=== PATIENT | female | born 1940 | race Caucasian/White ===

== ENCOUNTER 2020-06-13 19:03 | Inpatient (IN) | payer MEDICARE, SELFPAY ==
--- NOTE | 2020-06-13 | ECG_ITS ---
Test Reason : CHEST PAIN Blood Pressure : / mmHG Vent. Rate : 101 BPM Atrial Rate : 101 BPM P-R Int : 142 ms QRS Dur : 076 ms QT Int : 358 ms P-R-T Axes : 066 -62 042 degrees QTc Int : 464 ms Sinus tachycardia Pulmonary disease pattern Left anterior fascicular block Abnormal ECG When compared with ECG of 18-JUN-2005 12:26, Vent. rate has increased BY 41 BPM Left anterior fascicular block is now Present QT has lengthened Referred By: Generic ED Physician Electronically Signed By:ALDAIR DENSON MD
[2020-06-13 19:11] VITALS: BP 138/77; PULSE 100; RESP 18; O2SAT 98; BMI 21.2
[2020-06-13 22:51] VITALS: BP 148/89; PULSE 98; RESP 20; O2SAT 98
[2020-06-14] VITALS (9 sets, daily range): BP systolic 119–158; BP diastolic 58–77; PULSE 77–100; RESP 14–18; TEMP 36.3–37.2; O2SAT 92–98
--- NOTE | 2020-06-14 00:27 | PC.NURSE ---
reports chest pain radiating to back. started 4pm. is pale and frail. awaits ed bed.
--- NOTE | 2020-06-14 01:52 | ED_ITS ---
HPI - Chest Pain General Chief Complaint: Chest Pain Stated Complaint: SOB Time Seen by Provider: 06/14/20 01:43 Source: patient Mode of arrival: ambulatory Limitations: no limitations History of Present Illness HPI narrative: Patient comes to emergency room complaining of back pain and chest pain. Patient states earlier today she had pain ?deep inside? she was not sure if it is her chest or her back. Patient states it has been constant since about 16:00. Patient thinks is mostly him around her shoulder blades. Patient denies any cardiac history or pulmonary history. Patient denies any injury MD complaint: other Related Data Previous Rx's Medication Instructions Recorded levothyroxine 75 mcg tablet 75 mcg PO DAILY 30 Days #30 tab 05/09/20 Allergies Allergy/AdvReac Type Severity Reaction Status Date / Time iodine Allergy Unknown Verified 01/21/18 00:00 Statins Support Allergy Unknown muscule px Uncoded 06/18/16 00:00 statins AdvReac Unknown muscle Uncoded 01/21/18 00:00 pains Review of Systems Review of Systems: Constitutional : No Weight loss, No Fever, No Chills, No Night Sweats, No Fatigue, No Malaise ENT/Mouth : No Hearing loss, No Ear Pain, No Nasal Congestion, No Sinus Pain, No Hoarseness, No sore throat, No Rhinorrhea, No Swallowing Difficulty Eyes: No Eye Pain, No Swelling, No Redness, No Foreign Body, No Discharge, No Vision Changes Cardiovascular : Patient complaining of possible chest pain versus back pain between her scapula, no shortness of breath, no palpitations Respiratory : No Cough, No Sputum, No Wheezing, No Smoke Exposure, No Dyspnea Gastrointestinal : No Nausea, No Vomiting, No Diarrhea, No Constipation, No abdominal Pain, No Hematochezia, No Melena Genitourinary : no irregular bleeding, No Dysuria, No Urinary Frequency, No Hematuria, No Urinary Incontinence, No Urgency, No Flank Pain, No Urinary Flow Changes, No Hesitancy Musculoskeletal : No joint pain, No Myalgias, No Joint Swelling Skin : No Skin Lesions, No rash Neuro : No Weakness, No Numbness, No Paresthesias, No Loss of Consciousness, No Dizziness, No Headache Psych : No Anxiety/Panic, No Depression, No SI/HI/AH/VH, No Social Issues, Heme/Lymph: No Bruising, No Bleeding,No Lymphadenopathy Endocrine : No Polyuria, No Polydipsia, No Temperature Intolerance [facility] Past Medical History Medical History (Updated 06/14/20 @ 06:41 by Tammi Carlos MD) Hypothyroid Social History Social History Advance Directives: No Physical Exam Vital Signs: Vital Signs: Last Vital Signs Temp 97.5 F 06/14/20 00:26 Pulse 100 06/14/20 00:26 Resp 18 06/14/20 00:26 BP 142/69 H 06/14/20 00:26 Pulse Ox 98 06/14/20 00:26 Body Mass Index 21.2 Appearance: Alert. Oriented X3. No acute distress. Eyes: Pupils equal, round and reactive to light. ENT: Pharynx normal. Neck: Normal inspection. Neck supple. No lymph nodes noted. No crepitus CVS: Normal heart rate and rhythm. Pulses normal. Normal S1 and S2, no reproducible chest pain Respiratory: No respiratory distress. Breath sounds normal. No Wheezing. No rales Abdomen: Soft and nontender. No rigidity. No distention. good BS x4 Back: No pain to palpation over the back Skin: Skin warm and dry. Normal skin color. Normal skin turgor. Extremities: No lower extremity edema. No lower extremity edema. No Lacerations. No Rash Neuro: Oriented X 3. No motor deficit. No sensory deficit. Moving all extermities. No slurred speech. Course Course Course Narrative: Patient's D-dimer is elevated, V/Q scan pending. Patient also has elevated creatinine, unclear if this is new or not. Patient continues having back pain, no chest pain at this time. Dry CT shows no obvious dis section. Patient more comfortable. PE protocol cannot be performed due to patient's elevated creatinine. I discussed the patient with our hospitalist, patient being admitted MDM - Chest Pain Lab Data Result diagrams: 06/14/20 02:13 06/14/20 02:13 Labs: Lab Results 06/14/20 06/14/20 06/14/20 Range/Units 02:09 02:13 02:13 WBC 9.7 (4.8-10.8) X10*3/uL RBC 3.54 L (4.20-5.50) X10*6/uL Hgb 10.7 L (12.0-16.0) g/dl Hct 32.5 L (37-47) % MCV 91.8 (80-98) fL MCH 30.2 (27.0-33.0) pg MCHC 32.9 (31.0-35.0) g/dl RDW 13.1 (11.0-16.0) % Plt Count 316 (160-400) X10*3/uL MPV 9.3 L (9.4-12.3) fL Immature Gran % (Auto) 3.9 H (0.0-0.4) % Neut % (Auto) 52.6 (45-73) % Lymph % (Auto) 28.2 (20-40) % [place] % (Auto) 12.4 H (2-11) % Eos % (Auto) 2.1 (0-4) % Baso % (Auto) 0.8 (0-2) % Lymph # (Auto) 2.7 (1.2-4.9) X10*3/uL [place] # (Auto) 1.2 (0.1-1.2) X10*3/uL Eos # (Auto) 0.2 (0.0-0.4) X10*3/uL Baso # (Auto) 0.1 (0.0-0.2) X10*3/uL Abs Immat Gran (auto) 0.38 H (0.00-0.03) X10*3/uL Absolute Neuts (auto) 5.1 (2.0-8.3) X10*3/uL Absolute Nucleated RBC 0.000 (0.0-0.012) X10*3/uL Nucleated RBC % (auto) 0.0 (0.0-0.2) /100WBC D-Dimer NG/ML Sodium 139 (135-145) mmol/L Potassium 4.1 (3.3-5.1) mmol/l Chloride 102 (96-108) mmol/L Carbon Dioxide 22 (22-29) mmol/L Anion Gap 19 (12-20) BUN 75 H (9-16) mg/dL Creatinine 3.64 H (0.5-1.4) mg/dL Estim Creat Clear Calc 10.8 Estimated GFR 12 Random Glucose 165 H (60-115) mg/dL Calcium 8.9 (8.4-10.2) mg/dL Troponin I High Sens (<3.5-17.0) ng/L Urine Color STRAW Urine Appearance CLEAR Urine pH 6.0 (5.0-8.0) Ur Specific [place] 1.010 (1.005-1.025) Urine Protein NEG (NEG-TRACE) MG/DL Urine Glucose (UA) 250 H (NEG) MG/DL Urine Ketones NEG (NEG) MG/DL Urine Blood TRACE (NEG) Urine Nitrite NEG (NEG) Ur Leukocyte Esterase TRACE H (NEG) Urine RBC 0-2 (0) /HPF Urine WBC 15-29 H (0-4) /HPF Ur Squamous Epith Cells 2+ /LPF Urine Bacteria TRACE /LPF 06/14/20 06/14/20 Range/Units 02:13 02:13 WBC (4.8-10.8) X10*3/uL RBC (4.20-5.50) X10*6/uL Hgb (12.0-16.0) g/dl Hct (37-47) % MCV (80-98) fL MCH (27.0-33.0) pg MCHC (31.0-35.0) g/dl RDW (11.0-16.0) % Plt Count (160-400) X10*3/uL MPV (9.4-12.3) fL Immature Gran % (Auto) (0.0-0.4) % Neut % (Auto) (45-73) % Lymph % (Auto) (20-40) % [place] % (Auto) (2-11) % Eos % (Auto) (0-4) % Baso % (Auto) (0-2) % Lymph # (Auto) (1.2-4.9) X10*3/uL [place] # (Auto) (0.1-1.2) X10*3/uL Eos # (Auto) (0.0-0.4) X10*3/uL Baso # (Auto) (0.0-0.2) X10*3/uL Abs Immat Gran (auto) (0.00-0.03) X10*3/uL Absolute Neuts (auto) (2.0-8.3) X10*3/uL Absolute Nucleated RBC (0.0-0.012) X10*3/uL Nucleated RBC % (auto) (0.0-0.2) /100WBC D-Dimer 1186 NG/ML Sodium (135-145) mmol/L Potassium (3.3-5.1) mmol/l Chloride (96-108) mmol/L Carbon Dioxide (22-29) mmol/L Anion Gap (12-20) BUN (9-16) mg/dL Creatinine (0.5-1.4) mg/dL Estim Creat Clear Calc Estimated GFR Random Glucose (60-115) mg/dL Calcium (8.4-10.2) mg/dL Troponin I High Sens 18.6 H (<3.5-17.0) ng/L Urine Color Urine Appearance Urine pH (5.0-8.0) Ur Specific [place] (1.005-1.025) Urine Protein (NEG-TRACE) MG/DL Urine Glucose (UA) (NEG) MG/DL Urine Ketones (NEG) MG/DL Urine Blood (NEG) Urine Nitrite (NEG) Ur Leukocyte Esterase (NEG) Urine RBC (0) /HPF Urine WBC (0-4) /HPF Ur Squamous Epith Cells /LPF Urine Bacteria /LPF Imaging Data Dry chest CT: Radiologist's impression: LUNGS: A cluster of tree-in-bud nodular opacities is noted within the inferior aspect of the right upper lobe near the minor fissure and major fissure. No additional opacities or pulmonary nodules are identified. Central airways are clear. Minimal dependent atelectasis in the lower lobes. No bronchiectasis or interstitial abnormalities. MEDIASTINUM: Calcific atherosclerosis is present in the thoracic aorta. Heart is normal in size. Calcific atherosclerosis is present in the coronary arteries. No mediastinal or hilar adenopathy. There is diffuse wall thickening in the esophagus with a small amount of esophageal fluid, potentially due to esophagitis. PLEURA: There is no pleural effusion. No pleural mass or thickening. AXILLA: No lymphadenopathy. UPPER ABDOMEN: Status post cholecystectomy with clips in the gallbladder fossa. No acute upper abdominal abnormalities. OSSEOUS STRUCTURES: Minimal degenerative disc disease in the midthoracic spine. No acute osseous findings. CT/CT chest wo con IMPRESSION: Mild calcific atherosclerosis in the thoracic aorta without aneurysmal dilatation. Sensitivity for dissection is limited without intravenous contrast. Tree-in-bud nodular opacities within the right lower lobe inferiorly, likely due to an infectious or inflammatory bronchiolitis. Marked diffuse esophageal wall thickening, potentially due to severe esophagitis. Recommend GI consultation for possible endoscopy on a nonemergent basis for further assessment and exclusion of an underlying lesion. ECG Data ECG #1: Attestation: I personally reviewed and interpreted this ECG as follows: (Sinus tachycardia, heart rate 101, no ST segment depressions or elevations, QTC 464) Discharge Plan Discharge Clinical Impression: Acute kidney injury, Elevated troponin, Dyspnea Patient Disposition: Admitted As Inpatient Prescriptions: No Action levothyroxine [Levoxyl] 75 mcg tablet 75 mcg PO DAILY 30 Days Qty: 30 RF: 4
--- NOTE | 2020-06-14 02:17 | PC.NURSE ---
PT TO ED WITH C/O UPPER BACK PAIN WHICH STARTED AROUND 1600 TODAY. PT CHG INTO GOWN AND MD AT BEDSIDE WITH PT.
[2020-06-14 02:19] LABS: MANUAL DIFF FLAG NO
[2020-06-14 02:20] LABS: Basophils Absolute Auto 0.1 X10*3/uL (0.0-0.2); Basophils Percent Auto 0.8 % (0-2); Eosinophils Absolute Auto 0.2 X10*3/uL (0.0-0.4); Eosinophils Percent Auto 2.1 % (0-4); Hematocrit 32.5 % (37-47); Hemoglobin 10.7 g/dl (12.0-16.0); Imm Gran Abs Auto 0.38 X10*3/uL (0.00-0.03); Imm Gran Pct Auto 3.9 % (0.0-0.4); Lymphocytes Absolute Auto 2.7 X10*3/uL (1.2-4.9); Lymphocytes Percent Auto 28.2 % (20-40); Mean Corpuscular HGB Conc 32.9 g/dl (31.0-35.0); Mean Corpuscular Hemoglobin 30.2 pg (27.0-33.0); Mean Corpuscular Volume 91.8 fL (80-98); Mean Platelet Volume 9.3 fL (9.4-12.3); Monocytes Absolute Auto 1.2 X10*3/uL (0.1-1.2); Monocytes Percent Auto 12.4 % (2-11); Neutrophils Absolute Auto 5.1 X10*3/uL (2.0-8.3); Neutrophils Percent Auto 52.6 % (45-73); Platelet Count 316 X10*3/uL (160-400); Red Blood Count 3.54 X10*6/uL (4.20-5.50); Red Cell Distribution Width 13.1 % (11.0-16.0); White Blood Count 9.7 X10*3/uL (4.8-10.8)
[2020-06-14] MEDS: methylPREDNISolone Sod Succ/PF 125 MG/2 ML VIAL IVPUSH (02:32)
[2020-06-14] MEDS: diphenhydrAMINE HCL 50 MG/ML VIAL IVPUSH (02:32)
[2020-06-14] MEDS: Famotidine/PF 20 MG/2 ML VIAL IVPUSH (02:33)
[2020-06-14] MEDS: 0.9 % Sodium Chloride 1,000 ML 999 ML IVCONT ×2 (02:33→03:30)
[2020-06-14 02:36] LABS: Glucose Urine UA 250 MG/DL (NEG); Leukocyte Esterase Urine TRACE (NEG); Nitrite Urine NEG (NEG); Urine Blood TRACE (NEG); Urine Ketones NEG (NEG); Urine Protein NEG (NEG-TRACE)
[2020-06-14 02:42] LABS: Anion Gap 19 (12-20); Blood Urea Nitrogen 75 mg/dL (9-16); Calcium 8.9 mg/dL (8.4-10.2); Carbon Dioxide 22 mmol/L (22-29); Chloride 102 mmol/L (96-108); Creatinine Clr Calc Pharmacy 10.8; Estimated Glomerular Filt Rate 12; Glucose Random 165 mg/dL (60-115); Potassium 4.1 mmol/l (3.3-5.1); Sodium 139 mmol/L (135-145)
[2020-06-14 02:45] LABS: Appearance Urine CLEAR; Color Urine STRAW
[2020-06-14 02:46] LABS: D Dimer 1186 NG/ML
[2020-06-14 02:50] LABS: Troponin-I High Sensitivity 18.6 ng/L (<3.5-17.0)
--- NOTE | 2020-06-14 02:59 | CT_ITS ---
EXAMINATION: CT CHEST WITHOUT CONTRAST CLINICAL INFORMATION: r/o dissection (IV contrast pending pre medication) COMPARISON: None TECHNIQUE: Multidetector volumetric CT imaging of the chest was done. Axial MIP volume rendering provided. Sagittal and coronal reformatted images were obtained. This CT examination was performed using dose optimization techniques as appropriate, variously including the following: *Automated exposure control *Adjustment of mA and/or kV according to patient size (this includes techniques or standardized protocols for targeted exams where dose is matched to indication/reason for exam; i.e. extremities or head) *Use of iterative reconstruction technique DLP: 205 mGy-cm FINDINGS: TRAILER STEERER: Clear lungs. LUNGS: A cluster of tree-in-bud nodular opacities is noted within the inferior aspect of the right upper lobe near the minor fissure and major fissure. No additional opacities or pulmonary nodules are identified. Central airways are clear. Minimal dependent atelectasis in the lower lobes. No bronchiectasis or interstitial abnormalities. MEDIASTINUM: Calcific atherosclerosis is present in the thoracic aorta. Heart is normal in size. Calcific atherosclerosis is present in the coronary arteries. No mediastinal or hilar adenopathy. There is diffuse wall thickening in the esophagus with a small amount of esophageal fluid, potentially due to esophagitis. PLEURA: There is no pleural effusion. No pleural mass or thickening. AXILLA: No lymphadenopathy. UPPER ABDOMEN: Status post cholecystectomy with clips in the gallbladder fossa. No acute upper abdominal abnormalities. OSSEOUS STRUCTURES: Minimal degenerative disc disease in the midthoracic spine. No acute osseous findings. CT/CT chest wo con IMPRESSION: Mild calcific atherosclerosis in the thoracic aorta without aneurysmal dilatation. Sensitivity for dissection is limited without intravenous contrast. Tree-in-bud nodular opacities within the right lower lobe inferiorly, likely due to an infectious or inflammatory bronchiolitis. Marked diffuse esophageal wall thickening, potentially due to severe esophagitis. Recommend GI consultation for possible endoscopy on a nonemergent basis for further assessment and exclusion of an underlying lesion.
--- NOTE | 2020-06-14 03:02 | NM_ITS ---
EXAMINATION: PULMONARY PERFUSION STUDY CLINICAL INFORMATION: Dyspnea, increased troponin. COMPARISON: No previous lung scan or recent radiographs are available for comparison. The diagnostic CT scan of chest dated 06/14/2020, the same date as this lung scan, the same date as this bone scan, is available for comparison. TECHNIQUE: Following the intravenous injection of 4.0 mCi Tc-99m MAA, an 8-view perfusion study was performed using a gamma scintillation camera. FINDINGS: No segmental perfusion defects are present. There is homogeneous distribution of activity bilaterally. There are no focal anatomic appearing perfusion defects present. The cardiac silhouette is prominent, but this corresponds to significant pericardial fat lateral to the left ventricular apex on the contemporaneous CT scan. NM/NM pul perfusion IMPRESSION: Normal radionuclide lung perfusion scan.
--- NOTE | 2020-06-14 03:05 | PC.NURSE ---
IV PLACED, LABS DRAWN TO LAB FOR EVAL. PT TO CT IN STRETCHER W/O DIFFICULTY. PT MEDICATED PER EMAR.
[2020-06-14 03:18] LABS: Bacteria Urine TRACE /LPF; RBC Urine 0-2 /HPF (0); Squamous Epithelial Cell Urine 2+ /LPF
[2020-06-14] MEDS: traMADoL HCL 50 MG TABLET PO (03:30)
--- NOTE | 2020-06-14 05:30 | PC.NURSE ---
PT RESTING IN STRETCHER IN NAD. WILL CONTINUE TO MONITOR PT.
--- NOTE | 2020-06-14 06:15 | SUR.OPER ---
PT RESTING IN NAD WILL CONTINUE TO MONITOR PT.
[2020-06-14 07:00] LABS: Basophils Absolute Auto 0.1 X10*3/uL (0.0-0.2); Basophils Percent Auto 0.7 % (0-2); Eosinophils Percent Auto 0.1 % (0-4); Hematocrit 30.6 % (37-47); Hemoglobin 10.1 g/dl (12.0-16.0); Imm Gran Abs Auto 0.32 X10*3/uL (0.00-0.03); Imm Gran Pct Auto 4.7 % (0.0-0.4); Lymphocytes Absolute Auto 0.6 X10*3/uL (1.2-4.9); Lymphocytes Percent Auto 9.4 % (20-40); MANUAL DIFF FLAG SCAN; Mean Corpuscular Hemoglobin 30.4 pg (27.0-33.0); Mean Corpuscular Volume 92.2 fL (80-98); Mean Platelet Volume 9.1 fL (9.4-12.3); Monocytes Absolute Auto 0.2 X10*3/uL (0.1-1.2); Monocytes Percent Auto 3.2 % (2-11); Neutrophils Absolute Auto 5.6 X10*3/uL (2.0-8.3); Neutrophils Percent Auto 81.9 % (45-73); Platelet Count 249 X10*3/uL (160-400); Red Blood Count 3.32 X10*6/uL (4.20-5.50); Red Cell Distribution Width 12.9 % (11.0-16.0); SCAN SMEAR FLAG 1; White Blood Count 6.8 X10*3/uL (4.8-10.8)
[2020-06-14 07:23] LABS: Troponin-I High Sensitivity 16.8 ng/L (<3.5-17.0)
[2020-06-14 07:43] LABS: SLIDE REVIEW VERIFIED
--- NOTE | 2020-06-14 11:13 | P.HPHOSP_ITS ---
History of Present Illness Date of Service: 06/14/20 Chief Complaint: Back pain 79 year old female with PMH of hypothyroidism and CKD 3, last Creatinine in 2018 was 2.8. She presented to ED with acute onset of back pain that is rather vague in the middle of the back. She also reported some chest pain and again without specificification. At the time I saw her she was not reporting any further chest pain and said the back pain was much better. She had a CT without evidence of aneurysm but showed some tree in buds finding that could represent infection. She also had VQ scan that has shown low probability PE. She has no shortness of breath, no fever , no loss of taste or smell. Covid test is pending. Of note, she was also noted to be in acute renal failure with a creatinine of 3.32. Her last creatinine known was from July 2017 and he was 2.84. Cardiac troponin was 18 and had repeated it was 16.8. EKG showed pulmonary disease pattern but no acute finding. UA is positive. Review of Systems Constitutional: Constitutional: Denies body ache(s), Denies chills and Denies fever(s) Cardiovascular: Cardiovascular: Denies chest pain Respiratory: Respiratory: Denies cough and Denies pain on inspiration Genitourinary: Genitourinary: Denies difficulty voiding [facility] Medical History Hypothyroid Stage 3 acute kidney injury Functional capacity: uses cane/walker Patient : No Pertinent family history: Not available Social History (Updated 06/14/20 @ 11:18 by Chuckie Chawla MD) Alcohol intake: never Smoking Status: Never smoker Use of substances other than those prescribed or required for medical reasons: No Advance Directives: No service: No Current occupational status: retired Meds Allergies Allergy/AdvReac Type Severity Reaction Status Date / Time iodine Allergy Unknown Verified 01/21/18 00:00 Statins Support Allergy Unknown muscule px Uncoded 06/18/16 00:00 statins AdvReac Unknown muscle Uncoded 01/21/18 00:00 pains Physical Exam Vital Signs and Narrative: Vital Signs: Last Vital Signs Temp 97.5 F 06/14/20 00:26 Pulse 98 06/14/20 08:31 Resp 18 06/14/20 08:31 BP 158/77 H 06/14/20 08:31 Pulse Ox 97 06/14/20 08:31 Body Mass Index 21.2 Const: General: cooperative, healthy appearing and no acute distress Orientation/consciousness: patient oriented x3 HENMT: Head: Yes normal to inspection and Yes normocephalic Eyes: Sclerae: sclerae normal Neck: Yes supple Resp: Effort & Inspection: normal respiratory effort and able to speak in complete sentences Auscultation: clear to auscultation bilaterally Cardio: Jugular venous distension: no JVD Rhythm: regular rhythm Heart sounds: S1 normal heart sound present and S2 normal heart sound present GI: Inspection: Yes normal to inspection Percussion: Yes normal to percussion : General: Yes no CVA tenderness Back/Spine/Pelvis: Back: no CVA tenderness Cervical Spine: normal cervical lordosis Skin: General skin exam: no rashes or lesions noted Neuro: General: patient oriented x3 Motor exam (neuro): Normal motor muscle tone present throughout Extrem: General: Yes normal to inspection Psych: Appearance: grossly normal Results Labs CBC and Chem 7: 06/14/20 06:47 06/14/20 02:13 Labs: Laboratory Results - last 24 hr 06/14/20 06/14/20 06/14/20 02:09 02:13 02:13 MCV 91.8 MCH 30.2 MCHC 32.9 RDW 13.1 Plt Count 316 MPV 9.3 L Immature Gran % (Auto) 3.9 H Neut % (Auto) 52.6 Lymph % (Auto) 28.2 [place] % (Auto) 12.4 H Eos % (Auto) 2.1 Baso % (Auto) 0.8 Lymph # (Auto) 2.7 [place] # (Auto) 1.2 Eos # (Auto) 0.2 Baso # (Auto) 0.1 Abs Immat Gran (auto) 0.38 H Absolute Neuts (auto) 5.1 Absolute Nucleated RBC 0.000 Nucleated RBC % (auto) 0.0 Smear Tech's Comments D-Dimer Anion Gap 19 Estim Creat Clear Calc 10.8 Estimated GFR 12 Random Glucose 165 H Calcium 8.9 Troponin I High Sens Urine Color STRAW Urine Appearance CLEAR Urine pH 6.0 Ur Specific [place] 1.010 Urine Protein NEG Urine Glucose (UA) 250 H Urine Ketones NEG Urine Blood TRACE Urine Nitrite NEG Ur Leukocyte Esterase TRACE H Urine RBC 0-2 Urine WBC 15-29 H Ur Squamous Epith Cells 2+ Urine Bacteria TRACE 06/14/20 06/14/20 06/14/20 02:13 02:13 06:47 MCV MCH MCHC RDW Plt Count MPV Immature Gran % (Auto) Neut % (Auto) Lymph % (Auto) [place] % (Auto) Eos % (Auto) Baso % (Auto) Lymph # (Auto) [place] # (Auto) Eos # (Auto) Baso # (Auto) Abs Immat Gran (auto) Absolute Neuts (auto) Absolute Nucleated RBC Nucleated RBC % (auto) Smear Tech's Comments D-Dimer 1186 Anion Gap Estim Creat Clear Calc Estimated GFR Random Glucose Calcium Troponin I High Sens 18.6 H 16.8 Urine Color Urine Appearance Urine pH Ur Specific [place] Urine Protein Urine Glucose (UA) Urine Ketones Urine Blood Urine Nitrite Ur Leukocyte Esterase Urine RBC Urine WBC Ur Squamous Epith Cells Urine Bacteria 06/14/20 06:47 MCV 92.2 MCH 30.4 MCHC 33.0 RDW 12.9 Plt Count 249 MPV 9.1 L Immature Gran % (Auto) 4.7 H Neut % (Auto) 81.9 H Lymph % (Auto) 9.4 L [place] % (Auto) 3.2 Eos % (Auto) 0.1 Baso % (Auto) 0.7 Lymph # (Auto) 0.6 L [place] # (Auto) 0.2 Eos # (Auto) 0.0 Baso # (Auto) 0.1 Abs Immat Gran (auto) 0.32 H Absolute Neuts (auto) 5.6 Absolute Nucleated RBC 0.000 Nucleated RBC % (auto) 0.0 Smear Tech's Comments VERIFIED D-Dimer Anion Gap Estim Creat Clear Calc Estimated GFR Random Glucose Calcium Troponin I High Sens Urine Color Urine Appearance Urine pH Ur Specific [place] Urine Protein Urine Glucose (UA) Urine Ketones Urine Blood Urine Nitrite Ur Leukocyte Esterase Urine RBC Urine WBC Ur Squamous Epith Cells Urine Bacteria Imaging Radiologist's Impressions: Impressions Chest CT 06/14/20 02:59 IMPRESSION: Mild calcific atherosclerosis in the thoracic aorta without aneurysmal dilatation. Sensitivity for dissection is limited without intravenous contrast. Tree-in-bud nodular opacities within the right lower lobe inferiorly, likely due to an infectious or inflammatory bronchiolitis. Marked diffuse esophageal wall thickening, potentially due to severe esophagitis. Recommend GI consultation for possible endoscopy on a nonemergent basis for further assessment and exclusion of an underlying lesion. Pulmonary Perfusion Imaging 06/14/20 03:02 IMPRESSION: Normal radionuclide lung perfusion scan. Assessment and Plan (1) Acute kidney injury: Status: Acute (2) Stage 3 acute kidney injury: Problem details: Last Creatinin in 2018 was 2.8 Status: Acute (3) Elevated troponin: Status: Acute (4) Pneumonia: Qualifiers: Laterality: right Lung location: lower lobe of lung Pneumonia type: due to unspecified organism Qualified Code(s): J18.9 - Pneumonia, unspecified organism Status: Acute (5) UTI (urinary tract infection): Status: Acute 79 year old female with hypothyroidism, CKD 3 who presented with some back pain and chest pain and noted to have ABHISHEK on CKD, cardiac work up negativ 1. Chest pain/back pain--cardiac work up negative with unremarkable troponin I. Pain resolved. No further work up at this time 2. Back unlcear etiology but seems to have resolved, consider Xray of back to rule facture 3. ABHISHEK on CKD--hydrated, repeat labs in the morning. 4. Hypothyroidism, continue Levothyroxine 5. DVT Prophylaxis: Heparin
[2020-06-14] MEDS: cefTRIAXone sodium 1 GM in 0.9 % Sodium Chloride 50 ML IV (11:14)
[2020-06-14] MEDS: 0.9 % Sodium Chloride 1,000 ML 125 ML IVCONT ×2 (11:21→21:59)
[2020-06-14] MEDS: Heparin Sodium,Porcine 5,000 UNIT/ML VIAL 5000 UNIT SUBCUT ×2 (11:31→21:58)
[2020-06-14] MEDS: Magnesium Hydrox/Alum Hydrox 30 ML ORAL.SUSP PO (11:32)
--- NOTE | 2020-06-14 11:33 | PC.NURSE ---
SUDDEN ONSET OF EPIGASTRIC PAIN, MD INFORMED, MAALOX GIVEN, SR ON MONITOR,
[2020-06-14 11:36] LABS: COVID-19 Test Negative (Negative); IDNOW Serial# 9DD0AD1C
[2020-06-14] MEDS: Azithromycin 500 MG in 0.9 % Sodium Chloride 250 ML 125 MG IV (12:40)
--- NOTE | 2020-06-14 16:45 | MHC.CM.PN ---
Met with patient in regards to discharge planning. Patient lives alone, ambulates with a cane and is active with [facility]. She receives meals on wheels from [facility] and a homemaker through [facility] [employer]. Patient is denying the need for additional services at this time. PCP verified as Dr Li. HCP completed, signed and witnessed. Original given to patient. Copy placed in chart. IMM explained and signed. Patient's son will transport her home when medically stable. Continue to monitor for d/c needs.
--- NOTE | 2020-06-14 16:58 | PC.NURSE ---
called floor to give report, will call back
[2020-06-15] VITALS (7 sets, daily range): BP systolic 129–153; BP diastolic 60–70; PULSE 62–94; RESP 16–18; TEMP 36.4–37.2; O2SAT 93–99
[2020-06-15] MEDS: 0.9 % Sodium Chloride 1,000 ML 125 ML IVCONT ×2 (05:24→14:09)
[2020-06-15 06:35] LABS: Anion Gap 13 (12-20); Blood Urea Nitrogen 66 mg/dL (9-16); Calcium 7.8 mg/dL (8.4-10.2); Carbon Dioxide 21 mmol/L (22-29); Chloride 113 mmol/L (96-108); Creatinine Clr Calc Pharmacy 12.6; Estimated Glomerular Filt Rate 14; Glucose Random 147 mg/dL (60-115); Potassium 4.3 mmol/l (3.3-5.1); Sodium 143 mmol/L (135-145)
[2020-06-15] MEDS: Levothyroxine Sodium 75 MCG TABLET PO (08:58)
[2020-06-15 09:09] LABS: Anion Gap 12 (12-20); Blood Urea Nitrogen 64 mg/dL (9-16); Carbon Dioxide 21 mmol/L (22-29); Chloride 115 mmol/L (96-108); Creatinine Clr Calc Pharmacy 12.5; Estimated Glomerular Filt Rate 14; Glucose Random 140 mg/dL (60-115); Potassium 4.2 mmol/l (3.3-5.1); Sodium 144 mmol/L (135-145)
[2020-06-15] MEDS: Acetaminophen 325 MG TABLET 650 MG PO (11:04)
[2020-06-15] MEDS: Heparin Sodium,Porcine 5,000 UNIT/ML VIAL 5000 UNIT SUBCUT ×2 (11:04→22:44)
[2020-06-15] MEDS: Famotidine/PF 20 MG/2 ML VIAL IVPUSH (11:30)
--- NOTE | 2020-06-15 16:11 | P.PNIM_ITS ---
Subjective Subjective Date of Service: 06/15/20 Interval History: uti, ? ckd Review of Systems Patient says she has throat pain and also having difficulty swallowing. She says the pain gets more when she eat anything in even with some deep b reathing. Denies any chest pain or shortness of breath or abdominal pain or fever or chills Physical Exam Vital Signs: Vital Signs: Last Vital Signs Temp 98.5 F 06/15/20 15:47 Pulse 81 06/15/20 15:47 Resp 18 06/15/20 15:47 BP 131/60 06/15/20 15:47 Pulse Ox 97 06/15/20 15:47 Body Mass Index 21.2 Physical exam: Constitutional: Not in acute distress Cvs: rrr, [id number] , no murmur res: clear to auscultation ,no rhonchii or wheezing abd: no rebound or guarding ,nt, bs present. ext pulses present , no cyanosis neuro: axo3 , nonfocal. Objective Data Current Medications Generic Name Dose Route Start Last Admin Trade Name Thompson PRN Reason Stop Dose Admin Acetaminophen 650 mg 06/14/20 11:11 06/15/20 11:04 Acetaminophen 325 Mg Tablet PO 650 mg Q6H PRN Administration Pain, Mild (Pain Scale 1-3) Benzocaine 1 lozenge 06/15/20 16:08 Throat Lozenge, Medicated Lozenge MUCOUS MEM Q2H PRN Sore Throat Famotidine 20 mg 06/15/20 11:15 06/15/20 11:30 Famotidine/Pf 20 Mg/2 Ml Vial IVPUSH 20 mg DAILY GORDO Administration Heparin Sodium (Porcine) 5,000 unit 06/14/20 11:15 06/15/20 11:04 Heparin Sodium,Porcine 5,000 Unit/Ml Vial SUBCUT 5,000 unit Q12H GORDO Administration Sodium Chloride 1,000 mls @ 125 mls/hr 06/14/20 10:15 06/15/20 14:09 Ns IVCONT 125 mls/hr .Q8H GORDO Administration Levothyroxine Sodium 75 mcg 06/15/20 09:00 06/15/20 08:58 Levothyroxine Sodium 75 Mcg Tablet PO 75 mcg DAILY@0600 GORDO Administration Lidocaine/Diphenhydr/Alum/Mg/Simeth 10 ml 06/15/20 16:08 Mag&Al/Sim/Diphenhyd/Lidocaine 10 Ml Oral.Susp PO Q6H PRN throat pain Protocol Pharmacy Consult 1 each 06/14/20 15:18 Consult Rx Perform Med Rec MISCELLANE ONCE PRN Consult order Sodium Chloride 3 ml 06/14/20 16:00 06/15/20 15:32 0.9 % Sodium Chloride Flush 3 Ml Syringe IVFLUSH Not Given QSHIFT GORDO Labs CBC & Chem 7: 06/14/20 06:47 06/15/20 08:05 Microbiology Microbiology Results: Microbiology 06/14/20 11:15 Blood - Venous Blood Culture - Preliminary No growth after 24 hours. 06/14/20 11:14 Blood - Venous Blood Culture - Preliminary No growth after 24 hours. 06/14/20 Unknown Urine clean catch - Clean Catch Midstream Urine Culture - Final No growth. Assessment and Plan (1) UTI (urinary tract infection): Status: Acute (2) Stage 3 acute kidney injury: Problem details: Last Creatinin in 2018 was 2.8 Status: Acute Assessment and Plan: 79 year old female with hypothyroidism, CKD 3 who presented with some back pain and chest pain and noted to have ABHISHEK on CKD, cardiac work up negativ 1. Chest pain/back pain-- denies any pain trops flat further cardiac work up outpatiently. 2. Back unlcear etiology but seems to have resolved. 3. ABHISHEK on CKD--hydrated, repeat labs in the morning. creatinine improving to 3.1 4. Hypothyroidism, continue Levothyroxine. 5. Odynophagia :? throat pain -will check for strep cepatstat, magic mouth wash. 5. DVT Prophylaxis: Heparin
[2020-06-15] MEDS: Lactated Ringers 1,000 ML 80 ML IVCONT (16:53)
[2020-06-15] MEDS: Mag&Al/Sim/Diphenhyd/Lidocaine 10 ML ORAL.SUSP PO (16:54)
[2020-06-16 04:00] VITALS: BP 139/63; PULSE 68; RESP 16; TEMP 36.4; O2SAT 96
[2020-06-16] MEDS: Lactated Ringers 1,000 ML 80 ML IVCONT ×2 (04:00→15:18)
[2020-06-16] MEDS: Levothyroxine Sodium 75 MCG TABLET PO (06:05)
[2020-06-16 07:08] LABS: Anion Gap 13 (12-20); Blood Urea Nitrogen 49 mg/dL (9-16); Calcium 7.9 mg/dL (8.4-10.2); Carbon Dioxide 19 mmol/L (22-29); Chloride 116 mmol/L (96-108); Creatinine Clr Calc Pharmacy 14.3; Estimated Glomerular Filt Rate 17; Glucose Random 132 mg/dL (60-115); Potassium 4.4 mmol/l (3.3-5.1); Sodium 144 mmol/L (135-145)
[2020-06-16 07:39] VITALS: BP 119/57; PULSE 64; RESP 18; TEMP 36.6; O2SAT 96
[2020-06-16] MEDS: Famotidine/PF 20 MG/2 ML VIAL IVPUSH (08:30)
[2020-06-16 09:05] VITALS: BP 119/57; PULSE 64; O2SAT 96
--- NOTE | 2020-06-16 10:01 | P.CONNP_ITS ---
History of Present Illness Reason for Consult Consult date: 06/16/20 Reason for consult: ABHISHEK CKD Chief Complaint Chief complaint: ABHISHEK, bronchitis History of Present Illness Narrative: 79 y/o wF adm with chest/back pain and noted ABHISHEK on CKD. Overall doing better and SCr decr close to bsl. H/O CKD goes back over 10 years and I saw her in office 2009 and here SCr then was 1.8 Etiol of CKD back then was presumed HTN givne neg sero w/u. Overall doing better and w/u for pain unrevealing and has subsided and now get ting d/c today. Review of Systems Review of Systems Patient says she has throat pain and also having difficulty swallowing. She says the pain gets more when she eat anything in even with some deep breathing. Denies any chest pain or shortness of breath or abdominal pain or fever or chills PMFSH Past Medical History Medical History Hypothyroid Stage 3 acute kidney injury Functional capacity: uses cane/walker Family History Pertinent family history: Not available Social History Social History (Updated 06/14/20 @ 11:18 by Chuckie Chawla MD) Household Members: None Housing: Apartment Do you presently have visiting nurse or other home services: No Alcohol intake: never Smoking Status: Never smoker Use of substances other than those prescribed or required for medical reasons: No Currently Displaying Signs/Symptoms of Drug Intoxication Withdrawal: No Have you been hit, kicked, punched, or otherwise hurt by someone within the past year? If so, by whom?: No Do you feel safe in your current relationship?: Yes Is there a partner from a previous relationship who is making you feel unsafe now?: No Are you made to feel afraid or neglected: No Advance Directives: No Do you have thoughts of harming others: None Do you have a plan to hurt others: No Plan Recently lost weight without trying: Unsure service: No Current occupational status: retired Meds Allergies Allergy/AdvReac Type Severity Reaction Status Date / Time iodine Allergy Unknown Verified 01/21/18 00:00 Statins Support Allergy Unknown muscule px Uncoded 06/18/16 00:00 statins AdvReac Unknown muscle Uncoded 01/21/18 00:00 pains Physical Exam Vital Signs: Last Vital Signs Temp 98 F 06/16/20 07:39 Pulse 64 06/16/20 09:05 Resp 18 06/16/20 07:39 BP 119/57 L 06/16/20 09:05 Pulse Ox 96 06/16/20 09:05 Body Mass Index 21.2 Const General: cooperative, healthy appearing and no acute distress Orientation/consciousness: patient oriented x3 HENMT Head: Yes normal to inspection and Yes normocephalic Eyes Sclerae: sclerae normal Neck Neck: Yes supple Resp Effort & Inspection: normal respiratory effort and able to speak in complete sentences Auscultation: clear to auscultation bilaterally Cardio Jugular venous distension: no JVD Rhythm: regular rhythm Heart sounds: S1 normal heart sound present and S2 normal heart sound present GI Inspection: Yes normal to inspection Percussion: Yes normal to percussion General: Yes no CVA tenderness Back/Spine/Pelvis Back: no CVA tenderness Cervical Spine: normal cervical lordosis Skin General skin exam: no rashes or lesions noted Neuro General: patient oriented x3 Motor exam (neuro): Normal motor muscle tone present throughout Extrem General: Yes normal to inspection Psych Appearance: grossly normal Results Lab Results Result Diagrams: 06/14/20 06:47 06/16/20 06:12 Lab results: Chemistry 06/14/20 06/15/20 06/15/20 02:13 05:27 08:05 Sodium 139 143 144 Potassium 4.1 4.3 4.2 Carbon Dioxide 22 21 L 21 L BUN 75 H 66 H 64 H Creatinine 3.64 H 3.13 H 3.14 H Calcium 8.9 7.8 L D 8.0 L 06/16/20 06:12 Sodium 144 Potassium 4.4 Carbon Dioxide 19 L BUN 49 H Creatinine 2.75 H Calcium 7.9 L Hematology 06/14/20 06/14/20 02:13 06:47 WBC 9.7 6.8 Hgb 10.7 L 10.1 L Plt Count 316 249 Urinalysis 06/14/20 02:09 Urine Color STRAW Urine Appearance CLEAR Urine pH 6.0 Ur Specific [place] 1.010 Urine Protein NEG Urine Glucose (UA) 250 H Urine Ketones NEG Urine Blood TRACE Urine Nitrite NEG Ur Leukocyte Esterase TRACE H Urine RBC 0-2 Urine WBC 15-29 H Ur Squamous Epith Cells 2+ Assessment and Plan (1) UTI (urinary tract infection): Status: Acute (2) Stage 3 acute kidney injury: Problem details: Last Creatinin in 2018 was 2.8 Status: Acute 79 year old female with hypothyroidism, ABHISHEK on CKD 4 who presented with some back pain and chest pain 1. ABHISHEK: resollved with IVF 2. CKD 4: bsl Scr 2.8; most likely HTN and/or age related loss of renal func 3. ABD/back pain 4. Anemia 5. MBD of CKD REC: I will arrange f/u as outpt re CKD; avoid NSAIDs
[2020-06-16 11:15] VITALS: BP 139/60; PULSE 72; RESP 18; TEMP 36.8; O2SAT 98
[2020-06-16] MEDS: Heparin Sodium,Porcine 5,000 UNIT/ML VIAL 5000 UNIT SUBCUT ×2 (12:01→23:59)
--- NOTE | 2020-06-16 15:43 | HO.PM.IMPN ---
Subjective Subjective Date of Service: 06/16/20 Interval History: odynopahgia -?, denies any chest pain or sob. Denies any abdominal pain or fever or chills or diarrhea. Physical Exam Vital Signs: Vital Signs: Last Vital Signs Temp 98.2 F 06/16/20 11:15 Pulse 72 06/16/20 11:15 Resp 18 06/16/20 11:15 BP 139/60 06/16/20 11:15 Pulse Ox 98 06/16/20 11:15 Body Mass Index 21.2 Physical exam: Constitutional: Not in acute distress Cvs: rrr, [id number] , no murmur res: clear to auscultation ,no rhonchii or wheezing abd: no rebound or guarding ,nt, bs present. Denies any back pain ext pulses present , no cyanosis neuro: axo3 , nonfocal. Objective Data Current Medications Generic Name Dose Route Start Last Admin Trade Name Freq PRN Reason Stop Dose Admin Acetaminophen 650 mg 06/14/20 11:11 06/15/20 11:04 Acetaminophen 325 Mg Tablet PO 650 mg Q6H PRN Administration Pain, Mild (Pain Scale 1-3) Benzocaine 1 lozenge 06/15/20 16:08 Throat Lozenge, Medicated Lozenge MUCOUS MEM Q2H PRN Sore Throat Famotidine 20 mg 06/15/20 11:15 06/16/20 08:30 Famotidine/Pf 20 Mg/2 Ml Vial IVPUSH 20 mg DAILY GORDO Administration Heparin Sodium (Porcine) 5,000 unit 06/14/20 11:15 06/16/20 12:01 Heparin Sodium,Porcine 5,000 Unit/Ml Vial SUBCUT 5,000 unit Q12H GORDO Administration Lactated Ringer's 1,000 mls @ 80 mls/hr 06/15/20 16:30 06/16/20 15:18 Lr IVCONT 80 mls/hr .[id number] GORDO Administration Levothyroxine Sodium 75 mcg 06/15/20 09:00 06/16/20 06:05 Levothyroxine Sodium 75 Mcg Tablet PO 75 mcg DAILY@0600 GORDO Administration Lidocaine/Diphenhydr/Alum/Mg/Simeth 10 ml 06/15/20 16:08 06/15/20 16:54 Mag&Al/Sim/Diphenhyd/Lidocaine 10 Ml Oral.Susp PO 10 ml Q6H PRN Administration throat pain Protocol Pharmacy Consult 1 each 06/14/20 15:18 Consult Rx Perform Med Rec MISCELLANE ONCE PRN Consult order Sodium Chloride 3 ml 06/14/20 16:00 06/16/20 15:17 0.9 % Sodium Chloride Flush 3 Ml Syringe IVFLUSH Not Given QSHIFT GORDO Labs CBC & Chem 7: 06/14/20 06:47 06/16/20 06:12 Microbiology Microbiology Results: Microbiology 06/14/20 11:15 Blood - Venous Blood Culture - Preliminary No growth after 48 hours. 06/14/20 11:14 Blood - Venous Blood Culture - Preliminary No growth after 48 hours. 06/14/20 Unknown Urine clean catch - Clean Catch Midstream Urine Culture - Final No growth. Assessment and Plan (1) UTI (urinary tract infection): Status: Acute (2) Stage 3 acute kidney injury: Problem details: Last Creatinin in 2018 was 2.8 Status: Acute Assessment and Plan: 79 year old female with hypothyroidism, CKD 3 who presented with some back pain and chest pain and noted to have ABHISHEK on CKD, cardiac work up negativ 1. Chest pain/back pain-- denies any pain trops flat further cardiac work up outpatiently. 2. Back unlcear etiology but seems to have resolved. 3. ABHISHEK on CKD--hydrated, repeat labs in the morning. creatinine improving to 3.1 4. Hypothyroidism, continue Levothyroxine. 5. Odynophagia :? throat pain -will check for strep cepatstat, magic mouth wash. ? bronchitis : will started ceftriaxone/azithrmycin also has diffuse esophagitis:continue famotidine 5. DVT Prophylaxis: Heparin
[2020-06-16 16:00] VITALS: BP 145/77; PULSE 72; RESP 18; TEMP 36.8; O2SAT 98
--- NOTE | 2020-06-16 17:54 | PM.EVENT ---
Event Note Date of Service: 06/16/20 Event Note: GI Consult-Full note dictated--Hx via patient, son, and EMR. Imp: 79 yo female with several months of odynophagia to solid food. She denies dysphagia, anorexia, weight loss, N/V, nor abdominal pain She denies any symptoms with liquids. Diff dx: Esophagitis/Esophageal ulcer/Neoplasm. Doubt infectious esophagitis. Rec: Upper endoscopy with MAC on Friday, 06/19, if she is still here. If she is discharged I will plan to arrange for an outpatient procedure. Change to po PPI. Full consent obtained from the patient and her son, Michael Green([phone]), including risks of bleeding and perforation. They were comfortable with this plan. Thanks
[2020-06-16] MEDS: Azithromycin 250 MG TABLET PO (18:17)
[2020-06-16] MEDS: Omeprazole 20 MG CAPSULE.DR PO (18:17)
[2020-06-16] MEDS: cefTRIAXone sodium 1 GM in 0.9 % Sodium Chloride 50 ML IV (18:17)
--- NOTE | 2020-06-16 18:57 | CONS_ITS ---
DATE OF SERVICE: 06/16/2020 REFERRING PHYSICIAN: Bertha Angeles MD REQUESTING PHYSICIAN: Bertha Angeles MD REASON FOR CONSULTATION: Odynophagia. HISTORY OF PRESENT ILLNESS: This has been obtained from the patient, her son, and the medical record. The patient is a 79-year-old female who was admitted here on June 14 for evaluation of some shortness of breath and back discomfort. She is presently being treated for possible pneumonia with IV antibiotics. Since admission here, she did report a several month history of odynophagia and which she will have pain any time she tries to eat anything solid. She describes the pain as being in the lower sternal area with every swallow of any type of solid foods such as bread or rice. She denies any difficulties with liquids. She denies any actual dysphagia, anorexia, nausea, nor vomiting. She reports that she has not lost any weight. The patient denies any history of heartburn. Up until the past several months, she was not having any particular GI complaints. She reports that her bowel movements have been chronically constipated, but without any hematochezia nor melena. She denies any abdominal pain, jaundice, nor weight loss. The patient was not on any acid suppression medication at home, but has been started on famotidine here in the hospital. MEDICATIONS: At home included only thyroid medicine. Here in the hospital, she has been on famotidine, acetaminophen, azithromycin, ceftriaxone, subcu heparin, levothyroxine. PAST MEDICAL HISTORY: Hypothyroidism. Rectosigmoid cancer with low anterior resection [address] Alfredo. Cholecystectomy. She describes some type of breast surgery many years ago. She denies any history of DE, diabetes, nor stroke. SOCIAL HISTORY: She lives by herself. She does not smoke or use any significant amounts of alcohol. She denies use of any chronic aspirin or NSAIDs. REVIEW OF SYSTEMS: CONSTITUTIONAL: Up until the past few days, she was feeling well. Her appetite has been good. SKIN: No rash. No pruritus. CARDIAC: No chest pain. PULMONARY: No cough, no hemoptysis. GI: As above. URINARY: No dysuria, no hematuria. PHYSICAL EXAMINATION: GENERAL: The patient is a pleasant, alert, elderly female, in no distress. SKIN: Warm and dry. NECK: Supple without lymphadenopathy. ABDOMEN: Soft. Nondistended. Normal bowel sounds. Nontender. LABORATORIES: She did have a CAT scan of the chest on June 14 describing diffuse wall thickening in the esophagus with some esophageal fluid, consistent with possible esophagitis. There was no sign of any mass. White blood cell count 6.8, hemoglobin 10.1, MCV 92, platelets 249,000. Normal electrolytes. BUN 49, creatinine 2.75. IMPRESSION: Given the patient's clinical history and the CAT scan findings, I would be most suspicious for reflux esophagitis with an associated erosive esophagitis and/or esophageal ulcer. Less likely possibility would be that of esophageal neoplasm, given that she has no dysphagia and no mass seen on CT scan. I do not think this represents any type of infectious esophagitis. At this point, I would recommend upper endoscopy with monitored anesthesia care. I did review with her and her son that I can do the procedure on Friday, October 17, if she is still in the hospital. If by chance she happens to go home over the weekend, I can then arrange for her to come back as an outpatient. Full consent obtained from her for the endoscopy, including risks of bleeding and perforation. Consent has been obtained from her son as well. I did speak with her son, Michael Green, at area code [phone]. I would also place change roof bolter to omeprazole and stop famotidine. The patient and her son were comfortable with this plan. MD RACHELL Del Rio/FLEX / [id number] MTDD
[2020-06-16 20:00] VITALS: BP 144/65; PULSE 67; RESP 18; TEMP 37.2; O2SAT 97
[2020-06-17] VITALS (7 sets, daily range): BP systolic 122–149; BP diastolic 57–86; PULSE 62–82; RESP 16–19; TEMP 36.2–37.1; O2SAT 96–99
[2020-06-17] MEDS: 0.9 % Sodium Chloride Flush 3 ML SYRINGE IVFLUSH ×2 (00:04→23:57)
[2020-06-17] MEDS: Lactated Ringers 1,000 ML 80 ML IVCONT ×2 (05:55→18:38)
[2020-06-17] MEDS: Omeprazole 20 MG CAPSULE.DR PO (05:55)
[2020-06-17] MEDS: Levothyroxine Sodium 75 MCG TABLET PO (05:55)
[2020-06-17] MEDS: Heparin Sodium,Porcine 5,000 UNIT/ML VIAL 5000 UNIT SUBCUT ×2 (13:02→23:57)
--- NOTE | 2020-06-17 14:31 | P.PNIM_ITS ---
Subjective Subjective Date of Service: 06/17/20 Interval History: odynophagia , abhishek Review of Systems swallowing pain seems slighlty better, denies any chest pain or sob. Physical Exam Vital Signs: Vital Signs: Last Vital Signs Temp 97.8 F 06/17/20 11:56 Pulse 82 06/17/20 11:56 Resp 19 06/17/20 11:56 BP 149/68 H 06/17/20 11:56 Pulse Ox 99 06/17/20 11:56 Body Mass Index 21.2 Physical exam: Constitutional: Noted acute distress Cvs: rrr, [id number] , no murmur res: clear to auscultation ,no rhonchii or wheezing abd: no rebound or guarding ,nt, bs present. ext pulses present , no cyanosis neuro: axo3 , nonfocal. Objective Data Current Medications Generic Name Dose Route Start Last Admin Trade Name Freq PRN Reason Stop Dose Admin Acetaminophen 650 mg 06/14/20 11:11 06/15/20 11:04 Acetaminophen 325 Mg Tablet PO 650 mg Q6H PRN Administration Pain, Mild (Pain Scale 1-3) Azithromycin 250 mg 06/16/20 17:00 06/16/20 18:17 Azithromycin 250 Mg Tablet PO 250 mg Q24H GORDO Administration Benzocaine 1 lozenge 06/15/20 16:08 Throat Lozenge, Medicated Lozenge MUCOUS MEM Q2H PRN Sore Throat Heparin Sodium (Porcine) 5,000 unit 06/14/20 11:15 06/17/20 13:02 Heparin Sodium,Porcine 5,000 Unit/Ml Vial SUBCUT 5,000 unit Q12H GORDO Administration Lactated Ringer's 1,000 mls @ 80 mls/hr 06/15/20 16:30 06/17/20 05:55 Lr IVCONT 80 mls/hr .[id number] GORDO Administration Ceftriaxone Sodium 1 gm/ 50 mls @ 100 mls/hr 06/16/20 17:00 06/16/20 18:58 Sodium Chloride IV Infused Q24H GORDO Infusion Levothyroxine Sodium 75 mcg 06/15/20 09:00 06/17/20 05:55 Levothyroxine Sodium 75 Mcg Tablet PO 75 mcg DAILY@0600 GORDO Administration Lidocaine/Diphenhydr/Alum/Mg/Simeth 10 ml 06/15/20 16:08 06/15/20 16:54 Mag&Al/Sim/Diphenhyd/Lidocaine 10 Ml Oral.Susp PO 10 ml Q6H PRN Administration throat pain Protocol Omeprazole 20 mg 06/16/20 17:45 06/17/20 05:55 Omeprazole 20 Mg Capsule. PO 20 mg DAILY@0630 [facility] Administration Pharmacy Consult 1 each 06/14/20 15:18 Consult Rx Perform Med Rec MISCELLANE ONCE PRN Consult order Sodium Chloride 3 ml 06/14/20 16:00 06/17/20 08:49 0.9 % Sodium Chloride Flush 3 Ml Syringe IVFLUSH Not Given QSHIFT [facility] Labs CBC & Chem 7: 06/14/20 06:47 06/16/20 06:12 Microbiology Microbiology Results: Microbiology 06/14/20 11:15 Blood - Venous Blood Culture - Preliminary No growth after 48 hours. 06/14/20 11:14 Blood - Venous Blood Culture - Preliminary No growth after 48 hours. 06/14/20 Unknown Urine clean catch - Clean Catch Midstream Urine Culture - Final No growth. Assessment and Plan (1) Acute kidney injury: Status: Acute (2) UTI (urinary tract infection): Status: Acute (3) Stage 3 acute kidney injury: Problem details: Last Creatinin in 2018 was 2.8 Status: Acute Assessment and Plan: 79 year old female with hypothyroidism, CKD 3 who presented with some back pain and chest pain and noted to have ABHISHEK on CKD, cardiac work up negativ 1. Chest pain/back pain-- denies any pain trops flat further cardiac work up outpatiently. 2. Back unlcear etiology but seems to have resolved. 3. ABHISHEK on CKD--hydrated, repeat labs in the morning. creatinine improving to 3.1 4. Hypothyroidism, continue Levothyroxine. 5. Odynophagia :? throat pain -will check for strep cepatstat, magic mouth wash. also has diffuse esophagitis:continue omeprazole. 6.? bronchitis : continue ceftriaxone/azithrmycin day2. 5. DVT Prophylaxis: Heparin
[2020-06-17 17:12] LABS: Streptolysin O Antibody <50 IU/mL (<200)
[2020-06-17] MEDS: Azithromycin 250 MG TABLET PO (17:43)
[2020-06-17] MEDS: cefTRIAXone sodium 1 GM in 0.9 % Sodium Chloride 50 ML IV (17:44)
--- NOTE | 2020-06-17 21:48 | PM.PNNEP ---
Subjective Subjective Date of Service: 06/17/20 Interval history: Resting in the bed Back pain + Physical Exam Vital Signs: Vital Signs: Last Vital Signs Temp 97.4 F 06/17/20 20:00 Pulse 76 06/17/20 20:00 Resp 18 06/17/20 20:00 BP 132/57 L 06/17/20 20:00 Pulse Ox 98 06/17/20 20:00 Body Mass Index 21.2 Const: General: cooperative, healthy appearing and no acute distress Orientation/consciousness: patient oriented x3 HENMT: Head: Yes normal to inspection and Yes normocephalic Eyes: Sclerae: sclerae normal Neck: Neck: Yes supple Resp: Effort & Inspection: normal respiratory effort and able to speak in complete sentences Auscultation: clear to auscultation bilaterally Cardio: Jugular venous distension: no JVD Rhythm: regular rhythm Heart sounds: S1 normal heart sound present and S2 normal heart sound present GI: Inspection: Yes normal to inspection Percussion: Yes normal to percussion : General: Yes no CVA tenderness Back/Spine/Pelvis: Back: no CVA tenderness Cervical Spine: normal cervical lordosis Skin: General skin exam: no rashes or lesions noted Neuro: General: patient oriented x3 Motor exam (neuro): Normal motor muscle tone present throughout Extrem: General: Yes normal to inspection Psych: Appearance: grossly normal Objective Data Labs CBC & Chem 7: 06/14/20 06:47 06/16/20 06:12 Labs: Laboratory Results - last 24 hr 06/16/20 13:09 Anti-Streptolysin Scrn <50 Microbiology Microbiology Results: Microbiology 06/14/20 11:15 Blood - Venous Blood Culture - Preliminary No growth after 48 hours. 06/14/20 11:14 Blood - Venous Blood Culture - Preliminary No growth after 48 hours. 06/14/20 Unknown Urine clean catch - Clean Catch Midstream Urine Culture - Final No growth. Assessment & Plan Assessment and plan (1) Acute kidney injury: Status: Acute (2) UTI (urinary tract infection): Status: Acute (3) Stage 3 acute kidney injury: Problem details: Last Creatinin in 2018 was 2.8 Status: Acute Assessment and Plan: 79 year old female with hypothyroidism, CKD 3 who presented with some back pain and chest pain and noted to have ABHISHEK on CKD, cardiac work up negative 1. ABHISHEK 2. CKD -4 3. Chest pain w/u Negative Renal func is better - Cr 2.75 No new labs
[2020-06-18] VITALS (7 sets, daily range): BP systolic 115–151; BP diastolic 55–86; PULSE 67–82; RESP 14–20; TEMP 36.3–36.9; O2SAT 96–98
[2020-06-18] MEDS: Lactated Ringers 1,000 ML 80 ML IVCONT (05:54)
[2020-06-18] MEDS: Omeprazole 20 MG CAPSULE.DR PO (05:54)
[2020-06-18] MEDS: Levothyroxine Sodium 75 MCG TABLET PO (05:54)
[2020-06-18 07:15] LABS: Hematocrit 24.5 % (37-47); Hemoglobin 8.1 g/dl (12.0-16.0); Mean Corpuscular HGB Conc 33.1 g/dl (31.0-35.0); Mean Corpuscular Hemoglobin 30.8 pg (27.0-33.0); Mean Corpuscular Volume 93.2 fL (80-98); Mean Platelet Volume 9.4 fL (9.4-12.3); Platelet Count 205 X10*3/uL (160-400); Red Blood Count 2.63 X10*6/uL (4.20-5.50); Red Cell Distribution Width 13.5 % (11.0-16.0); White Blood Count 4.6 X10*3/uL (4.8-10.8)
[2020-06-18] MEDS: 0.9 % Sodium Chloride Flush 3 ML SYRINGE IVFLUSH ×3 (07:39→21:57)
[2020-06-18 07:50] LABS: Band Neutrophils Percent 4 % (3-5); Eosinophils Absolute Manual 0.4 X10*3/UL (0.0-0.8); Eosinophils Percent Manual 9 % (0-4); Lymphocytes Absolute Manual 1.2 X10*3/uL (0.6-4.8); Lymphocytes Percent Manual 27 % (20-40); Metamyelocytes Absolute 0.1 X10*3/uL; Metamyelocytes Percent 3 %; Monocytes Absolute Manual 0.5 X10*3/uL (0.0-1.2); Monocytes Percent Manual 10 % (2-11); Neutrophils Absolute Manual 2.3 X10*3/uL (2.2-7.9); Neutrophils Percent Manual 47 % (45-73)
[2020-06-18 07:51] LABS: Platelet Estimate NORMAL (NORMAL); Platelet Morphology Comment NORMAL
[2020-06-18 07:52] LABS: RBC Morphology NORMAL
[2020-06-18 07:53] LABS: Anion Gap 12 (12-20); Blood Urea Nitrogen 24 mg/dL (9-16); Calcium 7.7 mg/dL (8.4-10.2); Carbon Dioxide 24 mmol/L (22-29); Chloride 111 mmol/L (96-108); Creatinine Clr Calc Pharmacy 13.8; Estimated Glomerular Filt Rate 16; Glucose Fasting 131 mg/dL (60-99); Potassium 3.8 mmol/l (3.3-5.1); Sodium 143 mmol/L (135-145)
--- NOTE | 2020-06-18 10:17 | PC.NURSE ---
Patient's 11:15am heparin held per Dr. Angeles
[2020-06-18 11:30] LABS: Hematocrit 27.5 % (37-47); Hemoglobin 8.9 g/dl (12.0-16.0)
[2020-06-18 15:00] LABS: OBS Int Ctl Valid YES; OBS1 POS (NEG)
[2020-06-18 16:02] LABS: Leukocytes Stool Qualitative FEW: < 2/OIF (NEGATIVE)
[2020-06-18] MEDS: cefTRIAXone sodium 1 GM in 0.9 % Sodium Chloride 50 ML IV (17:55)
[2020-06-18] MEDS: Azithromycin 250 MG TABLET PO (17:57)
--- NOTE | 2020-06-18 21:08 | P.PNNP_ITS ---
Subjective Subjective Date of Service: 06/18/20 Interval history: Resting in the bed Has anemia Feels OK Physical Exam Vital Signs: Vital Signs: Last Vital Signs Temp 97.3 F 06/18/20 19:32 Pulse 77 06/18/20 19:32 Resp 19 06/18/20 19:32 BP 144/86 H 06/18/20 19:32 Pulse Ox 97 06/18/20 19:32 Body Mass Index 21.2 Const: General: cooperative, healthy appearing and no acute distress Orientation/consciousness: patient oriented x3 HENMT: Head: Yes normal to inspection and Yes normocephalic Eyes: Sclerae: sclerae normal Neck: Neck: Yes supple Resp: Effort & Inspection: normal respiratory effort and able to speak in complete sentences Auscultation: clear to auscultation bilaterally Cardio: Jugular venous distension: no JVD Rhythm: regular rhythm Heart sounds: S1 normal heart sound present and S2 normal heart sound present GI: Inspection: Yes normal to inspection Percussion: Yes normal to percussion : General: Yes no CVA tenderness Back/Spine/Pelvis: Back: no CVA tenderness Cervical Spine: normal cervical lordosis Skin: General skin exam: no rashes or lesions noted Neuro: General: patient oriented x3 Motor exam (neuro): Normal motor muscle tone present throughout Extrem: General: Yes normal to inspection Psych: Appearance: grossly normal Objective Data Labs CBC & Chem 7: 06/18/20 11:06 06/18/20 06:59 Labs: Laboratory Results - last 24 hr 06/18/20 06/18/20 06/18/20 06:59 06:59 06:59 WBC 4.6 L RBC 2.63 L D Hgb 8.1 L Hct 24.5 L MCV 93.2 MCH 30.8 MCHC 33.1 RDW 13.5 Plt Count 205 MPV 9.4 Immature Gran % (Auto) Cancelled Neut % (Auto) Cancelled Lymph % (Auto) Cancelled [place] % (Auto) Cancelled Eos % (Auto) Cancelled Baso % (Auto) Cancelled Lymph # (Auto) Cancelled [place] # (Auto) Cancelled Eos # (Auto) Cancelled Baso # (Auto) Cancelled Abs Immat Gran (auto) Cancelled Absolute Neuts (auto) Cancelled Absolute Nucleated RBC 0.000 Nucleated RBC % (auto) 0.0 Neutrophils % (Manual) 47 Band Neutrophils % 4 Lymphocytes % (Manual) 27 Monocytes % (Manual) 10 Eosinophils % (Manual) 9 H Metamyelocytes % 3 Abs Neuts (Manual) 2.3 Lymphocytes # (Manual) 1.2 Monocytes # (Manual) 0.5 Eosinophils # (Manual) 0.4 Metamyelocytes # 0.1 Platelet Estimate NORMAL Plt Morphology Comment NORMAL RBC Morphology NORMAL PT 12.0 INR 1.0 Sodium 143 Potassium 3.8 Chloride 111 H Carbon Dioxide 24 Anion Gap 12 BUN 24 H D Creatinine 2.86 H Estim Creat Clear Calc 13.8 Estimated GFR 16 Fasting Glucose 131 H Calcium 7.7 L Stool Occult Blood Stool Leukocytes, Qual 06/18/20 06/18/20 06/18/20 11:06 14:15 14:15 WBC RBC Hgb 8.9 L Hct 27.5 L MCV MCH MCHC RDW Plt Count MPV Immature Gran % (Auto) Neut % (Auto) Lymph % (Auto) [place] % (Auto) Eos % (Auto) Baso % (Auto) Lymph # (Auto) [place] # (Auto) Eos # (Auto) Baso # (Auto) Abs Immat Gran (auto) Absolute Neuts (auto) Absolute Nucleated RBC Nucleated RBC % (auto) Neutrophils % (Manual) Band Neutrophils % Lymphocytes % (Manual) Monocytes % (Manual) Eosinophils % (Manual) Metamyelocytes % Abs Neuts (Manual) Lymphocytes # (Manual) Monocytes # (Manual) Eosinophils # (Manual) Metamyelocytes # Platelet Estimate Plt Morphology Comment RBC Morphology PT INR Sodium Potassium Chloride Carbon Dioxide Anion Gap BUN Creatinine Estim Creat Clear Calc Estimated GFR Fasting Glucose Calcium Stool Occult Blood POS Stool Leukocytes, Qual FEW: < 2/OIF Microbiology Microbiology Results: Microbiology 06/14/20 11:15 Blood - Venous Blood Culture - Preliminary No growth after 48 hours. 06/14/20 11:14 Blood - Venous Blood Culture - Preliminary No growth after 48 hours. 06/14/20 Unknown Urine clean catch - Clean Catch Midstream Urine Culture - Final No growth. Assessment & Plan Assessment and plan (1) Acute kidney injury: Status: Acute (2) UTI (urinary tract infection): Status: Acute (3) Stage 3 acute kidney injury: Problem details: Last Creatinin in 2018 was 2.8 Status: Acute Assessment and Plan: 79 year old female with hypothyroidism, CKD 3 who presented with some back pain and chest pain and noted to have ABHISHEK on CKD, cardiac work up negative 1. ABHISHEK 2. CKD -4 3. Chest pain w/u Negative 4. Anemia Renal func is stable - Cr 2.86 Continue Antibiotics as per medical team d/w Dr. Angeles - Anemia w/u ordered Based on Fe stores Epo vs PO Iron ( Pt on IV antibiotics may not be able to use IV Iron ). F/u Immunofixation thx Will follow Time Spent With Patient Time: Total time spent is greater than 50% in coordination of care (as documented) at patient's floor/unit and/or counseling patient:
[2020-06-19 03:37] VITALS: BP 140/56; PULSE 62; RESP 14; TEMP 36.8; O2SAT 97
[2020-06-19] MEDS: Levothyroxine Sodium 75 MCG TABLET PO (05:44)
[2020-06-19] MEDS: Omeprazole 20 MG CAPSULE.DR PO (05:44)
[2020-06-19 06:45] LABS: Hematocrit 25.3 % (37-47); Hemoglobin 8.1 g/dl (12.0-16.0)
[2020-06-19 07:06] LABS: Iron 46 mcg/dL (30-160); Percent Iron Saturation 21 % (15-50); Total Iron Binding Capacity 216 mcg/dL (228-428); Unsaturated Iron Binding 170 ug/dL
[2020-06-19] MEDS: 0.9 % Sodium Chloride Flush 3 ML SYRINGE IVFLUSH (07:42)
[2020-06-19 08:00] VITALS: BP 167/78; PULSE 86; RESP 18; TEMP 36.6; O2SAT 98
[2020-06-19 08:42] LABS: Folate 5.2 ng/mL (> or = 4.0); Vitamin B12 352 pg/mL (200-900)
--- NOTE | 2020-06-19 11:04 | PC.NURSE ---
Pt very upset, pt stated she does not want to be here. Pt stated she was leaving AMA and understands the risks. Md made aware and came to unit to talk to patient. Pt removed IV, got dressed, and left unit.
--- NOTE | 2020-06-19 12:24 | P.DS_ITS ---
DS: Providers Provider Date of Service: 06/29/20 Date of admission: 06/14/20 11:11 Primary care physician: Unknown Physician Consults: 06/15/20 16:09 Consult to Gastroenterology Routine Consulting Provider: Chandana Ross Reason for consultation: Odynophagia Has provider been notified: No 06/16/20 09:13 Consult to Nephrology Routine Consulting Provider: Salomón Cox Reason for consultation: Abhishek vs ckd Has provider been notified: No DS: Diagnosis Discharge Diagnosis (1) Acute kidney injury: Status: Acute (2) UTI (urinary tract infection): (3) Stage 3 acute kidney injury: Status: Acute Problem details: Last Creatinin in 2018 was 2.8 DS: Medications Discharge Medications Home Medications: Previous Rx's Medication Instructions Recorded levothyroxine 75 mcg tablet 75 mcg PO DAILY 30 Days #30 tab 05/09/20 azithromycin 250 mg PO DAILY #4 tab 06/19/20 cefuroxime axetil 250 mg PO Q12H #8 tab 06/19/20 omeprazole 20 mg PO DAILY #60 cap 06/19/20 DS: Summary Hospital Course Hospital Course: 79 year old female with PMH of hypothyroidism and CKD 3, last Creatinine in 2018 was 2.8. She presented to ED with acute onset of back pain that is rather vague in the middle of the back. She also reported some chest pain and again without specificification. At the time I saw her she was not reporting any further chest pain and said the back pain was much better. She had a CT without evidence of aneurysm but showed some tree in buds finding that could represent infection. She also had VQ scan that has shown low probability PE. She has no shortness of breath, no fever , no loss of taste or smell. Covid test is pending. Of note, she was also noted to be in acute renal failure with a creatinine of 3.32. Her last creatinine known was from July 2017 and he was 2.84. Cardiac troponin was 18 and had repeated it was 16.8. EKG showed pulmonary disease pattern but no acute finding. UA is positive. Hospital Course problem galdamez section: 79 year old female with hypothyroidism, CKD 3 who presented with some back pain and chest pain and noted to have ABHISHEK on CKD, cardiac work up negativ 1. intially thought to be Chest pain/back pain-denies any pain,trops flat further cardiac work up outpatiently. 2. ABHISHEK on CKD--hydrated, creatinine is improving as to 2.8 range. Patient seen by Nephro further management out patiently and monitor renal function and electrolytes outpatient with PCP. 3. Acute bronchitis ,possible early pneumonia: Initially started on IV antibiotic, will send p.o. antibiotics to her pharmacy since she is leaving against medical advice. 4. Odynophagia: Seems to be improving, also probable GI bleed question: h/h treding down from 10-8 range:fobt positive-But she declines any intervention and wants to go home, risk of leaving against medical advise including aggressive bleeding as well as discussed with her in detail length and she understands but still wants to leave. Her son was also informed and he is aware of all the situation and patient left against medical advice. We have sent her antibiotic and omeprazole, iron to pharmacy-her son and pharmacist made aware . Patient's son and patient was told to go to nearest emergency room for further and management also. Above management discussed with the patient in detail length she understand and in agreement with the above plan, time spent 50 minutes and 50% time spent on counseling. Significant findings: As above. Procedures performed: None. Treatment and response: As above. Complications: None. Time Spent with Patient Time attestation: Total time spent providing and/or coordinating discharge services: Discharge coordination time: Greater than 30 minutes Physical Exam Vital Signs: Vital Signs: Last Vital Signs Temp 97.9 F 06/19/20 08:00 Pulse 86 06/19/20 08:00 Resp 18 06/19/20 08:00 BP 167/78 H 06/19/20 08:00 Pulse Ox 98 06/19/20 08:00 Body Mass Index 21.2 Physical exam: Constitutional: Noted acute distress Cvs: rrr, [id number] , no murmur res: clear to auscultation ,no rhonchii or wheezing abd: no rebound or guarding ,nt, bs present. ext pulses present , no cyanosis neuro: axo3 , nonfocal. DS: Data Data Completed and Pending Labs on day of discharge: Laboratory Tests 06/14/20 06/14/20 06/14/20 02:09 02:13 02:13 WBC 9.7 RBC 3.54 L Hgb 10.7 L Hct 32.5 L MCV 91.8 MCH 30.2 MCHC 32.9 RDW 13.1 Plt Count 316 MPV 9.3 L Immature Gran % (Auto) 3.9 H Neut % (Auto) 52.6 Lymph % (Auto) 28.2 [place] % (Auto) 12.4 H Eos % (Auto) 2.1 Baso % (Auto) 0.8 Lymph # (Auto) 2.7 [place] # (Auto) 1.2 Eos # (Auto) 0.2 Baso # (Auto) 0.1 Abs Immat Gran (auto) 0.38 H Absolute Neuts (auto) 5.1 Absolute Nucleated RBC 0.000 Nucleated RBC % (auto) 0.0 Neutrophils % (Manual) Band Neutrophils % Lymphocytes % (Manual) Monocytes % (Manual) Eosinophils % (Manual) Metamyelocytes % Abs Neuts (Manual) Lymphocytes # (Manual) Monocytes # (Manual) Eosinophils # (Manual) Metamyelocytes # Platelet Estimate Plt Morphology Comment RBC Morphology Smear Tech's Comments PT INR D-Dimer Sodium 139 Potassium 4.1 Chloride 102 Carbon Dioxide 22 Anion Gap 19 BUN 75 H Creatinine 3.64 H Estim Creat Clear Calc 10.8 Estimated GFR 12 Random Glucose 165 H Fasting Glucose Calcium 8.9 Iron TIBC % Saturation Unsat Iron Binding Troponin I High Sens Vitamin B12 Folate Urine Color STRAW Urine Appearance CLEAR Urine pH 6.0 Ur Specific [place] 1.010 Urine Protein NEG Urine Glucose (UA) 250 H Urine Ketones NEG Urine Blood TRACE Urine Nitrite NEG Ur Leukocyte Esterase TRACE H Urine RBC 0-2 Urine WBC 15-29 H Ur Squamous Epith Cells 2+ Urine Bacteria TRACE Stool Occult Blood Stool Leukocytes, Qual COVID-19 ([facility]) COVID-19 Clin Com Anti-Streptolysin Scrn Blood Type Antibody Screen 06/14/20 06/14/20 06/14/20 02:13 02:13 06:47 WBC RBC Hgb Hct MCV MCH MCHC RDW Plt Count MPV Immature Gran % (Auto) Neut % (Auto) Lymph % (Auto) [place] % (Auto) Eos % (Auto) Baso % (Auto) Lymph # (Auto) [place] # (Auto) Eos # (Auto) Baso # (Auto) Abs Immat Gran (auto) Absolute Neuts (auto) Absolute Nucleated RBC Nucleated RBC % (auto) Neutrophils % (Manual) Band Neutrophils % Lymphocytes % (Manual) Monocytes % (Manual) Eosinophils % (Manual) Metamyelocytes % Abs Neuts (Manual) Lymphocytes # (Manual) Monocytes # (Manual) Eosinophils # (Manual) Metamyelocytes # Platelet Estimate Plt Morphology Comment RBC Morphology Smear Tech's Comments PT INR D-Dimer 1186 Sodium Potassium Chloride Carbon Dioxide Anion Gap BUN Creatinine Estim Creat Clear Calc Estimated GFR Random Glucose Fasting Glucose Calcium Iron TIBC % Saturation Unsat Iron Binding Troponin I High Sens 18.6 H 16.8 Vitamin B12 Folate Urine Color Urine Appearance Urine pH Ur Specific [place] Urine Protein Urine Glucose (UA) Urine Ketones Urine Blood Urine Nitrite Ur Leukocyte Esterase Urine RBC Urine WBC Ur Squamous Epith Cells Urine Bacteria Stool Occult Blood Stool Leukocytes, Qual COVID-19 ([facility]IVER) COVID-19 Clin Com Anti-Streptolysin Scrn Blood Type Antibody Screen 06/14/20 06/14/20 06/15/20 06:47 11:14 05:27 WBC 6.8 RBC 3.32 L Hgb 10.1 L Hct 30.6 L MCV 92.2 MCH 30.4 MCHC 33.0 RDW 12.9 Plt Count 249 MPV 9.1 L Immature Gran % (Auto) 4.7 H Neut % (Auto) 81.9 H Lymph % (Auto) 9.4 L [place] % (Auto) 3.2 Eos % (Auto) 0.1 Baso % (Auto) 0.7 Lymph # (Auto) 0.6 L [place] # (Auto) 0.2 Eos # (Auto) 0.0 Baso # (Auto) 0.1 Abs Immat Gran (auto) 0.32 H Absolute Neuts (auto) 5.6 Absolute Nucleated RBC 0.000 Nucleated RBC % (auto) 0.0 Neutrophils % (Manual) Band Neutrophils % Lymphocytes % (Manual) Monocytes % (Manual) Eosinophils % (Manual) Metamyelocytes % Abs Neuts (Manual) Lymphocytes # (Manual) Monocytes # (Manual) Eosinophils # (Manual) Metamyelocytes # Platelet Estimate Plt Morphology Comment RBC Morphology Smear Tech's Comments VERIFIED PT INR D-Dimer Sodium 143 Potassium 4.3 Chloride 113 H Carbon Dioxide 21 L Anion Gap 13 BUN 66 H Creatinine 3.13 H Estim Creat Clear Calc 12.6 Estimated GFR 14 Random Glucose 147 H Fasting Glucose Calcium 7.8 L D Iron TIBC % Saturation Unsat Iron Binding Troponin I High Sens Vitamin B12 Folate Urine Color Urine Appearance Urine pH Ur Specific [place] Urine Protein Urine Glucose (UA) Urine Ketones Urine Blood Urine Nitrite Ur Leukocyte Esterase Urine RBC Urine WBC Ur Squamous Epith Cells Urine Bacteria Stool Occult Blood Stool Leukocytes, Qual COVID-19 ([facility]IVER) Negative COVID-19 Clin Com See Note Anti-Streptolysin Scrn Blood Type Antibody Screen 06/15/20 06/16/20 06/16/20 08:05 06:12 13:09 WBC RBC Hgb Hct MCV MCH MCHC RDW Plt Count MPV Immature Gran % (Auto) Neut % (Auto) Lymph % (Auto) [place] % (Auto) Eos % (Auto) Baso % (Auto) Lymph # (Auto) [place] # (Auto) Eos # (Auto) Baso # (Auto) Abs Immat Gran (auto) Absolute Neuts (auto) Absolute Nucleated RBC Nucleated RBC % (auto) Neutrophils % (Manual) Band Neutrophils % Lymphocytes % (Manual) Monocytes % (Manual) Eosinophils % (Manual) Metamyelocytes % Abs Neuts (Manual) Lymphocytes # (Manual) Monocytes # (Manual) Eosinophils # (Manual) Metamyelocytes # Platelet Estimate Plt Morphology Comment RBC Morphology Smear Tech's Comments PT INR D-Dimer Sodium 144 144 Potassium 4.2 4.4 Chloride 115 H 116 H Carbon Dioxide 21 L 19 L Anion Gap 12 13 BUN 64 H 49 H Creatinine 3.14 H 2.75 H Estim Creat Clear Calc 12.5 14.3 Estimated GFR 14 17 Random Glucose 140 H 132 H Fasting Glucose Calcium 8.0 L 7.9 L Iron TIBC % Saturation Unsat Iron Binding Troponin I High Sens Vitamin B12 Folate Urine Color Urine Appearance Urine pH Ur Specific [place] Urine Protein Urine Glucose (UA) Urine Ketones Urine Blood Urine Nitrite Ur Leukocyte Esterase Urine RBC Urine WBC Ur Squamous Epith Cells Urine Bacteria Stool Occult Blood Stool Leukocytes, Qual COVID-19 ([facility]) COVID-19 Clin Com Anti-Streptolysin Scrn <50 Blood Type Antibody Screen 06/18/20 06/18/20 06/18/20 06:59 06:59 06:59 WBC 4.6 L RBC 2.63 L D Hgb 8.1 L Hct 24.5 L MCV 93.2 MCH 30.8 MCHC 33.1 RDW 13.5 Plt Count 205 MPV 9.4 Immature Gran % (Auto) Cancelled Neut % (Auto) Cancelled Lymph % (Auto) Cancelled [place] % (Auto) Cancelled Eos % (Auto) Cancelled Baso % (Auto) Cancelled Lymph # (Auto) Cancelled [place] # (Auto) Cancelled Eos # (Auto) Cancelled Baso # (Auto) Cancelled Abs Immat Gran (auto) Cancelled Absolute Neuts (auto) Cancelled Absolute Nucleated RBC 0.000 Nucleated RBC % (auto) 0.0 Neutrophils % (Manual) 47 Band Neutrophils % 4 Lymphocytes % (Manual) 27 Monocytes % (Manual) 10 Eosinophils % (Manual) 9 H Metamyelocytes % 3 Abs Neuts (Manual) 2.3 Lymphocytes # (Manual) 1.2 Monocytes # (Manual) 0.5 Eosinophils # (Manual) 0.4 Metamyelocytes # 0.1 Platelet Estimate NORMAL Plt Morphology Comment NORMAL RBC Morphology NORMAL Smear Tech's Comments PT 12.0 INR 1.0 D-Dimer Sodium 143 Potassium 3.8 Chloride 111 H Carbon Dioxide 24 Anion Gap 12 BUN 24 H D Creatinine 2.86 H Estim Creat Clear Calc 13.8 Estimated GFR 16 Random Glucose Fasting Glucose 131 H Calcium 7.7 L Iron TIBC % Saturation Unsat Iron Binding Troponin I High Sens Vitamin B12 Folate Urine Color Urine Appearance Urine pH Ur Specific [place] Urine Protein Urine Glucose (UA) Urine Ketones Urine Blood Urine Nitrite Ur Leukocyte Esterase Urine RBC Urine WBC Ur Squamous Epith Cells Urine Bacteria Stool Occult Blood Stool Leukocytes, Qual COVID-19 ([facility]) COVID-19 Clin Com Anti-Streptolysin Scrn Blood Type Antibody Screen 06/18/20 06/18/20 06/18/20 11:06 14:15 14:15 WBC RBC Hgb 8.9 L Hct 27.5 L MCV MCH MCHC RDW Plt Count MPV Immature Gran % (Auto) Neut % (Auto) Lymph % (Auto) [place] % (Auto) Eos % (Auto) Baso % (Auto) Lymph # (Auto) [place] # (Auto) Eos # (Auto) Baso # (Auto) Abs Immat Gran (auto) Absolute Neuts (auto) Absolute Nucleated RBC Nucleated RBC % (auto) Neutrophils % (Manual) Band Neutrophils % Lymphocytes % (Manual) Monocytes % (Manual) Eosinophils % (Manual) Metamyelocytes % Abs Neuts (Manual) Lymphocytes # (Manual) Monocytes # (Manual) Eosinophils # (Manual) Metamyelocytes # Platelet Estimate Plt Morphology Comment RBC Morphology Smear Tech's Comments PT INR D-Dimer Sodium Potassium Chloride Carbon Dioxide Anion Gap BUN Creatinine Estim Creat Clear Calc Estimated GFR Random Glucose Fasting Glucose Calcium Iron TIBC % Saturation Unsat Iron Binding Troponin I High Sens Vitamin B12 Folate Urine Color Urine Appearance Urine pH Ur Specific [place] Urine Protein Urine Glucose (UA) Urine Ketones Urine Blood Urine Nitrite Ur Leukocyte Esterase Urine RBC Urine WBC Ur Squamous Epith Cells Urine Bacteria Stool Occult Blood POS Stool Leukocytes, Qual FEW: < 2/OIF COVID-19 ([facility]) COVID-19 Clin Com Anti-Streptolysin Scrn Blood Type Antibody Screen 06/19/20 06/19/20 06/19/20 05:47 05:47 05:47 WBC RBC Hgb 8.1 L Hct 25.3 L MCV MCH MCHC RDW Plt Count MPV Immature Gran % (Auto) Neut % (Auto) Lymph % (Auto) [place] % (Auto) Eos % (Auto) Baso % (Auto) Lymph # (Auto) [place] # (Auto) Eos # (Auto) Baso # (Auto) Abs Immat Gran (auto) Absolute Neuts (auto) Absolute Nucleated RBC Nucleated RBC % (auto) Neutrophils % (Manual) Band Neutrophils % Lymphocytes % (Manual) Monocytes % (Manual) Eosinophils % (Manual) Metamyelocytes % Abs Neuts (Manual) Lymphocytes # (Manual) Monocytes # (Manual) Eosinophils # (Manual) Metamyelocytes # Platelet Estimate Plt Morphology Comment RBC Morphology Smear Tech's Comments PT INR D-Dimer Sodium Potassium Chloride Carbon Dioxide Anion Gap BUN Creatinine Estim Creat Clear Calc Estimated GFR Random Glucose Fasting Glucose Calcium Iron 46 TIBC 216 L % Saturation 21 Unsat Iron Binding 170 Troponin I High Sens Vitamin B12 Folate Urine Color Urine Appearance Urine pH Ur Specific [place] Urine Protein Urine Glucose (UA) Urine Ketones Urine Blood Urine Nitrite Ur Leukocyte Esterase Urine RBC Urine WBC Ur Squamous Epith Cells Urine Bacteria Stool Occult Blood Stool Leukocytes, Qual COVID-19 ([facility]) COVID-19 Clin Com Anti-Streptolysin Scrn Blood Type O Positive Antibody Screen NEGATIVE 06/19/20 05:47 WBC RBC Hgb Hct MCV MCH MCHC RDW Plt Count MPV Immature Gran % (Auto) Neut % (Auto) Lymph % (Auto) [place] % (Auto) Eos % (Auto) Baso % (Auto) Lymph # (Auto) [place] # (Auto) Eos # (Auto) Baso # (Auto) Abs Immat Gran (auto) Absolute Neuts (auto) Absolute Nucleated RBC Nucleated RBC % (auto) Neutrophils % (Manual) Band Neutrophils % Lymphocytes % (Manual) Monocytes % (Manual) Eosinophils % (Manual) Metamyelocytes % Abs Neuts (Manual) Lymphocytes # (Manual) Monocytes # (Manual) Eosinophils # (Manual) Metamyelocytes # Platelet Estimate Plt Morphology Comment RBC Morphology Smear Tech's Comments PT INR D-Dimer Sodium Potassium Chloride Carbon Dioxide Anion Gap BUN Creatinine Estim Creat Clear Calc Estimated GFR Random Glucose Fasting Glucose Calcium Iron TIBC % Saturation Unsat Iron Binding Troponin I High Sens Vitamin B12 352 Folate 5.2 Urine Color Urine Appearance Urine pH Ur Specific [place] Urine Protein Urine Glucose (UA) Urine Ketones Urine Blood Urine Nitrite Ur Leukocyte Esterase Urine RBC Urine WBC Ur Squamous Epith Cells Urine Bacteria Stool Occult Blood Stool Leukocytes, Qual COVID-19 ([facility]) COVID-19 Clin Com Anti-Streptolysin Scrn Blood Type Antibody Screen Preliminary micro results at discharge 06/14/20 11:15 Blood Culture - Preliminary Blood - Venous No growth after 48 hours. 06/14/20 11:14 Blood Culture - Preliminary Blood - Venous No growth after 48 hours. Discharge Plan Discharge Patient Disposition: Left Against Medical Advice Referrals: Physician,Estephania [Primary Care Provider] - Chandana Ross [Physician] - (follow up in 1 weeks.) Discharge Medications: New cefuroxime axetil 250 mg tablet 250 mg PO Q12H Qty: 8 RF: 0 azithromycin 250 mg tablet 250 mg PO DAILY Qty: 4 RF: 0 omeprazole 20 mg capsule,delayed release(DR/EC) 20 mg PO DAILY Qty: 60 RF: 0 ferrous sulfate 325 mg (65 mg iron) tablet 325 mg PO BID Qty: 60 RF: 0 Continued levothyroxine [Levoxyl] 75 mcg tablet 75 mcg PO DAILY 30 Days Qty: 30 RF: 4 Discharge Orders: Discharge Order (Routine); Ordered 06/19/20 Ordered By: Bertha Angeles Care Plan Goals: Patient left against medical advice: Patient has probable GI bleed question: But she declines any intervention and wants to go home, risk of leaving against medical advise including aggressive bleeding as well as discussed with her in detail length and she understands but still wants to leave. Her son was also informed and he is aware of all the situation and patient left against medical advice. We have sent her antibiotic and omeprazole to pharmacy. Patient's son and patient was told to go to nearest emergency room for further and management also. Health Concerns: As above. Plan of Treatment: As above. Discharge Date/Time: 06/19/20 10:30
--- NOTE | 2020-06-19 12:32 | MHC.CM.PN ---
NURSE TELEVISION STATION MANAGER NOTE ELECTRONIC MEDICAL RECORD REVIEWED , STAFF NURSE REPORTED PATIENT SIGNED OUT OF THE HOSPITAL AGAINST MEDICAL ADVICE THIS MORNING
[2020-06-21 18:11] LABS: IgA 260 mg/dL (70-320); IgG 844 mg/dL (600-1540); IgM 61 mg/dL (50-300)
== END 2020-06-19 10:30 | disposition left against medical advice (07) | DRG 689 ==
LOC: HO.ED 06-14 06:41 → HO.EDOVER 06-14 11:30 → HO.IMC 06-14 17:00 → HO.S3 06-15 22:42
PROVIDERS: Internal Medicine; Internal Medicine Nephrology; Admitting Provider Internal Medicine; Emergency Provider Emergency Medicine; PCP Internal Medicine; Visit Provider Internal Medicine
DX: N39.0 Urinary tract infection, site not specified (principal); J18.9 Pneumonia, unspecified organism; N17.9 Acute kidney failure, unspecified; K92.2 Gastrointestinal hemorrhage, unspecified; N18.4 Chronic kidney disease, stage 4 (severe); J20.9 Acute bronchitis, unspecified; I12.9 Hypertensive chronic kidney disease with stage 1 through stage 4 chronic kidney disease, or unspecified chronic kidney disease; E03.9 Hypothyroidism, unspecified; Z20.822 Contact with and (suspected) exposure to COVID-19; Z79.890 Hormone replacement therapy; Z79.899 Other long term (current) drug therapy
CPT/HCPCS: 36415; 71250; 78580; 80048; 81001; 82272; 82607; 82746; 82784; 83540; 84484; 85007; 85014; 85018; 85025; 85027; 85379; 85610; 86060; 86334; 86850; 86900; 86901; 87040; 87086; 87635; 89055; 93005; 96361; 96365; 96366; 96367; 96375; 97110; 97116; 97162; 97530; 99231; 99232; 99284; 99285; A9540; J0456; J0696; J1200; J2930

== ENCOUNTER 2021-03-15 11:25 | Emergency (ER) | payer MEDICARE, SELFPAY ==
[2021-03-15 11:40] VITALS: BP 158/79; PULSE 68; RESP 18; TEMP 36.2; O2SAT 98; BMI 21.9
[2021-03-15 13:35] VITALS: BP 140/80; PULSE 79; RESP 18; O2SAT 97
== END 2021-03-15 13:37 | disposition home or self-care (01) ==
PROVIDERS: Emergency Provider Emergency Medicine; PCP Internal Medicine
DX: Z76.0 Encounter for issue of repeat prescription (principal)
CPT/HCPCS: 99282; 99284

== ENCOUNTER 2022-06-07 10:12 | Inpatient (IN) | payer OTHER, SELFPAY ==
[2022-06-07] VITALS (17 sets, daily range): BP systolic 108–166; BP diastolic 68–94; PULSE 76–109; RESP 16–25; TEMP 35.7–37.1; O2SAT 83–99; BMI 21.2
--- NOTE | ~2022-06-07 | IR_ITS ---
PROCEDURE: IR INSERTION OF TEMPORARY DIALYSIS CATHETER CLINICAL INFORMATION: Creatinine 10. Needs image of dialysis. Confused. COMPARISON: None TECHNIQUE: Following explaining ultrasound fluoroscopy-guided placement of a temporal dialysis catheter procedure, benefits and risk to patient's son via phone, a telephone consent was obtained. Patient was placed supine on angiography table and preliminary ultrasound imaging to the neck was performed. An optimal site was selected and marked. The marked site was cleaned and draped in the usual sterile manner. Under sterile ultrasound guidance marked area was infiltrated with 1% lidocaine. A single wall needle was advanced into the right jugular vein under ultrasound guidance. After obtaining venous return, a thin guidewire was advanced and needle withdrawn. A 5-Armenian dilator was advanced over the guidewire. The stylet with guidewire was removed and a 0.035 J-wire was advanced through the sheath into the SVC. The sheath was removed and the tract was dilated to a 12-Armenian dilator. Subsequently, a 12-Armenian Mahurkar catheter was advanced over the guidewire and placed in the SVC. The guidewire was removed. Both ports of the dialysis catheter were flushed with heparinized saline. The third port was flushed with saline. The catheter was anchored to the skin with 3-0 nonabsorbable nylon sutures. Simple dressing applied. Conscious sedation was not administered, however, patient was monitored by IR nursing and radiologist. All elements of maximal sterile barrier technique followed including use of cap, mask, sterile gown, sterile gloves, a sterile full body drape and hand hygiene. Also followed skin preparation with 2% chlorhexidine for cutaneous antisepsis, and sterile ultrasound preparation with sterile gel and probe cover when applicable. FINDINGS: On preliminary ultrasound imaging, there is widely patent jugular vein. Approximately 12-Armenian and 13 cm long temporary dialysis catheter was inserted under ultrasound guidance with its tip in the mid SVC. A single fluoroscopy image was obtained for documentation. IR/IR cvc insert non tunnel IMPRESSION: Successful ultrasound fluoroscopy-guided placement of a right jugular temporary dialysis catheter 12-Armenian 13 cm long. The catheter can be used for dialysis. Fluoroscopy Time: 2.3 minutes. Images: 1.
--- NOTE | ~2022-06-07 | XR_ITS ---
EXAMINATION: XR CHEST CLINICAL INFORMATION: Hypoxia. COMPARISON: 06/08/2022 TECHNIQUE: Frontal view of the chest was obtained. FINDINGS: Right IJ central venous catheter tip terminates near the cavoatrial junction, unchanged from prior. Patchy airspace opacities in the left midlung and left lung base appears more pronounced as compared to prior and not atelectasis is also present in the bases. Possible trace left pleural effusion. No pneumothorax. Cardiac and mediastinal contours are normal. Calcific atherosclerosis in the thoracic aorta. No acute osseous findings. Cholecystectomy clips in the right upper quadrant. XR/XR chest 1V IMPRESSION: Increased patchy airspace opacities in the left midlung and left lung base appears to more pronounced as compared to prior, concerning for pneumonia. Possible trace left pleural effusion.
--- NOTE | ~2022-06-07 | XR_ITS ---
EXAMINATION: XR CHEST CLINICAL INFORMATION: Short of breath COMPARISON: 06/10/2022 TECHNIQUE: Frontal view of the chest was obtained. FINDINGS: Cardiac leads overlie the chest. The lungs are well expanded. Persistent retrocardiac opacity. No pleural effusion or pneumothorax. The cardiomediastinal silhouette is unchanged, with a calcified aorta. XR/XR chest 1V IMPRESSION: Persistent retrocardiac opacity which could represent atelectasis or pneumonia.
--- NOTE | ~2022-06-07 | XR_ITS ---
EXAMINATION: XR CHEST CLINICAL INFORMATION: Chest pain COMPARISON: 06/14/2020 TECHNIQUE: Frontal view of the chest was obtained. FINDINGS: Cardiac leads overlie the chest. The lungs are well expanded. Mild retrocardiac opacity noted. No pleural effusion or pneumothorax. The cardiomediastinal silhouette is normal in size with a calcified aorta. No acute osseous abnormality. XR/XR chest 1V IMPRESSION: Mild retrocardiac opacity could represent atelectasis or pneumonia.
--- NOTE | ~2022-06-07 | FL_ITS ---
EXAMINATION: XR BARIUM SWALLOW CLINICAL INFORMATION: Suspected aspiration. COMPARISON: None TECHNIQUE: Modified barium swallow was performed under lateral fluoroscopy with patient sitting in presence of spaced therapist. FINDINGS: Following oral administration of thin, thick barium, nectar coated barium, chicken with barium and barium coated cookie there is normal oral mastication and normal propagation of bolus from the oral cavity through the pharynx into esophagus without laryngeal penetration or aspiration. No retention of barium seen in the valleculae or piriform sinuses. FLUOROSCOPY TIME: 3.2 minutes DOSE AREA PRODUCT: 5.049 uGy-m2 (microgray-meter squared) FL/FL barium swallow modified IMPRESSION: Essentially unremarkable modified barium swallow. Correlate with speech therapy results.
--- NOTE | ~2022-06-07 | IR_ITS ---
PROCEDURE: IR INSERTION OF TUNNEL CATHETER CLINICAL INFORMATION: Conversion of temporary dialysis catheter to a permacath. Persistent elevated BUN and creatinine. COMPARISON: None TECHNIQUE: Following explaining conversion of temporary dialysis catheter to a tunneled permacath placement procedure, benefits and risk to patient's son, a phone consent was obtained in presence of IR nurse. Patient was placed supine and the area around the right neck and the right anterior chest wall was cleaned and draped in usual sterile manner with 2% chlorhexidine solution. The dialysis catheter was then accessed and flushed with saline. A thin guidewire was advanced through the dialysis catheter and placed in the SVC and the catheter removed. Over the guidewire a 5 German dilator with sheath was placed and both were anchored to the drape with hemostat. Approximately 1 gauze length from the neck incision at the right anterior chest wall 1% lidocaine was injected. A small skin incision was performed. Tunneler attached the catheter was bluntly inserted from the right anterior chest wall incision to the neck incision and the entire catheter unit was pulled out through the neck incision. The tunneler was removed from the catheter. The guidewire within the 5 German dilator at the neck incision was removed. A longer 0.035 J-wire was advanced and placed in IVC under fluoroscopy and cardiac monitoring. The 5 German dilator was replaced with a 14.5 German dilator and sheath over the guidewire. The guidewire and the dilator was removed and the catheter was inserted through the peel-away sheath into the SVC. The peel-away sheath was removed as the catheter was held in position. A single image was obtained postprocedure documenting position of the catheter within the distal SVC. Both ports of the catheter were flushed with heparinized saline. The skin incision was sutured with 3-0 nonabsorbable sutures. The tunnel catheter was anchored to the skin with 3-0 sutures as well. Sterile dressing applied postprocedure. Patient tolerated procedure extremely well. All elements of maximal sterile barrier technique followed including use of cap, mask, sterile gown, sterile gloves, a sterile full body drape and hand hygiene. Also followed skin preparation with 2% chlorhexidine for cutaneous antisepsis, and sterile ultrasound preparation with sterile gel and probe cover when applicable. IR/IR cvc insert central tunnel FINDINGS/IMPRESSION: 1. Fluoroscopy guided conversion of right temporary dialysis Mahurkar catheter to a tunneled 14.5 German 19 cm long permacatheter. 2. Fluoroscopy time: 1.0 minutes. 3. Dose area product: 104 cGy.cm2
--- NOTE | ~2022-06-07 | IR_ITS ---
PROCEDURE: IR INSERTION OF TEMPORARY DIALYSIS CATHETER CLINICAL INFORMATION: Creatinine 10. Needs image of dialysis. Confused. COMPARISON: None TECHNIQUE: Following explaining ultrasound fluoroscopy-guided placement of a temporal dialysis catheter procedure, benefits and risk to patient's son via phone, a telephone consent was obtained. Patient was placed supine on angiography table and preliminary ultrasound imaging to the neck was performed. An optimal site was selected and marked. The marked site was cleaned and draped in the usual sterile manner. Under sterile ultrasound guidance marked area was infiltrated with 1% lidocaine. A single wall needle was advanced into the right jugular vein under ultrasound guidance. After obtaining venous return, a thin guidewire was advanced and needle withdrawn. A 5-Belizean dilator was advanced over the guidewire. The stylet with guidewire was removed and a 0.035 J-wire was advanced through the sheath into the SVC. The sheath was removed and the tract was dilated to a 12-Belizean dilator. Subsequently, a 12-Belizean Mahurkar catheter was advanced over the guidewire and placed in the SVC. The guidewire was removed. Both ports of the dialysis catheter were flushed with heparinized saline. The third port was flushed with saline. The catheter was anchored to the skin with 3-0 nonabsorbable nylon sutures. Simple dressing applied. Conscious sedation was not administered, however, patient was monitored by IR nursing and radiologist. All elements of maximal sterile barrier technique followed including use of cap, mask, sterile gown, sterile gloves, a sterile full body drape and hand hygiene. Also followed skin preparation with 2% chlorhexidine for cutaneous antisepsis, and sterile ultrasound preparation with sterile gel and probe cover when applicable. FINDINGS: On preliminary ultrasound imaging, there is widely patent jugular vein. Approximately 12-Belizean and 13 cm long temporary dialysis catheter was inserted under ultrasound guidance with its tip in the mid SVC. A single fluoroscopy image was obtained for documentation. IR/IR us guide venous access IMPRESSION: Successful ultrasound fluoroscopy-guided placement of a right jugular temporary dialysis catheter 12-Belizean 13 cm long. The catheter can be used for dialysis. Fluoroscopy Time: 2.3 minutes. Images: 1.
--- NOTE | ~2022-06-07 | XR_ITS ---
EXAMINATION: XR CHEST CLINICAL INFORMATION: Hypoxia COMPARISON: Chest radiograph 06/07/2022 10:40 AM. TECHNIQUE: Frontal view of the chest was obtained. FINDINGS: Portable AP chest radiograph is obtained with marked left posterior oblique orientation and lordotic orientation. A right internal jugular catheter terminates in projection with the expected location of the cavoatrial junction. Low lung volumes are present. The cardiac silhouette is grossly normal in size. Dense aortic calcific atherosclerosis visualized. No pneumothoraces identified. Mild blunting of the left costophrenic sulcus and mild left base airspace opacification with partial obscuration of the descending aortic and left hemidiaphragmatic margins. Coarse reticular opacities are again visualized in the peripheral left middle lung zone. Presumed cholecystectomy clips are identified. XR/XR chest 1V IMPRESSION: *Right internal jugular catheter terminating in the region of the cavoatrial junction. *Unchanged mild left lower lobe atelectasis and/or consolidation compared with 06/07/2022 10:40 AM.
--- NOTE | ~2022-06-07 | US_ITS ---
EXAMINATION: US RETROPERITONEAL LIMITED (RENAL ONLY) CLINICAL INFORMATION: Renal failure. COMPARISON: None TECHNIQUE: Multiple 2-D grayscale and color Doppler ultrasound images of the kidneys were obtained. FINDINGS: RIGHT KIDNEY: 10.5 x 4.3 x 5.0 cm (SAG x AP x TRV). Diffuse increased cortical echotexture. An interpolar anechoic cyst measures 1.8 cm. A smaller cyst measures up to 1.7 cm. No hydronephrosis or nephrolithiasis. Color Doppler showed no abnormal vascular flow. LEFT KIDNEY: 8.6 x 3.9 x 3.4 cm (SAG x AP x TRV). Diffuse increased cortical echotexture. No hydronephrosis or nephrolithiasis. Color Doppler showed no abnormal vascular flow. US/US renal BI IMPRESSION: Diffuse increased renal cortical echotexture is nonspecific, but can be seen with medical renal disease. Small right renal cysts demonstrate benign features not requiring follow-up. No other significant abnormality.
--- NOTE | ~2022-06-07 | XR_ITS ---
EXAMINATION: XR CHEST CLINICAL INFORMATION: Increased oxygen needs with hypoxia COMPARISON: 06/12/2022 TECHNIQUE: Frontal view of the chest was obtained. FINDINGS: Compared to the study from yesterday there has been no significant interval change aside from possible subtle increased in interstitial markings. Heart size upper limits of normal. Left lower lobe atelectasis and probable left pleural effusion appear increased. A temporary hemodialysis catheter is present via the right jugular with its tip in the SVC. XR/XR chest 1V IMPRESSION: Compared to yesterday's study there has been increase in left lower lobe atelectasis and left pleural effusion with slight increase in interstitial markings. Findings may represent mild pulmonary vascular congestion.
--- NOTE | 2022-06-07 10:26 | ECG_ITS ---
Test Reason : HYPERKALEMIA Blood Pressure : / mmHG Vent. Rate : 077 BPM Atrial Rate : 077 BPM P-R Int : 178 ms QRS Dur : 108 ms QT Int : 422 ms P-R-T Axes : 064 -54 014 degrees QTc Int : 477 ms Artifact in tracing Normal sinus rhythm Incomplete right bundle branch block Left anterior fascicular block Abnormal ECG When compared with ECG of 13-JUN-2020 19:21, No significant changes seen Referred By: Dutch [place] Electronically Signed By:NEERU IRVING
--- NOTE | 2022-06-07 10:38 | ED_ITS ---
HPI - General Adult General Chief complaint: General Medical Stated complaint: LETHARGY, COUGH, BACK PAIN Time Seen by Provider: 06/07/22 10:25 Source: family and EMS Mode of arrival: EMS History of Present Illness HPI narrative: This is 81 years old with end-stage kidney disease presented to the emergency department because generalized weakness poor intake, history was obtained by the son ([phone]), the since the that the goes there every day but today was extremely weak therefore called the ambulance Onset (ago): week(s) (1) Radiation: non-radiation Severity: severe Pain Consistency: constant Relieving factors: none Exacerbating factors: none Related Data Home Medications Medication Instructions Recorded Confirmed amlodipine 2.5 mg tablet 1 tab PO DAILY 06/07/22 06/07/22 levothyroxine 125 mcg tablet 1 tab PO DAILY@0600 06/07/22 06/07/22 Allergies Allergy/AdvReac Type Severity Reaction Status Date / Time iodine Allergy Unknown unkown Verified 06/07/22 13:25 Sfqbpxw-PGH-[id number] Reductase AdvReac Mild myalgias Verified 06/07/22 13:25 Inhibitor Review of Systems Constitutional: Constitutional: Reports no additional constitutional complaints Cardiovascular: Cardiovascular: Reports no additional cardiovascular com plaints PMFSH Past Medical History Medical History Diabetes mellitus Hypothyroid Stage 3 acute kidney injury UTI (urinary tract infection) Social History Social History Household Members: None Housing: Apartment Do you presently have visiting nurse or other home services: No Alcohol intake: never Advance Directives: Yes Advance Directives on File: Yes Advance Directives Date on File: 06/14/20 service: No Current occupational status: retired Physical Exam ED Vital Signs: Vital Signs - 24 hr 06/07/22 10:20 06/07/22 13:27 06/07/22 14:11 Temperature 97.0 F 98.0 F Pulse Rate 88 76 83 Respiratory Rate 22 H 20 20 Blood Pressure 166/94 H 137/68 Pulse Oximetry 96 96 Oxygen Delivery Method Room Air Room Air BMI result Body Mass Index 21.2 Const General: lethargic Nutritional Appearance: well nourished Orientation/consciousness: lethargic HENMT Head: Yes normal to inspection General nose exam: Normal external nose present Face and sinus: Yes normal facial exam Mouth: other (dry oral mucosa) Neck Neck: Yes normal visual inspection and Yes full ROM Thyroid: Thyroid normal Chest Chest palpation & inspection: normal inspection of the chest Resp Auscultation: rhonchi Cardio Jugular venous distension: no JVD Rate: regular rate GI Inspection: Yes normal to inspection Palpation (GI): Soft to palpation, not firm and nontender Rectal Exam - Female: normal sphincter tone and other (brown stools heme negative) Skin General skin exam: no rashes or lesions noted, elasticity normal and turgor normal Trauma: no lacerations or abrasions Extrem General: Yes normal to inspection and Yes full ROM Course Course Course Narrative: d/w son Maria Del Carmen pt is DNR/I but will consider dyalisis Reevaluation(s) Reevaluation #1: Patient remain hemodynamically stable she was seen in the emergency department by Nephrology behavioral health consultant decision was made to place a dialysis catheter patient will be dialyzed today by Dr Bah Time: 16:28 Medications Administered Generic Name Dose Route Start Last Admin Trade Name Freq PRN Reason Stop Dose Admin Sodium Chloride 1,000 mls @ 100 mls/hr 06/07/22 10:45 06/07/22 15:51 Ns IVCONT 0 mls/hr .Q10H GORDO Infusion Sodium Bicarbonate 150 meq/ 1,000 mls @ 125 mls/hr 06/07/22 14:30 06/07/22 15:38 Dextrose IV 125 mls/hr .Q8H GORDO Administration Sodium Chloride 3 ml 06/07/22 16:00 06/07/22 15:36 0.9 % Sodium Chloride Flush 3 Ml Syringe IVFLUSH 3 ml QSHIFT GORDO Administration Discontinued Medications Generic Name Dose Route Start Last Admin Trade Name Freq PRN Reason Stop Dose Admin Albuterol Sulfate 5 mg/ 7.5 mg 06/07/22 13:20 06/07/22 13:27 Albuterol Sulfate 2.5 mg INHALE 06/07/22 13:21 7.5 mg ONCE ONE Administration Medical Decision Making Medical Decision Making [facility] Narrative: Patient presented with generalized weakness failure to thrive we get some baseline blood work chest x-ray EKG will reassess Differential Diagnosis Differential Diagnoses: The differential diagnosis associated with the presentation includes Pneumonia, acute in chronic renal failure,sepsis Consult Healthcare Provider Management of the patient was discussed with: Hospitalist and Laborer Driver (spoke with Dr Bah) Lab Data MDM Lab Attestation statement: I reviewed the patient's lab results. 06/07/22 11:05 06/07/22 11:05 Labs: Lab Results 06/07/22 06/07/22 06/07/22 Range/Units 11:05 11:05 11:05 WBC 9.4 (4.8-10.8) X10*3/uL RBC 2.03 L (4.20-5.50) X10*6/uL Hgb 6.1 L* (12.0-16.0) g/dl Hct 18.9 L* (37.0-47.0) % MCV 93.1 (80.0-98.0) fL MCH 30.0 (27.0-33.0) pg MCHC 32.3 (31.0-35.0) g/dl RDW 14.8 (11.0-16.0) % Plt Count 199 (160-400) X10*3/uL MPV 9.5 (9.4-12.3) fL Immature Gran % (Auto) 3.4 H (0.0-0.4) % Neut % (Auto) 80.6 H (45-73) % Lymph % (Auto) 7.7 L (20-40) % [place] % (Auto) 7.1 (2-11) % Eos % (Auto) 1.0 (0-4) % Baso % (Auto) 0.2 (0-2) % Lymph # (Auto) 0.7 L (1.2-4.9) X10*3/uL [place] # (Auto) 0.7 (0.1-1.2) X10*3/uL Eos # (Auto) 0.1 (0.0-0.4) X10*3/uL Baso # (Auto) 0.0 (0.0-0.2) X10*3/uL Abs Immat Gran (auto) 0.32 H (0.00-0.03) X10*3/uL Absolute Neuts (auto) 7.6 (2.0-8.3) x10*3/uL Absolute Nucleated RBC 0.000 (0.0-0.012) X10*3/uL Nucleated RBC % (auto) 0.0 (0.0-0.2) /100WBC Smear Path Review SEE NOTE Sodium 143 (135-145) mmol/L Potassium 6.1 H* (3.3-5.1) mmol/L Chloride 112 H (96-108) mmol/L Carbon Dioxide 12 L (22-29) mmol/L Anion Gap 25 H (12-20) BUN 179 H (9-16) mg/dL Creatinine 10.83 H* (0.5-1.4) mg/dL Estim Creat Clear Calc 3.3 Estimated GFR 3 Random Glucose 162 H (60-115) mg/dL Estimat Average Glucose mg/dL Hemoglobin A1c % % Calcium 8.6 D (8.4-10.2) mg/dL Iron 20 L (30-160) mcg/dL TIBC 226 L (228-428) mcg/dL % Saturation 9 L (15-50) % Unsat Iron Binding 206 ug/dL Ferritin 277 H (10-250) ng/mL Total Bilirubin 0.5 (0.0-1.0) mg/dL AST 22 (5-31) U/L ALT 18 (0-31) U/L Alkaline Phosphatase 63 (39-117) U/L Troponin I High Sens 21.5 H (<3.5-17.0) ng/L Total Protein 7.2 (6.5-8.0) g/dL Albumin 3.5 (3.5-5.0) g/dL Stool Occult Blood (NEGATIVE) 06/07/22 06/07/22 Range/Units 11:05 11:48 WBC (4.8-10.8) X10*3/uL RBC (4.20-5.50) X10*6/uL Hgb (12.0-16.0) g/dl Hct (37.0-47.0) % MCV (80.0-98.0) fL MCH (27.0-33.0) pg MCHC (31.0-35.0) g/dl RDW (11.0-16.0) % Plt Count (160-400) X10*3/uL MPV (9.4-12.3) fL Immature Gran % (Auto) (0.0-0.4) % Neut % (Auto) (45-73) % Lymph % (Auto) (20-40) % [place] % (Auto) (2-11) % Eos % (Auto) (0-4) % Baso % (Auto) (0-2) % Lymph # (Auto) (1.2-4.9) X10*3/uL [place] # (Auto) (0.1-1.2) X10*3/uL Eos # (Auto) (0.0-0.4) X10*3/uL Baso # (Auto) (0.0-0.2) X10*3/uL Abs Immat Gran (auto) (0.00-0.03) X10*3/uL Absolute Neuts (auto) (2.0-8.3) x10*3/uL Absolute Nucleated RBC (0.0-0.012) X10*3/uL Nucleated RBC % (auto) (0.0-0.2) /100WBC Smear Path Review Sodium (135-145) mmol/L Potassium (3.3-5.1) mmol/L Chloride (96-108) mmol/L Carbon Dioxide (22-29) mmol/L Anion Gap (12-20) BUN (9-16) mg/dL Creatinine (0.5-1.4) mg/dL Estim Creat Clear Calc Estimated GFR Random Glucose (60-115) mg/dL Estimat Average Glucose 131 mg/dL Hemoglobin A1c % 6.2 % Calcium (8.4-10.2) mg/dL Iron (30-160) mcg/dL TIBC (228-428) mcg/dL % Saturation (15-50) % Unsat Iron Binding ug/dL Ferritin (10-250) ng/mL Total Bilirubin (0.0-1.0) mg/dL AST (5-31) U/L ALT (0-31) U/L Alkaline Phosphatase (39-117) U/L Troponin I High Sens (<3.5-17.0) ng/L Total Protein (6.5-8.0) g/dL Albumin (3.5-5.0) g/dL Stool Occult Blood NEGATIVE (NEGATIVE) Independent Interpretation I performed an independent interpretation of an: EKG (Normal sinus range no rate [address]-T changes, no ischemia) and Rhythm Strip Independent Historian Clinical information obtained from an independent historian. History obtained from or confirmed by: EMS (I spoke at length with the son Maria Del Carmen pt is DNR per son Maria Del Carmen) and Other Chronic Conditions CRF Critical Care Time Critical Care Time Critical Care Time: Yes Total Critical Care Time: 60 Attestation: Taking care of the patient, multiple phone call with the behavioral health consultant, hospitalist, speaking with the son, speaking with IR Discharge Plan Discharge Clinical Impression: Acute kidney injury, Acute hyperkalemia, Anemia in chronic kidney disease, Hypercalcemia, Metabolic acidosis Patient Disposition: Admitted As Inpatient
[2022-06-07 11:09] LABS: MANUAL DIFF FLAG NO
[2022-06-07 11:11] LABS: Basophils Percent Auto 0.2 % (0-2); Eosinophils Absolute Auto 0.1 X10*3/uL (0.0-0.4); Imm Gran Abs Auto 0.32 X10*3/uL (0.00-0.03); Imm Gran Pct Auto 3.4 % (0.0-0.4); Lymphocytes Absolute Auto 0.7 X10*3/uL (1.2-4.9); Lymphocytes Percent Auto 7.7 % (20-40); Mean Corpuscular HGB Conc 32.3 g/dl (31.0-35.0); Mean Corpuscular Volume 93.1 fL (80.0-98.0); Mean Platelet Volume 9.5 fL (9.4-12.3); Monocytes Absolute Auto 0.7 X10*3/uL (0.1-1.2); Monocytes Percent Auto 7.1 % (2-11); Neutrophils Absolute Auto 7.6 x10*3/uL (2.0-8.3); Neutrophils Percent Auto 80.6 % (45-73); Platelet Count 199 X10*3/uL (160-400); Red Blood Count 2.03 X10*6/uL (4.20-5.50); Red Cell Distribution Width 14.8 % (11.0-16.0); White Blood Count 9.4 X10*3/uL (4.8-10.8)
[2022-06-07 11:15] LABS: Hemoglobin 6.1 g/dl (12.0-16.0)
[2022-06-07 11:16] LABS: Hematocrit 18.9 % (37.0-47.0)
[2022-06-07 11:39] LABS: Troponin-I High Sensitivity 21.5 ng/L (<3.5-17.0)
--- NOTE | 2022-06-07 11:39 | PC.NURSE ---
pt is alert no sob/keri . pt's mouth/mucous is very dry and crusted noted. lungs - diminished, heart sounds - regular. abd soft and non-tender. lindsay feet 4+ pitting edema and very dry. heplock # 20 to l ac. rectal exam done with rn present. pt mari well.
[2022-06-07 11:44] LABS: Alanine Aminotransferase 18 U/L (0-31); Albumin Level 3.5 g/dL (3.5-5.0); Alkaline Phosphatase 63 U/L (39-117); Anion Gap 25 (12-20); Aspartate Amino Transferase 22 U/L (5-31); Bilirubin Total 0.5 mg/dL (0.0-1.0); Blood Urea Nitrogen 179 mg/dL (9-16); Calcium 8.6 mg/dL (8.4-10.2); Carbon Dioxide 12 mmol/L (22-29); Chloride 112 mmol/L (96-108); Creatinine Clr Calc Pharmacy 3.3; Estimated Glomerular Filt Rate 3; Glucose Random 162 mg/dL (60-115); Potassium 6.1 mmol/L (3.3-5.1); Sodium 143 mmol/L (135-145); Total Protein 7.2 g/dL (6.5-8.0)
[2022-06-07] MEDS: 0.9 % Sodium Chloride 1,000 ML 999 ML IVCONT (11:44)
[2022-06-07 11:58] LABS: OBS Int Ctl Valid YES; OBS1 NEGATIVE (NEGATIVE)
--- NOTE | 2022-06-07 12:09 | PC.NURSE ---
pt appears to be non-verbal and follows some verbal queing.
--- NOTE | 2022-06-07 12:47 | ECG_ITS ---
Test Reason : chest pain Blood Pressure : / mmHG Vent. Rate : 075 BPM Atrial Rate : 075 BPM P-R Int : 168 ms QRS Dur : 118 ms QT Int : 430 ms P-R-T Axes : 064 -51 030 degrees QTc Int : 480 ms Normal sinus rhythm with sinus arrhythmia Right bundle branch block Left anterior fascicular block Bifascicular block Abnormal ECG When compared with ECG of 07-JUN-2022 12:58, No significant change was found Referred By: Dutch Camarillo Electronically Signed By:NEERU IRVING
--- NOTE | 2022-06-07 13:09 | PHA.MEDREC ---
Pharmacy Consult ? Medication Reconciliation Pharmacy has completed the medication reconciliation. Patient is nonverbal at this time. Spoke to son Michael
[2022-06-07] MEDS: Albuterol Sulfate 5 MG, Albuterol Sulfate (0.083%) 2.5 MG 7.5 MG INHALE (13:27)
--- NOTE | 2022-06-07 13:30 | MHC.CM.ED ---
Received consult for assessment of d/c needs: Review of EMR shows no return of any labs or any imaging. Pt resides w/son who is also her HCP. Upon return of labs and discussion between ED MD and pt's son, pt will be admitted with ABHISHEK and possible initiation of HD. No further need for ED CM involvement.
--- NOTE | 2022-06-07 14:31 | PM.IMHP ---
History of Present Illness Date of Service: 06/07/22 Chief Complaint: lethargy 81F PMH CKD III, hypothyroid, dementia, HTN, DM (not on meds) presented with failure to thrive. history obtained from patient's son, Michael. at baseline, patient has mild to moderate dementia, ambulates independently, forgetful. over past few months has been declining and son started taking care of things like bills and some health care. over past 2 weeks patient's decline has accelerated, increased lethargy, no motivation to do anything, decreased appetite. denies sob, chest pain, fever, chills. in ED found to have creatining of 10.83, potassium 6.1, hgb 6.1. BUN 179. Review of Systems Review of Systems: Yes Unobtainable due to mental condition [facility] Medical History Diabetes mellitus Hypothyroid Stage 3 acute kidney injury UTI (urinary tract infection) Social History Household Members: None Housing: Apartment Do you presently have visiting nurse or other home services: No Alcohol intake: never Advance Directives: Yes Advance Directives on File: Yes Advance Directives Date on File: 06/14/20 service: No Current occupational status: retired Meds Allergies Allergy/AdvReac Type Severity Reaction Status Date / Time iodine Allergy Unknown unkown Verified 06/07/22 13:25 Yohxcec-EWN-DeY Reductase AdvReac Mild myalgias Verified 06/07/22 13:25 Inhibitor Active Medications: Current Medications Sodium Chloride (Ns) 1,000 mls @ 100 mls/hr IVCONT .Q10H [facility] Last Admin: 06/07/22 11:44 Dose: 100 mls/hr Sodium Bicarbonate 150 meq/ (Dextrose) 1,000 mls @ 125 mls/hr IV .Q8H [facility] Levothyroxine Sodium (Levothyroxine Sodium 125 Mcg Tablet) 125 mcg PO DAILY@0600 [facility] Pharmacy Consult (Consult Rx Perform Med Rec) 1 each MISCELLANE ONCE PRN PRN Reason: Consult order Home Medications Medication Instructions Recorded Confirmed Last Taken Type amlodipine 2.5 mg tablet 1 tab PO DAILY 06/07/22 06/07/22 Unknown History levothyroxine 125 mcg tablet 1 tab PO DAILY@0600 06/07/22 06/07/22 Unknown History Physical Exam Vital Signs and Narrative: Vital Signs: Last Vital Signs Temp 98.0 F 06/07/22 14:11 Pulse 83 06/07/22 14:11 Resp 20 06/07/22 14:11 BP 137/68 06/07/22 14:11 Pulse Ox 96 06/07/22 14:11 O2 Del Method 06/07/22 14:11 BMI result Body Mass Index 21.2 General: lethargic, not participatory in exam, dry appearing Resp: CTA bilateral, no accessory muscles used GI: soft, non tender, non distended Neuro: motor grossly intact, lethargic Psych: impaired insight Results Labs 06/07/22 11:05 06/07/22 11:05 Labs: Laboratory Results - last 24 hr 06/07/22 06/07/22 06/07/22 11:05 11:05 11:05 MCV 93.1 MCH 30.0 MCHC 32.3 RDW 14.8 Plt Count 199 MPV 9.5 Immature Gran % (Auto) 3.4 H Neut % (Auto) 80.6 H Lymph % (Auto) 7.7 L [place] % (Auto) 7.1 Eos % (Auto) 1.0 Baso % (Auto) 0.2 Lymph # (Auto) 0.7 L [place] # (Auto) 0.7 Eos # (Auto) 0.1 Baso # (Auto) 0.0 Abs Immat Gran (auto) 0.32 H Absolute Neuts (auto) 7.6 Absolute Nucleated RBC 0.000 Nucleated RBC % (auto) 0.0 Smear Path Review SEE NOTE Anion Gap 25 H Estim Creat Clear Calc 3.3 Estimated GFR 3 Random Glucose 162 H Calcium 8.6 D Total Bilirubin 0.5 AST 22 ALT 18 Alkaline Phosphatase 63 Troponin I High Sens 21.5 H Total Protein 7.2 Albumin 3.5 Stool Occult Blood 06/07/22 11:48 MCV MCH MCHC RDW Plt Count MPV Immature Gran % (Auto) Neut % (Auto) Lymph % (Auto) [place] % (Auto) Eos % (Auto) Baso % (Auto) Lymph # (Auto) [place] # (Auto) Eos # (Auto) Baso # (Auto) Abs Immat Gran (auto) Absolute Neuts (auto) Absolute Nucleated RBC Nucleated RBC % (auto) Smear Path Review Anion Gap Estim Creat Clear Calc Estimated GFR Random Glucose Calcium Total Bilirubin AST ALT Alkaline Phosphatase Troponin I High Sens Total Protein Albumin Stool Occult Blood NEGATIVE Imaging Radiologist's Impressions: Impressions Chest X-Ray 06/07/22 10:48 IMPRESSION: Mild retrocardiac opacity could represent atelectasis or pneumonia. Assessment and Plan (1) Acute hyperkalemia: Status: Acute Plan 81F PMH CKD III, hypothyroid, dementia, HTN, DM (not on meds) presented with failure to thrive, found to have severe ABHISHEK with hypoerkalemia, met. acidosis, anemia metabolic encephalopathy due to ABHISHEK on CKD IV complicated by hyperkalemia and metabolic acidosis d5w with 3 amp bicarb at 125cc/hr plan for urgent HD monitor bmp severe anemia likely related to above check iron studies transfusing 2 units prbc monitor hypothyroid synthroid HTN will hold amlodipine for now DM last a1c 7.2, not on meds, monitor alzheimers dementia at risk for delerium, monitor dvt prophylaxis- hep sq DNR/DNI patient with sever abhishek and anemia, requiring urgent interventions with HD, transfusions, high risk for adverse outcome due to advanced age and severity of presentation, ,therefore, expected to require atleast 2 midnights inpatient. Time Spent With Patient Time: Total time managing care of this patient today ____ minutes. Quality Stroke Does the patient have a stroke diagnosis?: No VTE Prior VTE?: No VTE Risk Level:: Medical - moderate - high VTE Device Contraindication: Treatment Not Indicated VTE Drug Contraindication: N/A - Med Ordered
--- OUTSIDE RECORDS SUMMARY | 2022-06-07 14:54 | XMS_ITS | Continuity of Care Document ---
:1940 Author Organization [facility] Address [address] [place] [id number]- Care Team Providers Name Role Phone Irish HYDE, Martita Primary Care Physician Encounter [facility] Date(s): 06/15/21 - 07/28/[address] [id number] Attending Physician: Belia Burgos NP Admitting Physician: Belia Burgos NP Referring Physician: Belia Burgos NP
--- OUTSIDE RECORDS SUMMARY | 2022-06-07 14:54 | XMS_ITS | Continuity of Care Document ---
:1940 Author Organization [facility] Address [address] [place] [id number]- Care Team Providers Name Role Phone Irish HYDE, Martita Primary Care Physician Encounter [facility] Date(s): 05/29/21 - 06/30/[address] [id number] Attending Physician: Belia Burgos NP Admitting Physician: Belia Burgos NP Referring Physician: Belia Burgos NP
--- OUTSIDE RECORDS SUMMARY | 2022-06-07 14:54 | XMS_ITS | Continuity of Care Document ---
:1940 Author Organization [facility] Address [address] [place] [address]- Care Team Providers Name Role Phone Irish HYDE, Martita Primary Care Physician Encounter [facility] Date(s): 08/06/21 - 09/15/[address] [id number] [[email or web address]] Attending Physician: Belia Burgos NP Admitting Physician: Belia Burgos NP Referring Physician: Belia Burgos NP
[2022-06-07 15:01] LABS: COVID-19 Test Negative (Negative); IDNOW Serial# 55D5AD1C
[2022-06-07 15:12] LABS: Iron 20 mcg/dL (30-160); Percent Iron Saturation 9 % (15-50); Total Iron Binding Capacity 226 mcg/dL (228-428); Unsaturated Iron Binding 206 ug/dL
[2022-06-07 15:17] LABS: Venous Blood Gas Refer to POC result
[2022-06-07 15:22] LABS: Appearance Urine Clear; Color Urine Yellow; Glucose Urine UA 100 mg/dL (Negative); Leukocyte Esterase Urine Moderate (2+) (Negative); Nitrite Urine Negative (Negative); PH 5.5 (5.0-9.0); UMIC TRIGGER UACC YES; Urine Blood Negative (Negative); Urine Ketones Negative (Negative); Urine Protein 100 (2+) mg/dL (Neg-Trace)
[2022-06-07 15:24] LABS: VBG Base Excess -14.6 mmol/L; VBG HCO3 11 mmol/L (22-26); VBG pCO2 27 mmHg; VBG pH 7.22 (7.32-7.43); VBG pO2 51 mmHg
[2022-06-07 15:24] LABS: Bacteria Urine None Seen (None Seen); Hyaline Casts Urine 0-2 /LPF (0-2); RBC Urine 0-2 /HPF (0-2); UACC Culture Trigger YES; WBC Urine 21-50 /HPF (0-5)
[2022-06-07 15:25] LABS: Prothrombin Time 11.7 SEC (10.0-13.1)
[2022-06-07 15:25] LABS: Estimated Average Glucose 131 mg/dL; Ferritin 277 ng/mL (10-250); Hemoglobin A1c % 6.2 %
[2022-06-07 15:27] LABS: Partial Thromboplastin Time 28.1 SEC (26.0-36.4)
[2022-06-07] MEDS: 0.9 % Sodium Chloride Flush 3 ML SYRINGE IVFLUSH (15:36)
[2022-06-07] MEDS: Sodium Bicarbonate 8.4% 150 MEQ in Dextrose 5 % 850 ML 125 MEQ IV (15:38)
--- NOTE | 2022-06-07 15:50 | PC.NURSE ---
pt went to interventional radiology for dialysis cath placement via stretcher.
--- NOTE | 2022-06-07 16:09 | PC.NURSE ---
rn to rn report given to matthew. pt is at this time getting a dialysis cath placed by interventional radioloy. carlos castro was given romi (diaysis, rn) ext phone number [phone] to call her because pt needs to be dialyzed. matthew was also informed that 2 units of rbc are ready per the blood bank and that she needs to call them for the pt transfusion.
--- NOTE | 2022-06-07 16:41 | ED.GENADULT ---
HPI - General Adult General Chief complaint: General Medical Stated complaint: LETHARGY, COUGH, BACK PAIN Time Seen by Provider: 06/07/22 10:25 Source: family and EMS Mode of arrival: EMS History of Present Illness Relieving factors: none Exacerbating factors: none Related Data Home Medications Medication Instructions Recorded Confirmed amlodipine 2.5 mg tablet 1 tab PO DAILY 06/07/22 06/07/22 levothyroxine 125 mcg tablet 1 tab PO DAILY@0600 06/07/22 06/07/22 Allergies Allergy/AdvReac Type Severity Reaction Status Date / Time iodine Allergy Unknown unkown Verified 06/07/22 13:25 Hywxfis-IGU-VqH Reductase AdvReac Mild myalgias Verified 06/07/22 13:25 Inhibitor PMFSH Past Medical History Medical History Diabetes mellitus Hypothyroid Stage 3 acute kidney injury UTI (urinary tract infection) Social History Social History Household Members: None Housing: Apartment Do you presently have visiting nurse or other home services: No Alcohol intake: never Advance Directives: Yes Advance Directives on File: Yes Advance Directives Date on File: 06/14/20 service: No Current occupational status: retired Physical Exam ED Vital Signs: Vital Signs - 24 hr 06/07/22 10:20 06/07/22 13:27 06/07/22 14:11 Temperature 97.0 F 98.0 F Pulse Rate 88 76 83 Respiratory Rate 22 H 20 20 Blood Pressure 166/94 H 137/68 Pulse Oximetry 96 96 Oxygen Delivery Method Room Air Room Air BMI result Body Mass Index 21.2 Medications Administered Generic Name Dose Route Start Last Admin Trade Name Freq PRN Reason Stop Dose Admin Sodium Chloride 1,000 mls @ 100 mls/hr 06/07/22 10:45 06/07/22 15:51 Ns IVCONT 0 mls/hr .Q10H [facility] Infusion Sodium Bicarbonate 150 meq/ 1,000 mls @ 125 mls/hr 06/07/22 14:30 06/07/22 15:38 Dextrose IV 125 mls/hr .Q8H [facility]ORD[facility] Administration Sodium Chloride 3 ml 06/07/22 16:00 06/07/22 15:36 0.9 % Sodium Chloride Flush 3 Ml Syringe IVFLUSH 3 ml QSHIFT GORDO Administration Discontinued Medications Generic Name Dose Route Start Last Admin Trade Name Freq PRN Reason Stop Dose Admin Albuterol Sulfate 5 mg/ 7.5 mg 06/07/22 13:20 06/07/22 13:27 Albuterol Sulfate 2.5 mg INHALE 06/07/22 13:21 7.5 mg ONCE ONE Administration Medical Decision Making Lab Data 06/07/22 11:05 06/07/22 11:05 Labs: Lab Results 06/07/22 06/07/22 06/07/22 Range/Units 11:05 11:05 11:05 WBC 9.4 (4.8-10.8) X10*3/uL RBC 2.03 L (4.20-5.50) X10*6/uL Hgb 6.1 L* (12.0-16.0) g/dl Hct 18.9 L* (37.0-47.0) % MCV 93.1 (80.0-98.0) fL MCH 30.0 (27.0-33.0) pg MCHC 32.3 (31.0-35.0) g/dl RDW 14.8 (11.0-16.0) % Plt Count 199 (160-400) X10*3/uL MPV 9.5 (9.4-12.3) fL Immature Gran % (Auto) 3.4 H (0.0-0.4) % Neut % (Auto) 80.6 H (45-73) % Lymph % (Auto) 7.7 L (20-40) % [place] % (Auto) 7.1 (2-11) % Eos % (Auto) 1.0 (0-4) % Baso % (Auto) 0.2 (0-2) % Lymph # (Auto) 0.7 L (1.2-4.9) X10*3/uL [place] # (Auto) 0.7 (0.1-1.2) X10*3/uL Eos # (Auto) 0.1 (0.0-0.4) X10*3/uL Baso # (Auto) 0.0 (0.0-0.2) X10*3/uL Abs Immat Gran (auto) 0.32 H (0.00-0.03) X10*3/uL Absolute Neuts (auto) 7.6 (2.0-8.3) x10*3/uL Absolute Nucleated RBC 0.000 (0.0-0.012) X10*3/uL Nucleated RBC % (auto) 0.0 (0.0-0.2) /100WBC Smear Path Review SEE NOTE Sodium 143 (135-145) mmol/L Potassium 6.1 H* (3.3-5.1) mmol/L Chloride 112 H (96-108) mmol/L Carbon Dioxide 12 L (22-29) mmol/L Anion Gap 25 H (12-20) BUN 179 H (9-16) mg/dL Creatinine 10.83 H* (0.5-1.4) mg/dL Estim Creat Clear Calc 3.3 Estimated GFR 3 Random Glucose 162 H (60-115) mg/dL Estimat Average Glucose mg/dL Hemoglobin A1c % % Calcium 8.6 D (8.4-10.2) mg/dL Iron 20 L (30-160) mcg/dL TIBC 226 L (228-428) mcg/dL % Saturation 9 L (15-50) % Unsat Iron Binding 206 ug/dL Ferritin 277 H (10-250) ng/mL Total Bilirubin 0.5 (0.0-1.0) mg/dL AST 22 (5-31) U/L ALT 18 (0-31) U/L Alkaline Phosphatase 63 (39-117) U/L Troponin I High Sens 21.5 H (<3.5-17.0) ng/L Total Protein 7.2 (6.5-8.0) g/dL Albumin 3.5 (3.5-5.0) g/dL Stool Occult Blood (NEGATIVE) 06/07/22 06/07/22 Range/Units 11:05 11:48 WBC (4.8-10.8) X10*3/uL RBC (4.20-5.50) X10*6/uL Hgb (12.0-16.0) g/dl Hct (37.0-47.0) % MCV (80.0-98.0) fL MCH (27.0-33.0) pg MCHC (31.0-35.0) g/dl RDW (11.0-16.0) % Plt Count (160-400) X10*3/uL MPV (9.4-12.3) fL Immature Gran % (Auto) (0.0-0.4) % Neut % (Auto) (45-73) % Lymph % (Auto) (20-40) % [place] % (Auto) (2-11) % Eos % (Auto) (0-4) % Baso % (Auto) (0-2) % Lymph # (Auto) (1.2-4.9) X10*3/uL [place] # (Auto) (0.1-1.2) X10*3/uL Eos # (Auto) (0.0-0.4) X10*3/uL Baso # (Auto) (0.0-0.2) X10*3/uL Abs Immat Gran (auto) (0.00-0.03) X10*3/uL Absolute Neuts (auto) (2.0-8.3) x10*3/uL Absolute Nucleated RBC (0.0-0.012) X10*3/uL Nucleated RBC % (auto) (0.0-0.2) /100WBC Smear Path Review Sodium (135-145) mmol/L Potassium (3.3-5.1) mmol/L Chloride (96-108) mmol/L Carbon Dioxide (22-29) mmol/L Anion Gap (12-20) BUN (9-16) mg/dL Creatinine (0.5-1.4) mg/dL Estim Creat Clear Calc Estimated GFR Random Glucose (60-115) mg/dL Estimat Average Glucose 131 mg/dL Hemoglobin A1c % 6.2 % Calcium (8.4-10.2) mg/dL Iron (30-160) mcg/dL TIBC (228-428) mcg/dL % Saturation (15-50) % Unsat Iron Binding ug/dL Ferritin (10-250) ng/mL Total Bilirubin (0.0-1.0) mg/dL AST (5-31) U/L ALT (0-31) U/L Alkaline Phosphatase (39-117) U/L Troponin I High Sens (<3.5-17.0) ng/L Total Protein (6.5-8.0) g/dL Albumin (3.5-5.0) g/dL Stool Occult Blood NEGATIVE (NEGATIVE) Critical Care Time Critical Care Time Critical Care Time: Yes Total Critical Care Time: 60 Attestation: Bipap/speaking with family ,hospitalist Discharge Plan Discharge Clinical Impression: Acute kidney injury, Acute hyperkalemia, Anemia in chronic kidney disease, Hypercalcemia, Metabolic acidosis Patient Disposition: Admitted As Inpatient Interventions: Admission Worksheet (ED) Last Done: 06/07/22 16:37 Discharge Date/Time: 06/07/22 16:38
--- NOTE | 2022-06-07 16:53 | PM.CNNEP ---
History of Present Illness Reason for Consult Consult date: 06/07/22 Chief Complaint Chief complaint: ABHISHEK, hyperkalemia History of Present Illness Narrative: The patient is an 81 yo woman with dementia and declining cognitive status over the past year who was brought in by her son because she was increasingly lethargic, not eating, and altered. The pt is not able to give us a history at present due to AMS. She presented hemodynamically stable with elevated BP, pallor and profound stage 3 ABHISHEK with BUN of 179 and creat of 10. In September of this year, she had a creat of 4 and she has evidence of lonstanding CKD with stage 4/5 over the past year. Her hg was quite low on admission though rectal exam negative for occult blood. She is a diabetic with hx of HTN. In addition she has profound metabolic acidosis and hyperkalemia. Plans were made in the ER to have a dialysis catheter placed by IR and initiate dialysis today and tomorrow. She appears hypovolemic and IVF were initiated in the ER along with placement of a tolentino catheter and a stat renal US which are pending. Review of Systems Review of Systems Yes Unobtainable due to mental condition Constitutional: Reports no additional constitutional complaints Cardiovascular: Reports no additional cardiovascular complaints PMFSH Past Medical History Medical History (Updated 06/07/22 @ 17:02 by Jessica Bah MD) Chronic kidney disease (CKD) stage G4/A1, severely decreased glomerular filtration rate (GFR) between 15-29 mL/min/1.73 square meter and albuminuria creatinine ratio less than 30 mg/g Diabetes mellitus Hypothyroid Stage 3 acute kidney injury UTI (urinary tract infection) Social History Social History Household Members: None Housing: Apartment Do you presently have visiting nurse or other home services: No Alcohol intake: never Advance Directives: Yes Advance Directives on File: Yes Advance Directives Date on File: 06/14/20 service: No Current occupational status: retired Meds Allergies Allergy/AdvReac Type Severity Reaction Status Date / Time iodine Allergy Unknown unkown Verified 06/07/22 13:25 Ixirjkf-GEP-DgD Reductase AdvReac Mild myalgias Verified 06/07/22 13:25 Inhibitor Active Medications: Current Medications Heparin Sodium (Porcine) (Heparin Sodium,Porcine 5,000 Unit/Ml Vial) 5,000 unit SUBCUT Q8H [facility] Sodium Chloride (Ns) 1,000 mls @ 100 mls/hr IVCONT .Q10H [facility] Last Infusion: 06/07/22 15:51 Dose: 0 mls/hr Sodium Bicarbonate 150 meq/ (Dextrose) 1,000 mls @ 125 mls/hr IV .Q8H [facility] Last Admin: 06/07/22 15:38 Dose: 125 mls/hr Levothyroxine Sodium (Levothyroxine Sodium 125 Mcg Tablet) 125 mcg PO DAILY@0600 [facility] Pharmacy Consult (Consult Rx Perform Med Rec) 1 each MISCELLANE ONCE PRN PRN Reason: Consult order Sodium Chloride (0.9 % Sodium Chloride Flush 3 Ml Syringe) 3 ml IVFLUSH QSHIFT [facility] Last Admin: 06/07/22 15:36 Dose: 3 ml Home Medications Medication Instructions Recorded Confirmed Last Taken Type amlodipine 2.5 mg tablet 1 tab PO DAILY 06/07/22 06/07/22 Unknown History levothyroxine 125 mcg tablet 1 tab PO DAILY@0600 06/07/22 06/07/22 Unknown History Physical Exam Vital Signs: Last Vital Signs Temp 96.3 F L 06/07/22 15:16 Pulse 101 H 06/07/22 15:16 Resp 20 06/07/22 15:16 BP 128/74 06/07/22 15:16 Pulse Ox 94 06/07/22 15:16 O2 Del Method 06/07/22 15:16 BMI result Body Mass Index 21.2 Const Other: Lethargic, cachectic, pale General: lethargic Nutritional Appearance: well nourished Orientation/consciousness: lethargic HEENT Head: Yes normal to inspection General nose exam: Normal external nose present Face and sinus: Yes normal facial exam Mouth: other (dry oral mucosa) Neck Neck: Yes normal visual inspection and Yes full ROM Thyroid: Thyroid normal Chest Chest palpation & inspection: normal inspection of the chest Resp Auscultation: rhonchi Cardio Other: No pericardial friction rub Jugular venous distension: no JVD Rate: regular rate GI Inspection: Yes normal to inspection Palpation (GI): Soft to palpation, not firm and nontender Rectal Exam - Female: normal sphincter tone and other (brown stools heme negative) Skin General skin exam: no rashes or lesions noted, elasticity normal and turgor normal Trauma: no lacerations or abrasions Extrem Other: some edema in both feet 2 plus pitting, dry skin General: Yes normal to inspection and Yes full ROM Results Lab Results 06/07/22 11:05 06/07/22 11:05 Lab results: Chemistry 06/07/22 11:05 Sodium 143 Potassium 6.1 H* Carbon Dioxide 12 L BUN 179 H Creatinine 10.83 H* Calcium 8.6 D Hematology 06/07/22 11:05 WBC 9.4 Hgb 6.1 L* Plt Count 199 Urinalysis 06/07/22 06/07/22 15:11 15:11 Urine Color Yellow Cancelled Urine Appearance Clear Cancelled Urine pH 5.5 Cancelled Ur Specific [place] 1.010 Cancelled Urine Protein 100 (2+) H Cancelled Urine Glucose (UA) 100 H Cancelled Urine Ketones Negative Cancelled Urine Blood Negative Cancelled Urine Nitrite Negative Cancelled Ur Leukocyte Esterase Moderate (2+) H Cancelled Urine RBC 0-2 Cancelled Urine WBC 21-50 H Cancelled Ur Squamous Epith Cells 3-5 Cancelled Hyaline Casts 0-2 Cancelled Assessment and Plan (1) Stage 3 acute kidney injury: Status: Acute (2) Anemia: Status: Acute (3) Acute hyperkalemia: Status: Acute (4) Metabolic acidosis: Status: Acute (5) Chronic kidney disease (CKD) stage G4/A1, severely decreased glomerular filtration rate (GFR) between 15-29 mL/min/1.73 square meter and albuminuria creatinine ratio less than 30 mg/g: Status: Acute Plan 81 yo woman with advanced CKD for many years, stage 5 in September who presents now with profound azotemia, ABHISHEK on CKD vs. progression to ESRD and profound anemia, metabolic acidosis, encephalopathy, and hyperkalemia. We will proceed with dialysis after getting consent from her son, use mannitol to avoid disequilibrium syndrome. Dialysis today and tomorrow. The etiology of her CKD is most likely progressive DKD but can't rule out an occult GN FSGS or MGN. i will review prior records of workup. Given profound anemia out of proportion to CKD, would rule out paraprotein related process with SPEP and IF. Agree with transfusion. The hyperkalemia with be address with bicarbonate IV and dialysis. Iron studies, B12 and folic acid should be checked and if adequate, we can start Procrit. The patient is encephalopathic/uremic and this is superimposed on her underlying dementia. Her recent decline in cognitive status certainly could have been due to uremia. I would also rule out hypothyroid state in case she has not been taking her thyroid supplement. We will assess her true baseline after a few dialysis sessions then determine the benefit vs. harm of continued senior care dialysis after more careful discussion with family, etc. Await renal US Await placement of permcath or mahurkur dialysis orders placed. Time Spent With Patient Time: Total time managing care of this patient today ____ minutes. Procedures Date of Service Date of Service: 06/07/22
[2022-06-07 20:29] LABS: Glucose, Whole Blood 110 mg/dL (60-115)
[2022-06-07] MEDS: Heparin Sodium,Porcine 5,000 UNIT/ML VIAL 5000 UNIT SUBCUT (21:48)
[2022-06-08 04:00] VITALS: BP 157/74; PULSE 82; RESP 16; O2SAT 97
[2022-06-08] MEDS: Heparin Sodium,Porcine 5,000 UNIT/ML VIAL 5000 UNIT SUBCUT ×2 (06:00→21:50)
[2022-06-08] MEDS: 0.9 % Sodium Chloride Flush 3 ML SYRINGE IVFLUSH ×2 (06:04→21:57)
[2022-06-08 06:05] LABS: Glucose, Whole Blood 79 mg/dL (60-115)
[2022-06-08 06:23] LABS: Hematocrit 28.1 % (37.0-47.0); Hemoglobin 9.5 g/dl (12.0-16.0); Mean Corpuscular HGB Conc 33.8 g/dl (31.0-35.0); Mean Corpuscular Hemoglobin 30.6 pg (27.0-33.0); Mean Corpuscular Volume 90.6 fL (80.0-98.0); Mean Platelet Volume 9.8 fL (9.4-12.3); NRBC Pct Auto 0.2 /100WBC (0.0-0.2); Platelet Count 165 X10*3/uL (160-400); White Blood Count 11.5 X10*3/uL (4.8-10.8)
[2022-06-08 06:36] LABS: Anion Gap 19 (12-20); Blood Urea Nitrogen 86 mg/dL (9-16); Calcium 7.9 mg/dL (8.4-10.2); Carbon Dioxide 17 mmol/L (22-29); Chloride 110 mmol/L (96-108); Creatinine Clr Calc Pharmacy 6.2; Estimated Glomerular Filt Rate 7; Glucose Fasting 76 mg/dL (60-99); Potassium 4.5 mmol/L (3.3-5.1); Sodium 141 mmol/L (135-145)
[2022-06-08 08:00] VITALS: BP 137/76; PULSE 80; RESP 18; TEMP 36.1; O2SAT 97
--- NOTE | 2022-06-08 10:15 | PC.NURSE ---
Patient in dialysis - O2 dropped down to 83% on 3L - patient repositioned - head of the bed elevated - O2 increased to 4L NC -
--- NOTE | 2022-06-08 10:45 | HO.PM.IMPN ---
Subjective Subjective Date of Service: 06/08/22 Interval History: cc: yo interval history:was hypoxic overnight, but overall more alert Physical Exam Vital Signs: Vital Signs: Last Vital Signs Temp 96.9 F 06/08/22 08:00 Pulse 80 06/08/22 08:00 Resp 18 06/08/22 08:00 BP 137/76 06/08/22 08:00 Pulse Ox 97 06/08/22 08:00 O2 Del Method 06/08/22 08:00 O2 Flow Rate 3 06/08/22 08:00 BMI result Body Mass Index 21.2 General: more alert, minimally verbal, ill and frail appearing Resp: CTA bilateral, no accessory muscles used CVS: S1,S2,RRR GI: soft, non tender, non distended Objective Data Active Medications Dextrose (Dextrose 50 % 25 Gm/50 Ml Syringe) 25 gm IVPUSH Q15M PRN; Protocol PRN Reason: per Hypoglycemia Standing Ord. Glucose (Glucose Gel 15 Gm Gel..Gram.) 15 gm PO Q15M PRN; Protocol PRN Reason: per Hypoglycemia Standing Ord. Heparin Sodium (Porcine) (Heparin Sodium,Porcine 5,000 Unit/Ml Vial) 5,000 unit SUBCUT Q8H [facility] Last Admin: 06/08/22 06:00 Dose: 5,000 unit Documented By: GLADYS Sodium Bicarbonate 150 meq/ (Dextrose) 1,000 mls @ 125 mls/hr IV .Q8H [facility] Last Infusion: 06/08/22 09:08 Dose: 125 mls/hr Documented By: JOSEPHINE Insulin Human Lispro (Insulin Lispro 100 Unit/Ml 3 Ml Vial) 0 unit SUBCUT Q6H [facility]; Protocol Last Admin: 06/08/22 07:35 Dose: Not Given Documented By: JOSEPHINE Non-Admin Reason: No Insulin Coverage Levothyroxine Sodium (Levothyroxine Sodium 125 Mcg Tablet) 125 mcg PO DAILY@0600 [facility] Last Admin: 06/08/22 05:50 Dose: Not Given Documented By: GLADYS Non-Admin Reason: NPO Pharmacy Consult (Consult Rx Perform Med Rec) 1 each MISCELLANE ONCE PRN PRN Reason: Consult order Sodium Chloride (0.9 % Sodium Chloride Flush 3 Ml Syringe) 3 ml IVFLUSH QSHIFT [facility] Last Admin: 06/08/22 08:40 Dose: Not Given Documented By: JOSEPHINE Non-Admin Reason: No Access Labs 06/08/22 05:54 06/08/22 05:54 Labs: Laboratory Results - last 24 hr 06/07/22 06/07/22 06/07/22 11:05 11:05 11:05 MCV 93.1 MCH 30.0 MCHC 32.3 RDW 14.8 Plt Count 199 MPV 9.5 Immature Gran % (Auto) 3.4 H Neut % (Auto) 80.6 H Lymph % (Auto) 7.7 L [place] % (Auto) 7.1 Eos % (Auto) 1.0 Baso % (Auto) 0.2 Lymph # (Auto) 0.7 L [place] # (Auto) 0.7 Eos # (Auto) 0.1 Baso # (Auto) 0.0 Abs Immat Gran (auto) 0.32 H Absolute Neuts (auto) 7.6 Absolute Nucleated RBC 0.000 Nucleated RBC % (auto) 0.0 Smear Path Review SEE NOTE PT INR APTT VBG pH VBG pCO2 VBG pO2 VBG HCO3 VBG O2 Saturation VBG Base Excess Anion Gap 25 H Estim Creat Clear Calc 3.3 Estimated GFR 3 POC Glucose Random Glucose 162 H Fasting Glucose Estimat Average Glucose Hemoglobin A1c % Calcium 8.6 D Iron 20 L TIBC 226 L % Saturation 9 L Unsat Iron Binding 206 Ferritin 277 H Total Bilirubin 0.5 AST 22 ALT 18 Alkaline Phosphatase 63 Troponin I High Sens 21.5 H Total Protein 7.2 Albumin 3.5 Urine Color Urine Appearance Urine pH Ur Specific [place] Urine Protein Urine Glucose (UA) Urine Ketones Urine Blood Urine Nitrite Ur Leukocyte Esterase Urine RBC Urine WBC Urine WBC Clumps Ur Squamous Epith Cells Ur Transition Epith Cell Ur Renal Epithelial Cell Calcium Oxalate Crystal Leucine Crystals Cystine Crystals Tyrosine Crystals Other Crystals Urine Bacteria Urine Parasites Bilirubin Casts Epithelial Casts Fatty Casts Hyaline Casts Granular Casts Waxy Casts Broad Casts RBC Casts WBC Casts Other Casts Urine Trichomonas Urine Yeast Stool Occult Blood COVID-19 ([facility]) COVID-19 Clin Com Blood Type Antibody Screen Crossmatch 06/07/22 06/07/22 06/07/22 11:05 11:48 14:32 MCV MCH MCHC RDW Plt Count MPV Immature Gran % (Auto) Neut % (Auto) Lymph % (Auto) [place] % (Auto) Eos % (Auto) Baso % (Auto) Lymph # (Auto) [place] # (Auto) Eos # (Auto) Baso # (Auto) Abs Immat Gran (auto) Absolute Neuts (auto) Absolute Nucleated RBC Nucleated RBC % (auto) Smear Path Review PT INR APTT VBG pH VBG pCO2 VBG pO2 VBG HCO3 VBG O2 Saturation VBG Base Excess Anion Gap Estim Creat Clear Calc Estimated GFR POC Glucose Random Glucose Fasting Glucose Estimat Average Glucose 131 Hemoglobin A1c % 6.2 Calcium Iron TIBC % Saturation Unsat Iron Binding Ferritin Total Bilirubin AST ALT Alkaline Phosphatase Troponin I High Sens Total Protein Albumin Urine Color Urine Appearance Urine pH Ur Specific [place] Urine Protein Urine Glucose (UA) Urine Ketones Urine Blood Urine Nitrite Ur Leukocyte Esterase Urine RBC Urine WBC Urine WBC Clumps Ur Squamous Epith Cells Ur Transition Epith Cell Ur Renal Epithelial Cell Calcium Oxalate Crystal Leucine Crystals Cystine Crystals Tyrosine Crystals Other Crystals Urine Bacteria Urine Parasites Bilirubin Casts Epithelial Casts Fatty Casts Hyaline Casts Granular Casts Waxy Casts Broad Casts RBC Casts WBC Casts Other Casts Urine Trichomonas Urine Yeast Stool Occult Blood NEGATIVE COVID-19 ([facility]) Negative COVID-19 Clin Com See Note Blood Type Antibody Screen Crossmatch 06/07/22 06/07/22 06/07/22 15:11 15:11 15:11 MCV MCH MCHC RDW Plt Count MPV Immature Gran % (Auto) Neut % (Auto) Lymph % (Auto) [place] % (Auto) Eos % (Auto) Baso % (Auto) Lymph # (Auto) [place] # (Auto) Eos # (Auto) Baso # (Auto) Abs Immat Gran (auto) Absolute Neuts (auto) Absolute Nucleated RBC Nucleated RBC % (auto) Smear Path Review PT 11.7 INR 1.0 APTT 28.1 VBG pH VBG pCO2 VBG pO2 VBG HCO3 VBG O2 Saturation VBG Base Excess Anion Gap Estim Creat Clear Calc Estimated GFR POC Glucose Random Glucose Fasting Glucose Estimat Average Glucose Hemoglobin A1c % Calcium Iron TIBC % Saturation Unsat Iron Binding Ferritin Total Bilirubin AST ALT Alkaline Phosphatase Troponin I High Sens Total Protein Albumin Urine Color Yellow Urine Appearance Clear Urine pH 5.5 Ur Specific [place] 1.010 Urine Protein 100 (2+) H Urine Glucose (UA) 100 H Urine Ketones Negative Urine Blood Negative Urine Nitrite Negative Ur Leukocyte Esterase Moderate (2+) H Urine RBC 0-2 Urine WBC 21-50 H Urine WBC Clumps Ur Squamous Epith Cells 3-5 Ur Transition Epith Cell Ur Renal Epithelial Cell Calcium Oxalate Crystal Leucine Crystals Cystine Crystals Tyrosine Crystals Other Crystals Urine Bacteria None Seen Urine Parasites Bilirubin Casts Epithelial Casts Fatty Casts Hyaline Casts 0-2 Granular Casts Waxy Casts Broad Casts RBC Casts WBC Casts Other Casts Urine Trichomonas Urine Yeast Stool Occult Blood COVID-19 ([facility]) COVID-19 Clin Com Blood Type O Positive Antibody Screen NEGATIVE Crossmatch See Detail 06/07/22 06/07/22 06/07/22 15:11 15:17 20:25 MCV MCH MCHC RDW Plt Count MPV Immature Gran % (Auto) Neut % (Auto) Lymph % (Auto) [place] % (Auto) Eos % (Auto) Baso % (Auto) Lymph # (Auto) [place] # (Auto) Eos # (Auto) Baso # (Auto) Abs Immat Gran (auto) Absolute Neuts (auto) Absolute Nucleated RBC Nucleated RBC % (auto) Smear Path Review PT INR APTT VBG pH 7.22 L VBG pCO2 27 VBG pO2 51 VBG HCO3 11 L VBG O2 Saturation 78.0 VBG Base Excess -14.6 Anion Gap Estim Creat Clear Calc Estimated GFR POC Glucose 110 Random Glucose Fasting Glucose Estimat Average Glucose Hemoglobin A1c % Calcium Iron TIBC % Saturation Unsat Iron Binding Ferritin Total Bilirubin AST ALT Alkaline Phosphatase Troponin I High Sens Total Protein Albumin Urine Color Cancelled Urine Appearance Cancelled Urine pH Cancelled Ur Specific [place] Cancelled Urine Protein Cancelled Urine Glucose (UA) Cancelled Urine Ketones Cancelled Urine Blood Cancelled Urine Nitrite Cancelled Ur Leukocyte Esterase Cancelled Urine RBC Cancelled Urine WBC Cancelled Urine WBC Clumps Cancelled Ur Squamous Epith Cells Cancelled Ur Transition Epith Cell Cancelled Ur Renal Epithelial Cell Cancelled Calcium Oxalate Crystal Cancelled Leucine Crystals Cancelled Cystine Crystals Cancelled Tyrosine Crystals Cancelled Other Crystals Cancelled Urine Bacteria Cancelled Urine Parasites Cancelled Bilirubin Casts Cancelled Epithelial Casts Cancelled Fatty Casts Cancelled Hyaline Casts Cancelled Granular Casts Cancelled Waxy Casts Cancelled Broad Casts Cancelled RBC Casts Cancelled WBC Casts Cancelled Other Casts Cancelled Urine Trichomonas Cancelled Urine Yeast Cancelled Stool Occult Blood COVID-19 ([facility]) COVID-19 Clin Com Blood Type Antibody Screen Crossmatch 06/08/22 06/08/22 06/08/22 05:54 05:54 06:00 MCV 90.6 MCH 30.6 MCHC 33.8 RDW 15.0 Plt Count 165 MPV 9.8 Immature Gran % (Auto) Neut % (Auto) Lymph % (Auto) [place] % (Auto) Eos % (Auto) Baso % (Auto) Lymph # (Auto) [place] # (Auto) Eos # (Auto) Baso # (Auto) Abs Immat Gran (auto) Absolute Neuts (auto) Absolute Nucleated RBC 0.020 H Nucleated RBC % (auto) 0.2 Smear Path Review PT INR APTT VBG pH VBG pCO2 VBG pO2 VBG HCO3 VBG O2 Saturation VBG Base Excess Anion Gap 19 Estim Creat Clear Calc 6.2 Estimated GFR 7 POC Glucose 79 Random Glucose Fasting Glucose 76 Estimat Average Glucose Hemoglobin A1c % Calcium 7.9 L D Iron TIBC % Saturation Unsat Iron Binding Ferritin Total Bilirubin AST ALT Alkaline Phosphatase Troponin I High Sens Total Protein Albumin Urine Color Urine Appearance Urine pH Ur Specific [place] Urine Protein Urine Glucose (UA) Urine Ketones Urine Blood Urine Nitrite Ur Leukocyte Esterase Urine RBC Urine WBC Urine WBC Clumps Ur Squamous Epith Cells Ur Transition Epith Cell Ur Renal Epithelial Cell Calcium Oxalate Crystal Leucine Crystals Cystine Crystals Tyrosine Crystals Other Crystals Urine Bacteria Urine Parasites Bilirubin Casts Epithelial Casts Fatty Casts Hyaline Casts Granular Casts Waxy Casts Broad Casts RBC Casts WBC Casts Other Casts Urine Trichomonas Urine Yeast Stool Occult Blood COVID-19 ([facility]) COVID-19 Clin Com Blood Type Antibody Screen Crossmatch Microbiology Microbiology Results: Microbiology 06/07/22 15:55 Urine Culture - Final Urine clean catch - Urine pal[place]ios top Assessment and Plan (1) Anemia: Status: Acute Plan 81F PMH CKD III, hypothyroid, dementia, HTN, DM (not on meds) presented with failure to thrive, found to have severe ABHISHEK with hypoerkalemia, met. acidosis, anemia metabolic encephalopathy due to ABHISHEK on CKD IV complicated by hyperkalemia and metabolic acidosis s/p urgent HD, improving mental status, hyperkalemia resolved, non oliguric d5w with 3 amp bicarb at 125cc/hr - improving acidosis monitor bmp acute hypoxic resp failure suspect aspiration penumonitis check cxr [employer] eval severe anemia likely related to above iron studies - mixed with signs of inflammation and iron defeciency s/p 2 units prbc, hgb improved appropriately monitor hypothyroid synthroid HTN will hold amlodipine for now DM a1c now 6.2, (previous 7.2) not on meds alzheimers dementia at risk for delerium, monitor dvt prophylaxis- hep sq DNR/DNI reason for continued hospitalization: not taking po Time Spent With Patient Time: Total time managing care of this patient today ____ minutes. Quality Stroke Does the patient have a stroke diagnosis?: No VTE Prior VTE?: No VTE Risk Level:: Medical - moderate - high VTE Device Contraindication: Treatment Not Indicated VTE Drug Contraindication: N/A - Med Ordered
[2022-06-08 13:52] LABS: Glucose, Whole Blood 103 mg/dL (60-115)
--- NOTE | 2022-06-08 14:48 | PM.PNNEP ---
Subjective Subjective Date of Service: 06/08/22 Interval history: cc: yo interval history:was hypoxic overnight, but overall more alert Dialyzed yesterday and today Crit line does not show much intravas vol overload Physical Exam Vital Signs: Vital Signs: Last Vital Signs Temp 96.9 F 06/08/22 08:00 Pulse 80 06/08/22 08:00 Resp 18 06/08/22 08:00 BP 137/76 06/08/22 08:00 Pulse Ox 97 06/08/22 08:00 O2 Del Method 06/08/22 08:00 O2 Flow Rate 3 06/08/22 08:00 BMI result Body Mass Index 21.2 Const: Other: Lethargic, cachectic, pale General: lethargic Nutritional Appearance: well nourished Orientation/consciousness: lethargic HEENT: Head: Yes normal to inspection General nose exam: Normal external nose present Face and sinus: Yes normal facial exam Mouth: other (dry oral mucosa) Neck: Neck: Yes normal visual inspection and Yes full ROM Thyroid: Thyroid normal Chest: Chest palpation & inspection: normal inspection of the chest Resp: Auscultation: rhonchi Cardio: Other: No pericardial friction rub Jugular venous distension: no JVD Rate: regular rate GI: Inspection: Yes normal to inspection Palpation (GI): Soft to palpation, not firm and nontender Rectal Exam - Female: normal sphincter tone and other (brown stools heme negative) Skin: General skin exam: no rashes or lesions noted, elasticity normal and turgor normal Trauma: no lacerations or abrasions Extrem: Other: some edema in both feet 2 plus pitting, dry skin General: Yes normal to inspection and Yes full ROM Objective Data Labs 06/08/22 05:54 06/08/22 05:54 Labs: Laboratory Results - last 24 hr 06/07/22 06/07/22 06/07/22 11:05 11:05 14:32 WBC RBC Hgb Hct MCV MCH MCHC RDW Plt Count MPV Absolute Nucleated RBC Nucleated RBC % (auto) PT INR APTT VBG pH VBG pCO2 VBG pO2 VBG HCO3 VBG O2 Saturation VBG Base Excess Sodium Potassium Chloride Carbon Dioxide Anion Gap BUN Creatinine Estim Creat Clear Calc Estimated GFR POC Glucose Fasting Glucose Estimat Average Glucose 131 Hemoglobin A1c % 6.2 Calcium Iron 20 L TIBC 226 L % Saturation 9 L Unsat Iron Binding 206 Ferritin 277 H TSH Urine Color Urine Appearance Urine pH Ur Specific [place] Urine Protein Urine Glucose (UA) Urine Ketones Urine Blood Urine Nitrite Ur Leukocyte Esterase Urine RBC Urine WBC Urine WBC Clumps Ur Squamous Epith Cells Ur Transition Epith Cell Ur Renal Epithelial Cell Calcium Oxalate Crystal Leucine Crystals Cystine Crystals Tyrosine Crystals Other Crystals Urine Bacteria Urine Parasites Bilirubin Casts Epithelial Casts Fatty Casts Hyaline Casts Granular Casts Waxy Casts Broad Casts RBC Casts WBC Casts Other Casts Urine Trichomonas Urine Yeast COVID-19 ([facility]) Negative COVID-19 Clin Com See Note Blood Type Antibody Screen Crossmatch 06/07/22 06/07/22 06/07/22 15:11 15:11 15:11 WBC RBC Hgb Hct MCV MCH MCHC RDW Plt Count MPV Absolute Nucleated RBC Nucleated RBC % (auto) PT 11.7 INR 1.0 APTT 28.1 VBG pH VBG pCO2 VBG pO2 VBG HCO3 VBG O2 Saturation VBG Base Excess Sodium Potassium Chloride Carbon Dioxide Anion Gap BUN Creatinine Estim Creat Clear Calc Estimated GFR POC Glucose Fasting Glucose Estimat Average Glucose Hemoglobin A1c % Calcium Iron TIBC % Saturation Unsat Iron Binding Ferritin TSH Urine Color Yellow Urine Appearance Clear Urine pH 5.5 Ur Specific [place] 1.010 Urine Protein 100 (2+) H Urine Glucose (UA) 100 H Urine Ketones Negative Urine Blood Negative Urine Nitrite Negative Ur Leukocyte Esterase Moderate (2+) H Urine RBC 0-2 Urine WBC 21-50 H Urine WBC Clumps Ur Squamous Epith Cells 3-5 Ur Transition Epith Cell Ur Renal Epithelial Cell Calcium Oxalate Crystal Leucine Crystals Cystine Crystals Tyrosine Crystals Other Crystals Urine Bacteria None Seen Urine Parasites Bilirubin Casts Epithelial Casts Fatty Casts Hyaline Casts 0-2 Granular Casts Waxy Casts Broad Casts RBC Casts WBC Casts Other Casts Urine Trichomonas Urine Yeast COVID-19 ([facility]) COVID-19 Clin Com Blood Type O Positive Antibody Screen NEGATIVE Crossmatch See Detail 06/07/22 06/07/22 06/07/22 15:11 15:17 20:25 WBC RBC Hgb Hct MCV MCH MCHC RDW Plt Count MPV Absolute Nucleated RBC Nucleated RBC % (auto) PT INR APTT VBG pH 7.22 L VBG pCO2 27 VBG pO2 51 VBG HCO3 11 L VBG O2 Saturation 78.0 VBG Base Excess -14.6 Sodium Potassium Chloride Carbon Dioxide Anion Gap BUN Creatinine Estim Creat Clear Calc Estimated GFR POC Glucose 110 Fasting Glucose Estimat Average Glucose Hemoglobin A1c % Calcium Iron TIBC % Saturation Unsat Iron Binding Ferritin TSH Urine Color Cancelled Urine Appearance Cancelled Urine pH Cancelled Ur Specific [place] Cancelled Urine Protein Cancelled Urine Glucose (UA) Cancelled Urine Ketones Cancelled Urine Blood Cancelled Urine Nitrite Cancelled Ur Leukocyte Esterase Cancelled Urine RBC Cancelled Urine WBC Cancelled Urine WBC Clumps Cancelled Ur Squamous Epith Cells Cancelled Ur Transition Epith Cell Cancelled Ur Renal Epithelial Cell Cancelled Calcium Oxalate Crystal Cancelled Leucine Crystals Cancelled Cystine Crystals Cancelled Tyrosine Crystals Cancelled Other Crystals Cancelled Urine Bacteria Cancelled Urine Parasites Cancelled Bilirubin Casts Cancelled Epithelial Casts Cancelled Fatty Casts Cancelled Hyaline Casts Cancelled Granular Casts Cancelled Waxy Casts Cancelled Broad Casts Cancelled RBC Casts Cancelled WBC Casts Cancelled Other Casts Cancelled Urine Trichomonas Cancelled Urine Yeast Cancelled COVID-19 ([facility]) COVID-19 Clin Com Blood Type Antibody Screen Crossmatch 06/08/22 06/08/22 06/08/22 05:54 05:54 06:00 WBC 11.5 H RBC 3.10 L D Hgb 9.5 L D Hct 28.1 L D MCV 90.6 MCH 30.6 MCHC 33.8 RDW 15.0 Plt Count 165 MPV 9.8 Absolute Nucleated RBC 0.020 H Nucleated RBC % (auto) 0.2 PT INR APTT VBG pH VBG pCO2 VBG pO2 VBG HCO3 VBG O2 Saturation VBG Base Excess Sodium 141 Potassium 4.5 D Chloride 110 H Carbon Dioxide 17 L Anion Gap 19 BUN 86 H Creatinine 5.84 H* Estim Creat Clear Calc 6.2 Estimated GFR 7 POC Glucose 79 Fasting Glucose 76 Estimat Average Glucose Hemoglobin A1c % Calcium 7.9 L D Iron TIBC % Saturation Unsat Iron Binding Ferritin TSH Urine Color Urine Appearance Urine pH Ur Specific [place] Urine Protein Urine Glucose (UA) Urine Ketones Urine Blood Urine Nitrite Ur Leukocyte Esterase Urine RBC Urine WBC Urine WBC Clumps Ur Squamous Epith Cells Ur Transition Epith Cell Ur Renal Epithelial Cell Calcium Oxalate Crystal Leucine Crystals Cystine Crystals Tyrosine Crystals Other Crystals Urine Bacteria Urine Parasites Bilirubin Casts Epithelial Casts Fatty Casts Hyaline Casts Granular Casts Waxy Casts Broad Casts RBC Casts WBC Casts Other Casts Urine Trichomonas Urine Yeast COVID-19 ([facility]) COVID-19 [email or web address] Com Blood Type Antibody Screen Crossmatch 06/08/22 06/08/22 06:00 13:49 WBC RBC Hgb Hct MCV MCH MCHC RDW Plt Count MPV Absolute Nucleated RBC Nucleated RBC % (auto) PT INR APTT VBG pH VBG pCO2 VBG pO2 VBG HCO3 VBG O2 Saturation VBG Base Excess Sodium Potassium Chloride Carbon Dioxide Anion Gap BUN Creatinine Estim Creat Clear Calc Estimated GFR POC Glucose 103 Fasting Glucose Estimat Average Glucose Hemoglobin A1c % Calcium Iron TIBC % Saturation Unsat Iron Binding Ferritin TSH 53.80 H Urine Color Urine Appearance Urine pH Ur Specific [place] Urine Protein Urine Glucose (UA) Urine Ketones Urine Blood Urine Nitrite Ur Leukocyte Esterase Urine RBC Urine WBC Urine WBC Clumps Ur Squamous Epith Cells Ur Transition Epith Cell Ur Renal Epithelial Cell Calcium Oxalate Crystal Leucine Crystals Cystine Crystals Tyrosine Crystals Other Crystals Urine Bacteria Urine Parasites Bilirubin Casts Epithelial Casts Fatty Casts Hyaline Casts Granular Casts Waxy Casts Broad Casts RBC Casts WBC Casts Other Casts Urine Trichomonas Urine Yeast COVID-19 ([facility]) COVID-19 [email or web address] Com Blood Type Antibody Screen Crossmatch Microbiology Microbiology Results: Microbiology 06/07/22 15:55 Urine clean catch - Urine pal[place] top Urine Culture - Final Procedures Date of Service Date of Service: 06/08/22 Assessment & Plan Assessment and plan (1) Chronic kidney disease (CKD) stage G4/A1, severely decreased glomerular filtration rate (GFR) between 15-29 mL/min/1.73 square meter and albuminuria creatinine ratio less than 30 mg/g: Status: Acute (2) Anemia: Status: Acute (3) Metabolic acidosis: Status: Acute Plan Elderly woman with progressive advanced CKD who presented vol depleted with prerenal ABHISHEK superimposed on advanced CKD. Dialysis required for hyperkalemia, severe acidosis and encephalopathy. Has underlying dementia. Marked iron deficiency anemia and transfused. Today second dialysis with low blood flow and mannitol. Appears close to euvolemic now. 1. Likely ESRD rather than ABHISHEK on CKD 5 2. Iron def: give venofer 400 mg IV while here 3. Plan for dialysis again on Friday: will need permcath if BCs remain negative 4. Before permcath need to discuss with son her baseline functional and cognitive status to determine whether she is a intermediate card tender dialysis candidate 5. Stop IV fluids now: acidosis will correct with dialysis 6. Swallow eval Time Spent With Patient Time: Total time managing care of this patient today ____ minutes. Progress Note: Quality Stroke Does the patient have a stroke diagnosis?: No
[2022-06-08 15:01] LABS: Free T4 (Free Thyroxine) < 0.42 ng/dL (0.71-1.85)
[2022-06-08 15:14] VITALS: BP 168/79; PULSE 79; RESP 17; TEMP 36.3; O2SAT 99
--- NOTE | 2022-06-08 15:17 | PC.NURSE ---
Received verbal order from Dr. Bah to stop iv fluids for patient. IV fluids were stopped, Dr. Castorena was notified of the change and confirmed the order.
[2022-06-08 19:05] VITALS: BP 134/75; PULSE 71; RESP 17; TEMP 36.6; O2SAT 97
[2022-06-08 20:57] LABS: Glucose, Whole Blood 74 mg/dL (60-115)
[2022-06-09] VITALS: BP 166/85; PULSE 84; RESP 18; TEMP 36.6; O2SAT 100
[2022-06-09] MEDS: Heparin Sodium,Porcine 5,000 UNIT/ML VIAL 5000 UNIT SUBCUT ×3 (03:47→20:31)
[2022-06-09 04:00] VITALS: BP 137/70; PULSE 85; RESP 18; TEMP 36.1; O2SAT 99
[2022-06-09 04:38] LABS: Glucose, Whole Blood 72 mg/dL (60-115)
[2022-06-09 06:19] LABS: Hematocrit 28.6 % (37.0-47.0); Hemoglobin 9.4 g/dl (12.0-16.0); Mean Corpuscular HGB Conc 32.9 g/dl (31.0-35.0); Mean Corpuscular Hemoglobin 29.8 pg (27.0-33.0); Mean Corpuscular Volume 90.8 fL (80.0-98.0); Mean Platelet Volume 10.2 fL (9.4-12.3); NRBC Pct Auto 0.2 /100WBC (0.0-0.2); Platelet Count 163 X10*3/uL (160-400); Red Blood Count 3.15 X10*6/uL (4.20-5.50); Red Cell Distribution Width 15.4 % (11.0-16.0); White Blood Count 11.4 X10*3/uL (4.8-10.8)
[2022-06-09 06:59] LABS: Anion Gap 15 (12-20); Blood Urea Nitrogen 42 mg/dL (9-16); Calcium 7.9 mg/dL (8.4-10.2); Carbon Dioxide 20 mmol/L (22-29); Chloride 106 mmol/L (96-108); Creatinine Clr Calc Pharmacy 8.8; Estimated Glomerular Filt Rate 10; Glucose Fasting 67 mg/dL (60-99); Potassium 4.2 mmol/L (3.3-5.1); Sodium 137 mmol/L (135-145)
[2022-06-09 07:41] VITALS: BP 156/82; PULSE 84; RESP 17; TEMP 36.5; O2SAT 100
--- NOTE | 2022-06-09 09:18 | HO.PM.IMPN ---
Subjective Subjective Date of Service: 06/09/22 Interval History: cc: yo interval history:continues to be more alert Physical Exam Vital Signs: Vital Signs: Last Vital Signs Temp 97.7 F 06/09/22 07:41 Pulse 84 06/09/22 07:41 Resp 17 06/09/22 07:41 BP 156/82 H 06/09/22 07:41 Pulse Ox 100 06/09/22 07:41 O2 Del Method 06/09/22 07:41 O2 Flow Rate 3.0 06/09/22 07:41 BMI result Body Mass Index 21.2 General: more alert, more verbal, ill and frail appearing Resp: CTA bilateral, no accessory muscles used CVS: S1,S2,RRR GI: soft, non tender, non distended Objective Data Active Medications Amlodipine Besylate (Amlodipine Besylate 2.5 Mg Tablet) 2.5 mg PO DAILY [facility]; Protocol Dextrose (Dextrose 50 % 25 Gm/50 Ml Syringe) 25 gm IVPUSH Q15M PRN; Protocol PRN Reason: per Hypoglycemia Standing Ord. Glucose (Glucose Gel 15 Gm Gel..Gram.) 15 gm PO Q15M PRN; Protocol PRN Reason: per Hypoglycemia Standing Ord. Heparin Sodium (Porcine) (Heparin Sodium,Porcine 5,000 Unit/Ml Vial) 5,000 unit SUBCUT Q8H [facility] Last Admin: 06/09/22 03:47 Dose: 5,000 unit Documented By: GLADYS Insulin Human Lispro (Insulin Lispro 100 Unit/Ml 3 Ml Vial) 0 unit SUBCUT Q6H [facility]; Protocol Last Admin: 06/09/22 08:44 Dose: Not Given Documented By: JOSEPHINE Non-Admin Reason: No Insulin Coverage Levothyroxine Sodium (Levothyroxine Sodium 125 Mcg Tablet) 125 mcg PO DAILY@0600 [facility] Last Admin: 06/09/22 05:04 Dose: Not Given Documented By: GLADYS Non-Admin Reason: NPO Pharmacy Consult (Consult Rx Perform Med Rec) 1 each MISCELLANE ONCE PRN PRN Reason: Consult order Sodium Chloride (0.9 % Sodium Chloride Flush 3 Ml Syringe) 3 ml IVFLUSH QSHIFT [facility] Last Admin: 06/08/22 21:57 Dose: 3 ml Documented By: GLADYS Labs 06/09/22 05:44 06/09/22 05:44 Labs: Laboratory Results - last 24 hr 06/08/22 06/08/22 06/08/22 06:00 13:49 20:53 MCV MCH MCHC RDW Plt Count MPV Absolute Nucleated RBC Nucleated RBC % (auto) Anion Gap Estim Creat Clear Calc Estimated GFR POC Glucose 103 74 Fasting Glucose Calcium TSH 53.80 H Free T4 < 0.42 L 06/09/22 06/09/22 06/09/22 04:33 05:44 05:44 MCV 90.8 MCH 29.8 MCHC 32.9 RDW 15.4 Plt Count 163 MPV 10.2 Absolute Nucleated RBC 0.020 H Nucleated RBC % (auto) 0.2 Anion Gap 15 Estim Creat Clear Calc 8.8 Estimated GFR 10 POC Glucose 72 Fasting Glucose 67 Calcium 7.9 L TSH Free T4 Microbiology Microbiology Results: Microbiology 06/07/22 15:55 Urine Culture - Final Urine clean catch - Urine palacios top Assessment and Plan (1) Anemia: Status: Acute Plan 81F H CKD III, hypothyroid, dementia, HTN, DM (not on meds) presented with failure to thrive, found to have severe ABHISHEK with hypoerkalemia, met. 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 Quality Stroke Does the patient have a stroke diagnosis?: No VTE Prior VTE?: No VTE Risk Level:: Medical - moderate - high VTE Device Contraindication: Treatment Not Indicated VTE Drug Contraindication: N/A - Med Ordered
[2022-06-09] MEDS: 0.9 % Sodium Chloride Flush 3 ML SYRINGE IVFLUSH ×3 (10:54→20:32)
[2022-06-09 10:59] LABS: Glucose, Whole Blood 75 mg/dL (60-115)
[2022-06-09 12:00] VITALS: BP 148/70; PULSE 88; RESP 17; TEMP 36.9; O2SAT 99
[2022-06-09 15:09] VITALS: BP 135/78; PULSE 98; RESP 18; TEMP 37.2; O2SAT 92
[2022-06-09 16:06] LABS: Glucose, Whole Blood 86 mg/dL (60-115)
--- NOTE | 2022-06-09 16:45 | PM.PNNEP ---
Subjective Subjective Date of Service: 06/09/22 Interval history: cc: lethargy and vol depletion interval history:continues to be more alert Physical Exam Vital Signs: Vital Signs: Last Vital Signs Temp 98.9 F 06/09/22 15:09 Pulse 98 06/09/22 15:09 Resp 18 06/09/22 15:09 BP 135/78 06/09/22 15:09 Pulse Ox 92 06/09/22 15:09 O2 Del Method 06/09/22 15:09 O2 Flow Rate 2.0 06/09/22 12:00 BMI result Body Mass Index 21.2 Const: Other: Brighter, more alert Neck: Other: No JVD Resp: Other: Lungs clear Cardio: Other: No rub, RRR GI: Other: Soft and normal bowel sounds Extrem: Other: edema in legs Objective Data Labs 06/09/22 05:44 06/09/22 05:44 Labs: Laboratory Results - last 24 hr 06/08/22 06/09/22 06/09/22 20:53 04:33 05:44 WBC 11.4 H RBC 3.15 L Hgb 9.4 L Hct 28.6 L MCV 90.8 MCH 29.8 MCHC 32.9 RDW 15.4 Plt Count 163 MPV 10.2 Absolute Nucleated RBC 0.020 H Nucleated RBC % (auto) 0.2 Sodium Potassium Chloride Carbon Dioxide Anion Gap BUN Creatinine Estim Creat Clear Calc Estimated GFR POC Glucose 74 72 Fasting Glucose Calcium 06/09/22 06/09/22 06/09/22 05:44 10:55 16:01 WBC RBC Hgb Hct MCV MCH MCHC RDW Plt Count MPV Absolute Nucleated RBC Nucleated RBC % (auto) Sodium 137 Potassium 4.2 Chloride 106 Carbon Dioxide 20 L Anion Gap 15 BUN 42 H Creatinine 4.15 H* Estim Creat Clear Calc 8.8 Estimated GFR 10 POC Glucose 75 86 Fasting Glucose 67 Calcium 7.9 L Microbiology Microbiology Results: Microbiology 06/07/22 15:55 Urine clean catch - Urine palacios top Urine Culture - Final Procedures Date of Service Date of Service: 06/09/22 Assessment & Plan Assessment and plan (1) Acute kidney injury: Status: Acute (2) CKD (chronic kidney disease) stage 4, GFR 15-29 ml/min: Status: Acute (3) Metabolic acidosis: Status: Acute (4) Anemia: Status: Acute Plan Elderly lady with dementia and known advanced CKD admitted with marked azotemia, uremia, hyperkalemia, profound acidosis and marked anemia requiring transfusion. Dialyzed for metabolic abnormalities. Remains nonoliguric and closer to euvolemic now-was vol depleted on exam on admission. Made 800 cc UO yesterda. Has ad taylor. Will assess dialysis need tomorrow. Will need discussions with son as to whether group home dialysis is truly appropriate given underlying dementia, etc. Time Spent With Patient Time: Total time managing care of this patient today ____ minutes. Progress Note: Quality Stroke Does the patient have a stroke diagnosis?: No
[2022-06-09 19:01] VITALS: BP 136/65; PULSE 92; RESP 17; TEMP 36.9; O2SAT 93
[2022-06-10] VITALS (10 sets, daily range): BP systolic 92–159; BP diastolic 50–84; PULSE 88–120; RESP 16–22; TEMP 36.2–37.3; O2SAT 94–100
[2022-06-10 00:40] LABS: Glucose, Whole Blood 96 mg/dL (60-115)
[2022-06-10] MEDS: Heparin Sodium,Porcine 5,000 UNIT/ML VIAL 5000 UNIT SUBCUT ×2 (03:35→20:21)
[2022-06-10 05:35] LABS: Glucose, Whole Blood 107 mg/dL (60-115)
[2022-06-10 06:20] LABS: Hemoglobin 9.5 g/dl (12.0-16.0); Mean Corpuscular HGB Conc 32.8 g/dl (31.0-35.0); Mean Corpuscular Hemoglobin 30.7 pg (27.0-33.0); Mean Corpuscular Volume 93.9 fL (80.0-98.0); Mean Platelet Volume 9.9 fL (9.4-12.3); Platelet Count 152 X10*3/uL (160-400); Red Blood Count 3.09 X10*6/uL (4.20-5.50); Red Cell Distribution Width 15.5 % (11.0-16.0); White Blood Count 19.5 X10*3/uL (4.8-10.8)
[2022-06-10 07:12] LABS: Anion Gap 21 (12-20); Blood Urea Nitrogen 61 mg/dL (9-16); Calcium 7.8 mg/dL (8.4-10.2); Carbon Dioxide 16 mmol/L (22-29); Chloride 108 mmol/L (96-108); Creatinine Clr Calc Pharmacy 6.5; Estimated Glomerular Filt Rate 7; Glucose Fasting 113 mg/dL (60-99); Potassium 4.5 mmol/L (3.3-5.1); Sodium 140 mmol/L (135-145)
--- NOTE | 2022-06-10 11:01 | MHC.SLORD ---
Speech Language Pathology Order Status: Per RN, pt is receiving dialysis this morning. INTELLECTUAL [employer]ERTY [employer] to return this afternoon for bedside swallow eval.
--- NOTE | 2022-06-10 11:08 | HO.PM.IMPN ---
Subjective Subjective Date of Service: 06/10/22 Interval History: cc: yo interval history:worsening hypoxia in HD, hypotension in HD Physical Exam Vital Signs: Vital Signs: Last Vital Signs Temp 98.9 F 06/10/22 08:00 Pulse 94 06/10/22 08:00 Resp 20 06/10/22 08:00 BP 127/67 06/10/22 08:00 Pulse Ox 97 06/10/22 08:00 O2 Del Method 06/10/22 08:00 O2 Flow Rate 2 06/10/22 08:00 BMI result Body Mass Index 21.2 General: more alert, more verbal, ill and frail appearing Resp: crackles bilateral, no accessory muscles used CVS: S1,S2,RRR GI: soft, non tender, non distended Objective Data Active Medications Amlodipine Besylate (Amlodipine Besylate 2.5 Mg Tablet) 2.5 mg PO DAILY [facility]; Protocol Last Admin: 06/10/22 09:28 Dose: Not Given Documented By: PAULINA Non-Admin Reason: dialysis Dextrose (Dextrose 50 % 25 Gm/50 Ml Syringe) 25 gm IVPUSH Q15M PRN; Protocol PRN Reason: per Hypoglycemia Standing Ord. Glucose (Glucose Gel 15 Gm Gel..Gram.) 15 gm PO Q15M PRN; Protocol PRN Reason: per Hypoglycemia Standing Ord. Heparin Sodium (Porcine) (Heparin Sodium,Porcine 5,000 Unit/Ml Vial) 5,000 unit SUBCUT Q8H [facility] Last Admin: 06/10/22 03:35 Dose: 5,000 unit Documented By: CHINA Heparin Sodium (Porcine) (Heparin Sodium,Porcine 5,000 Unit/Ml Vial) 5,000 unit INTRACATH MOWEFR@1645 [facility] Ampicillin Sodium/Sulbactam (Sodium 3 gm/ Sodium Chloride) 100 mls @ 200 mls/hr IV Q24H [facility] Insulin Human Lispro (Insulin Lispro 100 Unit/Ml 3 Ml Vial) 0 unit SUBCUT Q6H [facility]; Protocol Last Admin: 06/10/22 09:20 Dose: Not Given Documented By: PAULINA Non-Admin Reason: See Note Levothyroxine Sodium (Levothyroxine Sodium 125 Mcg Tablet) 125 mcg PO DAILY@0600 [facility] Last Admin: 06/10/22 05:07 Dose: Not Given Documented By: CHINA Non-Admin Reason: NPO Levothyroxine Sodium (Levothyroxine Sodium 100 Mcg/5 Ml Vial) 100 mcg IVPUSH DAILY@0600 [facility] Last Admin: 06/10/22 10:36 Dose: Not Given Documented By: PAULINA Non-Admin Reason: npo Pharmacy Consult (Consult Rx Perform Med Rec) 1 each MISCELLANE ONCE PRN PRN Reason: Consult order Sodium Chloride (0.9 % Sodium Chloride Flush 3 Ml Syringe) 3 ml IVFLUSH QSHIFT [facility] Last Admin: 06/10/22 07:29 Dose: Not Given Documented By: PAULINA Non-Admin Reason: See Note Labs 06/10/22 06:01 06/10/22 06:01 Labs: Laboratory Results - last 24 hr 06/09/22 06/10/22 06/10/22 16:01 00:36 05:31 MCV MCH MCHC RDW Plt Count MPV Absolute Nucleated RBC Nucleated RBC % (auto) Anion Gap Estim Creat Clear Calc Estimated GFR POC Glucose 86 96 107 Fasting Glucose Calcium 06/10/22 06/10/22 06:01 06:01 MCV 93.9 MCH 30.7 MCHC 32.8 RDW 15.5 Plt Count 152 L MPV 9.9 Absolute Nucleated RBC 0.000 Nucleated RBC % (auto) 0.0 Anion Gap 21 H Estim Creat Clear Calc 6.5 Estimated GFR 7 POC Glucose Fasting Glucose 113 H Calcium 7.8 L Assessment and Plan (1) Anemia: Status: Acute Plan 81F [facility] CKD III, hypothyroid, dementia, HTN, DM (not on meds) presented with failure to thrive, found to have severe ABHISHEK with hypoerkalemia, met. acidosis, anemia metabolic encephalopathy due to ABHISHEK on CKD IV complicated by hyperkalemia and metabolic acidosis and symptomatic hypothyroid s/p urgent HD, improving mental status, hyperkalemia resolved, non oliguric acidosis initially improved, now worsening again monitor bmp acute hypoxic resp failure suspect aspiration - no sepsis unasyn, embedded processor eval, wean o2 as tolerated severe anemia likely related to above iron studies - mixed with signs of inflammation and iron defeciency s/p 2 units prbc, hgb improved appropriately monitor hypothyroid TSH 53, suspect due to non compliance switched to iv synthroid while not taking po repeat tsh in 4 weeks HTN restart amlodipine when taking po DM a1c now 6.2, (previous 7.2) not on meds alzheimers dementia at risk for delerium, monitor dvt prophylaxis- hep sq DNR/DNI reason for continued hospitalization: not taking po Time Spent With Patient Time: Total time managing care of this patient today ____ minutes. Quality Stroke Does the patient have a stroke diagnosis?: No VTE Prior VTE?: No VTE Risk Level:: Medical - moderate - high VTE Device Contraindication: Treatment Not Indicated VTE Drug Contraindication: N/A - Med Ordered
--- NOTE | 2022-06-10 11:34 | MHC.CM.PN ---
Per ROUNDS discussion, Patient is likely to need STR, pending PT eval. CM will follow.
--- NOTE | 2022-06-10 11:45 | PC.NURSE ---
During dialysis pt became hypotensive SBP 60s and desat down to 82%. armature balancer paused treatment and administered 1L NS bolus w/ + effect. MD was informed. Dialysis informed MD as well. Per MD another bolus was administered and pt is to be treated for approx 2 more hours.
[2022-06-10 11:56] LABS: Glucose, Whole Blood 104 mg/dL (60-115)
--- NOTE | 2022-06-10 14:51 | MHC.SLORD ---
Speech Language Pathology Order Status: Order received for bedside swallow eval. RUBBER AND PLASTICS WORKER attempted to see pt x2. This morning pt was away on dialysis. When RUBBER AND PLASTICS WORKER returned this afternoon, pt was very lethargic. With sternal rub and change in position, pt moaned, but would not open eyes or remain awake. Pt not appropriate for PO trials at this time. Discussed w/ RN on floor. Notified MD and RD via [place].
[2022-06-10 15:30] LABS: Glucose, Whole Blood 113 mg/dL (60-115)
[2022-06-10] MEDS: 0.9 % Sodium Chloride Flush 3 ML SYRINGE IVFLUSH (17:42)
[2022-06-10 19:33] LABS: Glucose, Whole Blood 123 mg/dL (60-115)
[2022-06-10] MEDS: Ampicillin Sodium/Sulbactam Na 3 GM in 0.9 % Sodium Chloride 100 ML IV (20:21)
--- NOTE | 2022-06-10 21:19 | PM.PNNEP ---
Subjective Subjective Date of Service: 06/10/22 Interval history: On HD this morning. Events noted. D/W HD RN. All recent data reviewed Physical Exam Vital Signs: Vital Signs: Last Vital Signs Temp 97.6 F 06/10/22 19:22 Pulse 102 H 06/10/22 19:22 Resp 18 06/10/22 19:22 BP 146/69 H 06/10/22 19:22 Pulse Ox 97 06/10/22 19:22 O2 Del Method 06/10/22 19:22 O2 Flow Rate 3 06/10/22 19:22 BMI result Body Mass Index 21.2 Const: Other: Frail Neck: Other: RIJ HD catheter + Resp: Auscultation: diminished lung sounds Cardio: Rate: regular rate GI: Palpation (GI): Soft to palpation Skin: Rashes: no rashes Objective Data Labs 06/10/22 06:01 06/10/22 06:01 Labs: Laboratory Results - last 24 hr 06/07/22 06/10/22 06/10/22 15:11 00:36 05:31 WBC RBC Hgb Hct MCV MCH MCHC RDW Plt Count MPV Absolute Nucleated RBC Nucleated RBC % (auto) Sodium Potassium Chloride Carbon Dioxide Anion Gap BUN Creatinine Estim Creat Clear Calc Estimated GFR POC Glucose 96 107 Fasting Glucose Calcium Crossmatch See Detail 06/10/22 06/10/22 06/10/22 06:01 06:01 11:52 WBC 19.5 H RBC 3.09 L Hgb 9.5 L Hct 29.0 L MCV 93.9 MCH 30.7 MCHC 32.8 RDW 15.5 Plt Count 152 L MPV 9.9 Absolute Nucleated RBC 0.000 Nucleated RBC % (auto) 0.0 Sodium 140 Potassium 4.5 Chloride 108 Carbon Dioxide 16 L Anion Gap 21 H BUN 61 H Creatinine 5.61 H* Estim Creat Clear Calc 6.5 Estimated GFR 7 POC Glucose 104 Fasting Glucose 113 H Calcium 7.8 L Crossmatch 06/10/22 06/10/22 15:27 19:21 WBC RBC Hgb Hct MCV MCH MCHC RDW Plt Count MPV Absolute Nucleated RBC Nucleated RBC % (auto) Sodium Potassium Chloride Carbon Dioxide Anion Gap BUN Creatinine Estim Creat Clear Calc Estimated GFR POC Glucose 113 123 H Fasting Glucose Calcium Crossmatch Microbiology Microbiology Results: Microbiology 06/07/22 15:55 Urine clean catch - Urine palacios top Urine Culture - Final Procedures Date of Service Date of Service: 06/10/22 Assessment & Plan Assessment and plan (1) Acute kidney injury: Status: Acute Assessment and Plan: Elderly lady with dementia and known advanced CKD admitted with marked azotemia, uremia, hyperkalemia, profound acidosis and marked anemia requiring transfusion. Dialyzed for metabolic abnormalities. On HD this AM. Has leukocytosis. Started on Unasyn.Will need discussions with son as to whether nursing home dialysis is truly appropriate given underlying dementia, etc. Time Spent With Patient Time: Total time managing care of this patient today ____ minutes. Progress Note: Quality Stroke Does the patient have a stroke diagnosis?: No
[2022-06-10 21:42] LABS: Glucose, Whole Blood 132 mg/dL (60-115)
--- NOTE | 2022-06-10 21:45 | ECG_ITS ---
Test Reason : cp Blood Pressure : / mmHG Vent. Rate : 113 BPM Atrial Rate : 113 BPM P-R Int : 154 ms QRS Dur : 116 ms QT Int : 348 ms P-R-T Axes : 073 -74 052 degrees QTc Int : 477 ms Sinus tachycardia Left axis deviation Right bundle branch block Inferior infarct , age undetermined Abnormal ECG When compared with ECG of 07-JUN-2022 14:15, Vent. rate has increased BY 38 BPM Referred By: Roland Erazo Electronically Signed By:Harmeet Cruz
--- NOTE | 2022-06-10 22:09 | PC.NURSE ---
2200 patient went tackycardic in 130's . question of ekg change, ekg done stat. compared to ekg on file, similar rythm with first degree block. vitals taken and dr. Hare notified. rectal tylenol ordered due to fever of 100.8 rectal bp149/84, o2 sat 98 3.5l
--- NOTE | 2022-06-10 22:11 | PM.EVENT ---
Event Note Date of Service: 06/10/22 Event Note: pt tachycardic with HR in the 130s, sinus tachycardia. Febrile. BP stable. no change in O2. Will obtain Lactic acid, blood cultures, escalated abx Time Spent With Patient Time: Total time managing care of this patient today ____ minutes.
[2022-06-10] MEDS: Acetaminophen Supp 650 MG SUPP.RECT PR (22:22)
[2022-06-10] MEDS: Piperacillin Sodium/Tazobactam 2.25 GM in 0.9 % Sodium Chloride 50 ML IV (22:31)
[2022-06-11] MEDS: 0.9 % Sodium Chloride Flush 3 ML SYRINGE IVFLUSH ×4 (00:59→19:51)
[2022-06-11 01:08] LABS: Glucose, Whole Blood 154 mg/dL (60-115)
[2022-06-11 03:41] VITALS: BP 115/64; PULSE 96; RESP 20; TEMP 37.3; O2SAT 97
[2022-06-11] MEDS: Heparin Sodium,Porcine 5,000 UNIT/ML VIAL 5000 UNIT SUBCUT ×3 (05:14→19:50)
[2022-06-11 06:21] LABS: Hematocrit 24.3 % (37.0-47.0); Hemoglobin 7.9 g/dl (12.0-16.0); Mean Corpuscular HGB Conc 32.5 g/dl (31.0-35.0); Mean Corpuscular Hemoglobin 30.5 pg (27.0-33.0); Mean Corpuscular Volume 93.8 fL (80.0-98.0); Mean Platelet Volume 10.5 fL (9.4-12.3); NRBC Pct Auto 0.1 /100WBC (0.0-0.2); Platelet Count 124 X10*3/uL (160-400); Red Blood Count 2.59 X10*6/uL (4.20-5.50); Red Cell Distribution Width 15.7 % (11.0-16.0); White Blood Count 16.4 X10*3/uL (4.8-10.8)
[2022-06-11 06:52] LABS: Anion Gap 23 (12-20); Blood Urea Nitrogen 54 mg/dL (9-16); Calcium 7.4 mg/dL (8.4-10.2); Carbon Dioxide 15 mmol/L (22-29); Chloride 105 mmol/L (96-108); Creatinine Clr Calc Pharmacy 8.1; Estimated Glomerular Filt Rate 9; Glucose Fasting 161 mg/dL (60-99); Potassium 4.5 mmol/L (3.3-5.1); Sodium 138 mmol/L (135-145)
[2022-06-11 07:08] VITALS: BP 116/57; PULSE 92; RESP 12; TEMP 37.1; O2SAT 92
[2022-06-11 07:19] LABS: Glucose, Whole Blood 159 mg/dL (60-115)
[2022-06-11] MEDS: Piperacillin Sodium/Tazobactam 2.25 GM in 0.9 % Sodium Chloride 50 ML IV ×3 (07:50→23:16)
--- NOTE | 2022-06-11 10:15 | PM.PNNEP ---
Subjective Subjective Date of Service: 06/11/22 Interval history: Events noted. D/W Med Attending. All recent data reviewed Physical Exam Vital Signs: Vital Signs: Last Vital Signs Temp 98.7 F 06/11/22 07:08 Pulse 92 06/11/22 07:08 Resp 12 06/11/22 07:08 BP 116/57 L 06/11/22 07:08 Pulse Ox 92 06/11/22 07:08 O2 Del Method 06/11/22 07:08 O2 Flow Rate 4 06/11/22 03:41 BMI result Body Mass Index 21.2 Const: General: no acute distress Neck: Neck: Yes supple Resp: Auscultation: diminished lung sounds Cardio: Rate: regular rate GI: Palpation (GI): Soft to palpation Skin: Rashes: no rashes Objective Data Labs 06/11/22 05:41 06/11/22 05:41 Labs: Laboratory Results - last 24 hr 06/07/22 06/10/22 06/10/22 15:11 11:52 15:27 WBC RBC Hgb Hct MCV MCH MCHC RDW Plt Count MPV Absolute Nucleated RBC Nucleated RBC % (auto) Sodium Potassium Chloride Carbon Dioxide Anion Gap BUN Creatinine Estim Creat Clear Calc Estimated GFR POC Glucose 104 113 Fasting Glucose Lactic Acid Calcium Crossmatch See Detail 06/10/22 06/10/22 06/10/22 19:21 21:38 22:48 WBC RBC Hgb Hct MCV MCH MCHC RDW Plt Count MPV Absolute Nucleated RBC Nucleated RBC % (auto) Sodium Potassium Chloride Carbon Dioxide Anion Gap BUN Creatinine Estim Creat Clear Calc Estimated GFR POC Glucose 123 H 132 H Fasting Glucose Lactic Acid 1.0 Calcium Crossmatch 06/11/22 06/11/22 06/11/22 01:02 05:41 05:41 WBC 16.4 H RBC 2.59 L Hgb 7.9 L Hct 24.3 L MCV 93.8 MCH 30.5 MCHC 32.5 RDW 15.7 Plt Count 124 L MPV 10.5 Absolute Nucleated RBC 0.020 H Nucleated RBC % (auto) 0.1 Sodium 138 Potassium 4.5 Chloride 105 Carbon Dioxide 15 L Anion Gap 23 H BUN 54 H Creatinine 4.49 H* Estim Creat Clear Calc 8.1 Estimated GFR 9 POC Glucose 154 H Fasting Glucose 161 H Lactic Acid Calcium 7.4 L Crossmatch 06/11/22 07:13 WBC RBC Hgb Hct MCV MCH MCHC RDW Plt Count MPV Absolute Nucleated RBC Nucleated RBC % (auto) Sodium Potassium Chloride Carbon Dioxide Anion Gap BUN Creatinine Estim Creat Clear Calc Estimated GFR POC Glucose 159 H Fasting Glucose Lactic Acid Calcium Crossmatch Microbiology Microbiology Results: Microbiology 06/07/22 15:55 Urine clean catch - Urine palacios top Urine Culture - Final Procedures Date of Service Date of Service: 06/11/22 Assessment & Plan Assessment and plan (1) Acute kidney injury: Status: Acute Assessment and Plan: Elderly lady with dementia and known advanced CKD admitted with marked azotemia, uremia, hyperkalemia, profound acidosis and marked anemia requiring transfusion. Dialyzed for metabolic abnormalities. Has leukocytosis. Started on Unasyn. Has metabolic acidosis. Started IV NaHCO3. Will need discussions with son as to whether alf dialysis is truly appropriate given underlying dementia, etc. Progress Note: Quality Stroke Does the patient have a stroke diagnosis?: No
[2022-06-11 11:05] VITALS: BP 137/62; PULSE 90; RESP 12; TEMP 36.5; O2SAT 96
[2022-06-11] MEDS: Sodium Bicarbonate 8.4% 150 MEQ in Dextrose 5 % 850 ML 75 MEQ IV (11:45)
--- NOTE | 2022-06-11 12:54 | P.PNIM_ITS ---
Subjective Subjective Date of Service: 06/11/22 Interval History: cc: yo interval history:some improvement Physical Exam Vital Signs: Vital Signs: Last Vital Signs Temp 97.7 F 06/11/22 11:05 Pulse 90 06/11/22 11:05 Resp 12 06/11/22 11:05 BP 137/62 06/11/22 11:05 Pulse Ox 96 06/11/22 11:05 O2 Del Method 06/11/22 11:05 O2 Flow Rate 4 06/11/22 11:05 BMI result Body Mass Index 21.2 General: more alert, more verbal, ill and frail appearing, aware she is in hospital, but poor insight into condition Resp: crackles bilateral, no accessory muscles used CVS: S1,S2,RRR GI: soft, non tender, non distended Objective Data Active Medications Acetaminophen (Acetaminophen Supp 650 Mg Supp.Rect) 650 mg PA Q8H PRN PRN Reason: Fever Last Admin: 06/10/22 22:22 Dose: 650 mg Documented By: SHAUNA Amlodipine Besylate (Amlodipine Besylate 2.5 Mg Tablet) 2.5 mg PO DAILY [facility]; Protocol Last Admin: 06/11/22 07:55 Dose: Not Given Documented By: AMY Non-Admin Reason: NPO Dextrose (Dextrose 50 % 25 Gm/50 Ml Syringe) 25 gm IVPUSH Q15M PRN; Protocol PRN Reason: per Hypoglycemia Standing Ord. Glucose (Glucose Gel 15 Gm Gel..Gram.) 15 gm PO Q15M PRN; Protocol PRN Reason: per Hypoglycemia Standing Ord. Heparin Sodium (Porcine) (Heparin Sodium,Porcine 5,000 Unit/Ml Vial) 5,000 unit SUBCUT Q8H [facility] Last Admin: 06/11/22 11:51 Dose: 5,000 unit Documented By: AMY Heparin Sodium (Porcine) (Heparin Sodium,Porcine 5,000 Unit/Ml Vial) 5,000 unit INTRACATH MOWEFR@1645 [facility] Last Admin: 06/10/22 18:14 Dose: Not Given Documented By: SHAUNA Non-Admin Reason: Given in Dialysis Piperacillin Sod/Tazobactam (Sod 2.25 gm/ Sodium Chloride) 50 mls @ 100 mls/hr IV Q8H [facility] Last Infusion: 06/11/22 08:26 Dose: 0 mls/hr Documented By: AMY Sodium Bicarbonate 150 meq/ (Dextrose) 1,000 mls @ 75 mls/hr IV .[id number] [facility] Stop: 06/11/22 23:34 Last Admin: 06/11/22 11:45 Dose: 75 mls/hr Documented By: AMY Insulin Human Lispro (Insulin Lispro 100 Unit/Ml 3 Ml Vial) 0 unit SUBCUT Q6H [facility]; Protocol Last Admin: 06/11/22 07:56 Dose: Not Given Documented By: AMY Non-Admin Reason: NPO Levothyroxine Sodium (Levothyroxine Sodium 125 Mcg Tablet) 125 mcg PO DAILY@0600 [facility] Last Admin: 06/11/22 06:47 Dose: Not Given Documented By: JANES Non-Admin Reason: NPO Levothyroxine Sodium (Levothyroxine Sodium 100 Mcg/5 Ml Vial) 100 mcg IVPUSH DAILY@0600 [facility] Last Admin: 06/11/22 06:47 Dose: Not Given Documented By: JANES Non-Admin Reason: Med Not Available Pharmacy Consult (Consult Rx Perform Med Rec) 1 each MISCELLANE ONCE PRN PRN Reason: Consult order Sodium Chloride (0.9 % Sodium Chloride Flush 3 Ml Syringe) 3 ml IVFLUSH QSHIFT [facility] Last Admin: 06/11/22 07:50 Dose: 3 ml Documented By: AMY Labs 06/11/22 05:41 06/11/22 05:41 Labs: Laboratory Results - last 24 hr 06/07/22 06/10/22 06/10/22 15:11 15:27 19:21 MCV MCH MCHC RDW Plt Count MPV Absolute Nucleated RBC Nucleated RBC % (auto) Anion Gap Estim Creat Clear Calc Estimated GFR POC Glucose 113 123 H Fasting Glucose Lactic Acid Calcium Crossmatch See Detail 06/10/22 06/10/22 06/11/22 21:38 22:48 01:02 MCV MCH MCHC RDW Plt Count MPV Absolute Nucleated RBC Nucleated RBC % (auto) Anion Gap Estim Creat Clear Calc Estimated GFR POC Glucose 132 H 154 H Fasting Glucose Lactic Acid 1.0 Calcium Crossmatch 06/11/22 06/11/22 06/11/22 05:41 05:41 07:13 MCV 93.8 MCH 30.5 MCHC 32.5 RDW 15.7 Plt Count 124 L MPV 10.5 Absolute Nucleated RBC 0.020 H Nucleated RBC % (auto) 0.1 Anion Gap 23 H Estim Creat Clear Calc 8.1 Estimated GFR 9 POC Glucose 159 H Fasting Glucose 161 H Lactic Acid Calcium 7.4 L Crossmatch Assessment and Plan (1) Anemia: Status: Acute Plan 81F [facility] CKD III, hypothyroid, dementia, HTN, DM (not on meds) presented with failure to thrive, found to have severe ABHISHEK with hypoerkalemia, met. acidosis, anemia metabolic encephalopathy due to ABHISHEK on CKD IV complicated by hyperkalemia and metabolic acidosis and symptomatic hypothyroid s/p urgent HD, improving mental status, hyperkalemia resolved, non oliguric acidosis initially improved, now worsening again - will restart bicarb monitor bmp acute hypoxic resp failure suspect aspiration - no sepsis aosyn, security clerk appreciated - pureed solids, nectar thick liquids, wean o2 as tolerated severe anemia likely related to above iron studies - mixed with signs of inflammation and iron defeciency s/p 2 units prbc, hgb improved appropriately monitor hypothyroid TSH 53, suspect due to non compliance iv synthroid while unreliable po, once more alert can restart po repeat tsh in 4 weeks HTN holding amlodipnie for now, monitor, restart whne bp increased DM a1c now 6.2, (previous 7.2) not on meds alzheimers dementia at risk for delerium, monitor dvt prophylaxis- hep sq DNR/DNI reason for continued hospitalization: acidosis Time Spent With Patient Time: Total time managing care of this patient today ____ minutes. Quality Stroke Does the patient have a stroke diagnosis?: No VTE Prior VTE?: No VTE Risk Level:: Medical - moderate - high VTE Device Contraindication: Treatment Not Indicated VTE Drug Contraindication: N/A - Med Ordered
[2022-06-11 14:22] LABS: Glucose, Whole Blood 203 mg/dL (60-115)
[2022-06-11 15:10] VITALS: BP 138/79; PULSE 88; RESP 16; TEMP 37; O2SAT 93
[2022-06-11 15:23] LABS: Glucose, Whole Blood 196 mg/dL (60-115)
[2022-06-11] MEDS: Insulin Lispro 100 UNIT/ML 3 ML VIAL SUBCUT ×2 (15:45→19:50)
--- NOTE | 2022-06-11 17:43 | MHC.SL.SWA ---
Speech Pathologist Impression: Risk of Aspiration Due to: Medically Fragile Poor PO Intake Dysphasia Diet Status: Moderate oropharyngeal dysphagia. Puree (NDD1) with [place] Thick liquids, pills crushed in puree is recommended. Liquid Consistency and Strategies for Safe Swallow: Liquid Intake Recommendation: [place] Thick Liquid Intake Strategies: Small Sips No Straws Solid Food Consistency: Dietary Recommendations: Pureed (NDD1) Additional Modifications to Solid Foods: Patient will require one to one feeding with close monitor, aspiration precautions apply. Encourage/assist patient to independently take small sips from cup, prepare forkful of food and encourage patient to self feed as tolerated. Alternate liquids and solids. Oral Medication Intake: Crushed with Puree Please contact the pharmacy regarding appropriate crushable or liquid drug formulations that are available whenever modified delivery is recommended. Compensatory Strategies and Precautions to be Taken for Safe Swallow: Sitting Upright (90 deg) Liquids from Cup Small Bites and Sips Alternate Liquids/Solids Rate of Ingestion Change Supervision While Eating and Drinking for Safe Swallow: Total Assistance (1:1) Foods to Avoid: Sticky or congealed purees. Add sauces and gravies. Swallowing Recommended Treatments: Compens. Strategy Educat. Recommendation for Speech: Inpatient Speech Therapy Comment: Patient presents with a moderate oropharyngeal dysphagia, characterized by a mildly prolonged, disorganized oral phase, mild delay initiating swallow and mildly reduced laryngeal elevation. Patient is edentulous and has upper dentures only which were present for this eval. Patient evidenced clinical signs of aspiration on thin liquid, but tolerated nectar thick consistency by controlled cup sip well. Patient tolerated puree consistency with a mildly prolonged oral phase, on ground consistency today produced a prolonged oral phase due to mastication. Recommend START diet of PUREE (NDD1) with NECTAR THICK liquids, pills CRUSHED in puree. KIMBERLYN HYDE notified of recommendation by secure text, recommendation discussed with RN in person, white board in room changed to reflect diet recommendations. RU[employer]ER [employer] FINISHER will continue to follow as inpatient for toleration of diet, re-assessment of swallow, upgrade if warranted. Frequency/Duration: Date Range for Service Req: Timeline to reassess: Facility Planner Clinican/Clinical Fellow: No Supervisory Statement: I have reviewed and agree with the student/clinical fellow's documentation: N/A Speech Language Pathologist: Elizabeth Lane M.A., [facility]-[employer] FINISHER
[2022-06-11 19:26] VITALS: BP 176/86; PULSE 90; RESP 16; TEMP 36.3; O2SAT 95
[2022-06-11 19:40] LABS: Glucose, Whole Blood 188 mg/dL (60-115)
[2022-06-11 23:19] VITALS: BP 172/99; PULSE 93; RESP 18; TEMP 36.8; O2SAT 98
[2022-06-11] MEDS: hydrALAZINE HCl 20 MG/ML VIAL 5 MG IVPUSH (23:51)
[2022-06-12 01:16] VITALS: BP 158/62
--- NOTE | 2022-06-12 01:48 | PC.NURSE ---
Bp: 172/99 at 2300. notifed. New order for 5mg IV hydraluazine to be administered. Repeat Bp: 158/62. Patient c/o difficulty breathing . Fine crackles noted in bilateral lower lobes. 02 93% on 5L. Bladder scanned at 0130 for 441cc. notified, awaiting new orders. Patient repositioned and sleeping in bed at this time.
[2022-06-12 02:05] LABS: Glucose, Whole Blood 250 mg/dL (60-115)
[2022-06-12] MEDS: Insulin Lispro 100 UNIT/ML 3 ML VIAL SUBCUT ×3 (02:09→20:01)
[2022-06-12] MEDS: Heparin Sodium,Porcine 5,000 UNIT/ML VIAL 5000 UNIT SUBCUT ×3 (03:35→20:01)
[2022-06-12 07:11] VITALS: BP 117/61; PULSE 87; RESP 20; TEMP 36.8; O2SAT 100
[2022-06-12 07:12] LABS: Hematocrit 22.8 % (37.0-47.0); Hemoglobin 7.6 g/dl (12.0-16.0); Mean Corpuscular HGB Conc 33.3 g/dl (31.0-35.0); Mean Corpuscular Hemoglobin 30.2 pg (27.0-33.0); Mean Corpuscular Volume 90.5 fL (80.0-98.0); Mean Platelet Volume 10.2 fL (9.4-12.3); Red Blood Count 2.52 X10*6/uL (4.20-5.50); Red Cell Distribution Width 15.2 % (11.0-16.0); White Blood Count 12.2 X10*3/uL (4.8-10.8)
[2022-06-12 07:17] LABS: Platelet Count 90 X10*3/uL (160-400)
[2022-06-12 07:23] LABS: Glucose, Whole Blood 165 mg/dL (60-115)
[2022-06-12] MEDS: amLODIPine Besylate 2.5 MG TABLET PO (07:23)
[2022-06-12] MEDS: Piperacillin Sodium/Tazobactam 2.25 GM in 0.9 % Sodium Chloride 50 ML IV ×2 (07:23→17:05)
[2022-06-12 07:44] LABS: Blood Urea Nitrogen 71 mg/dL (9-16); Calcium 7.4 mg/dL (8.4-10.2); Creatinine Clr Calc Pharmacy 7.1; Estimated Glomerular Filt Rate 8; Glucose Fasting 152 mg/dL (60-99)
[2022-06-12 07:57] LABS: Anion Gap 17 (12-20); Carbon Dioxide 24 mmol/L (22-29); Chloride 104 mmol/L (96-108); Potassium 3.7 mmol/L (3.3-5.1); Sodium 141 mmol/L (135-145)
[2022-06-12 11:41] LABS: HBS Num1 1.73 mIU/mL (0-7.99); HBc Num1 0.11 S/CO (0.00-0.79); HBsAGNum1 0.32 S/CO (0.00-0.99); Hepatitis B Core Antibody Nonreactive (Nonreactive); Hepatitis B Surface Antigen Negative (Negative); ~Hepatitis B Surface Antibody NONREACTIVE (Nonreactive)
[2022-06-12 13:13] VITALS: BP 155/74; PULSE 91; RESP 20; TEMP 36.3; O2SAT 96
--- NOTE | 2022-06-12 13:18 | HO.PM.IMPN ---
Subjective Subjective Date of Service: 06/12/22 Interval History: the patient was seen and evaluated this morning in dialysis session Laying in bed, looks frail and tired did not receive Levothyroxine for 4 days since admission No reported other overnight events. Review of Systems Review of Systems: Yes all other systems are reviewed and are negative Physical Exam Vital Signs: Vital Signs: Last Vital Signs Temp 97.4 F 06/12/22 13:13 Pulse 91 06/12/22 13:13 Resp 20 06/12/22 13:13 BP 155/74 H 06/12/22 13:13 Pulse Ox 96 06/12/22 13:13 O2 Del Method 06/12/22 13:13 O2 Flow Rate 2 06/12/22 13:13 BMI result Body Mass Index 21.2 Const: Other: Constitutional : Awake, frail Neck : Normal inspection, Supple, Temp dialysis cath in placed with no bleeding or erythema Cardiovascular : RRR, no JVP, no lower extremity edema Respiratory : good bilateral air entry, fine crackles Gastrointestinal: soft, lax, Normal bowel sounds, Non tender Skin : Warm, Dry Neurological : Alert & oriented to self and place, No focal deficit Objective Data Active Medications Acetaminophen (Acetaminophen Supp 650 Mg Supp.Rect) 650 mg [place] Q8H PRN PRN Reason: Fever Last Admin: 06/10/22 22:22 Dose: 650 mg Documented By: SHAUNA Amlodipine Besylate (Amlodipine Besylate 2.5 Mg Tablet) 2.5 mg PO DAILY [facility]; Protocol Last Admin: 06/12/22 07:23 Dose: 2.5 mg Documented By: AMY Dextrose (Dextrose 50 % 25 Gm/50 Ml Syringe) 25 gm IVPUSH Q15M PRN; Protocol PRN Reason: per Hypoglycemia Standing Ord. Glucose (Glucose Gel 15 Gm Gel..Gram.) 15 gm PO Q15M PRN; Protocol PRN Reason: per Hypoglycemia Standing Ord. Heparin Sodium (Porcine) (Heparin Sodium,Porcine 5,000 Unit/Ml Vial) 5,000 unit SUBCUT Q8H [facility] Last Admin: 06/12/22 03:35 Dose: 5,000 unit Documented By: ESTEBAN Heparin Sodium (Porcine) (Heparin Sodium,Porcine 5,000 Unit/Ml Vial) 5,000 unit INTRACATH MOWEFR@1645 [facility] Last Admin: 06/10/22 18:14 Dose: Not Given Documented By: SHAUNA Non-Admin Reason: Given in Dialysis Piperacillin Sod/Tazobactam (Sod 2.25 gm/ Sodium Chloride) 50 mls @ 100 mls/hr IV Q8H [facility] Last Infusion: 06/12/22 08:28 Dose: 0 mls/hr Documented By: AMY Insulin Human Lispro (Insulin Lispro 100 Unit/Ml 3 Ml Vial) 0 unit SUBCUT Q6H [facility]; Protocol Last Admin: 06/12/22 07:23 Dose: 2 unit Documented By: AMY Levothyroxine Sodium (Levothyroxine Sodium 125 Mcg Tablet) 125 mcg PO DAILY@0600 [facility] Last Admin: 06/11/22 06:47 Dose: Not Given Documented By: JANES Non-Admin Reason: NPO Levothyroxine Sodium (Levothyroxine Sodium 100 Mcg/5 Ml Vial) 100 mcg IVPUSH DAILY@0600 [facility] Last Admin: 06/12/22 05:39 Dose: Not Given Documented By: ESTEBAN Non-Admin Reason: Med Not Available Pharmacy Consult (Consult Rx Perform Med Rec) 1 each MISCELLANE ONCE PRN PRN Reason: Consult order Sodium Chloride (0.9 % Sodium Chloride Flush 3 Ml Syringe) 3 ml IVFLUSH QSHIFT [facility] Last Admin: 06/12/22 08:28 Dose: Not Given Documented By: AMY Non-Admin Reason: IV Running Labs 06/12/22 06:47 06/12/22 06:47 Labs: Laboratory Results - last 24 hr 06/11/22 06/11/22 06/11/22 14:18 15:17 19:32 MCV MCH MCHC RDW Plt Count MPV Absolute Nucleated RBC Nucleated RBC % (auto) Anion Gap Estim Creat Clear Calc Estimated GFR POC Glucose 203 H 196 H 188 H Fasting Glucose Calcium Hep Bs Antigen Hep Bs Antibody Hep B Core Total Ab 06/12/22 06/12/22 06/12/22 02:01 06:47 06:47 MCV 90.5 MCH 30.2 MCHC 33.3 RDW 15.2 Plt Count 90 L D MPV 10.2 Absolute Nucleated RBC 0.000 Nucleated RBC % (auto) 0.0 Anion Gap 17 Estim Creat Clear Calc 7.1 Estimated GFR 8 POC Glucose 250 H Fasting Glucose 152 H Calcium 7.4 L Hep Bs Antigen Hep Bs Antibody Hep B Core Total Ab 06/12/22 06/12/22 07:12 10:42 MCV MCH MCHC RDW Plt Count MPV Absolute Nucleated RBC Nucleated RBC % (auto) Anion Gap Estim Creat Clear Calc Estimated GFR POC Glucose 165 H Fasting Glucose Calcium Hep Bs Antigen Negative Hep Bs Antibody NONREACTIVE Hep B Core Total Ab Nonreactive Microbiology Microbiology Results: Microbiology 06/10/22 22:48 Blood Culture - Preliminary Blood - Venous No growth after 24 hours. 06/10/22 22:48 Blood Culture - Preliminary Blood - Venous No growth after 24 hours. Assessment and Plan (1) Acute kidney injury: Status: Acute (2) Pneumonia: Status: Acute (3) Acute respiratory failure with hypoxia: Status: Acute (4) Toxic metabolic encephalopathy: Status: Acute Plan 81F PMH CKD III, hypothyroid, dementia, HTN, DM (not on meds) presented with failure to thrive, found to have severe ABHISHEK with hypoerkalemia, met. acidosis, anemia metabolic encephalopathy due to ABHISHEK on CKD IV complicated by hyperkalemia and metabolic acidosis and symptomatic hypothyroidism Continue HD, to place Permacath once WBCs drop down improving mental status, hyperkalemia resolved, non oliguric continue Bicarb for acidosis monitor bmp acute hypoxic resp failure suspect aspiration Zosyn edge bander hand appreciated - pureed solids, nectar thick liquids, wean o2 as tolerated severe anemia likely related to above iron studies - mixed with signs of inflammation and iron defeciency s/p 2 units prbc, hgb alejandro 9, dropped to 7.6 this morning monitor hypothyroid TSH 53, suspect due to non compliance iv synthroid , did not receive for 3 days, started today repeat tsh in 4 weeks HTN holding amlodipnie for now, monitor, restart whne bp increased DM a1c now 6.2, (previous 7.2) not on meds alzheimers dementia at risk for delerium, monitor dvt prophylaxis- hep sq DNR/DNI reason for continued hospitalization: Needs urgent dialysis pending placement of Permacath and resolution of lung infection Time Spent With Patient Time: Total time managing care of this patient today ____ minutes. Quality Stroke Does the patient have a stroke diagnosis?: No VTE Prior VTE?: No VTE Risk Level:: Medical - moderate - high VTE Device Contraindication: Treatment Not Indicated VTE Drug Contraindication: N/A - Med Ordered
[2022-06-12 13:20] LABS: Glucose, Whole Blood 150 mg/dL (60-115)
--- NOTE | 2022-06-12 14:11 | MHC.SLORD ---
Addendum entered and electronically signed by Saira Khan MA, CCC-[employer] 06/13/22 16:34: D.S. Original Note: Speech Language Pathology Order Status: Attempted to see pt 3X this date for bedside dysphagia tx. Pt away on dialysis during AM attempts. Returned in PM; pt refusing PO, lethargic, unable to keep eyes open during conversation. [employer] will continue to follow.
[2022-06-12 15:31] VITALS: BP 144/69; PULSE 74; RESP 16; TEMP 36.2; O2SAT 94
--- NOTE | 2022-06-12 15:40 | MHC.CM.PN ---
per rounds pt not ready for dc will contiue to follow will need pt eval
[2022-06-12] MEDS: 0.9 % Sodium Chloride Flush 3 ML SYRINGE IVFLUSH ×2 (17:04→20:02)
[2022-06-12] MEDS: polyethylene glycoL 3350 17 GM POWD.PACK PO (18:36)
[2022-06-12] MEDS: Levothyroxine Sodium 100 MCG/5 ML VIAL IVPUSH (18:36)
--- NOTE | 2022-06-12 18:37 | P.PNNP_ITS ---
Subjective Subjective Date of Service: 06/12/22 Interval history: Seen on HD. D/W HD RN. All recent data reviewed Physical Exam Vital Signs: Vital Signs: Last Vital Signs Temp 97.2 F 06/12/22 15:31 Pulse 74 06/12/22 15:31 Resp 16 06/12/22 15:31 BP 144/69 H 06/12/22 15:31 Pulse Ox 94 06/12/22 15:31 O2 Del Method 06/12/22 15:31 O2 Flow Rate 2 06/12/22 15:31 BMI result Body Mass Index 21.2 Const: General: no acute distress Eyes: EOM: EOMs intact bilaterally Neck: Other: HD catheter + Resp: Auscultation: diminished lung sounds Cardio: Rate: regular rate GI: Palpation (GI): Soft to palpation Neuro: Other: Alert and awake Objective Data Labs 06/12/22 06:47 06/12/22 06:47 Labs: Laboratory Results - last 24 hr 06/11/22 06/12/22 06/12/22 19:32 02:01 06:47 WBC 12.2 H RBC 2.52 L Hgb 7.6 L Hct 22.8 L MCV 90.5 MCH 30.2 MCHC 33.3 RDW 15.2 Plt Count 90 L D MPV 10.2 Absolute Nucleated RBC 0.000 Nucleated RBC % (auto) 0.0 Sodium Potassium Chloride Carbon Dioxide Anion Gap BUN Creatinine Estim Creat Clear Calc Estimated GFR POC Glucose 188 H 250 H Fasting Glucose Calcium Hep Bs Antigen Hep Bs Antibody Hep B Core Total Ab 06/12/22 06/12/22 06/12/22 06:47 07:12 10:42 WBC RBC Hgb Hct MCV MCH MCHC RDW Plt Count MPV Absolute Nucleated RBC Nucleated RBC % (auto) Sodium 141 Potassium 3.7 Chloride 104 Carbon Dioxide 24 Anion Gap 17 BUN 71 H Creatinine 5.08 H* Estim Creat Clear Calc 7.1 Estimated GFR 8 POC Glucose 165 H Fasting Glucose 152 H Calcium 7.4 L Hep Bs Antigen Negative Hep Bs Antibody NONREACTIVE Hep B Core Total Ab Nonreactive 06/12/22 13:13 WBC RBC Hgb Hct MCV MCH MCHC RDW Plt Count MPV Absolute Nucleated RBC Nucleated RBC % (auto) Sodium Potassium Chloride Carbon Dioxide Anion Gap BUN Creatinine Estim Creat Clear Calc Estimated GFR POC Glucose 150 H Fasting Glucose Calcium Hep Bs Antigen Hep Bs Antibody Hep B Core Total Ab Microbiology Microbiology Results: Microbiology 06/10/22 22:48 Blood - Venous Blood Culture - Preliminary No growth after 24 hours. 06/10/22 22:48 Blood - Venous Blood Culture - Preliminary No growth after 24 hours. 06/07/22 15:55 Urine clean catch - Urine palacios top Urine Culture - Final Procedures Date of Service Date of Service: 06/12/22 Assessment & Plan Assessment and plan (1) Acute kidney injury: Status: Acute Assessment and Plan: Elderly lady with dementia and known advanced CKD admitted with marked azotemia, uremia, hyperkalemia, profound acidosis and marked anemia requiring transfusion. Seen on HD. Shall keep on MWF schedule; Will need discussions with son as to whether intermediate dialysis is truly appropriate given underlying dementia, etc. Will need permcath ; [place] [address] Units MWF. Nick closely F/U Progress Note: Quality Stroke Does the patient have a stroke diagnosis?: No
[2022-06-12 18:56] LABS: Glucose, Whole Blood 187 mg/dL (60-115)
[2022-06-12 19:37] VITALS: BP 108/55; PULSE 88; RESP 16; TEMP 36.7; O2SAT 97
[2022-06-12 20:55] LABS: Glucose, Whole Blood 197 mg/dL (60-115)
[2022-06-12 23:08] VITALS: BP 101/56; PULSE 84; RESP 18; TEMP 37.1; O2SAT 96
[2022-06-13] VITALS (10 sets, daily range): BP systolic 96–142; BP diastolic 53–75; PULSE 80–98; RESP 16–20; TEMP 36.1–37; O2SAT 95–98
[2022-06-13] MEDS: Piperacillin Sodium/Tazobactam 2.25 GM in 0.9 % Sodium Chloride 50 ML IV ×3 (01:39→15:46)
[2022-06-13 02:53] LABS: Glucose, Whole Blood 134 mg/dL (60-115)
[2022-06-13] MEDS: Heparin Sodium,Porcine 5,000 UNIT/ML VIAL 5000 UNIT SUBCUT ×2 (05:44→18:09)
[2022-06-13 05:59] LABS: Mean Corpuscular HGB Conc 32.5 g/dl (31.0-35.0); Mean Corpuscular Hemoglobin 29.7 pg (27.0-33.0); Mean Corpuscular Volume 91.3 fL (80.0-98.0); Red Blood Count 2.29 X10*6/uL (4.20-5.50); Red Cell Distribution Width 15.5 % (11.0-16.0); White Blood Count 10.3 X10*3/uL (4.8-10.8)
[2022-06-13 06:25] LABS: Hematocrit 20.9 % (37.0-47.0); Hemoglobin 6.8 g/dl (12.0-16.0); Platelet Count 83 X10*3/uL (160-400)
--- NOTE | 2022-06-13 06:27 | PM.EVENT ---
Event Note Date of Service: 06/13/22 Event Note: pt anemic this am. Hgb<7 will transufe 1 unit Time Spent With Patient Time: Total time managing care of this patient today ____ minutes.
[2022-06-13 06:36] LABS: Anion Gap 13 (12-20); Blood Urea Nitrogen 40 mg/dL (9-16); Calcium 7.4 mg/dL (8.4-10.2); Carbon Dioxide 21 mmol/L (22-29); Chloride 107 mmol/L (96-108); Creatinine Clr Calc Pharmacy 10.5; Estimated Glomerular Filt Rate 13; Glucose Random 133 mg/dL (60-115); Potassium 3.6 mmol/L (3.3-5.1); Sodium 137 mmol/L (135-145)
[2022-06-13 07:34] LABS: Glucose, Whole Blood 130 mg/dL (60-115)
[2022-06-13] MEDS: 0.9 % Sodium Chloride Flush 3 ML SYRINGE IVFLUSH ×3 (07:42→20:50)
[2022-06-13] MEDS: amLODIPine Besylate 2.5 MG TABLET PO (09:21)
[2022-06-13] MEDS: Levothyroxine Sodium 100 MCG/5 ML VIAL IVPUSH (09:39)
[2022-06-13 11:41] LABS: Glucose, Whole Blood 143 mg/dL (60-115)
--- NOTE | 2022-06-13 14:11 | P.PNIM_ITS ---
Subjective Subjective Date of Service: 06/13/22 Interval History: the patient was seen and evaluated this morning Laying in bed, looks frail and tired More interactive but still overall confused Had difficulty swallowing per nursing staff No reported other overnight events. Review of Systems Review of Systems: Yes all other systems are reviewed and are negative Physical Exam Vital Signs: Vital Signs: Last Vital Signs Temp 97.7 F 06/13/22 11:35 Pulse 85 06/13/22 11:35 Resp 20 06/13/22 11:35 BP 118/69 06/13/22 11:35 Pulse Ox 96 06/13/22 11:08 O2 Del Method 06/13/22 11:08 O2 Flow Rate 2 06/13/22 07:15 BMI result Body Mass Index 21.2 Const: Other: Constitutional : Awake, frail Neck : Normal inspection, Supple, Temp dialysis cath in placed with no bleeding or erythema Cardiovascular : RRR, no JVP, no lower extremity edema Respiratory : good bilateral air entry, fine crackles Gastrointestinal: soft, lax, Normal bowel sounds, Non tender Skin : Warm, Dry Neurological : Alert & oriented to self and place, No focal deficit Objective Data Active Medications Acetaminophen (Acetaminophen Supp 650 Mg Supp.Rect) 650 mg [place] Q8H PRN PRN Reason: Fever Last Admin: 06/10/22 22:22 Dose: 650 mg Documented By: SHAUNA Amlodipine Besylate (Amlodipine Besylate 2.5 Mg Tablet) 2.5 mg PO DAILY [facility]; Protocol Last Admin: 06/13/22 09:21 Dose: 2.5 mg Documented By: CHRIS Dextrose (Dextrose 50 % 25 Gm/50 Ml Syringe) 25 gm IVPUSH Q15M PRN; Protocol PRN Reason: per Hypoglycemia Standing Ord. Glucose (Glucose Gel 15 Gm Gel..Gram.) 15 gm PO Q15M PRN; Protocol PRN Reason: per Hypoglycemia Standing Ord. Heparin Sodium (Porcine) (Heparin Sodium,Porcine 5,000 Unit/Ml Vial) 5,000 unit INTRACATH MOWEFR@1645 [facility] Last Admin: 06/12/22 17:06 Dose: Not Given Documented By: AMY Non-Admin Reason: medication needs to be change for a hep flush Heparin Sodium (Porcine) (Heparin Sodium,Porcine 5,000 Unit/Ml Vial) 5,000 unit SUBCUT Q12H [facility] Stop: 06/14/22 01:00 Piperacillin Sod/Tazobactam (Sod 2.25 gm/ Sodium Chloride) 50 mls @ 100 mls/hr IV Q8H [facility] Last Infusion: 06/13/22 08:30 Dose: 0 mls/hr Documented By: CHRIS Insulin Human Lispro (Insulin Lispro 100 Unit/Ml 3 Ml Vial) 0 unit SUBCUT QIDACHS [facility]; Protocol Levothyroxine Sodium (Levothyroxine Sodium 100 Mcg/5 Ml Vial) 100 mcg IVPUSH DAILY@1000 [facility] Last Admin: 06/13/22 09:39 Dose: 100 mcg Documented By: CHRIS Pharmacy Consult (Consult Rx Perform Med Rec) 1 each MISCELLANE ONCE PRN PRN Reason: Consult order Polyethylene Glycol (Polyethylene Glycol 3350 17 Gm Powd.Pack) 17 gm PO DAILY [facility] Last Admin: 06/13/22 11:06 Dose: Not Given Documented By: CHRIS Non-Admin Reason: Patient Asleep Sodium Chloride (0.9 % Sodium Chloride Flush 3 Ml Syringe) 3 ml IVFLUSH QSHIFT [facility] Last Admin: 06/13/22 07:42 Dose: 3 ml Documented By: CHRIS Labs 06/13/22 05:40 06/13/22 05:40 Labs: Laboratory Results - last 24 hr 06/12/22 06/12/22 06/13/22 18:51 20:51 02:49 MCV MCH MCHC RDW Plt Count MPV Absolute Nucleated RBC Nucleated RBC % (auto) Anion Gap Estim Creat Clear Calc Estimated GFR POC Glucose 187 H 197 H 134 H Random Glucose Calcium Blood Type Antibody Screen Crossmatch 06/13/22 06/13/22 06/13/22 05:40 05:40 07:19 MCV 91.3 MCH 29.7 MCHC 32.5 RDW 15.5 Plt Count 83 L MPV 10.0 Absolute Nucleated RBC 0.000 Nucleated RBC % (auto) 0.0 Anion Gap 13 Estim Creat Clear Calc 10.5 Estimated GFR 13 POC Glucose 130 H Random Glucose 133 H Calcium 7.4 L Blood Type Antibody Screen Crossmatch 06/13/22 06/13/22 07:34 11:36 MCV MCH MCHC RDW Plt Count MPV Absolute Nucleated RBC Nucleated RBC % (auto) Anion Gap Estim Creat Clear Calc Estimated GFR POC Glucose 143 H Random Glucose Calcium Blood Type O Positive Antibody Screen NEGATIVE Crossmatch See Detail Microbiology Microbiology Results: Microbiology 06/10/22 22:48 Blood Culture - Preliminary Blood - Venous No growth after 48 hours. 06/10/22 22:48 Blood Culture - Preliminary Blood - Venous No growth after 48 hours. Assessment and Plan (1) Toxic metabolic encephalopathy: Status: Acute (2) Acute respiratory failure with hypoxia: Status: Acute (3) ESRD needing dialysis: Status: Acute Plan 81F PMH CKD III, hypothyroid, dementia, HTN, DM (not on meds) presented with failure to thrive, found to have severe ABHISHEK with hypoerkalemia, met. 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 appreciated - pureed solids, nectar thick liquids, wean o2 as tolerated severe anemia likely related to advanced CKD iron studies - mixed with signs of inflammation and iron defeciency s/p 2 units prbc, hgb alejandro 9, to give 1 extra unit for Hb 6.9 monitor H&H hypothyroid TSH 53, suspect due to non compliance Continue iv synthroid repeat tsh in 4 weeks HTN holding amlodipnie for now, monitor, restart whne bp increased DM a1c now 6.2, (previous 7.2) not on meds alzheimers dementia at risk for delerium, monitor dvt prophylaxis- hep sq DNR/DNI reason for continued hospitalization: Needs dialysis pending placement of Permacath and resolution of lung infection Time Spent With Patient Time: Total time managing care of this patient today ____ minutes. Quality Stroke Does the patient have a stroke diagnosis?: No VTE Prior VTE?: No VTE Risk Level:: Medical - moderate - high VTE Device Contraindication: Treatment Not Indicated VTE Drug Contraindication: N/A - Med Ordered
[2022-06-13 15:30] LABS: Glucose, Whole Blood 189 mg/dL (60-115)
--- NOTE | 2022-06-13 15:58 | PC.NURSE ---
pt's o2 sat dropped into the mid-80s several times. originally thought to be due to removal of nasal cannula, but problem persisted. Pt was noted to have an increase in wet gurgling sounds upon exhalation. Oral suction applied, MD notified. RN placed oxymask on pt d/t mouth breathing. O2 increased to 5L. ordered NPO pending speech eval
[2022-06-13] MEDS: methylPREDNISolone Sod Succ 40 MG/ML VIAL IVPUSH (16:27)
[2022-06-13] MEDS: Insulin Lispro 100 UNIT/ML 3 ML VIAL SUBCUT ×2 (16:28→20:50)
--- NOTE | 2022-06-13 17:18 | MHC.SL.SWA ---
Speech Pathologist Impression: Risk of Aspiration Due to: Medically Fragile Poor PO Intake Dysphasia Diet Status: Liquid Consistency and Strategies for Safe Swallow: Liquid Intake Recommendation: NPO Liquid Intake Strategies: Solid Food Consistency: Dietary Recommendations: NPO Additional Modifications to Solid Foods: Oral Medication Intake: NPO Please contact the pharmacy regarding appropriate crushable or liquid drug formulations that are available whenever modified delivery is recommended. Compensatory Strategies and Precautions to be Taken for Safe Swallow: Supervision While Eating and Drinking for Safe Swallow: Foods to Avoid: Swallowing Recommended Treatments: Compens. Strategy Educat. Recommendation for Speech: Inpatient Speech Therapy Comment: Patient was made NPO earlier today due to RN and RT concern regarding respiratory status and likely issue of aspiration. RN noted that patient has had difficulty most of the day with maintaining adequate O2 Saturation, sounding junky, but also noted patient has been eating/drinking minimally, although asking frequently for water (RN had been giving thickened water). RN reported no specific witness of aspiration event, but questions silent aspiration. RN was expecting swallow re-assessment today due to concerns. Patient was given tsp amounts of thin liquid with timely oral phase, timely swallow, mildly reduced laryngeal elevation palpated. On subsequent controlled cup sip of water, patient noted to clear throat after swallow. Pt given sip of nectar thick juice, with timely oral transit and swallow observed, no clinical signs of aspiration, however patient grimaced at the taste and wanted no more. Patient was given approximately 1/2 cup of apple sauce by tsp, with timely oral and pharyngeal phase of swallow noted, mildly reduced laryngeal elevation on swallow. No clinical signs of aspiration, O2 saturation remained in 90s throughout. Patient waved away any additional po trials. Patient continues to present as very frail, verbalized minimally throughout. Although no clinical signs of aspiration noted during trials of current recommended diet consistencies, given RN and RT concern regarding silent aspiration, recommend MBSS study to more fully assess swallow function at this time, with continued NPO until study. MD notified of recommendation by secure text, RN in person, also informed patient of plan. Frequency/Duration: Date Range for Service Req: Timeline to reassess: Sdv Pilot/Navigator/Dds Operator Clinican/Clinical Fellow: No Supervisory Statement: I have reviewed and agree with the student/clinical fellow's documentation: N/A Speech Language Pathologist: Elizabeth Lane M.A., CCC-RELATIONSHIP MANAGER
--- NOTE | 2022-06-13 18:34 | PM.PNNEP ---
Subjective Subjective Date of Service: 06/13/22 Interval history: No reported other overnight events. All recent data reviewed Physical Exam Vital Signs: Vital Signs: Last Vital Signs Temp 98.1 F 06/13/22 14:46 Pulse 85 06/13/22 14:46 Resp 17 06/13/22 14:46 BP 142/65 H 06/13/22 14:46 Pulse Ox 97 06/13/22 14:46 O2 Del Method 06/13/22 14:46 O2 Flow Rate 2 06/13/22 07:15 BMI result Body Mass Index 21.2 Const: General: no acute distress Neck: Other: Temp HD catheter + Resp: Auscultation: diminished lung sounds Cardio: Rate: regular rate GI: Palpation (GI): Soft to palpation Neuro: Other: Alert and awake Objective Data Labs 06/13/22 05:40 06/13/22 05:40 Labs: Laboratory Results - last 24 hr 06/12/22 06/12/22 06/13/22 18:51 20:51 02:49 WBC RBC Hgb Hct MCV MCH MCHC RDW Plt Count MPV Absolute Nucleated RBC Nucleated RBC % (auto) Sodium Potassium Chloride Carbon Dioxide Anion Gap BUN Creatinine Estim Creat Clear Calc Estimated GFR POC Glucose 187 H 197 H 134 H Random Glucose Calcium Blood Type Antibody Screen Crossmatch 06/13/22 06/13/22 06/13/22 05:40 05:40 07:19 WBC 10.3 RBC 2.29 L Hgb 6.8 L* Hct 20.9 L* MCV 91.3 MCH 29.7 MCHC 32.5 RDW 15.5 Plt Count 83 L MPV 10.0 Absolute Nucleated RBC 0.000 Nucleated RBC % (auto) 0.0 Sodium 137 Potassium 3.6 Chloride 107 Carbon Dioxide 21 L Anion Gap 13 BUN 40 H Creatinine 3.48 H Estim Creat Clear Calc 10.5 Estimated GFR 13 POC Glucose 130 H Random Glucose 133 H Calcium 7.4 L Blood Type Antibody Screen Crossmatch 06/13/22 06/13/22 06/13/22 07:34 11:36 15:24 WBC RBC Hgb Hct MCV MCH MCHC RDW Plt Count MPV Absolute Nucleated RBC Nucleated RBC % (auto) Sodium Potassium Chloride Carbon Dioxide Anion Gap BUN Creatinine Estim Creat Clear Calc Estimated GFR POC Glucose 143 H 189 H Random Glucose Calcium Blood Type O Positive Antibody Screen NEGATIVE Crossmatch See Detail Microbiology Microbiology Results: Microbiology 06/10/22 22:48 Blood - Venous Blood Culture - Preliminary No growth after 48 hours. 06/10/22 22:48 Blood - Venous Blood Culture - Preliminary No growth after 48 hours. 06/07/22 15:55 Urine clean catch - Urine palacios top Urine Culture - Final Procedures Date of Service Date of Service: 06/13/22 Assessment & Plan Assessment and plan (1) Acute kidney injury: Status: Acute Assessment and Plan: Elderly lady with dementia and known advanced CKD admitted with marked azotemia, uremia, hyperkalemia, profound acidosis and marked anemia requiring transfusion. For HD tomorrow . Shall keep on MWF schedule; Will need discussions with son as to whether custodial dialysis is truly appropriate given underlying dementia, etc. Will need permcath ; [place] [id number] Units MWF. Getting PRBC. Shal closely F/U Progress Note: Quality Stroke Does the patient have a stroke diagnosis?: No
[2022-06-13 20:16] LABS: Glucose, Whole Blood 181 mg/dL (60-115)
[2022-06-14] VITALS (7 sets, daily range): BP systolic 116–138; BP diastolic 70–87; PULSE 79–94; RESP 12–20; TEMP 36–37.2; O2SAT 91–99
[2022-06-14] MEDS: Piperacillin Sodium/Tazobactam 2.25 GM in 0.9 % Sodium Chloride 50 ML IV ×3 (00:46→20:06)
--- NOTE | 2022-06-14 02:59 | PC.NURSE ---
Infusion of second unit of blood was not documented correctly in the T[facility], brought to my attention by Sharon Rene. Unable to edit and correct documentation at this time. Second unit of blood was hung 06/07/22 at 6 by this RN. Patient tolerated well, vitals stable post transfusion. Transfusion ended at 22:27, vitals documented.
--- NOTE | 2022-06-14 06:12 | PC.NURSE ---
Pt was complaining of SOB so I increased her O2 oxymask from 2L to 3L. o2 sat was at 96%. She also had a large dark black liquid BM with one quarter sized hard piece of stool.
--- NOTE | 2022-06-14 06:20 | PM.EVENT ---
Event Note Date of Service: 06/14/22 Event Note: pt had one large melenotic BM this morning. VItals stable. Will obtian stat H&H. hold heparin, Time Spent With Patient Time: Total time managing care of this patient today ____ minutes.
[2022-06-14 06:36] LABS: Hematocrit 27.5 % (37.0-47.0); Hemoglobin 8.9 g/dl (12.0-16.0); Mean Corpuscular HGB Conc 32.4 g/dl (31.0-35.0); Mean Corpuscular Hemoglobin 30.4 pg (27.0-33.0); Mean Corpuscular Volume 93.9 fL (80.0-98.0); Mean Platelet Volume 11.4 fL (9.4-12.3); Red Blood Count 2.93 X10*6/uL (4.20-5.50); Red Cell Distribution Width 15.6 % (11.0-16.0); White Blood Count 7.8 X10*3/uL (4.8-10.8)
[2022-06-14 06:49] LABS: Platelet Count 86 X10*3/uL (160-400)
[2022-06-14 07:38] LABS: Anion Gap 15 (12-20); Blood Urea Nitrogen 56 mg/dL (9-16); Calcium 7.1 mg/dL (8.4-10.2); Carbon Dioxide 20 mmol/L (22-29); Chloride 109 mmol/L (96-108); Creatinine Clr Calc Pharmacy 8.3; Estimated Glomerular Filt Rate 10; Glucose Random 195 mg/dL (60-115); Potassium 4.2 mmol/L (3.3-5.1); Sodium 140 mmol/L (135-145)
[2022-06-14] MEDS: 0.9 % Sodium Chloride Flush 3 ML SYRINGE IVFLUSH ×2 (07:45→20:08)
[2022-06-14 08:05] LABS: Glucose, Whole Blood 167 mg/dL (60-115)
[2022-06-14] MEDS: Insulin Lispro 100 UNIT/ML 3 ML VIAL SUBCUT (08:15)
[2022-06-14] MEDS: Levothyroxine Sodium 100 MCG/5 ML VIAL IVPUSH (09:06)
--- NOTE | 2022-06-14 09:31 | MHC.SLORD ---
Speech Language Pathology Order Status: MBSS scheduled for 2:30pm.
--- NOTE | 2022-06-14 10:04 | MHC.CDI.CONC ---
CDI Concurrent Query Documentation Clarification: PHYSICIAN'S DOCUMENTATION REQUEST Date of Query: 06/14/22 1004 Patient Name: Jennifer Underwood Admit Date: 06/07/22 Dear Doctor, A review of the medical record indicates additional documentation may be needed. Please review below and update the documentation accordingly. Clinical Indicators: Is there a diagnosis that correlates with these lab findings: Risk Factors/Clinical Indicators/Treatments LABS: 06/14 - calcium 7.1 L Based on the above, could you clarify in the Progress Notes the appropriate diagnosis, if significant, that supports the above abnormalities and additional evaluation, monitoring, and/or treatment rendered: Hypocalcemia or other etiology of lab findings Labs indicate a diagnosis of (please specify) Other (please specify) Unable to determine Use of terms such as suspected, likely, concern for, or probable (associated with a specific diagnosis that is being evaluated, monitored, or treated as if it exists) are acceptable and can be coded in the inpatient setting, when documented at the time of discharge. Thank you, Catia López [facility], CDIS Extension: [phone] Please use your independent medical judgment in providing your response. THIS QUERY IS PART OF THE PERMANENT MEDICAL RECORD Provider Response: Other Other Diagnosis: Hypocalcemia
[2022-06-14] MEDS: Heparin Sodium,Porcine 1,000 UNIT/ML VIAL 3200 UNIT IV (11:44)
[2022-06-14] MEDS: Lidocaine HCl 1 % MPF 30 ML VIAL 10 ML SUBCUT (11:45)
[2022-06-14 12:23] LABS: Glucose, Whole Blood 155 mg/dL (60-115)
--- NOTE | 2022-06-14 12:53 | PM.PNNEP ---
Subjective Subjective Date of Service: 06/14/22 Interval history: seen and examined events reviewed Physical Exam Vital Signs: Vital Signs: Last Vital Signs Temp 96.8 F 06/14/22 12:00 Pulse 89 06/14/22 12:00 Resp 16 06/14/22 12:00 BP 136/77 06/14/22 12:00 Pulse Ox 95 06/14/22 12:00 O2 Del Method 06/14/22 12:00 O2 Flow Rate 3 06/14/22 12:00 BMI result Body Mass Index 21.2 Const: General: no acute distress HEENT: Head: Yes normocephalic and Yes atraumatic Neck: Neck: Yes supple Resp: Auscultation: diminished lung sounds Cardio: Heart sounds: S1 normal heart sound present and S2 normal heart sound present GI: Palpation (GI): Soft to palpation and nontender Objective Data Labs 06/14/22 06:05 06/14/22 06:05 Labs: Laboratory Results - last 24 hr 06/13/22 06/13/22 06/14/22 15:24 20:13 06:05 WBC 7.8 RBC 2.93 L D Hgb 8.9 L D Hct 27.5 L D MCV 93.9 MCH 30.4 MCHC 32.4 RDW 15.6 Plt Count 86 L MPV 11.4 Absolute Nucleated RBC 0.000 Nucleated RBC % (auto) 0.0 Sodium Potassium Chloride Carbon Dioxide Anion Gap BUN Creatinine Estim Creat Clear Calc Estimated GFR POC Glucose 189 H 181 H Random Glucose Calcium 06/14/22 06/14/22 06/14/22 06:05 08:02 12:16 WBC RBC Hgb Hct MCV MCH MCHC RDW Plt Count MPV Absolute Nucleated RBC Nucleated RBC % (auto) Sodium 140 Potassium 4.2 Chloride 109 H Carbon Dioxide 20 L Anion Gap 15 BUN 56 H Creatinine 4.37 H* Estim Creat Clear Calc 8.3 Estimated GFR 10 POC Glucose 167 H 155 H Random Glucose 195 H Calcium 7.1 L Microbiology Microbiology Results: Microbiology 06/10/22 22:48 Blood - Venous Blood Culture - Preliminary No growth after 48 hours. 06/10/22 22:48 Blood - Venous Blood Culture - Preliminary No growth after 48 hours. 06/07/22 15:55 Urine clean catch - Urine palacios top Urine Culture - Final Procedures Date of Service Date of Service: 06/14/22 Assessment & Plan Assessment and plan (1) ESRD (end stage renal disease): Status: Acute (2) Anemia: Status: Acute Plan ABHISHEK superimposed on advanced CKD versus ESRD commenced on dialysis anemia due to CKD REC HD per schedule (--) dialysis tunnelled catheter blood transfusion as needed goal of care discussion will need outpatient HD placement if decision is to pursue HD Time Spent With Patient Time: Total time managing care of this patient today ____ minutes. Progress Note: Quality Stroke Does the patient have a stroke diagnosis?: No
--- NOTE | 2022-06-14 13:30 | P.PNIM_ITS ---
Subjective Subjective Date of Service: 06/14/22 Interval History: the patient was seen and evaluated this morning Laying in bed, looks frail and tired but more interactive Kept NPO for difficulty swallowing per nursing staff No reported other overnight events. Review of Systems Review of Systems: Yes all other systems are reviewed and are negative Physical Exam Vital Signs: Vital Signs: Last Vital Signs Temp 96.8 F 06/14/22 12:00 Pulse 89 06/14/22 12:00 Resp 16 06/14/22 12:00 BP 136/77 06/14/22 12:00 Pulse Ox 95 06/14/22 12:00 O2 Del Method 06/14/22 12:00 O2 Flow Rate 3 06/14/22 12:00 BMI result Body Mass Index 21.2 Const: Other: Constitutional : Awake, frail Neck : Normal inspection, Supple, Temp dialysis cath in placed with no bleeding or erythema Cardiovascular : RRR, no JVP, no lower extremity edema Respiratory : good bilateral air entry, fine crackles Gastrointestinal: soft, lax, Normal bowel sounds, Non tender Skin : Warm, Dry Neurological : Alert & oriented to self and place, No focal deficit Objective Data Active Medications Acetaminophen (Acetaminophen Supp 650 Mg Supp.Rect) 650 mg IA Q8H PRN PRN Reason: Fever Last Admin: 06/10/22 22:22 Dose: 650 mg Documented By: SHAUNA Amlodipine Besylate (Amlodipine Besylate 2.5 Mg Tablet) 2.5 mg PO DAILY [facility]; Protocol Last Admin: 06/14/22 08:09 Dose: Not Given Documented By: CHRIS Non-Admin Reason: NPO Dextrose (Dextrose 50 % 25 Gm/50 Ml Syringe) 25 gm IVPUSH Q15M PRN; Protocol PRN Reason: per Hypoglycemia Standing Ord. Glucose (Glucose Gel 15 Gm Gel..Gram.) 15 gm PO Q15M PRN; Protocol PRN Reason: per Hypoglycemia Standing Ord. Piperacillin Sod/Tazobactam (Sod 2.25 gm/ Sodium Chloride) 50 mls @ 100 mls/hr IV Q8H [facility] Last Infusion: 06/14/22 08:31 Dose: 0 mls/hr Documented By: CHRIS Insulin Human Lispro (Insulin Lispro 100 Unit/Ml 3 Ml Vial) 0 unit SUBCUT QIDACHS [facility]; Protocol Last Admin: 06/14/22 12:29 Dose: Not Given Documented By: CHRIS Non-Admin Reason: No Insulin Coverage Levothyroxine Sodium (Levothyroxine Sodium 100 Mcg/5 Ml Vial) 100 mcg IVPUSH D NAHUMY@1000 [facility] Last Admin: 06/14/22 09:06 Dose: 100 mcg Documented By: CHRIS Pharmacy Consult (Consult Rx Perform Med Rec) 1 each MISCELLANE ONCE PRN PRN Reason: Consult order Polyethylene Glycol (Polyethylene Glycol 3350 17 Gm Powd.Pack) 17 gm PO DAILY [facility] Last Admin: 06/14/22 08:09 Dose: Not Given Documented By: CHRIS Non-Admin Reason: NPO Sodium Chloride (0.9 % Sodium Chloride Flush 3 Ml Syringe) 3 ml IVFLUSH QSHIFT [facility] Last Admin: 06/14/22 07:45 Dose: 3 ml Documented By: CHRIS Labs 06/14/22 06:05 06/14/22 06:05 Labs: Laboratory Results - last 24 hr 06/13/22 06/13/22 06/14/22 15:24 20:13 06:05 MCV 93.9 MCH 30.4 MCHC 32.4 RDW 15.6 Plt Count 86 L MPV 11.4 Absolute Nucleated RBC 0.000 Nucleated RBC % (auto) 0.0 Anion Gap Estim Creat Clear Calc Estimated GFR POC Glucose 189 H 181 H Random Glucose Calcium 06/14/22 06/14/22 06/14/22 06:05 08:02 12:16 MCV MCH MCHC RDW Plt Count MPV Absolute Nucleated RBC Nucleated RBC % (auto) Anion Gap 15 Estim Creat Clear Calc 8.3 Estimated GFR 10 POC Glucose 167 H 155 H Random Glucose 195 H Calcium 7.1 L Assessment and Plan (1) Anemia: Status: Acute (2) ESRD needing dialysis: Status: Acute (3) Toxic metabolic encephalopathy: Status: Acute (4) Acute respiratory failure with hypoxia: Status: Acute (5) Dysphagia: Status: Acute (6) Hypothyroidism: Status: Acute (7) Melena: Status: Acute (8) Acute on chronic blood loss anemia: Status: Acute Plan 81F H CKD III, hypothyroid, dementia, HTN, DM (not on meds) presented with failure to thrive, found to have severe ABHISHEK with hypoerkalemia, met. acidosis, anemia metabolic encephalopathy Multifactorial; Uremia, Hypothyroidism, Acidosis, meds improving with treating underlying causes recurrent reorientation ABHISHEK on CKD IV complicated by hyperkalemia and metabolic acidosis and symptomatic hypothyroidism Continue HD, to place Permacath improving mental status, hyperkalemia resolved, non oliguric continue Bicarb for acidosis monitor bmp Nephrology input appreciated acute hypoxic resp failure Patient is likely having aspiration Continue Zosyn educational director appreciated - to do MBSS Acute on chronic blood loss anemia\GI bleed likely related to advanced CKD iron studies - mixed with signs of inflammation and iron defeciency s/p 3 units prbc, hgb 8.9 monitor H&H GI input appreciated; hold on procedures for now, hypothyroid TSH 53, suspect due to non compliance Continue iv synthroid repeat tsh in 4 weeks HTN holding amlodipnie for now, monitor, restart whne bp increased DM a1c now 6.2, (previous 7.2) not on meds alzheimers dementia at risk for delerium, monitor dvt prophylaxis- hep sq DNR/DNI reason for continued hospitalization: Needs dialysis pending placement of Permacath and resolution of lung infection Time Spent With Patient Time: Total time managing care of this patient today ____ minutes. Quality Stroke Does the patient have a stroke diagnosis?: No VTE Prior VTE?: No VTE Risk Level:: Medical - moderate - high VTE Device Contraindication: Treatment Not Indicated VTE Drug Contraindication: N/A - Med Ordered
[2022-06-14 14:13] LABS: Albumin Level 2.2 g/dL (3.5-5.0)
[2022-06-14 16:02] LABS: Glucose, Whole Blood 145 mg/dL (60-115)
--- NOTE | 2022-06-14 17:10 | MHC.SL.IMP ---
Date of Plan of Treatment: 06/14/22 Onset of Symptoms/Illness: 06/11/22 Date Treatment Started: 06/14/22 Admitting Diagnosis: Toxic Metabolic Encephalopathy due to ABHISHEK on CKD IV; Complicated by Hyperkalemia and Met. Acidosis; Acute hypoxic respiratory failure secondary to ? aspiration pneumonia; Severe Anemia. CXR 06/10/22: Increased patchy airspace opacities in the R midlung and R lung base more pronounced as compared to prior. Concern for pneumonia. Primary Speech & Language Diagnosis: R13.12 Oropharyngeal Phase Dysphagia Reason for Today's Visit: 99476 Modified Barium Swallow Study Pre-evaluation Dietary Consistencies: NPO Pre-evaluation Liquid Consistency: NPO Pre-evaluation Medication Administration: NPO Modified Barium Swallow Study Fluoroscopic Evaluation of Swallowing Function CPT Code 82079 Evaluation Year: 2022 Reason for Study: Concern for silent aspiration Referring Physician: Lesa Dotson MD Evaluating Clinician: Saira Khan MA, CCC-TECHNICAL ADVISOR Study Number: 1 Patient Name: Jennifer Underwood Status: Inpatient, Stretcher Age: 81 Gender: Female MEDICAL HISTORY: Year of Onset or Diagnosis: 2022 Past Medical History: Diabetes mellitus Hypothyroid Stage 3 acute kidney injury UTI (urinary tract infection) Current (pre-evaluation) Intake/Diet: Route: NPO pending MBSS results Pre-Study Functional Oral Intake Scale (FOIS): 1- No oral intake Pain: None reported at time of study SUBJECTIVE: Patient is an 81 year old woman who presented at the ED with anemia, adult failure to thrive, was found to have severe ABHISHEK with hyperkalemia, metabolic acidosis and hypoxia. Pt was seen by TECHNICAL ADVISOR for a clinical swallow evaluation at bedside on 06/11/22 and was recommended to start on pureed diet with nectar thick liquids. On 06/13/22, RN and RT reported concern regarding pt?s respiratory status and possible silent aspiration. RN reported there was no specific witness of aspiration, but question of silent aspiration. Pt seen for PO trials with TECHNICAL ADVISOR at bedside that day and displayed no overt s/s of aspiration with recommended consistencies pureed solids and nectar thick liquids. Nevertheless, pt was recommended MBSS to further assess swallow. Pt is NPO pending MBSS results. Oral Motor Exam Mouth Occlusion: Normal Oral-Facial Teeth Characteristics: Intact/Normal Tongue Size: Normal Tongue Frenum Length: Normal Tongue Excursion Description: Incomplete Tongue Range of Movement Description: Reduced Tongue Speed of Movement Description: Reduced Tongue Strength of Movement (against opposing pressure): Reduced Tongue Movement Characteristics: Normal/Absent Is patient able to manage secretions?: Yes Food and Liquid Trials: Oral Impairment: Lip Closure: Did not test Oral Impairment: Tongue Control During Bolus Hold: 2=Posterior escape of less than half of bolus Oral Impairment: Bolus Preparation/Mastication: 2=Disorganized chewing/mashing with solid pieces of bolus Oral Impairment: Bolus Transport/Lingual Motion: 3=Repetitive/disorganized tongue motion Oral Impairment: Oral Residue: 2=Residue collection on oral structures Oral Impairment:Initiation of Pharyngeal Swallow: 3=Bolus head in pyriforms Pharyngeal Impairment: Soft Palate Elevation: 0=No bolus between soft palate (SP)/pharyngeal wall (PW) Pharyngeal Impairment: Laryngeal Elevation: 1=Partial thyroid cartilage/arytenoids to epiglottic petiole movement Pharyngeal Impairment: Anterior Hyoid Excursion: 1=Partial anterior movement Pharyngeal Impairment: Epiglottic Movement: 1=Partial inversion Pharyngeal Impairment: Laryngeal Vestibular Closure:: 1=Incomplete: narrow column air/contrast in laryngeal vestibule Pharyngeal Impairment: Pharyngeal Stripping Wave: 0=Present: complete Pharyngeal Impairment: Pharyngeal Contraction: Did not test Pharyngeal Impairment: Pharyngoesophageal Segment Openin=Complete distension and complete duration: no obstruction of flow Pharyngeal Impairment: Tongue Base (TB) Retraction: 2=Narrow column of contrast/air between TB and posterior PW Pharyngeal Impairment: Pharyngeal Residue: 1=Trace residue within or on pharyngeal structures Pharyngeal Impairment: Esophageal Clearance Upright Position: Did not test Impressions and Recommendations Clinical Observations: OBJECTIVE: Time-out: performed at 02:45 Evaluation Start: 02:30; Stop: 02:36 Patient Positioning: Seated 70-90 degrees Viewing Planes: LATERAL ONLY Contrast: MBSImP? Standardized Protocol using commercially prepared, standardized Barium viscosities, including: Varibar? THIN LIQUID (40% w/v, <15 cps) , 1/2 Shortbread Cookie (1 x1 x.25 ) MBSImP ID: [id number] MBSImP Results: Lip closure for intraoral bolus containment could not be assessed due to logistical reasons not related to physiologic impairment. Tongue control during bolus hold resulted in posterior escape of less than half of the bolus. Bolus preparation and mastication demonstrated disorganized chewing/mashing with solid pieces of the bolus unchewed. Bolus transport/lingual motion was with repetitive/disorganized motion of the tongue. Oral residue was a collection on oral structures. Initiation of the pharyngeal swallow occurred when the bolus head was in the pyriform sinuses. Soft palate elevation resulted in no bolus between the soft palate and the pharyngeal wall. Laryngeal elevation was decreased, with partial superior movement of the thyroid cartilage/partial approximation of the arytenoids to the epiglottic petiole. Anterior hyoid excursion demonstrated partial anterior movement. Epiglottic movement resulted in partial inversion. Laryngeal vestibular closure was incomplete, with a narrow column of air/contrast noted within the laryngeal vestibule at the height of the swallow. Pharyngeal stripping wave was present and complete. Pharyngeal contraction could not be determined due to logistical reasons not related to physiologic impairment. Pharyngoesophageal segment opening was completely distended for complete duration with no obstruction of bolus flow. Tongue base retraction allowed a narrow column of contrast or air between the retracted tongue base and the posterior pharyngeal wall. Pharyngeal residue was a trace within or on pharyngeal structures. Esophageal clearance in the upright position could not be assessed due to logistical reasons not related to physiologic impairment. Oral Impairment Score: 12 (absence of score, component 1) Pharyngeal Impairment Score: 6 (absence of score, component 13) Esophageal Impairment Score: --- (absence of score, component 17) Laryngeal Penetration and Aspiration: Penetration was observed in today's study. When administered by straw trace amount of thin contrast entered the airway, remained above the vocal folds, and was spontaneously, immediately ejected from the airway. This was singular episode of epiglottic coating/ flash penetration and was not repeated. No penetration intake of thin liquid when administered by cup. No penetration with intake of solids. No evidence of aspiration with intake of liquids and solids during this exam. ASSESSMENT: Clinician Assessment: This exam was conducted by a multidisciplinary team, which included a speech pathologist, radiologist, and chemical radiation technician. Pt was seated upright at 90 degrees in a chair for lateral view only. Pt trialed the following liquid and solid consistencies: thin liquid barium by cup, thin liquid barium by straw, pureed solid (applesauce mixed with barium paste), ground solid (chicken salad mixed with barium paste), regular solid ([place] shortbread cookie coated with barium paste). Pt was provided with 1:1 assistance feeding during this exam. Lingual motion for the transport of bolus was delayed and characterized by repetitive posterior lingual movements. There was premature posterior escape of bolus with less than half of the bolus collecting on the tongue base, in the valleculae, and in the pyriform sinuses prior to productive lingual movement. Note prolonged oral manipulation with pureed solids and mildly to moderately slowed mastication with ground consistency. When pt was chewing harder solid, mastication was disorganized and significantly prolonged. There was mild coating on the tongue which cleared with subsequent swallows. Pharyngeal swallow trigger was significantly delayed, initiated as bolus head reached pyriform sinuses. No nasopharyngeal reflux. Laryngeal elevation was incomplete with incomplete anterior hyoid excursion. Partial epiglottic inversion and incomplete laryngeal vestibular closure. There was singular episode of epiglottic coating, trace flash penetration when liquids were administered by straw. No penetration when liquids were administered by cup. No evidence of aspiration with intake of liquids. There was complete clearing of the valleculae and pyriforms with intake of solids. Noted trace residue on the tongue base and posterior pharyngeal wall with liquids. No obstruction of flow through the pharyngoesophageal segment opening. No evidence of aspiration or penetration with solid trials. Liquid Intake Recommendation: Thin Liquid Intake Strategies: Small Sips, No Straws Dietary Recommendations: Pureed (NDD1) Medication Administration: Crushed with Puree Please contact the pharmacy regarding appropriate crushable or liquid drug formulations that are available whenever modified delivery is recommended. Compensatory Strategies Recommended: Sitting Upright (90 deg) No Straw Small Bites and Sips Rate of Ingestion Change Oral Check Avoid Specific Foods Supervision during eating and or drinking: Total Assistance (1:1) Recommended Treatments: Compens. Strategy Educat. Recommendation for Speech Therapy: Inpatient Speech Therapy Text Comment: PLAN: Therapy Recommendations: Therapy will be continued MBSS revealed moderate impairments of the oral phase, including prolonged and disorganized mastication with harder solids; premature posterior escape of bolus; repetitive tongue rocking motion; mild oral residue; and delay in initiation of pharyngeal swallow trigger. Pharyngeal phase was mildly impaired, characterized by incomplete laryngeal elevation and partial epiglottic inversion. There was a singular episode of epiglottic coating/flash penetration when liquids were administered via straw. No penetration with intake of liquids by cup. Good pharyngeal clearance. No evidence of aspiration during this exam. Pt appeared to fatigue when chewing solids. At this time, recommend start on PUREED (NDD1) solids due to pt?s level of fatigue and general weakness, with THIN liquids and pills CRUSHED in PUREE. Recommend re-evaluation at bedside for advancement potentially to ground/mechanically altered diet pending pt?s readiness and improvement in overall condition. Following strategies and precautions are recommended: -1:1 assistance feeding -Do not present PO if pt is lethargic or with decreased alertness -Ensure pt is positioned upright at 90 degrees during PO intake -Present small bites and ensure oral cavity is cleared before giving more bites -Liquids by teaspoon or by cup -One sip at a time -Avoid the use of straws Prognosis for Improvement: The prognosis for the patient to meet nutritional needs by mouth is good based on degree of impairment. Short Term Goals: ? Diet - The patient will tolerate a pureed/ mechanical soft diet with thin liquids without signs or symptoms of penetration/aspiration 100% of the time. - The patient will participate in therapeutic PO trials with the TECHNICAL ADVISOR. ? Guidelines - The patient will comply with/recall the following guidelines/strategies 100% of the time with minimal cuing: Bolus Volume Change, Rate of Ingestion Change, Additional Swallow(s) per Bolus, No Straws. ? Education - The patient, family, caregiver, nurse will verbalize/demonstrate understanding of the results of this evaluation, the above recommendations, and the swallowing guidelines. Frequency/Duration: M-F during hospitalization Date Range for Service Requested: Timeline to reassess: Clinician - Supplemental, Miscellaneous Communication: It is important to note MBSS objective studies are snapshots in time and Patient function might vary with factors such as time of day or concomitant medical conditions. For this reason, the final treatment plan for this patient should rest with their medical care team. Additional recommendations should be considered with the totality of the Patient in mind. Thank for the opportunity to participate in the care of this patient. If you have any questions about the content of this report, please contact the [facility] at [facility]. Network Consultant Clinician/Clinical Fellow: No Supervisory Statement: N/A Speech Language Pathologist: Saira Khan M.A., [facility]-TECHNICAL ADVISOR
--- NOTE | 2022-06-14 17:15 | MHC.SLORD ---
Speech Language Pathology Order Status: Gunpowder message update sent to MD, RN, RD w/ MBSS results and recommendations.
[2022-06-14] MEDS: Omeprazole 40 MG CAPSULE.DR PO (20:06)
[2022-06-14] MEDS: methylPREDNISolone Sod Succ 40 MG/ML VIAL IVPUSH (20:08)
[2022-06-14 20:41] LABS: Glucose, Whole Blood 172 mg/dL (60-115)
--- NOTE | 2022-06-14 20:58 | PM.GICN ---
History of Present Illness Data of Consult Service Date: 06/14/22 Requesting physician: Lesa Dotson Primary Care Provider: Kwesi Li MD HPI Reason for consult: melena 81F PMH CKD III, hypothyroid, dementia, HTN, DM (not on meds) who I am seeing for assessment for melena. Minimal meaningful hx rom pt due to confusion and dementia. Denies any symptoms. Per chart and nursing staff patient has been declining at home, with inability to do ADL, She has a cough and poor swallowing and seems unable to expectorate. She has had modified ba swallow which was unremarkable. Her hGb dropped and she apparently had a melenic stool overnight. She has not been on PPI. She has CKD as well. her hgb improved from 7-9 g/dl with 3 units of PRBC She had CT chest 2020 with severe thickening of the esophagus. Review of Systems Review of Systems: Yes Unobtainable due to mental status PMFSH Past Medical History Medical History (Updated 06/14/22 @ 13:41 by Lesa Dotson MD) Chronic kidney disease (CKD) stage G4/A1, severely decreased glomerular filtration rate (GFR) between 15-29 mL/min/1.73 square meter and albuminuria creatinine ratio less than 30 mg/g Diabetes mellitus Dysphagia Hypothyroid Stage 3 acute kidney injury UTI (urinary tract infection) Family History Pertinent family history: unable to obtain Social History Social History Household Members: None Housing: Apartment Do you presently have visiting nurse or other home services: No Alcohol intake: never Patient Tobacco Use Status: Former Tobacco user Smoked in Last 30 Days: No e-Cigarette/Vaping Use: Former Use Patient Interested in Nicotine Replacement: No Patient Given Instructions on How to Stop Smoking: No Second Hand Smoke Exposure: No Use of substances other than those prescribed or required for medical reasons: No Currently Displaying Signs/Symptoms of Drug Intoxication Withdrawal: No Any prior treatment program specific to substance use: No Have you been hit, kicked, punched, or otherwise hurt by someone within the past year? If so, by whom?: No Do you feel safe in your current relationship?: Yes Is there a partner from a previous relationship who is making you feel unsafe now?: No Are you made to feel afraid or neglected: No Advance Directives: Yes Advance Directives on File: Yes Advance Directives Date on File: 06/14/20 Do you have thoughts of harming others: None Do you have a plan to hurt others: No Plan Recently lost weight without trying: Yes How much weight loss: Unsure Eating poorly because of decreased appetite: Yes Nutrition screen score: 5 Nutrition Risks: No Nutritional Risk Patient : No : No Poor oral hygiene: No service: No Current occupational status: retired Meds Allergies Allergy/AdvReac Type Severity Reaction Status Date / Time iodine Allergy Unknown unkown Verified 06/07/22 13:25 [id number] Reductase AdvReac Mild myalgias Verified 06/07/22 13:25 Inhibitor Active Medications: Current Medications Acetaminophen (Acetaminophen Supp 650 Mg Supp.Rect) 650 mg ME Q8H PRN PRN Reason: Fever Last Admin: 06/10/22 22:22 Dose: 650 mg Amlodipine Besylate (Amlodipine Besylate 2.5 Mg Tablet) 2.5 mg PO DAILY [facility]; Protocol Last Admin: 06/14/22 08:09 Dose: Not Given Calcium Carbonate (Calcium Carbonate 500 Mg Tablet) 500 mg PO BID [facility] Last Admin: 06/14/22 20:06 Dose: 500 mg Dextrose (Dextrose 50 % 25 Gm/50 Ml Syringe) 25 gm IVPUSH Q15M PRN; Protocol PRN Reason: per Hypoglycemia Standing Ord. Glucose (Glucose Gel 15 Gm Gel..Gram.) 15 gm PO Q15M PRN; Protocol PRN Reason: per Hypoglycemia Standing Ord. Piperacillin Sod/Tazobactam (Sod 2.25 gm/ Sodium Chloride) 50 mls @ 100 mls/hr IV Q8H [facility] Last Infusion: 06/14/22 20:53 Dose: Infused Insulin Human Lispro (Insulin Lispro 100 Unit/Ml 3 Ml Vial) 0 unit SUBCUT QIDACHS [facility]; Protocol Last Admin: 06/14/22 20:46 Dose: Not Given Levothyroxine Sodium (Levothyroxine Sodium 100 Mcg/5 Ml Vial) 100 mcg IVPUSH DAILY@1000 GORDO Last Admin: 06/14/22 09:06 Dose: 100 mcg Methylprednisolone Sodium Succinate (Methylprednisolone Sod Succ 40 Mg/Ml Vial) 40 mg IVPUSH Q24H [facility] Stop: 06/16/22 16:01 Last Admin: 06/14/22 20:08 Dose: 40 mg Omeprazole (Omeprazole 40 Mg Capsule.) 40 mg PO BID@0630,1630 [facility] Last Admin: 06/14/22 20:06 Dose: 40 mg Pharmacy Consult (Consult Rx Perform Med Rec) 1 each MISCELLANE ONCE PRN PRN Reason: Consult order Polyethylene Glycol (Polyethylene Glycol 3350 17 Gm Powd.Pack) 17 gm PO DAILY [facility] Last Admin: 06/14/22 08:09 Dose: Not Given Sodium Chloride (0.9 % Sodium Chloride Flush 3 Ml Syringe) 3 ml IVFLUSH QSHIFT [facility] Last Admin: 06/14/22 20:08 Dose: 3 ml Home Medications Medication Instructions Recorded Confirmed Last Taken Type amlodipine 2.5 mg tablet 1 tab PO DAILY 06/07/22 06/07/22 Unknown History levothyroxine 125 mcg tablet 1 tab PO DAILY@0600 06/07/22 06/07/22 Unknown History Physical Exam Vital Signs: Vital Signs: Last Vital Signs Temp 97.9 F 06/14/22 20:00 Pulse 82 06/14/22 20:00 Resp 18 06/14/22 20:00 BP 117/73 06/14/22 20:00 Pulse Ox 94 06/14/22 20:00 O2 Del Method 06/14/22 20:00 O2 Flow Rate 3 06/14/22 20:00 BMI result Body Mass Index 21.2 EXAM: GENERAL: The patient is frail, confused, VITAL SIGNS:see workflow HEENT: Nonicteric sclerae, PERRLA, EOMI. Oropharynx clear. Moist mucous membranes. Conjunctivae appear well perfused. No thyroid mass. CHEST: Chest wall is nontender. HEART: irregular rate, PSM at sternal edge LUNGS: Clear to auscultation bilaterally. ABDOMEN: Soft, positive bowel sounds, nontender, no organomegaly.no flank tenderness SKIN: No rash, no excessive bruising, petechiae, or purpura. NEUROLOGIC: Cranial nerves II-XII intact without motor/sensory deficit. confused Results Labs 06/14/22 06:05 06/14/22 06:05 Labs: Short CBC 06/14/22 Range/Units 06:05 WBC 7.8 (4.8-10.8) X10*3/uL Hgb 8.9 L D (12.0-16.0) g/dl Hct 27.5 L D (37.0-47.0) % Plt Count 86 L (160-400) X10*3/uL BMP 06/14/22 06:05 Sodium 140 Potassium 4.2 Chloride 109 H Carbon Dioxide 20 L BUN 56 H Creatinine 4.37 H* Calcium 7.1 L Liver Function 06/14/22 Range/Units 06:05 Albumin 2.2 L (3.5-5.0) g/dL Microbiology Microbiology Results: Microbiology 06/10/22 22:48 Blood - Venous Blood Culture - Preliminary No growth after 48 hours. 06/10/22 22:48 Blood - Venous Blood Culture - Preliminary No growth after 48 hours. 06/07/22 15:55 Urine clean catch - Urine palacios top Urine Culture - Final Assessment and Plan (1) Anemia: Status: Acute (2) Acute on chronic blood loss anemia: Status: Acute Plan 1/ Acute on chronic anemia, due to CKD, malnutrition, possibly esophagitis or stress ulceration, She is pretty frail and has an O2 requirment with wet cough. PLAN: 1/ Conservative treatment for the moment wth carafate and PPI, optimize resp condition, consider percussion and tapping to help with expectoration, vest therapy, nebs, saline 2/ if ongoing anemia then EGD but would be higher risk if resp condition is not optimized Time Spent With Patient Time: Total time managing care of this patient today ____ minutes. Procedures Date of Service Date of Service: 06/14/22
[2022-06-15] MEDS: Piperacillin Sodium/Tazobactam 2.25 GM in 0.9 % Sodium Chloride 50 ML IV ×3 (03:10→17:33)
[2022-06-15 03:24] VITALS: BP 116/67; PULSE 96; RESP 20; TEMP 37; O2SAT 97
[2022-06-15] MEDS: Omeprazole 40 MG CAPSULE.DR PO ×2 (06:07→17:32)
[2022-06-15 06:52] LABS: Hematocrit 23.8 % (37.0-47.0); Hemoglobin 7.9 g/dl (12.0-16.0); Mean Corpuscular HGB Conc 33.2 g/dl (31.0-35.0); Mean Corpuscular Volume 93.3 fL (80.0-98.0); Mean Platelet Volume 10.9 fL (9.4-12.3); Red Blood Count 2.55 X10*6/uL (4.20-5.50); Red Cell Distribution Width 15.4 % (11.0-16.0); White Blood Count 8.8 X10*3/uL (4.8-10.8)
[2022-06-15 07:07] LABS: Platelet Count 78 X10*3/uL (160-400)
[2022-06-15 07:16] LABS: Anion Gap 11 (12-20); Blood Urea Nitrogen 37 mg/dL (9-16); Calcium 7.6 mg/dL (8.4-10.2); Carbon Dioxide 21 mmol/L (22-29); Chloride 105 mmol/L (96-108); Creatinine Clr Calc Pharmacy 12.5; Estimated Glomerular Filt Rate 16; Glucose Random 267 mg/dL (60-115); Potassium 3.4 mmol/L (3.3-5.1); Sodium 134 mmol/L (135-145)
[2022-06-15 07:25] LABS: Glucose, Whole Blood 271 mg/dL (60-115)
[2022-06-15 07:30] VITALS: BP 104/66; PULSE 84; RESP 20; TEMP 36.8; O2SAT 96
[2022-06-15] MEDS: polyethylene glycoL 3350 17 GM POWD.PACK PO (07:43)
[2022-06-15] MEDS: amLODIPine Besylate 2.5 MG TABLET PO (07:44)
[2022-06-15] MEDS: Insulin Lispro 100 UNIT/ML 3 ML VIAL SUBCUT ×4 (07:44→21:55)
[2022-06-15] MEDS: 0.9 % Sodium Chloride Flush 3 ML SYRINGE IVFLUSH ×3 (07:50→21:55)
--- NOTE | 2022-06-15 10:08 | PM.PNNEP ---
Subjective Subjective Date of Service: 06/15/22 Interval history: seen and examined no complaints had HD yesterday Physical Exam Vital Signs: Vital Signs: Last Vital Signs Temp 98.3 F 06/15/22 07:30 Pulse 84 06/15/22 07:30 Resp 20 06/15/22 07:30 BP 104/66 06/15/22 07:30 Pulse Ox 96 06/15/22 07:30 O2 Del Method 06/15/22 07:30 O2 Flow Rate 3 06/15/22 07:30 BMI result Body Mass Index 21.2 Const: General: no acute distress HEENT: Head: Yes normocephalic and Yes atraumatic Neck: Neck: Yes supple Resp: Auscultation: diminished lung sounds Cardio: Heart sounds: S1 normal heart sound present and S2 normal heart sound present GI: Palpation (GI): Soft to palpation and nontender Objective Data Labs 06/15/22 06:25 06/15/22 06:25 Labs: Laboratory Results - last 24 hr 06/14/22 06/14/22 06/14/22 06:05 12:16 15:51 WBC RBC Hgb Hct MCV MCH MCHC RDW Plt Count MPV Absolute Nucleated RBC Nucleated RBC % (auto) Sodium Potassium Chloride Carbon Dioxide Anion Gap BUN Creatinine Estim Creat Clear Calc Estimated GFR POC Glucose 155 H 145 H Random Glucose Calcium Albumin 2.2 L 06/14/22 06/15/22 06/15/22 20:37 06:25 06:25 WBC 8.8 RBC 2.55 L Hgb 7.9 L Hct 23.8 L MCV 93.3 MCH 31.0 MCHC 33.2 RDW 15.4 Plt Count 78 L MPV 10.9 Absolute Nucleated RBC 0.000 Nucleated RBC % (auto) 0.0 Sodium 134 L Potassium 3.4 Chloride 105 Carbon Dioxide 21 L Anion Gap 11 L BUN 37 H Creatinine 2.91 H Estim Creat Clear Calc 12.5 Estimated GFR 16 POC Glucose 172 H Random Glucose 267 H Calcium 7.6 L D Albumin 06/15/22 07:18 WBC RBC Hgb Hct MCV MCH MCHC RDW Plt Count MPV Absolute Nucleated RBC Nucleated RBC % (auto) Sodium Potassium Chloride Carbon Dioxide Anion Gap BUN Creatinine Estim Creat Clear Calc Estimated GFR POC Glucose 271 H Random Glucose Calcium Albumin Microbiology Microbiology Results: Microbiology 06/10/22 22:48 Blood - Venous Blood Culture - Preliminary No growth after 48 hours. 06/10/22 22:48 Blood - Venous Blood Culture - Preliminary No growth after 48 hours. 06/07/22 15:55 Urine clean catch - Urine palacios top Urine Culture - Final Procedures Date of Service Date of Service: 06/15/22 Assessment & Plan Assessment and plan (1) ESRD (end stage renal disease): Status: Acute (2) Anemia: Status: Acute Plan s/p HD yesterday ABHISHEK superimposed on advanced CKD versus ESRD commenced on dialysis anemia due to CKD REC HD on Friday dialysis tunnelled catheter blood transfusion as needed goal of care discussion will need outpatient HD placement if decision is to pursue HD Time Spent With Patient Time: Total time managing care of this patient today ____ minutes. Progress Note: Quality Stroke Does the patient have a stroke diagnosis?: No
[2022-06-15] MEDS: Levothyroxine Sodium 100 MCG/5 ML VIAL IVPUSH (10:23)
[2022-06-15 11:04] VITALS: BP 110/59; PULSE 85; RESP 20; TEMP 36.5; O2SAT 98
[2022-06-15 11:10] LABS: Glucose, Whole Blood 181 mg/dL (60-115)
--- NOTE | 2022-06-15 12:28 | P.PNIM_ITS ---
Subjective Subjective Date of Service: 06/15/22 Interval History: the patient was seen and evaluated this morning Laying in bed, looks frail and tired but more interactive Hemoglobin of 7.9 Started on modified diet No reported other overnight events. Review of Systems Review of Systems: Yes all other systems are reviewed and are negative Physical Exam Vital Signs: Vital Signs: Last Vital Signs Temp 97.7 F 06/15/22 11:04 Pulse 85 06/15/22 11:04 Resp 20 06/15/22 11:04 BP 94/54 L 06/15/22 11:04 Pulse Ox 98 06/15/22 11:04 O2 Del Method 06/15/22 11:04 O2 Flow Rate 3 06/15/22 11:04 BMI result Body Mass Index 21.2 Const: Other: Constitutional : Awake, frail Neck : Normal inspection, Supple, PermCath in place in chest wall no bleeding or erythema Cardiovascular : RRR, no JVP, no lower extremity edema Respiratory : good bilateral air entry, fine crackles Gastrointestinal: soft, lax, Normal bowel sounds, Non tender Skin : Warm, Dry Neurological : Alert & oriented to self and place, No focal deficit Objective Data Active Medications Acetaminophen (Acetaminophen Supp 650 Mg Supp.Rect) 650 mg ND Q8H PRN PRN Reason: Fever Last Admin: 06/10/22 22:22 Dose: 650 mg Documented By: SHAUNA Amlodipine Besylate (Amlodipine Besylate 2.5 Mg Tablet) 2.5 mg PO DAILY [facility]; Protocol Last Admin: 06/15/22 07:44 Dose: 2.5 mg Documented By: AMY Calcium Carbonate (Calcium Carbonate 500 Mg Tablet) 500 mg PO BID [facility] Last Admin: 06/15/22 07:44 Dose: 500 mg Documented By: AMY Dextrose (Dextrose 50 % 25 Gm/50 Ml Syringe) 25 gm IVPUSH Q15M PRN; Protocol PRN Reason: per Hypoglycemia Standing Ord. Glucose (Glucose Gel 15 Gm Gel..Gram.) 15 gm PO Q15M PRN; Protocol PRN Reason: per Hypoglycemia Standing Ord. Piperacillin Sod/Tazobactam (Sod 2.25 gm/ Sodium Chloride) 50 mls @ 100 mls/hr IV Q8H [facility] Last Infusion: 06/15/22 11:30 Dose: 0 mls/hr Documented By: AMY Insulin Human Lispro (Insulin Lispro 100 Unit/Ml 3 Ml Vial) 0 unit SUBCUT QIDACHS [facility]; Protocol Last Admin: 06/15/22 12:05 Dose: 2 unit Documented By: AMY Levothyroxine Sodium (Levothyroxine Sodium 100 Mcg/5 Ml Vial) 100 mcg IVPUSH DAILY@1000 [facility] Last Admin: 06/15/22 10:23 Dose: 100 mcg Documented By: AMY Methylprednisolone Sodium Succinate (Methylprednisolone Sod Succ 40 Mg/Ml Vial) 40 mg IVPUSH Q24H [facility] Stop: 06/16/22 16:01 Last Admin: 06/14/22 20:08 Dose: 40 mg Documented By: SASHA Omeprazole (Omeprazole 40 Mg Capsule.) 40 mg PO BID@0630,1630 [facility] Last Admin: 06/15/22 06:07 Dose: 40 mg Documented By: SASHA Pharmacy Consult (Consult Rx Perform Med Rec) 1 each MISCELLANE ONCE PRN PRN Reason: Consult order Polyethylene Glycol (Polyethylene Glycol 3350 17 Gm Powd.Pack) 17 gm PO DAILY [facility] Last Admin: 06/15/22 07:43 Dose: 17 gm Documented By: AMY Sodium Chloride (0.9 % Sodium Chloride Flush 3 Ml Syringe) 3 ml IVFLUSH QSHIFT [facility] Last Admin: 06/15/22 07:50 Dose: 3 ml Documented By: AMY Labs 06/15/22 06:25 06/15/22 06:25 Labs: Laboratory Results - last 24 hr 06/14/22 06/14/22 06/14/22 06:05 15:51 20:37 MCV MCH MCHC RDW Plt Count MPV Absolute Nucleated RBC Nucleated RBC % (auto) Anion Gap Estim Creat Clear Calc Estimated GFR POC Glucose 145 H 172 H Random Glucose Calcium Albumin 2.2 L 06/15/22 06/15/22 06/15/22 06:25 06:25 07:18 MCV 93.3 MCH 31.0 MCHC 33.2 RDW 15.4 Plt Count 78 L MPV 10.9 Absolute Nucleated RBC 0.000 Nucleated RBC % (auto) 0.0 Anion Gap 11 L Estim Creat Clear Calc 12.5 Estimated GFR 16 POC Glucose 271 H Random Glucose 267 H Calcium 7.6 L D Albumin 06/15/22 11:06 MCV MCH MCHC RDW Plt Count MPV Absolute Nucleated RBC Nucleated RBC % (auto) Anion Gap Estim Creat Clear Calc Estimated GFR POC Glucose 181 H Random Glucose Calcium Albumin Assessment and Plan (1) Acute on chronic blood loss anemia: Status: Acute (2) Hypothyroidism: Status: Acute (3) ESRD needing dialysis: Status: Acute (4) Toxic metabolic encephalopathy: Status: Acute Plan 81F PMH CKD III, hypothyroid, dementia, HTN, DM (not on meds) presented with failure to thrive, found to have severe ABHISHEK with hypoerkalemia, met. acidosis, anemia metabolic encephalopathy Multifactorial; Uremia, Hypothyroidism, Acidosis, meds improving with treating underlying causes recurrent reorientation ABHISHEK on CKD IV complicated by hyperkalemia and metabolic acidosis and symptomatic hypothyroidism Continue HD, Permacath in place improving mental status, hyperkalemia resolved, non oliguric continue Bicarb for acidosis monitor bmp Nephrology input appreciated , start planning for outpatient dialysis acute hypoxic resp failure Patient is likely having aspiration Continue Zosyn dexigraph operator appreciated - to do MBSS Acute on chronic blood loss anemia\GI bleed likely related to advanced CKD iron studies - mixed with signs of inflammation and iron defeciency s/p 4 units prbc, hgb 7.9 monitor H&H GI input appreciated; hold on procedures for now Dysphagia MPS this was done 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 Quality Stroke Does the patient have a stroke diagnosis?: No VTE Prior VTE?: No VTE Risk Level:: Medical - moderate - high VTE Device Contraindication: Treatment Not Indicated VTE Drug Contraindication: N/A - Med Ordered
[2022-06-15 15:58] LABS: Glucose, Whole Blood 222 mg/dL (60-115)
[2022-06-15 16:00] VITALS: BP 104/73; PULSE 83; RESP 19; TEMP 36.3; O2SAT 98
[2022-06-15] MEDS: methylPREDNISolone Sod Succ 40 MG/ML VIAL IVPUSH (17:34)
[2022-06-15 19:46] VITALS: BP 102/57; PULSE 96; RESP 18; TEMP 36.7; O2SAT 91
[2022-06-15 20:03] LABS: Glucose, Whole Blood 197 mg/dL (60-115)
[2022-06-15 23:14] VITALS: BP 117/68; PULSE 100; RESP 18; TEMP 36.7; O2SAT 100
[2022-06-16] VITALS (9 sets, daily range): BP systolic 95–127; BP diastolic 53–75; PULSE 72–117; RESP 16–20; TEMP 36.2–37; O2SAT 95–100
--- NOTE | 2022-06-16 | ECG_ITS ---
Test Reason : tele changes Blood Pressure : / mmHG Vent. Rate : 092 BPM Atrial Rate : 092 BPM P-R Int : 162 ms QRS Dur : 122 ms QT Int : 366 ms P-R-T Axes : 047 -47 009 degrees QTc Int : 452 ms Normal sinus rhythm Left anterior fascicular block Incomplete right bundle branch block Anterolateral infarct , age undetermined Abnormal ECG When compared with ECG of 10-JUN-2022 21:46, Anterior infarct is now Present Anterolateral infarct is now Present Referred By: Roland Erazo Electronically Signed By:ALDAIR DENSON MD
[2022-06-16] MEDS: Piperacillin Sodium/Tazobactam 2.25 GM in 0.9 % Sodium Chloride 50 ML IV ×3 (03:33→18:08)
[2022-06-16] MEDS: Omeprazole 40 MG CAPSULE.DR PO ×2 (06:26→15:54)
[2022-06-16 06:44] LABS: Hematocrit 22.1 % (37.0-47.0); Hemoglobin 7.1 g/dl (12.0-16.0); Mean Corpuscular HGB Conc 32.1 g/dl (31.0-35.0); Mean Corpuscular Volume 93.2 fL (80.0-98.0); Mean Platelet Volume 11.1 fL (9.4-12.3); Platelet Count 85 X10*3/uL (160-400); Red Blood Count 2.37 X10*6/uL (4.20-5.50); Red Cell Distribution Width 15.7 % (11.0-16.0); White Blood Count 8.7 X10*3/uL (4.8-10.8)
[2022-06-16 07:29] LABS: Anion Gap 16 (12-20); Blood Urea Nitrogen 54 mg/dL (9-16); Calcium 7.1 mg/dL (8.4-10.2); Carbon Dioxide 19 mmol/L (22-29); Chloride 103 mmol/L (96-108); Creatinine Clr Calc Pharmacy 8.9; Estimated Glomerular Filt Rate 11; Glucose Random 311 mg/dL (60-115); Sodium 134 mmol/L (135-145)
[2022-06-16 08:07] LABS: Glucose, Whole Blood 297 mg/dL (60-115)
[2022-06-16] MEDS: 0.9 % Sodium Chloride Flush 3 ML SYRINGE IVFLUSH ×3 (08:07→23:48)
[2022-06-16] MEDS: Insulin Lispro 100 UNIT/ML 3 ML VIAL SUBCUT ×4 (08:07→21:07)
[2022-06-16] MEDS: amLODIPine Besylate 2.5 MG TABLET PO (08:07)
--- NOTE | 2022-06-16 08:43 | PM.PNNEP ---
Subjective Subjective Date of Service: 06/16/22 Interval history: seen and examined no complaints Physical Exam Vital Signs: Vital Signs: Last Vital Signs Temp 97.1 F 06/16/22 07:27 Pulse 86 06/16/22 07:27 Resp 20 06/16/22 07:27 BP 120/69 06/16/22 07:27 Pulse Ox 100 06/16/22 07:27 O2 Del Method 06/16/22 07:27 O2 Flow Rate 4 06/16/22 07:27 BMI result Body Mass Index 21.2 Const: General: no acute distress HEENT: Head: Yes normocephalic and Yes atraumatic Neck: Neck: Yes supple Resp: Auscultation: diminished lung sounds Cardio: Heart sounds: S1 normal heart sound present and S2 normal heart sound present GI: Palpation (GI): Soft to palpation and nontender Objective Data Labs 06/16/22 06:12 06/16/22 06:12 Labs: Laboratory Results - last 24 hr 06/15/22 06/15/22 06/15/22 11:06 15:54 19:40 WBC RBC Hgb Hct MCV MCH MCHC RDW Plt Count MPV Absolute Nucleated RBC Nucleated RBC % (auto) Sodium Potassium Chloride Carbon Dioxide Anion Gap BUN Creatinine Estim Creat Clear Calc Estimated GFR POC Glucose 181 H 222 H 197 H Random Glucose Calcium 06/16/22 06/16/22 06/16/22 06:12 06:12 07:33 WBC 8.7 RBC 2.37 L Hgb 7.1 L Hct 22.1 L MCV 93.2 MCH 30.0 MCHC 32.1 RDW 15.7 Plt Count 85 L MPV 11.1 Absolute Nucleated RBC 0.000 Nucleated RBC % (auto) 0.0 Sodium 134 L Potassium 4.0 Chloride 103 Carbon Dioxide 19 L Anion Gap 16 BUN 54 H Creatinine 4.06 H* Estim Creat Clear Calc 8.9 Estimated GFR 11 POC Glucose 297 H Random Glucose 311 H Calcium 7.1 L D Microbiology Microbiology Results: Microbiology 06/10/22 22:48 Blood - Venous Blood Culture - Final No growth after 5 days. 06/10/22 22:48 Blood - Venous Blood Culture - Final No growth after 5 days. 06/07/22 15:55 Urine clean catch - Urine palacios top Urine Culture - Final Procedures Date of Service Date of Service: 06/16/22 Assessment & Plan Assessment and plan (1) ESRD (end stage renal disease): Status: Acute (2) Anemia: Status: Acute Plan ABHISHEK superimposed on advanced CKD versus ESRD commenced on dialysis anemia due to CKD REC HD tomorrow dialysis tunnelled catheter blood transfusion as needed goal of care discussion will need outpatient HD placement if decision is to pursue HD Time Spent With Patient Time: Total time managing care of this patient today ____ minutes. Progress Note: Quality Stroke Does the patient have a stroke diagnosis?: No
[2022-06-16 10:59] LABS: Glucose, Whole Blood 268 mg/dL (60-115)
--- NOTE | 2022-06-16 12:48 | HO.PM.IMPN ---
Subjective Subjective Date of Service: 06/16/22 Interval History: the patient was seen and evaluated this morning Laying in bed, more alert and interactive Hemoglobin dropped to 7.1 tolerating modified diet No reported other overnight events. Review of Systems Review of Systems: Yes all other systems are reviewed and are negative Physical Exam Vital Signs: Vital Signs: Last Vital Signs Temp 98.6 F 06/16/22 11:13 Pulse 116 H 06/16/22 11:13 Resp 20 06/16/22 11:13 BP 95/53 L 06/16/22 11:13 Pulse Ox 98 06/16/22 11:13 O2 Del Method 06/16/22 11:13 O2 Flow Rate 1 06/16/22 11:13 BMI result Body Mass Index 21.2 Const: Other: Constitutional : Awake, interactive, frail Neck : Normal inspection, Supple, PermCath in place in chest wall no bleeding or erythema Cardiovascular : RRR, no JVP, no lower extremity edema Respiratory : good bilateral air entry, fine crackles Gastrointestinal: soft, lax, Normal bowel sounds, Non tender Skin : Warm, Dry Neurological : Alert & oriented to self and place, No focal deficit Objective Data Active Medications Acetaminophen (Acetaminophen Supp 650 Mg Supp.Rect) 650 mg SD Q8H PRN PRN Reason: Fever Last Admin: 06/10/22 22:22 Dose: 650 mg Documented By: SHAUNA Amlodipine Besylate (Amlodipine Besylate 2.5 Mg Tablet) 2.5 mg PO DAILY [facility]; Protocol Last Admin: 06/16/22 08:07 Dose: 2.5 mg Documented By: AMY Calcium Carbonate (Calcium Carbonate 500 Mg Tablet) 500 mg PO BID [facility] Last Admin: 06/16/22 08:07 Dose: 500 mg Documented By: AMY Dextrose (Dextrose 50 % 25 Gm/50 Ml Syringe) 25 gm IVPUSH Q15M PRN; Protocol PRN Reason: per Hypoglycemia Standing Ord. Glucose (Glucose Gel 15 Gm Gel..Gram.) 15 gm PO Q15M PRN; Protocol PRN Reason: per Hypoglycemia Standing Ord. Piperacillin Sod/Tazobactam (Sod 2.25 gm/ Sodium Chloride) 50 mls @ 100 mls/hr IV Q8H [facility] Last Infusion: 06/16/22 04:49 Dose: 0 mls/hr Documented By: SASHA Insulin Human Lispro (Insulin Lispro 100 Unit/Ml 3 Ml Vial) 0 unit SUBCUT QIDACHS [facility]; Protocol Last Admin: 06/16/22 11:30 Dose: 6 unit Documented By: AMY Levothyroxine Sodium (Levothyroxine Sodium 100 Mcg/5 Ml Vial) 100 mcg IVPUSH DAILY@1000 [facility] Last Admin: 06/15/22 10:23 Dose: 100 mcg Documented By: AMY Methylprednisolone Sodium Succinate (Methylprednisolone Sod Succ 40 Mg/Ml Vial) 40 mg IVPUSH Q24H [facility] Stop: 06/16/22 16:01 Last Admin: 06/15/22 17:34 Dose: 40 mg Documented By: AMY Omeprazole (Omeprazole 40 Mg Capsule.) 40 mg PO BID@0630,1630 [facility] Last Admin: 06/16/22 06:26 Dose: 40 mg Documented By: SASHA Pharmacy Consult (Consult Rx Perform Med Rec) 1 each MISCELLANE ONCE PRN PRN Reason: Consult order Polyethylene Glycol (Polyethylene Glycol 3350 17 Gm Powd.Pack) 17 gm PO DAILY [facility] Last Admin: 06/16/22 08:09 Dose: Not Given Documented By: AMY Non-Admin Reason: pt having frequent loose stools Sodium Chloride (0.9 % Sodium Chloride Flush 3 Ml Syringe) 3 ml IVFLUSH QSHIFT [facility] Last Admin: 06/16/22 08:07 Dose: 3 ml Documented By: AMY Labs 06/16/22 06:12 06/16/22 06:12 Labs: Laboratory Results - last 24 hr 06/15/22 06/15/22 06/16/22 15:54 19:40 06:12 MCV 93.2 MCH 30.0 MCHC 32.1 RDW 15.7 Plt Count 85 L MPV 11.1 Absolute Nucleated RBC 0.000 Nucleated RBC % (auto) 0.0 Anion Gap Estim Creat Clear Calc Estimated GFR POC Glucose 222 H 197 H Random Glucose Calcium Blood Type Antibody Screen Crossmatch 06/16/22 06/16/22 06/16/22 06:12 07:33 08:38 MCV MCH MCHC RDW Plt Count MPV Absolute Nucleated RBC Nucleated RBC % (auto) Anion Gap 16 Estim Creat Clear Calc 8.9 Estimated GFR 11 POC Glucose 297 H Random Glucose 311 H Calcium 7.1 L D Blood Type O Positive Antibody Screen NEGATIVE Crossmatch See Detail 06/16/22 10:55 MCV MCH MCHC RDW Plt Count MPV Absolute Nucleated RBC Nucleated RBC % (auto) Anion Gap Estim Creat Clear Calc Estimated GFR POC Glucose 268 H Random Glucose Calcium Blood Type Antibody Screen Crossmatch Microbiology Microbiology Results: Microbiology 06/10/22 22:48 Blood Culture - Final Blood - Venous No growth after 5 days. 06/10/22 22:48 Blood Culture - Final Blood - Venous No growth after 5 days. Assessment and Plan (1) Acute on chronic blood loss anemia: Status: Acute (2) Melena: Status: Acute (3) Hypothyroidism: Status: Acute (4) Dysphagia: Status: Acute (5) ESRD needing dialysis: Status: Acute Plan 81F PMH CKD III, hypothyroid, dementia, HTN, DM (not on meds) presented with failure to thrive, found to have severe ABHISHEK with hypoerkalemia, met. acidosis, anemia metabolic encephalopathy Multifactorial; Uremia, Hypothyroidism, Acidosis, meds improving , almost back to her baseline recurrent reorientation ABHISHEK on CKD IV complicated by hyperkalemia and metabolic acidosis and symptomatic hypothyroidism Continue HD, Permacath in place continue Bicarb for acidosis monitor bmp Nephrology input appreciated , start planning for outpatient dialysis acute hypoxic resp failure Patient is likely having aspiration Continue Zosyn MBSS done GARMENT TURNER appreciated - Modified diet Acute on chronic blood loss anemia\GI bleed likely related to advanced CKD iron studies - mixed with signs of inflammation and iron defeciency s/p 4 units prbc, hgb 7.1, to transfuse 1 extra unit monitor H&H GI input appreciated; will need EGD if ongoing anemia Dysphagia MPS this was done GARMENT TURNER recommended modified diet Aspiration precautions hypothyroid TSH 53, suspect due to non compliance Continue iv synthroid repeat tsh in 4 weeks HTN holding amlodipnie for now, monitor, restart whne bp increased DM a1c now 6.2, (previous 7.2) not on meds alzheimers dementia at risk for delerium, monitor dvt prophylaxis- hep sq DNR/DNI reason for continued hospitalization: Needs dialysis and resolution of lung infection pending GI eval (EGD) and safe discharge plan Time Spent With Patient Time: Total time managing care of this patient today ____ minutes. Quality Stroke Does the patient have a stroke diagnosis?: No VTE Prior VTE?: No VTE Risk Level:: Medical - moderate - high VTE Device Contraindication: Treatment Not Indicated VTE Drug Contraindication: N/A - Med Ordered
[2022-06-16] MEDS: Levothyroxine Sodium 100 MCG/5 ML VIAL IVPUSH (13:57)
[2022-06-16] MEDS: methylPREDNISolone Sod Succ 40 MG/ML VIAL IVPUSH (15:14)
[2022-06-16 15:55] LABS: Glucose, Whole Blood 229 mg/dL (60-115)
[2022-06-16 19:57] LABS: Glucose, Whole Blood 326 mg/dL (60-115)
[2022-06-16] MEDS: PEG 3350/Na Sulf,Bicarb,Cl/KCL 4,000 ML SOLN.RECON 4000 ML PO (21:07)
[2022-06-17] VITALS (8 sets, daily range): BP systolic 100–144; BP diastolic 53–95; PULSE 74–87; RESP 13–20; TEMP 36.1–36.8; O2SAT 89–97
[2022-06-17] MEDS: Piperacillin Sodium/Tazobactam 2.25 GM in 0.9 % Sodium Chloride 50 ML IV ×3 (02:09→19:59)
[2022-06-17 07:19] LABS: Anion Gap 17 (12-20); Blood Urea Nitrogen 68 mg/dL (9-16); Calcium 6.5 mg/dL (8.4-10.2); Carbon Dioxide 21 mmol/L (22-29); Chloride 104 mmol/L (96-108); Creatinine Clr Calc Pharmacy 7.2; Estimated Glomerular Filt Rate 8; Glucose Random 272 mg/dL (60-115); Potassium 4.2 mmol/L (3.3-5.1); Sodium 138 mmol/L (135-145)
[2022-06-17 07:20] LABS: Hematocrit 25.2 % (37.0-47.0); Hemoglobin 8.3 g/dl (12.0-16.0); Mean Corpuscular HGB Conc 32.9 g/dl (31.0-35.0); Mean Platelet Volume 11.2 fL (9.4-12.3); Red Blood Count 2.77 X10*6/uL (4.20-5.50); Red Cell Distribution Width 15.2 % (11.0-16.0); White Blood Count 9.1 X10*3/uL (4.8-10.8)
[2022-06-17 07:22] LABS: Platelet Count 91 X10*3/uL (160-400)
[2022-06-17 07:35] LABS: Glucose, Whole Blood 250 mg/dL (60-115)
--- NOTE | 2022-06-17 08:12 | P.CDIC_ITS ---
CDI Concurrent Query Documentation Clarification: PHYSICIAN'S DOCUMENTATION REQUEST Date of Query: 06/17/22811 Patient Name: Jennifer Underwood Admit Date: 06/07/22 Dear Doctor, A review of the medical record indicates additional documentation may be needed. Please review below and update the documentation accordingly. Clinical Indicators: Risk Factors/Clinical Indicators/Treatments POC glucose: 268 H 326 H Insulin Please clarify the following regarding Diabetes Mellitus (DM): Complication of Diabetes: * Hyperglycemia * Uncontrolled, poorly controlled etc. * No complications of DM * Other complication ? please specify * Unable to determine Use of terms such as suspected, likely, concern for, or probable (associated with a specific diagnosis that is being evaluated, monitored, or treated as if it exists) are acceptable and can be coded in the inpatient setting, when documented at the time of discharge. Thank you, Catia López [facility], CDIS Extension: [phone] Please use your independent medical judgment in providing your response. THIS QUERY IS PART OF THE PERMANENT MEDICAL RECORD Provider Response: Other Other Diagnosis: hyperglycemia in DMII
[2022-06-17] MEDS: 0.9 % Sodium Chloride Flush 3 ML SYRINGE IVFLUSH ×2 (08:32→20:03)
[2022-06-17] MEDS: Insulin Lispro 100 UNIT/ML 3 ML VIAL SUBCUT ×2 (08:32→21:43)
[2022-06-17] MEDS: Levothyroxine Sodium 100 MCG/5 ML VIAL IVPUSH (08:32)
--- NOTE | 2022-06-17 09:26 | P.PNNP_ITS ---
Subjective Subjective Date of Service: 06/17/22 Interval history: seen and examined discussed with medical attending no complaints Physical Exam Vital Signs: Vital Signs: Last Vital Signs Temp 97.4 F 06/17/22 08:00 Pulse 81 06/17/22 08:00 Resp 18 06/17/22 08:00 BP 135/90 H 06/17/22 08:00 Pulse Ox 96 06/17/22 08:00 O2 Del Method 06/17/22 08:00 O2 Flow Rate 1 06/16/22 23:23 BMI result Body Mass Index 21.2 Const: General: no acute distress HEENT: Head: Yes normocephalic and Yes atraumatic Neck: Neck: Yes supple Resp: Auscultation: diminished lung sounds Cardio: Heart sounds: S1 normal heart sound present and S2 normal heart sound present GI: Palpation (GI): Soft to palpation and nontender Objective Data Labs 06/17/22 06:10 06/17/22 06:10 Labs: Laboratory Results - last 24 hr 06/16/22 06/16/22 06/16/22 08:38 10:55 15:52 WBC RBC Hgb Hct MCV MCH MCHC RDW Plt Count MPV Absolute Nucleated RBC Nucleated RBC % (auto) Sodium Potassium Chloride Carbon Dioxide Anion Gap BUN Creatinine Estim Creat Clear Calc Estimated GFR POC Glucose 268 H 229 H Random Glucose Calcium Blood Type O Positive Antibody Screen NEGATIVE Crossmatch See Detail 06/16/22 06/17/22 06/17/22 19:53 06:10 06:10 WBC 9.1 RBC 2.77 L Hgb 8.3 L Hct 25.2 L MCV 91.0 MCH 30.0 MCHC 32.9 RDW 15.2 Plt Count 91 L MPV 11.2 Absolute Nucleated RBC 0.000 Nucleated RBC % (auto) 0.0 Sodium 138 Potassium 4.2 Chloride 104 Carbon Dioxide 21 L Anion Gap 17 BUN 68 H Creatinine 5.02 H* Estim Creat Clear Calc 7.2 Estimated GFR 8 POC Glucose 326 H Random Glucose 272 H Calcium 6.5 L D Blood Type Antibody Screen Crossmatch 06/17/22 06:55 WBC RBC Hgb Hct MCV MCH MCHC RDW Plt Count MPV Absolute Nucleated RBC Nucleated RBC % (auto) Sodium Potassium Chloride Carbon Dioxide Anion Gap BUN Creatinine Estim Creat Clear Calc Estimated GFR POC Glucose 250 H Random Glucose Calcium Blood Type Antibody Screen Crossmatch Microbiology Microbiology Results: Microbiology 06/10/22 22:48 Blood - Venous Blood Culture - Final No growth after 5 days. 06/10/22 22:48 Blood - Venous Blood Culture - Final No growth after 5 days. 06/07/22 15:55 Urine clean catch - Urine palacios top Urine Culture - Final Procedures Date of Service Date of Service: 06/17/22 Assessment & Plan Assessment and plan (1) ESRD (end stage renal disease): Status: Acute (2) Anemia: Status: Acute Plan ABHISHEK superimposed on advanced CKD versus ESRD commenced on dialysis anemia due to CKD REC HD today UF as tolerated need dialysis tunnelled catheter blood transfusion as needed will need outpatient HD placement (depending on disposition may need rehab at [facility]) Time Spent With Patient Time: Total time managing care of this patient today ____ minutes. Progress Note: Quality Stroke Does the patient have a stroke diagnosis?: No
--- NOTE | 2022-06-17 10:14 | MHC.SLORD ---
Speech Language Pathology Order Status: Per MD, pt is NPO for a procedure. No PO trials given. MD reported pt is doing much better, tolerating modified diet. Once pt is cleared to have PO, recommend continue on pureed diet NDD1/ thin liquids (NO STRAWS). BANANA EXPERT to continue to follow during hospitalization to monitor tolerance, assess readiness for potential upgrade (to NDD2?).
--- NOTE | 2022-06-17 10:20 | P.CDIC_ITS ---
CDI Concurrent Query Documentation Clarification: PHYSICIAN'S DOCUMENTATION REQUEST Date of Query: 06/17/22 1021 Patient Name: Jennifer Underwood Admit Date: 06/07/22 Dear Doctor, A review of the medical record indicates additional documentation may be needed. Please review below and update the documentation accordingly. Clinical Indicators: Risk Factors/Clinical Indicators/Treatments GI progress note note 06/14 - Malnutrition Frail, ill appearing, failure to thrive. BMI 21 Albumin 2.2 L Please clarify the following: Malnutrition, mild, moderate or severe * [Diagnosis] is still being monitored, evaluated, or treated * [Diagnosis] ruled out * [Diagnosis] is still a likely, suspected, probable diagnosis * Other (please specify) * Unable to determine Use of terms such as suspected, likely, concern for, or probable (associated wi th a specific diagnosis that is being evaluated, monitored, or treated as if it exists) are acceptable and can be coded in the inpatient setting, when documented at the time of discharge. Thank you, Catia López [facility], CDIS Extension: [phone] Please use your independent medical judgment in providing your response. THIS QUERY IS PART OF THE PERMANENT MEDICAL RECORD Provider Response: Other Other Diagnosis: Frailty
--- NOTE | 2022-06-17 10:20 | MHC.CDI.CONC ---
CDI Concurrent Query Documentation Clarification: PHYSICIAN'S DOCUMENTATION REQUEST Date of Query: 06/17/22 1021 Patient Name: Jennifer Underwood Admit Date: 06/07/22 Dear Doctor, A review of the medical record indicates additional documentation may be needed. Please review below and update the documentation accordingly. Clinical Indicators: Risk Factors/Clinical Indicators/Treatments GI progress note note 06/14 - Malnutrition Frail, ill appearing, failure to thrive. BMI 21 Albumin 2.2 L Please clarify the following: Malnutrition, mild, moderate or severe [Diagnosis] is still being monitored, evaluated, or treated [Diagnosis] ruled out [Diagnosis] is still a likely, suspected, probable diagnosis Other (please specify) Unable to determine Use of terms such as suspected, likely, concern for, or probable (associated with a specific diagnosis that is being evaluated, monitored, or treated as if it exists) are acceptable and can be coded in the inpatient setting, when documented at the time of discharge. Thank you, Catia López [facility], CDIS Extension: [phone] Please use your independent medical judgment in providing your response. THIS QUERY IS PART OF THE PERMANENT MEDICAL RECORD Provider Response: Other Other Diagnosis: Frailty
[2022-06-17 11:51] LABS: Glucose, Whole Blood 106 mg/dL (60-115)
--- NOTE | 2022-06-17 13:21 | MHC.CM.PN ---
per rounds pt to be dcd today or tomorrow after gi work up pt is likely to need str/dialysis
--- NOTE | 2022-06-17 14:30 | P.PNIM_ITS ---
Subjective Subjective Date of Service: 06/17/22 Interval History: the patient was seen and evaluated this morning Laying in bed, more alert and interactive Hemoglobin improved to 8 after unit PRBCs NPO for EGD today No reported other overnight events. Review of Systems Review of Systems: Yes all other systems are reviewed and are negative Physical Exam Vital Signs: Vital Signs: Last Vital Signs Temp 97.4 F 06/17/22 10:53 Pulse 76 06/17/22 10:53 Resp 18 06/17/22 10:53 BP 144/95 H 06/17/22 10:53 Pulse Ox 97 06/17/22 10:53 O2 Del Method 06/17/22 10:53 O2 Flow Rate 1 06/16/22 23:23 BMI result Body Mass Index 21.2 Const: Other: Constitutional : Awake, interactive, frail Neck : Normal inspection, Supple, PermCath in place in chest wall no bleeding or erythema Cardiovascular : RRR, no JVP, no lower extremity edema Respiratory : good bilateral air entry, fine crackles Gastrointestinal: soft, lax, Normal bowel sounds, Non tender Skin : Warm, Dry Neurological : Alert & oriented to self and place, No focal deficit Objective Data Active Medications Acetaminophen (Acetaminophen Supp 650 Mg Supp.Rect) 650 mg RI Q8H PRN PRN Reason: Fever Last Admin: 06/10/22 22:22 Dose: 650 mg Documented By: SHAUNA Amlodipine Besylate (Amlodipine Besylate 2.5 Mg Tablet) 2.5 mg PO DAILY [facility]; Protocol Last Admin: 06/16/22 08:07 Dose: 2.5 mg Documented By: AMY Calcium Carbonate (Calcium Carbonate 500 Mg Tablet) 500 mg PO BID [facility] Last Admin: 06/17/22 08:36 Dose: 500 mg Documented By: AMY Dextrose (Dextrose 50 % 25 Gm/50 Ml Syringe) 25 gm IVPUSH Q15M PRN; Protocol PRN Reason: per Hypoglycemia Standing Ord. Glucose (Glucose Gel 15 Gm Gel..Gram.) 15 gm PO Q15M PRN; Protocol PRN Reason: per Hypoglycemia Standing Ord. Piperacillin Sod/Tazobactam (Sod 2.25 gm/ Sodium Chloride) 50 mls @ 100 mls/hr IV Q8H [facility] Last Admin: 06/17/22 13:29 Dose: 100 mls/hr Documented By: AMY Insulin Human Lispro (Insulin Lispro 100 Unit/Ml 3 Ml Vial) 0 unit SUBCUT QIDACHS [facility]; Protocol Last Admin: 06/17/22 13:31 Dose: Not Given Documented By: AMY Non-Admin Reason: No Insulin Coverage Levothyroxine Sodium (Levothyroxine Sodium 100 Mcg/5 Ml Vial) 100 mcg IVPUSH DAILY@1000 [facility] Last Admin: 06/17/22 08:32 Dose: 100 mcg Documented By: AMY Omeprazole (Omeprazole 40 Mg Capsule.Dr) 40 mg PO BID@0630,1630 [facility] Last Admin: 06/17/22 06:09 Dose: Not Given Documented By: BHAVIN Non-Admin Reason: NPO Pharmacy Consult (Consult Rx Perform Med Rec) 1 each MISCELLANE ONCE PRN PRN Reason: Consult order Polyethylene Glycol (Polyethylene Glycol 3350 17 Gm Powd.Pack) 17 gm PO DAILY [facility] Last Admin: 06/17/22 09:18 Dose: Not Given Documented By: AMY Non-Admin Reason: pt having loose stools Sodium Chloride (0.9 % Sodium Chloride Flush 3 Ml Syringe) 3 ml IVFLUSH QSHIFT [facility] Last Admin: 06/17/22 08:32 Dose: 3 ml Documented By: AMY Labs 06/17/22 06:10 06/17/22 06:10 Labs: Laboratory Results - last 24 hr 06/16/22 06/16/22 06/16/22 08:38 15:52 19:53 MCV MCH MCHC RDW Plt Count MPV Absolute Nucleated RBC Nucleated RBC % (auto) Anion Gap Estim Creat Clear Calc Estimated GFR POC Glucose 229 H 326 H Random Glucose Calcium Blood Type O Positive Antibody Screen NEGATIVE Crossmatch See Detail 06/17/22 06/17/22 06/17/22 06:10 06:10 06:55 MCV 91.0 MCH 30.0 MCHC 32.9 RDW 15.2 Plt Count 91 L MPV 11.2 Absolute Nucleated RBC 0.000 Nucleated RBC % (auto) 0.0 Anion Gap 17 Estim Creat Clear Calc 7.2 Estimated GFR 8 POC Glucose 250 H Random Glucose 272 H Calcium 6.5 L D Blood Type Antibody Screen Crossmatch 06/17/22 11:29 MCV MCH MCHC RDW Plt Count MPV Absolute Nucleated RBC Nucleated RBC % (auto) Anion Gap Estim Creat Clear Calc Estimated GFR POC Glucose 106 Random Glucose Calcium Blood Type Antibody Screen Crossmatch Assessment and Plan (1) Acute on chronic blood loss anemia: Status: Acute (2) Melena: Status: Acute (3) Hypothyroidism: Status: Acute (4) Dysphagia: Status: Acute (5) ESRD needing dialysis: Status: Acute Plan 81F PMH CKD III, hypothyroid, dementia, HTN, DM (not on meds) presented with failure to thrive, found to have severe ABHISHEK with hypoerkalemia, met. acidosis, anemia Acute on chronic blood loss anemia\GI bleed likely related to advanced CKD iron studies - mixed with signs of inflammation and iron defeciency s/p 5 units prbc, hgb 8 monitor H&H GI input appreciated; EGD today metabolic encephalopathy Multifactorial; Uremia, Hypothyroidism, Acidosis, meds improving , almost back to her baseline recurrent reorientation ABHISHEK on CKD IV complicated by hyperkalemia and metabolic acidosis and symptomatic hypothyroidism Continue HD, Permacath in place continue Bicarb for acidosis monitor bmp Nephrology input appreciated , start planning for outpatient dialysis acute hypoxic resp failure Patient is likely having aspiration Continue Zosyn MBSS done [employer] TECHNICIAN appreciated - Modified diet Dysphagia MPS this was done [employer] TECHNICIAN recommended modified diet Aspiration precautions Frailty PT eval placement encourage oral intake hypothyroid TSH 53, suspect due to non compliance Continue iv synthroid repeat tsh in 4 weeks HTN holding amlodipnie for now, monitor, restart whne bp increased DM a1c now 6.2,not on meds alzheimers dementia at risk for delerium, monitor dvt prophylaxis- hep sq DNR/DNI reason for continued hospitalization: Needs dialysis and resolution of lung infection pending GI eval (EGD) and safe discharge plan Time Spent With Patient Time: Total time managing care of this patient today ____ minutes. Quality Stroke Does the patient have a stroke diagnosis?: No VTE Prior VTE?: No VTE Risk Level:: Medical - moderate - high VTE Device Contraindication: Treatment Not Indicated VTE Drug Contraindication: N/A - Med Ordered
[2022-06-17 14:48] LABS: Glucose, Whole Blood 94 mg/dL (60-115)
--- NOTE | 2022-06-17 14:49 | PC.NURSE ---
Preop intake completed by this nurse over the phone, questions answered by patients HCP [facility].
--- NOTE | 2022-06-17 15:57 | HO.ANESPROP2 ---
HPI - Anesthesia Eval Consult details Narrative: acute on chronic anemia lmelena for ugi poss colonoscopy PMF Active Problems Active Problems: All Active Problems (Updated 06/14/22 @ 13:41 by Lesa Dotson MD) Acute on chronic blood loss anemia (Acute) Melena (Acute) Hypothyroidism (Acute) Dysphagia (Acute) Anemia (Acute) ESRD (end stage renal disease) (Acute) ESRD needing dialysis (Acute) Toxic metabolic encephalopathy (Acute) Acute respiratory failure with hypoxia (Acute) CKD (chronic kidney disease) stage 4, GFR 15-29 ml/min (Acute) Anemia (Acute) Chronic kidney disease (CKD) stage G4/A1, severely decreased glomerular filtration rate (GFR) between 15-29 mL/min/1.73 square meter and albuminuria creatinine ratio less than 30 mg/g (Acute) Hypercalcemia (Acute) Metabolic acidosis (Acute) Diabetes mellitus (Acute) Acute hyperkalemia (Acute) Anemia in chronic kidney disease (Acute) Stage 3 acute kidney injury (Acute) Acute kidney injury (Acute) Elevated troponin (Acute) Dyspnea (Acute) Pneumonia (Acute) Past Medical History Medical History (Updated 06/14/22 @ 13:41 by Lesa Dotson MD) Chronic kidney disease (CKD) stage G4/A1, severely decreased glomerular filtration rate (GFR) between 15-29 mL/min/1.73 square meter and albuminuria creatinine ratio less than 30 mg/g Diabetes mellitus Dysphagia Hypothyroid Stage 3 acute kidney injury UTI (urinary tract infection) Cognitive capacity: dmentia baseline Family History Family history of problems with anesthesia: Unobtainable Surgical History History of Problems with Anesthesia: No Social History Social History Household Members: None Housing: Apartment Do you presently have visiting nurse or other home services: No Alcohol intake: never Patient Tobacco Use Status: Former Tobacco user Tobacco use type: Cigarette Smoked in Last 30 Days: No e-Cigarette/Vaping Use: Former Use Patient Interested in Nicotine Replacement: No Patient Given Instructions on How to Stop Smoking: No Second Hand Smoke Exposure: No Use of substances other than those prescribed or required for medical reasons: No Currently Displaying Signs/Symptoms of Drug Intoxication Withdrawal: No Any prior treatment program specific to substance use: No Have you been hit, kicked, punched, or otherwise hurt by someone within the past year? If so, by whom?: No Do you feel safe in your current relationship?: Yes Is there a partner from a previous relationship who is making you feel unsafe now?: No Are you made to feel afraid or neglected: No Are you DNR?: Yes Advance Directives: Yes Advance Directives on File: Yes Advance Directives Date on File: 06/14/20 Do you have thoughts of harming others: None Do you have a plan to hurt others: No Plan Recently lost weight without trying: Yes How much weight loss: Unsure Eating poorly because of decreased appetite: Yes Nutrition screen score: 5 Nutrition Risks: No Nutritional Risk Patient : No : No Poor oral hygiene: No service: No Current occupational status: retired [employer] Allergies Allergy/AdvReac Type Severity Reaction Status Date / Time iodine Allergy Unknown unkown Verified 06/07/22 13:25 [id number] Reductase AdvReac Mild myalgias Verified 06/07/22 13:25 Inhibitor Active Medications: Current Medications Acetaminophen (Acetaminophen Supp 650 Mg Supp.Rect) 650 mg OK Q8H PRN PRN Reason: Fever Last Admin: 06/10/22 22:22 Dose: 650 mg Amlodipine Besylate (Amlodipine Besylate 2.5 Mg Tablet) 2.5 mg PO DAILY [facility]; Protocol Last Admin: 06/16/22 08:07 Dose: 2.5 mg Calcium Carbonate (Calcium Carbonate 500 Mg Tablet) 500 mg PO BID [facility] Last Admin: 06/17/22 08:36 Dose: 500 mg Dextrose (Dextrose 50 % 25 Gm/50 Ml Syringe) 25 gm IVPUSH Q15M PRN; Protocol PRN Reason: per Hypoglycemia Standing Ord. Glucose (Glucose Gel 15 Gm Gel..Gram.) 15 gm PO Q15M PRN; Protocol PRN Reason: per Hypoglycemia Standing Ord. Piperacillin Sod/Tazobactam (Sod 2.25 gm/ Sodium Chloride) 50 mls @ 100 mls/hr IV Q8H [facility] Last Infusion: 06/17/22 14:54 Dose: Infused Insulin Human Lispro (Insulin Lispro 100 Unit/Ml 3 Ml Vial) 0 unit SUBCUT QIDACHS [facility]; Protocol Last Admin: 06/17/22 13:31 Dose: Not Given Levothyroxine Sodium (Levothyroxine Sodium 100 Mcg/5 Ml Vial) 100 mcg IVPUSH DAILY@1000 [facility] Last Admin: 06/17/22 08:32 Dose: 100 mcg Omeprazole (Omeprazole 40 Mg Caren.) 40 mg PO BID@0630,1630 [facility] Last Admin: 06/17/22 06:09 Dose: Not Given Pharmacy Consult (Consult Rx Perform Med Rec) 1 each MISCELLANE ONCE PRN PRN Reason: Consult order Polyethylene Glycol (Polyethylene Glycol 3350 17 Gm Powd.Pack) 17 gm PO DAILY [facility] Last Admin: 06/17/22 09:18 Dose: Not Given Sodium Chloride (0.9 % Sodium Chloride Flush 3 Ml Syringe) 3 ml IVFLUSH QSHIFT [facility] Last Admin: 06/17/22 08:32 Dose: 3 ml Home Medications Medication Instructions Recorded Confirmed Last Taken Type amlodipine 2.5 mg tablet 1 tab PO DAILY 06/07/22 06/07/22 Unknown History levothyroxine 125 mcg tablet 1 tab PO DAILY@0600 06/07/22 06/07/22 Unknown History Exam Exam Date and Time: June 17, 2022 155 Height,Weight and Vital Signs: Height 5 ft 3 in Weight 54.431 kg Last Vital Signs Temp 97.4 F 06/17/22 14:26 Pulse 76 06/17/22 14:26 Resp 16 06/17/22 14:26 BP 132/77 06/17/22 14:26 Pulse Ox 93 06/17/22 14:26 O2 Del Method 06/17/22 14:26 O2 Flow Rate 1 06/16/22 23:23 Pertinent Lab Results Pertinent Lab Results: Laboratory Tests 06/07/22 06/07/22 06/07/22 11:05 11:05 11:05 WBC 9.4 RBC 2.03 L Hgb 6.1 L* Hct 18.9 L* MCV 93.1 MCH 30.0 MCHC 32.3 RDW 14.8 Plt Count 199 MPV 9.5 Immature Gran % (Auto) 3.4 H Neut % (Auto) 80.6 H Lymph % (Auto) 7.7 L [place] % (Auto) 7.1 Eos % (Auto) 1.0 Baso % (Auto) 0.2 Lymph # (Auto) 0.7 L [place] # (Auto) 0.7 Eos # (Auto) 0.1 Baso # (Auto) 0.0 Abs Immat Gran (auto) 0.32 H Absolute Neuts (auto) 7.6 Absolute Nucleated RBC 0.000 Nucleated RBC % (auto) 0.0 Smear Path Review SEE NOTE PT INR APTT VBG pH VBG pCO2 VBG pO2 VBG HCO3 VBG O2 Saturation VBG Base Excess Sodium 143 Potassium 6.1 H* Chloride 112 H Carbon Dioxide 12 L Anion Gap 25 H BUN 179 H Creatinine 10.83 H* Estim Creat Clear Calc 3.3 Estimated GFR 3 POC Glucose Random Glucose 162 H Fasting Glucose Estimat Average Glucose Hemoglobin A1c % Lactic Acid Calcium 8.6 D Iron 20 L TIBC 226 L % Saturation 9 L Unsat Iron Binding 206 Ferritin 277 H Total Bilirubin 0.5 AST 22 ALT 18 Alkaline Phosphatase 63 Troponin I High Sens 21.5 H Total Protein 7.2 Albumin 3.5 TSH Free T4 Urine Color Urine Appearance Urine pH Ur Specific [place] Urine Protein Urine Glucose (UA) Urine Ketones Urine Blood Urine Nitrite Ur Leukocyte Esterase Urine RBC Urine WBC Urine WBC Clumps Ur Squamous Epith Cells Ur Transition Epith Cell Ur Renal Epithelial Cell Calcium Oxalate Crystal Leucine Crystals Cystine Crystals Tyrosine Crystals Other Crystals Urine Bacteria Urine Parasites Bilirubin Casts Epithelial Casts Fatty Casts Hyaline Casts Granular Casts Waxy Casts Broad Casts RBC Casts WBC Casts Other Casts Urine Trichomonas Urine Yeast Stool Occult Blood COVID-19 ([facility]) COVID-19 Clin Com Hep Bs Antigen Hep Bs Antibody Hep B Core Total Ab Blood Type Antibody Screen Crossmatch 06/07/22 06/07/22 06/07/22 11:05 11:48 14:32 WBC RBC Hgb Hct MCV MCH MCHC RDW Plt Count MPV Immature Gran % (Auto) Neut % (Auto) Lymph % (Auto) [place] % (Auto) Eos % (Auto) Baso % (Auto) Lymph # (Auto) [place] # (Auto) Eos # (Auto) Baso # (Auto) Abs Immat Gran (auto) Absolute Neuts (auto) Absolute Nucleated RBC Nucleated RBC % (auto) Smear Path Review PT INR APTT VBG pH VBG pCO2 VBG pO2 VBG HCO3 VBG O2 Saturation VBG Base Excess Sodium Potassium Chloride Carbon Dioxide Anion Gap BUN Creatinine Estim Creat Clear Calc Estimated GFR POC Glucose Random Glucose Fasting Glucose Estimat Average Glucose 131 Hemoglobin A1c % 6.2 Lactic Acid Calcium Iron TIBC % Saturation Unsat Iron Binding Ferritin Total Bilirubin AST ALT Alkaline Phosphatase Troponin I High Sens Total Protein Albumin TSH Free T4 Urine Color Urine Appearance Urine pH Ur Specific [place] Urine Protein Urine Glucose (UA) Urine Ketones Urine Blood Urine Nitrite Ur Leukocyte Esterase Urine RBC Urine WBC Urine WBC Clumps Ur Squamous Epith Cells Ur Transition Epith Cell Ur Renal Epithelial Cell Calcium Oxalate Crystal Leucine Crystals Cystine Crystals Tyrosine Crystals Other Crystals Urine Bacteria Urine Parasites Bilirubin Casts Epithelial Casts Fatty Casts Hyaline Casts Granular Casts Waxy Casts Broad Casts RBC Casts WBC Casts Other Casts Urine Trichomonas Urine Yeast Stool Occult Blood NEGATIVE COVID-19 ([facility]) Negative COVID-19 Clin Com See Note Hep Bs Antigen Hep Bs Antibody Hep B Core Total Ab Blood Type Antibody Screen Crossmatch 06/07/22 06/07/22 06/07/22 15:11 15:11 15:11 WBC RBC Hgb Hct MCV MCH MCHC RDW Plt Count MPV Immature Gran % (Auto) Neut % (Auto) Lymph % (Auto) [place] % (Auto) Eos % (Auto) Baso % (Auto) Lymph # (Auto) [place] # (Auto) Eos # (Auto) Baso # (Auto) Abs Immat Gran (auto) Absolute Neuts (auto) Absolute Nucleated RBC Nucleated RBC % (auto) Smear Path Review PT 11.7 INR 1.0 APTT 28.1 VBG pH VBG pCO2 VBG pO2 VBG HCO3 VBG O2 Saturation VBG Base Excess Sodium Potassium Chloride Carbon Dioxide Anion Gap BUN Creatinine Estim Creat Clear Calc Estimated GFR POC Glucose Random Glucose Fasting Glucose Estimat Average Glucose Hemoglobin A1c % Lactic Acid Calcium Iron TIBC % Saturation Unsat Iron Binding Ferritin Total Bilirubin AST ALT Alkaline Phosphatase Troponin I High Sens Total Protein Albumin TSH Free T4 Urine Color Yellow Urine Appearance Clear Urine pH 5.5 Ur Specific [place] 1.010 Urine Protein 100 (2+) H Urine Glucose (UA) 100 H Urine Ketones Negative Urine Blood Negative Urine Nitrite Negative Ur Leukocyte Esterase Moderate (2+) H Urine RBC 0-2 Urine WBC 21-50 H Urine WBC Clumps Ur Squamous Epith Cells 3-5 Ur Transition Epith Cell Ur Renal Epithelial Cell Calcium Oxalate Crystal Leucine Crystals Cystine Crystals Tyrosine Crystals Other Crystals Urine Bacteria None Seen Urine Parasites Bilirubin Casts Epithelial Casts Fatty Casts Hyaline Casts 0-2 Granular Casts Waxy Casts Broad Casts RBC Casts WBC Casts Other Casts Urine Trichomonas Urine Yeast Stool Occult Blood COVID-19 ([facility]) COVID-19 Clin Com Hep Bs Antigen Hep Bs Antibody Hep B Core Total Ab Blood Type O Positive Antibody Screen NEGATIVE Crossmatch See Detail 06/07/22 06/07/22 06/07/22 15:11 15:17 20:25 WBC RBC Hgb Hct MCV MCH MCHC RDW Plt Count MPV Immature Gran % (Auto) Neut % (Auto) Lymph % (Auto) [place] % (Auto) Eos % (Auto) Baso % (Auto) Lymph # (Auto) [place] # (Auto) Eos # (Auto) Baso # (Auto) Abs Immat Gran (auto) Absolute Neuts (auto) Absolute Nucleated RBC Nucleated RBC % (auto) Smear Path Review PT INR APTT VBG pH 7.22 L VBG pCO2 27 VBG pO2 51 VBG HCO3 11 L VBG O2 Saturation 78.0 VBG Base Excess -14.6 Sodium Potassium Chloride Carbon Dioxide Anion Gap BUN Creatinine Estim Creat Clear Calc Estimated GFR POC Glucose 110 Random Glucose Fasting Glucose Estimat Average Glucose Hemoglobin A1c % Lactic Acid Calcium Iron TIBC % Saturation Unsat Iron Binding Ferritin Total Bilirubin AST ALT Alkaline Phosphatase Troponin I High Sens Total Protein Albumin TSH Free T4 Urine Color Cancelled Urine Appearance Cancelled Urine pH Cancelled Ur Specific [place] Cancelled Urine Protein Cancelled Urine Glucose (UA) Cancelled Urine Ketones Cancelled Urine Blood Cancelled Urine Nitrite Cancelled Ur Leukocyte Esterase Cancelled Urine RBC Cancelled Urine WBC Cancelled Urine WBC Clumps Cancelled Ur Squamous Epith Cells Cancelled Ur Transition Epith Cell Cancelled Ur Renal Epithelial Cell Cancelled Calcium Oxalate Crystal Cancelled Leucine Crystals Cancelled Cystine Crystals Cancelled Tyrosine Crystals Cancelled Other Crystals Cancelled Urine Bacteria Cancelled Urine Parasites Cancelled Bilirubin Casts Cancelled Epithelial Casts Cancelled Fatty Casts Cancelled Hyaline Casts Cancelled Granular Casts Cancelled Waxy Casts Cancelled Broad Casts Cancelled RBC Casts Cancelled WBC Casts Cancelled Other Casts Cancelled Urine Trichomonas Cancelled Urine Yeast Cancelled Stool Occult Blood COVID-19 ([facility]) COVID-19 Clin Com Hep Bs Antigen Hep Bs Antibody Hep B Core Total Ab Blood Type Antibody Screen Crossmatch 06/08/22 06/08/22 06/08/22 05:54 05:54 06:00 WBC 11.5 H RBC 3.10 L D Hgb 9.5 L D Hct 28.1 L D MCV 90.6 MCH 30.6 MCHC 33.8 RDW 15.0 Plt Count 165 MPV 9.8 Immature Gran % (Auto) Neut % (Auto) Lymph % (Auto) [place] % (Auto) Eos % (Auto) Baso % (Auto) Lymph # (Auto) [place] # (Auto) Eos # (Auto) Baso # (Auto) Abs Immat Gran (auto) Absolute Neuts (auto) Absolute Nucleated RBC 0.020 H Nucleated RBC % (auto) 0.2 Smear Path Review PT INR APTT VBG pH VBG pCO2 VBG pO2 VBG HCO3 VBG O2 Saturation VBG Base Excess Sodium 141 Potassium 4.5 D Chloride 110 H Carbon Dioxide 17 L Anion Gap 19 BUN 86 H Creatinine 5.84 H* Estim Creat Clear Calc 6.2 Estimated GFR 7 POC Glucose 79 Random Glucose Fasting Glucose 76 Estimat Average Glucose Hemoglobin A1c % Lactic Acid Calcium 7.9 L D Iron TIBC % Saturation Unsat Iron Binding Ferritin Total Bilirubin AST ALT Alkaline Phosphatase Troponin I High Sens Total Protein Albumin TSH Free T4 Urine Color Urine Appearance Urine pH Ur Specific [place] Urine Protein Urine Glucose (UA) Urine Ketones Urine Blood Urine Nitrite Ur Leukocyte Esterase Urine RBC Urine WBC Urine WBC Clumps Ur Squamous Epith Cells Ur Transition Epith Cell Ur Renal Epithelial Cell Calcium Oxalate Crystal Leucine Crystals Cystine Crystals Tyrosine Crystals Other Crystals Urine Bacteria Urine Parasites Bilirubin Casts Epithelial Casts Fatty Casts Hyaline Casts Granular Casts Waxy Casts Broad Casts RBC Casts WBC Casts Other Casts Urine Trichomonas Urine Yeast Stool Occult Blood COVID-19 ([facility]) COVID-19 Clin Com Hep Bs Antigen Hep Bs Antibody Hep B Core Total Ab Blood Type Antibody Screen Crossmatch 06/08/22 06/08/22 06/08/22 06:00 13:49 20:53 WBC RBC Hgb Hct MCV MCH MCHC RDW Plt Count MPV Immature Gran % (Auto) Neut % (Auto) Lymph % (Auto) [place] % (Auto) Eos % (Auto) Baso % (Auto) Lymph # (Auto) [place] # (Auto) Eos # (Auto) Baso # (Auto) Abs Immat Gran (auto) Absolute Neuts (auto) Absolute Nucleated RBC Nucleated RBC % (auto) Smear Path Review PT INR APTT VBG pH VBG pCO2 VBG pO2 VBG HCO3 VBG O2 Saturation VBG Base Excess Sodium Potassium Chloride Carbon Dioxide Anion Gap BUN Creatinine Estim Creat Clear Calc Estimated GFR POC Glucose 103 74 Random Glucose Fasting Glucose Estimat Average Glucose Hemoglobin A1c % Lactic Acid Calcium Iron TIBC % Saturation Unsat Iron Binding Ferritin Total Bilirubin AST ALT Alkaline Phosphatase Troponin I High Sens Total Protein Albumin TSH 53.80 H Free T4 < 0.42 L Urine Color Urine Appearance Urine pH Ur Specific [place] Urine Protein Urine Glucose (UA) Urine Ketones Urine Blood Urine Nitrite Ur Leukocyte Esterase Urine RBC Urine WBC Urine WBC Clumps Ur Squamous Epith Cells Ur Transition Epith Cell Ur Renal Epithelial Cell Calcium Oxalate Crystal Leucine Crystals Cystine Crystals Tyrosine Crystals Other Crystals Urine Bacteria Urine Parasites Bilirubin Casts Epithelial Casts Fatty Casts Hyaline Casts Granular Casts Waxy Casts Broad Casts RBC Casts WBC Casts Other Casts Urine Trichomonas Urine Yeast Stool Occult Blood COVID-19 ([facility]) COVID-19 Clin Com Hep Bs Antigen Hep Bs Antibody Hep B Core Total Ab Blood Type Antibody Screen Crossmatch 06/09/22 06/09/22 06/09/22 04:33 05:44 05:44 WBC 11.4 H RBC 3.15 L Hgb 9.4 L Hct 28.6 L MCV 90.8 MCH 29.8 MCHC 32.9 RDW 15.4 Plt Count 163 MPV 10.2 Immature Gran % (Auto) Neut % (Auto) Lymph % (Auto) [place] % (Auto) Eos % (Auto) Baso % (Auto) Lymph # (Auto) [place] # (Auto) Eos # (Auto) Baso # (Auto) Abs Immat Gran (auto) Absolute Neuts (auto) Absolute Nucleated RBC 0.020 H Nucleated RBC % (auto) 0.2 Smear Path Review PT INR APTT VBG pH VBG pCO2 VBG pO2 VBG HCO3 VBG O2 Saturation VBG Base Excess Sodium 137 Potassium 4.2 Chloride 106 Carbon Dioxide 20 L Anion Gap 15 BUN 42 H Creatinine 4.15 H* Estim Creat Clear Calc 8.8 Estimated GFR 10 POC Glucose 72 Random Glucose Fasting Glucose 67 Estimat Average Glucose Hemoglobin A1c % Lactic Acid Calcium 7.9 L Iron TIBC % Saturation Unsat Iron Binding Ferritin Total Bilirubin AST ALT Alkaline Phosphatase Troponin I High Sens Total Protein Albumin TSH Free T4 Urine Color Urine Appearance Urine pH Ur Specific [place] Urine Protein Urine Glucose (UA) Urine Ketones Urine Blood Urine Nitrite Ur Leukocyte Esterase Urine RBC Urine WBC Urine WBC Clumps Ur Squamous Epith Cells Ur Transition Epith Cell Ur Renal Epithelial Cell Calcium Oxalate Crystal Leucine Crystals Cystine Crystals Tyrosine Crystals Other Crystals Urine Bacteria Urine Parasites Bilirubin Casts Epithelial Casts Fatty Casts Hyaline Casts Granular Casts Waxy Casts Broad Casts RBC Casts WBC Casts Other Casts Urine Trichomonas Urine Yeast Stool Occult Blood COVID-19 ([facility]) COVID-19 Clin Com Hep Bs Antigen Hep Bs Antibody Hep B Core Total Ab Blood Type Antibody Screen Crossmatch 06/09/22 06/09/22 06/10/22 10:55 16:01 00:36 WBC RBC Hgb Hct MCV MCH MCHC RDW Plt Count MPV Immature Gran % (Auto) Neut % (Auto) Lymph % (Auto) [place] % (Auto) Eos % (Auto) Baso % (Auto) Lymph # (Auto) [place] # (Auto) Eos # (Auto) Baso # (Auto) Abs Immat Gran (auto) Absolute Neuts (auto) Absolute Nucleated RBC Nucleated RBC % (auto) Smear Path Review PT INR APTT VBG pH VBG pCO2 VBG pO2 VBG HCO3 VBG O2 Saturation VBG Base Excess Sodium Potassium Chloride Carbon Dioxide Anion Gap BUN Creatinine Estim Creat Clear Calc Estimated GFR POC Glucose 75 86 96 Random Glucose Fasting Glucose Estimat Average Glucose Hemoglobin A1c % Lactic Acid Calcium Iron TIBC % Saturation Unsat Iron Binding Ferritin Total Bilirubin AST ALT Alkaline Phosphatase Troponin I High Sens Total Protein Albumin TSH Free T4 Urine Color Urine Appearance Urine pH Ur Specific [place] Urine Protein Urine Glucose (UA) Urine Ketones Urine Blood Urine Nitrite Ur Leukocyte Esterase Urine RBC Urine WBC Urine WBC Clumps Ur Squamous Epith Cells Ur Transition Epith Cell Ur Renal Epithelial Cell Calcium Oxalate Crystal Leucine Crystals Cystine Crystals Tyrosine Crystals Other Crystals Urine Bacteria Urine Parasites Bilirubin Casts Epithelial Casts Fatty Casts Hyaline Casts Granular Casts Waxy Casts Broad Casts RBC Casts WBC Casts Other Casts Urine Trichomonas Urine Yeast Stool Occult Blood COVID-19 ([facility]) COVID-19 Clin Com Hep Bs Antigen Hep Bs Antibody Hep B Core Total Ab Blood Type Antibody Screen Crossmatch 06/10/22 06/10/22 06/10/22 05:31 06:01 06:01 WBC 19.5 H RBC 3.09 L Hgb 9.5 L Hct 29.0 L MCV 93.9 MCH 30.7 MCHC 32.8 RDW 15.5 Plt Count 152 L MPV 9.9 Immature Gran % (Auto) Neut % (Auto) Lymph % (Auto) [place] % (Auto) Eos % (Auto) Baso % (Auto) Lymph # (Auto) [place] # (Auto) Eos # (Auto) Baso # (Auto) Abs Immat Gran (auto) Absolute Neuts (auto) Absolute Nucleated RBC 0.000 Nucleated RBC % (auto) 0.0 Smear Path Review PT INR APTT VBG pH VBG pCO2 VBG pO2 VBG HCO3 VBG O2 Saturation VBG Base Excess Sodium 140 Potassium 4.5 Chloride 108 Carbon Dioxide 16 L Anion Gap 21 H BUN 61 H Creatinine 5.61 H* Estim Creat Clear Calc 6.5 Estimated GFR 7 POC Glucose 107 Random Glucose Fasting Glucose 113 H Estimat Average Glucose Hemoglobin A1c % Lactic Acid Calcium 7.8 L Iron TIBC % Saturation Unsat Iron Binding Ferritin Total Bilirubin AST ALT Alkaline Phosphatase Troponin I High Sens Total Protein Albumin TSH Free T4 Urine Color Urine Appearance Urine pH Ur Specific [place] Urine Protein Urine Glucose (UA) Urine Ketones Urine Blood Urine Nitrite Ur Leukocyte Esterase Urine RBC Urine WBC Urine WBC Clumps Ur Squamous Epith Cells Ur Transition Epith Cell Ur Renal Epithelial Cell Calcium Oxalate Crystal Leucine Crystals Cystine Crystals Tyrosine Crystals Other Crystals Urine Bacteria Urine Parasites Bilirubin Casts Epithelial Casts Fatty Casts Hyaline Casts Granular Casts Waxy Casts Broad Casts RBC Casts WBC Casts Other Casts Urine Trichomonas Urine Yeast Stool Occult Blood COVID-19 ([facility]) COVID-19 Clin Com Hep Bs Antigen Hep Bs Antibody Hep B Core Total Ab Blood Type Antibody Screen Crossmatch 06/10/22 06/10/22 06/10/22 11:52 15:27 19:21 WBC RBC Hgb Hct MCV MCH MCHC RDW Plt Count MPV Immature Gran % (Auto) Neut % (Auto) Lymph % (Auto) [place] % (Auto) Eos % (Auto) Baso % (Auto) Lymph # (Auto) [place] # (Auto) Eos # (Auto) Baso # (Auto) Abs Immat Gran (auto) Absolute Neuts (auto) Absolute Nucleated RBC Nucleated RBC % (auto) Smear Path Review PT INR APTT VBG pH VBG pCO2 VBG pO2 VBG HCO3 VBG O2 Saturation VBG Base Excess Sodium Potassium Chloride Carbon Dioxide Anion Gap BUN Creatinine Estim Creat Clear Calc Estimated GFR POC Glucose 104 113 123 H Random Glucose Fasting Glucose Estimat Average Glucose Hemoglobin A1c % Lactic Acid Calcium Iron TIBC % Saturation Unsat Iron Binding Ferritin Total Bilirubin AST ALT Alkaline Phosphatase Troponin I High Sens Total Protein Albumin TSH Free T4 Urine Color Urine Appearance Urine pH Ur Specific [place] Urine Protein Urine Glucose (UA) Urine Ketones Urine Blood Urine Nitrite Ur Leukocyte Esterase Urine RBC Urine WBC Urine WBC Clumps Ur Squamous Epith Cells Ur Transition Epith Cell Ur Renal Epithelial Cell Calcium Oxalate Crystal Leucine Crystals Cystine Crystals Tyrosine Crystals Other Crystals Urine Bacteria Urine Parasites Bilirubin Casts Epithelial Casts Fatty Casts Hyaline Casts Granular Casts Waxy Casts Broad Casts RBC Casts WBC Casts Other Casts Urine Trichomonas Urine Yeast Stool Occult Blood COVID-19 ([facility]) COVID-19 Clin Com Hep Bs Antigen Hep Bs Antibody Hep B Core Total Ab Blood Type Antibody Screen Crossmatch 06/10/22 06/10/22 06/11/22 21:38 22:48 01:02 WBC RBC Hgb Hct MCV MCH MCHC RDW Plt Count MPV Immature Gran % (Auto) Neut % (Auto) Lymph % (Auto) [place] % (Auto) Eos % (Auto) Baso % (Auto) Lymph # (Auto) [place] # (Auto) Eos # (Auto) Baso # (Auto) Abs Immat Gran (auto) Absolute Neuts (auto) Absolute Nucleated RBC Nucleated RBC % (auto) Smear Path Review PT INR APTT VBG pH VBG pCO2 VBG pO2 VBG HCO3 VBG O2 Saturation VBG Base Excess Sodium Potassium Chloride Carbon Dioxide Anion Gap BUN Creatinine Estim Creat Clear Calc Estimated GFR POC Glucose 132 H 154 H Random Glucose Fasting Glucose Estimat Average Glucose Hemoglobin A1c % Lactic Acid 1.0 Calcium Iron TIBC % Saturation Unsat Iron Binding Ferritin Total Bilirubin AST ALT Alkaline Phosphatase Troponin I High Sens Total Protein Albumin TSH Free T4 Urine Color Urine Appearance Urine pH Ur Specific [place] Urine Protein Urine Glucose (UA) Urine Ketones Urine Blood Urine Nitrite Ur Leukocyte Esterase Urine RBC Urine WBC Urine WBC Clumps Ur Squamous Epith Cells Ur Transition Epith Cell Ur Renal Epithelial Cell Calcium Oxalate Crystal Leucine Crystals Cystine Crystals Tyrosine Crystals Other Crystals Urine Bacteria Urine Parasites Bilirubin Casts Epithelial Casts Fatty Casts Hyaline Casts Granular Casts Waxy Casts Broad Casts RBC Casts WBC Casts Other Casts Urine Trichomonas Urine Yeast Stool Occult Blood COVID-19 ([facility]) COVID-19 Clin Com Hep Bs Antigen Hep Bs Antibody Hep B Core Total Ab Blood Type Antibody Screen Crossmatch 06/11/22 06/11/22 06/11/22 05:41 05:41 07:13 WBC 16.4 H RBC 2.59 L Hgb 7.9 L Hct 24.3 L MCV 93.8 MCH 30.5 MCHC 32.5 RDW 15.7 Plt Count 124 L MPV 10.5 Immature Gran % (Auto) Neut % (Auto) Lymph % (Auto) [place] % (Auto) Eos % (Auto) Baso % (Auto) Lymph # (Auto) [place] # (Auto) Eos # (Auto) Baso # (Auto) Abs Immat Gran (auto) Absolute Neuts (auto) Absolute Nucleated RBC 0.020 H Nucleated RBC % (auto) 0.1 Smear Path Review PT INR APTT VBG pH VBG pCO2 VBG pO2 VBG HCO3 VBG O2 Saturation VBG Base Excess Sodium 138 Potassium 4.5 Chloride 105 Carbon Dioxide 15 L Anion Gap 23 H BUN 54 H Creatinine 4.49 H* Estim Creat Clear Calc 8.1 Estimated GFR 9 POC Glucose 159 H Random Glucose Fasting Glucose 161 H Estimat Average Glucose Hemoglobin A1c % Lactic Acid Calcium 7.4 L Iron TIBC % Saturation Unsat Iron Binding Ferritin Total Bilirubin AST ALT Alkaline Phosphatase Troponin I High Sens Total Protein Albumin TSH Free T4 Urine Color Urine Appearance Urine pH Ur Specific [place] Urine Protein Urine Glucose (UA) Urine Ketones Urine Blood Urine Nitrite Ur Leukocyte Esterase Urine RBC Urine WBC Urine WBC Clumps Ur Squamous Epith Cells Ur Transition Epith Cell Ur Renal Epithelial Cell Calcium Oxalate Crystal Leucine Crystals Cystine Crystals Tyrosine Crystals Other Crystals Urine Bacteria Urine Parasites Bilirubin Casts Epithelial Casts Fatty Casts Hyaline Casts Granular Casts Waxy Casts Broad Casts RBC Casts WBC Casts Other Casts Urine Trichomonas Urine Yeast Stool Occult Blood COVID-19 ([facility]) COVID-19 Clin Com Hep Bs Antigen Hep Bs Antibody Hep B Core Total Ab Blood Type Antibody Screen Crossmatch 06/11/22 06/11/22 06/11/22 14:18 15:17 19:32 WBC RBC Hgb Hct MCV MCH MCHC RDW Plt Count MPV Immature Gran % (Auto) Neut % (Auto) Lymph % (Auto) [place] % (Auto) Eos % (Auto) Baso % (Auto) Lymph # (Auto) [place] # (Auto) Eos # (Auto) Baso # (Auto) Abs Immat Gran (auto) Absolute Neuts (auto) Absolute Nucleated RBC Nucleated RBC % (auto) Smear Path Review PT INR APTT VBG pH VBG pCO2 VBG pO2 VBG HCO3 VBG O2 Saturation VBG Base Excess Sodium Potassium Chloride Carbon Dioxide Anion Gap BUN Creatinine Estim Creat Clear Calc Estimated GFR POC Glucose 203 H 196 H 188 H Random Glucose Fasting Glucose Estimat Average Glucose Hemoglobin A1c % Lactic Acid Calcium Iron TIBC % Saturation Unsat Iron Binding Ferritin Total Bilirubin AST ALT Alkaline Phosphatase Troponin I High Sens Total Protein Albumin TSH Free T4 Urine Color Urine Appearance Urine pH Ur Specific [place] Urine Protein Urine Glucose (UA) Urine Ketones Urine Blood Urine Nitrite Ur Leukocyte Esterase Urine RBC Urine WBC Urine WBC Clumps Ur Squamous Epith Cells Ur Transition Epith Cell Ur Renal Epithelial Cell Calcium Oxalate Crystal Leucine Crystals Cystine Crystals Tyrosine Crystals Other Crystals Urine Bacteria Urine Parasites Bilirubin Casts Epithelial Casts Fatty Casts Hyaline Casts Granular Casts Waxy Casts Broad Casts RBC Casts WBC Casts Other Casts Urine Trichomonas Urine Yeast Stool Occult Blood COVID-19 ([facility]) COVID-19 Clin Com Hep Bs Antigen Hep Bs Antibody Hep B Core Total Ab Blood Type Antibody Screen Crossmatch 06/12/22 06/12/22 06/12/22 02:01 06:47 06:47 WBC 12.2 H RBC 2.52 L Hgb 7.6 L Hct 22.8 L MCV 90.5 MCH 30.2 MCHC 33.3 RDW 15.2 Plt Count 90 L D MPV 10.2 Immature Gran % (Auto) Neut % (Auto) Lymph % (Auto) [place] % (Auto) Eos % (Auto) Baso % (Auto) Lymph # (Auto) [place] # (Auto) Eos # (Auto) Baso # (Auto) Abs Immat Gran (auto) Absolute Neuts (auto) Absolute Nucleated RBC 0.000 Nucleated RBC % (auto) 0.0 Smear Path Review PT INR APTT VBG pH VBG pCO2 VBG pO2 VBG HCO3 VBG O2 Saturation VBG Base Excess Sodium 141 Potassium 3.7 Chloride 104 Carbon Dioxide 24 Anion Gap 17 BUN 71 H Creatinine 5.08 H* Estim Creat Clear Calc 7.1 Estimated GFR 8 POC Glucose 250 H Random Glucose Fasting Glucose 152 H Estimat Average Glucose Hemoglobin A1c % Lactic Acid Calcium 7.4 L Iron TIBC % Saturation Unsat Iron Binding Ferritin Total Bilirubin AST ALT Alkaline Phosphatase Troponin I High Sens Total Protein Albumin TSH Free T4 Urine Color Urine Appearance Urine pH Ur Specific [place] Urine Protein Urine Glucose (UA) Urine Ketones Urine Blood Urine Nitrite Ur Leukocyte Esterase Urine RBC Urine WBC Urine WBC Clumps Ur Squamous Epith Cells Ur Transition Epith Cell Ur Renal Epithelial Cell Calcium Oxalate Crystal Leucine Crystals Cystine Crystals Tyrosine Crystals Other Crystals Urine Bacteria Urine Parasites Bilirubin Casts Epithelial Casts Fatty Casts Hyaline Casts Granular Casts Waxy Casts Broad Casts RBC Casts WBC Casts Other Casts Urine Trichomonas Urine Yeast Stool Occult Blood COVID-19 ([facility]) COVID-19 Clin Com Hep Bs Antigen Hep Bs Antibody Hep B Core Total Ab Blood Type Antibody Screen Crossmatch 06/12/22 06/12/22 06/12/22 07:12 10:42 13:13 WBC RBC Hgb Hct MCV MCH MCHC RDW Plt Count MPV Immature Gran % (Auto) Neut % (Auto) Lymph % (Auto) [place] % (Auto) Eos % (Auto) Baso % (Auto) Lymph # (Auto) [place] # (Auto) Eos # (Auto) Baso # (Auto) Abs Immat Gran (auto) Absolute Neuts (auto) Absolute Nucleated RBC Nucleated RBC % (auto) Smear Path Review PT INR APTT VBG pH VBG pCO2 VBG pO2 VBG HCO3 VBG O2 Saturation VBG Base Excess Sodium Potassium Chloride Carbon Dioxide Anion Gap BUN Creatinine Estim Creat Clear Calc Estimated GFR POC Glucose 165 H 150 H Random Glucose Fasting Glucose Estimat Average Glucose Hemoglobin A1c % Lactic Acid Calcium Iron TIBC % Saturation Unsat Iron Binding Ferritin Total Bilirubin AST ALT Alkaline Phosphatase Troponin I High Sens Total Protein Albumin TSH Free T4 Urine Color Urine Appearance Urine pH Ur Specific [place] Urine Protein Urine Glucose (UA) Urine Ketones Urine Blood Urine Nitrite Ur Leukocyte Esterase Urine RBC Urine WBC Urine WBC Clumps Ur Squamous Epith Cells Ur Transition Epith Cell Ur Renal Epithelial Cell Calcium Oxalate Crystal Leucine Crystals Cystine Crystals Tyrosine Crystals Other Crystals Urine Bacteria Urine Parasites Bilirubin Casts Epithelial Casts Fatty Casts Hyaline Casts Granular Casts Waxy Casts Broad Casts RBC Casts WBC Casts Other Casts Urine Trichomonas Urine Yeast Stool Occult Blood COVID-19 ([facility]) COVID-19 Clin Com Hep Bs Antigen Negative Hep Bs Antibody NONREACTIVE Hep B Core Total Ab Nonreactive Blood Type Antibody Screen Crossmatch 06/12/22 06/12/22 06/13/22 18:51 20:51 02:49 WBC RBC Hgb Hct MCV MCH MCHC RDW Plt Count MPV Immature Gran % (Auto) Neut % (Auto) Lymph % (Auto) [place] % (Auto) Eos % (Auto) Baso % (Auto) Lymph # (Auto) [place] # (Auto) Eos # (Auto) Baso # (Auto) Abs Immat Gran (auto) Absolute Neuts (auto) Absolute Nucleated RBC Nucleated RBC % (auto) Smear Path Review PT INR APTT VBG pH VBG pCO2 VBG pO2 VBG HCO3 VBG O2 Saturation VBG Base Excess Sodium Potassium Chloride Carbon Dioxide Anion Gap BUN Creatinine Estim Creat Clear Calc Estimated GFR POC Glucose 187 H 197 H 134 H Random Glucose Fasting Glucose Estimat Average Glucose Hemoglobin A1c % Lactic Acid Calcium Iron TIBC % Saturation Unsat Iron Binding Ferritin Total Bilirubin AST ALT Alkaline Phosphatase Troponin I High Sens Total Protein Albumin TSH Free T4 Urine Color Urine Appearance Urine pH Ur Specific [place] Urine Protein Urine Glucose (UA) Urine Ketones Urine Blood Urine Nitrite Ur Leukocyte Esterase Urine RBC Urine WBC Urine WBC Clumps Ur Squamous Epith Cells Ur Transition Epith Cell Ur Renal Epithelial Cell Calcium Oxalate Crystal Leucine Crystals Cystine Crystals Tyrosine Crystals Other Crystals Urine Bacteria Urine Parasites Bilirubin Casts Epithelial Casts Fatty Casts Hyaline Casts Granular Casts Waxy Casts Broad Casts RBC Casts WBC Casts Other Casts Urine Trichomonas Urine Yeast Stool Occult Blood COVID-19 ([facility]) COVID-19 Clin Com Hep Bs Antigen Hep Bs Antibody Hep B Core Total Ab Blood Type Antibody Screen Crossmatch 06/13/22 06/13/22 06/13/22 05:40 05:40 07:19 WBC 10.3 RBC 2.29 L Hgb 6.8 L* Hct 20.9 L* MCV 91.3 MCH 29.7 MCHC 32.5 RDW 15.5 Plt Count 83 L MPV 10.0 Immature Gran % (Auto) Neut % (Auto) Lymph % (Auto) [place] % (Auto) Eos % (Auto) Baso % (Auto) Lymph # (Auto) [place] # (Auto) Eos # (Auto) Baso # (Auto) Abs Immat Gran (auto) Absolute Neuts (auto) Absolute Nucleated RBC 0.000 Nucleated RBC % (auto) 0.0 Smear Path Review PT INR APTT VBG pH VBG pCO2 VBG pO2 VBG HCO3 VBG O2 Saturation VBG Base Excess Sodium 137 Potassium 3.6 Chloride 107 Carbon Dioxide 21 L Anion Gap 13 BUN 40 H Creatinine 3.48 H Estim Creat Clear Calc 10.5 Estimated GFR 13 POC Glucose 130 H Random Glucose 133 H Fasting Glucose Estimat Average Glucose Hemoglobin A1c % Lactic Acid Calcium 7.4 L Iron TIBC % Saturation Unsat Iron Binding Ferritin Total Bilirubin AST ALT Alkaline Phosphatase Troponin I High Sens Total Protein Albumin TSH Free T4 Urine Color Urine Appearance Urine pH Ur Specific [place] Urine Protein Urine Glucose (UA) Urine Ketones Urine Blood Urine Nitrite Ur Leukocyte Esterase Urine RBC Urine WBC Urine WBC Clumps Ur Squamous Epith Cells Ur Transition Epith Cell Ur Renal Epithelial Cell Calcium Oxalate Crystal Leucine Crystals Cystine Crystals Tyrosine Crystals Other Crystals Urine Bacteria Urine Parasites Bilirubin Casts Epithelial Casts Fatty Casts Hyaline Casts Granular Casts Waxy Casts Broad Casts RBC Casts WBC Casts Other Casts Urine Trichomonas Urine Yeast Stool Occult Blood COVID-19 ([facility]) COVID-19 Clin Com Hep Bs Antigen Hep Bs Antibody Hep B Core Total Ab Blood Type Antibody Screen Crossmatch 06/13/22 06/13/22 06/13/22 07:34 11:36 15:24 WBC RBC Hgb Hct MCV MCH MCHC RDW Plt Count MPV Immature Gran % (Auto) Neut % (Auto) Lymph % (Auto) [place] % (Auto) Eos % (Auto) Baso % (Auto) Lymph # (Auto) [place] # (Auto) Eos # (Auto) Baso # (Auto) Abs Immat Gran (auto) Absolute Neuts (auto) Absolute Nucleated RBC Nucleated RBC % (auto) Smear Path Review PT INR APTT VBG pH VBG pCO2 VBG pO2 VBG HCO3 VBG O2 Saturation VBG Base Excess Sodium Potassium Chloride Carbon Dioxide Anion Gap BUN Creatinine Estim Creat Clear Calc Estimated GFR POC Glucose 143 H 189 H Random Glucose Fasting Glucose Estimat Average Glucose Hemoglobin A1c % Lactic Acid Calcium Iron TIBC % Saturation Unsat Iron Binding Ferritin Total Bilirubin AST ALT Alkaline Phosphatase Troponin I High Sens Total Protein Albumin TSH Free T4 Urine Color Urine Appearance Urine pH Ur Specific [place] Urine Protein Urine Glucose (UA) Urine Ketones Urine Blood Urine Nitrite Ur Leukocyte Esterase Urine RBC Urine WBC Urine WBC Clumps Ur Squamous Epith Cells Ur Transition Epith Cell Ur Renal Epithelial Cell Calcium Oxalate Crystal Leucine Crystals Cystine Crystals Tyrosine Crystals Other Crystals Urine Bacteria Urine Parasites Bilirubin Casts Epithelial Casts Fatty Casts Hyaline Casts Granular Casts Waxy Casts Broad Casts RBC Casts WBC Casts Other Casts Urine Trichomonas Urine Yeast Stool Occult Blood COVID-19 ([facility]) COVID-19 Clin Com Hep Bs Antigen Hep Bs Antibody Hep B Core Total Ab Blood Type O Positive Antibody Screen NEGATIVE Crossmatch See Detail 06/13/22 06/14/22 06/14/22 20:13 06:05 06:05 WBC 7.8 RBC 2.93 L D Hgb 8.9 L D Hct 27.5 L D MCV 93.9 MCH 30.4 MCHC 32.4 RDW 15.6 Plt Count 86 L MPV 11.4 Immature Gran % (Auto) Neut % (Auto) Lymph % (Auto) [place] % (Auto) Eos % (Auto) Baso % (Auto) Lymph # (Auto) [place] # (Auto) Eos # (Auto) Baso # (Auto) Abs Immat Gran (auto) Absolute Neuts (auto) Absolute Nucleated RBC 0.000 Nucleated RBC % (auto) 0.0 Smear Path Review PT INR APTT VBG pH VBG pCO2 VBG pO2 VBG HCO3 VBG O2 Saturation VBG Base Excess Sodium 140 Potassium 4.2 Chloride 109 H Carbon Dioxide 20 L Anion Gap 15 BUN 56 H Creatinine 4.37 H* Estim Creat Clear Calc 8.3 Estimated GFR 10 POC Glucose 181 H Random Glucose 195 H Fasting Glucose Estimat Average Glucose Hemoglobin A1c % Lactic Acid Calcium 7.1 L Iron TIBC % Saturation Unsat Iron Binding Ferritin Total Bilirubin AST ALT Alkaline Phosphatase Troponin I High Sens Total Protein Albumin 2.2 L TSH Free T4 Urine Color Urine Appearance Urine pH Ur Specific [place] Urine Protein Urine Glucose (UA) Urine Ketones Urine Blood Urine Nitrite Ur Leukocyte Esterase Urine RBC Urine WBC Urine WBC Clumps Ur Squamous Epith Cells Ur Transition Epith Cell Ur Renal Epithelial Cell Calcium Oxalate Crystal Leucine Crystals Cystine Crystals Tyrosine Crystals Other Crystals Urine Bacteria Urine Parasites Bilirubin Casts Epithelial Casts Fatty Casts Hyaline Casts Granular Casts Waxy Casts Broad Casts RBC Casts WBC Casts Other Casts Urine Trichomonas Urine Yeast Stool Occult Blood COVID-19 ([facility]) COVID-19 Clin Com Hep Bs Antigen Hep Bs Antibody Hep B Core Total Ab Blood Type Antibody Screen Crossmatch 06/14/22 06/14/22 06/14/22 08:02 12:16 15:51 WBC RBC Hgb Hct MCV MCH MCHC RDW Plt Count MPV Immature Gran % (Auto) Neut % (Auto) Lymph % (Auto) [place] % (Auto) Eos % (Auto) Baso % (Auto) Lymph # (Auto) [place] # (Auto) Eos # (Auto) Baso # (Auto) Abs Immat Gran (auto) Absolute Neuts (auto) Absolute Nucleated RBC Nucleated RBC % (auto) Smear Path Review PT INR APTT VBG pH VBG pCO2 VBG pO2 VBG HCO3 VBG O2 Saturation VBG Base Excess Sodium Potassium Chloride Carbon Dioxide Anion Gap BUN Creatinine Estim Creat Clear Calc Estimated GFR POC Glucose 167 H 155 H 145 H Random Glucose Fasting Glucose Estimat Average Glucose Hemoglobin A1c % Lactic Acid Calcium Iron TIBC % Saturation Unsat Iron Binding Ferritin Total Bilirubin AST ALT Alkaline Phosphatase Troponin I High Sens Total Protein Albumin TSH Free T4 Urine Color Urine Appearance Urine pH Ur Specific [place] Urine Protein Urine Glucose (UA) Urine Ketones Urine Blood Urine Nitrite Ur Leukocyte Esterase Urine RBC Urine WBC Urine WBC Clumps Ur Squamous Epith Cells Ur Transition Epith Cell Ur Renal Epithelial Cell Calcium Oxalate Crystal Leucine Crystals Cystine Crystals Tyrosine Crystals Other Crystals Urine Bacteria Urine Parasites Bilirubin Casts Epithelial Casts Fatty Casts Hyaline Casts Granular Casts Waxy Casts Broad Casts RBC Casts WBC Casts Other Casts Urine Trichomonas Urine Yeast Stool Occult Blood COVID-19 ([facility]) COVID-19 Clin Com Hep Bs Antigen Hep Bs Antibody Hep B Core Total Ab Blood Type Antibody Screen Crossmatch 06/14/22 06/15/22 06/15/22 20:37 06:25 06:25 WBC 8.8 RBC 2.55 L Hgb 7.9 L Hct 23.8 L MCV 93.3 MCH 31.0 MCHC 33.2 RDW 15.4 Plt Count 78 L MPV 10.9 Immature Gran % (Auto) Neut % (Auto) Lymph % (Auto) [place] % (Auto) Eos % (Auto) Baso % (Auto) Lymph # (Auto) [place] # (Auto) Eos # (Auto) Baso # (Auto) Abs Immat Gran (auto) Absolute Neuts (auto) Absolute Nucleated RBC 0.000 Nucleated RBC % (auto) 0.0 Smear Path Review PT INR APTT VBG pH VBG pCO2 VBG pO2 VBG HCO3 VBG O2 Saturation VBG Base Excess Sodium 134 L Potassium 3.4 Chloride 105 Carbon Dioxide 21 L Anion Gap 11 L BUN 37 H Creatinine 2.91 H Estim Creat Clear Calc 12.5 Estimated GFR 16 POC Glucose 172 H Random Glucose 267 H Fasting Glucose Estimat Average Glucose Hemoglobin A1c % Lactic Acid Calcium 7.6 L D Iron TIBC % Saturation Unsat Iron Binding Ferritin Total Bilirubin AST ALT Alkaline Phosphatase Troponin I High Sens Total Protein Albumin TSH Free T4 Urine Color Urine Appearance Urine pH Ur Specific [place] Urine Protein Urine Glucose (UA) Urine Ketones Urine Blood Urine Nitrite Ur Leukocyte Esterase Urine RBC Urine WBC Urine WBC Clumps Ur Squamous Epith Cells Ur Transition Epith Cell Ur Renal Epithelial Cell Calcium Oxalate Crystal Leucine Crystals Cystine Crystals Tyrosine Crystals Other Crystals Urine Bacteria Urine Parasites Bilirubin Casts Epithelial Casts Fatty Casts Hyaline Casts Granular Casts Waxy Casts Broad Casts RBC Casts WBC Casts Other Casts Urine Trichomonas Urine Yeast Stool Occult Blood COVID-19 ([facility]) COVID-19 Clin Com Hep Bs Antigen Hep Bs Antibody Hep B Core Total Ab Blood Type Antibody Screen Crossmatch 06/15/22 06/15/22 06/15/22 07:18 11:06 15:54 WBC RBC Hgb Hct MCV MCH MCHC RDW Plt Count MPV Immature Gran % (Auto) Neut % (Auto) Lymph % (Auto) [place] % (Auto) Eos % (Auto) Baso % (Auto) Lymph # (Auto) [place] # (Auto) Eos # (Auto) Baso # (Auto) Abs Immat Gran (auto) Absolute Neuts (auto) Absolute Nucleated RBC Nucleated RBC % (auto) Smear Path Review PT INR APTT VBG pH VBG pCO2 VBG pO2 VBG HCO3 VBG O2 Saturation VBG Base Excess Sodium Potassium Chloride Carbon Dioxide Anion Gap BUN Creatinine Estim Creat Clear Calc Estimated GFR POC Glucose 271 H 181 H 222 H Random Glucose Fasting Glucose Estimat Average Glucose Hemoglobin A1c % Lactic Acid Calcium Iron TIBC % Saturation Unsat Iron Binding Ferritin Total Bilirubin AST ALT Alkaline Phosphatase Troponin I High Sens Total Protein Albumin TSH Free T4 Urine Color Urine Appearance Urine pH Ur Specific [place] Urine Protein Urine Glucose (UA) Urine Ketones Urine Blood Urine Nitrite Ur Leukocyte Esterase Urine RBC Urine WBC Urine WBC Clumps Ur Squamous Epith Cells Ur Transition Epith Cell Ur Renal Epithelial Cell Calcium Oxalate Crystal Leucine Crystals Cystine Crystals Tyrosine Crystals Other Crystals Urine Bacteria Urine Parasites Bilirubin Casts Epithelial Casts Fatty Casts Hyaline Casts Granular Casts Waxy Casts Broad Casts RBC Casts WBC Casts Other Casts Urine Trichomonas Urine Yeast Stool Occult Blood COVID-19 ([facility]) COVID-19 Clin Com Hep Bs Antigen Hep Bs Antibody Hep B Core Total Ab Blood Type Antibody Screen Crossmatch 06/15/22 06/16/22 06/16/22 19:40 06:12 06:12 WBC 8.7 RBC 2.37 L Hgb 7.1 L Hct 22.1 L MCV 93.2 MCH 30.0 MCHC 32.1 RDW 15.7 Plt Count 85 L MPV 11.1 Immature Gran % (Auto) Neut % (Auto) Lymph % (Auto) [place] % (Auto) Eos % (Auto) Baso % (Auto) Lymph # (Auto) [place] # (Auto) Eos # (Auto) Baso # (Auto) Abs Immat Gran (auto) Absolute Neuts (auto) Absolute Nucleated RBC 0.000 Nucleated RBC % (auto) 0.0 Smear Path Review PT INR APTT VBG pH VBG pCO2 VBG pO2 VBG HCO3 VBG O2 Saturation VBG Base Excess Sodium 134 L Potassium 4.0 Chloride 103 Carbon Dioxide 19 L Anion Gap 16 BUN 54 H Creatinine 4.06 H* Estim Creat Clear Calc 8.9 Estimated GFR 11 POC Glucose 197 H Random Glucose 311 H Fasting Glucose Estimat Average Glucose Hemoglobin A1c % Lactic Acid Calcium 7.1 L D Iron TIBC % Saturation Unsat Iron Binding Ferritin Total Bilirubin AST ALT Alkaline Phosphatase Troponin I High Sens Total Protein Albumin TSH Free T4 Urine Color Urine Appearance Urine pH Ur Specific [place] Urine Protein Urine Glucose (UA) Urine Ketones Urine Blood Urine Nitrite Ur Leukocyte Esterase Urine RBC Urine WBC Urine WBC Clumps Ur Squamous Epith Cells Ur Transition Epith Cell Ur Renal Epithelial Cell Calcium Oxalate Crystal Leucine Crystals Cystine Crystals Tyrosine Crystals Other Crystals Urine Bacteria Urine Parasites Bilirubin Casts Epithelial Casts Fatty Casts Hyaline Casts Granular Casts Waxy Casts Broad Casts RBC Casts WBC Casts Other Casts Urine Trichomonas Urine Yeast Stool Occult Blood COVID-19 ([facility]) COVID-19 Clin Com Hep Bs Antigen Hep Bs Antibody Hep B Core Total Ab Blood Type Antibody Screen Crossmatch 06/16/22 06/16/22 06/16/22 07:33 08:38 10:55 WBC RBC Hgb Hct MCV MCH MCHC RDW Plt Count MPV Immature Gran % (Auto) Neut % (Auto) Lymph % (Auto) [place] % (Auto) Eos % (Auto) Baso % (Auto) Lymph # (Auto) [place] # (Auto) Eos # (Auto) Baso # (Auto) Abs Immat Gran (auto) Absolute Neuts (auto) Absolute Nucleated RBC Nucleated RBC % (auto) Smear Path Review PT INR APTT VBG pH VBG pCO2 VBG pO2 VBG HCO3 VBG O2 Saturation VBG Base Excess Sodium Potassium Chloride Carbon Dioxide Anion Gap BUN Creatinine Estim Creat Clear Calc Estimated GFR POC Glucose 297 H 268 H Random Glucose Fasting Glucose Estimat Average Glucose Hemoglobin A1c % Lactic Acid Calcium Iron TIBC % Saturation Unsat Iron Binding Ferritin Total Bilirubin AST ALT Alkaline Phosphatase Troponin I High Sens Total Protein Albumin TSH Free T4 Urine Color Urine Appearance Urine pH Ur Specific [place] Urine Protein Urine Glucose (UA) Urine Ketones Urine Blood Urine Nitrite Ur Leukocyte Esterase Urine RBC Urine WBC Urine WBC Clumps Ur Squamous Epith Cells Ur Transition Epith Cell Ur Renal Epithelial Cell Calcium Oxalate Crystal Leucine Crystals Cystine Crystals Tyrosine Crystals Other Crystals Urine Bacteria Urine Parasites Bilirubin Casts Epithelial Casts Fatty Casts Hyaline Casts Granular Casts Waxy Casts Broad Casts RBC Casts WBC Casts Other Casts Urine Trichomonas Urine Yeast Stool Occult Blood COVID-19 ([facility]) COVID-19 Clin Com Hep Bs Antigen Hep Bs Antibody Hep B Core Total Ab Blood Type O Positive Antibody Screen NEGATIVE Crossmatch See Detail 06/16/22 06/16/22 06/17/22 15:52 19:53 06:10 WBC 9.1 RBC 2.77 L Hgb 8.3 L Hct 25.2 L MCV 91.0 MCH 30.0 MCHC 32.9 RDW 15.2 Plt Count 91 L MPV 11.2 Immature Gran % (Auto) Neut % (Auto) Lymph % (Auto) [place] % (Auto) Eos % (Auto) Baso % (Auto) Lymph # (Auto) [place] # (Auto) Eos # (Auto) Baso # (Auto) Abs Immat Gran (auto) Absolute Neuts (auto) Absolute Nucleated RBC 0.000 Nucleated RBC % (auto) 0.0 Smear Path Review PT INR APTT VBG pH VBG pCO2 VBG pO2 VBG HCO3 VBG O2 Saturation VBG Base Excess Sodium Potassium Chloride Carbon Dioxide Anion Gap BUN Creatinine Estim Creat Clear Calc Estimated GFR POC Glucose 229 H 326 H Random Glucose Fasting Glucose Estimat Average Glucose Hemoglobin A1c % Lactic Acid Calcium Iron TIBC % Saturation Unsat Iron Binding Ferritin Total Bilirubin AST ALT Alkaline Phosphatase Troponin I High Sens Total Protein Albumin TSH Free T4 Urine Color Urine Appearance Urine pH Ur Specific [place] Urine Protein Urine Glucose (UA) Urine Ketones Urine Blood Urine Nitrite Ur Leukocyte Esterase Urine RBC Urine WBC Urine WBC Clumps Ur Squamous Epith Cells Ur Transition Epith Cell Ur Renal Epithelial Cell Calcium Oxalate Crystal Leucine Crystals Cystine Crystals Tyrosine Crystals Other Crystals Urine Bacteria Urine Parasites Bilirubin Casts Epithelial Casts Fatty Casts Hyaline Casts Granular Casts Waxy Casts Broad Casts RBC Casts WBC Casts Other Casts Urine Trichomonas Urine Yeast Stool Occult Blood COVID-19 ([facility]) COVID-19 Clin Com Hep Bs Antigen Hep Bs Antibody Hep B Core Total Ab Blood Type Antibody Screen Crossmatch 06/17/22 06/17/22 06/17/22 06:10 06:55 11:29 WBC RBC Hgb Hct MCV MCH MCHC RDW Plt Count MPV Immature Gran % (Auto) Neut % (Auto) Lymph % (Auto) [place] % (Auto) Eos % (Auto) Baso % (Auto) Lymph # (Auto) [place] # (Auto) Eos # (Auto) Baso # (Auto) Abs Immat Gran (auto) Absolute Neuts (auto) Absolute Nucleated RBC Nucleated RBC % (auto) Smear Path Review PT INR APTT VBG pH VBG pCO2 VBG pO2 VBG HCO3 VBG O2 Saturation VBG Base Excess Sodium 138 Potassium 4.2 Chloride 104 Carbon Dioxide 21 L Anion Gap 17 BUN 68 H Creatinine 5.02 H* Estim Creat Clear Calc 7.2 Estimated GFR 8 POC Glucose 250 H 106 Random Glucose 272 H Fasting Glucose Estimat Average Glucose Hemoglobin A1c % Lactic Acid Calcium 6.5 L D Iron TIBC % Saturation Unsat Iron Binding Ferritin Total Bilirubin AST ALT Alkaline Phosphatase Troponin I High Sens Total Protein Albumin TSH Free T4 Urine Color Urine Appearance Urine pH Ur Specific [place] Urine Protein Urine Glucose (UA) Urine Ketones Urine Blood Urine Nitrite Ur Leukocyte Esterase Urine RBC Urine WBC Urine WBC Clumps Ur Squamous Epith Cells Ur Transition Epith Cell Ur Renal Epithelial Cell Calcium Oxalate Crystal Leucine Crystals Cystine Crystals Tyrosine Crystals Other Crystals Urine Bacteria Urine Parasites Bilirubin Casts Epithelial Casts Fatty Casts Hyaline Casts Granular Casts Waxy Casts Broad Casts RBC Casts WBC Casts Other Casts Urine Trichomonas Urine Yeast Stool Occult Blood COVID-19 ([facility]) COVID-19 Clin Com Hep Bs Antigen Hep Bs Antibody Hep B Core Total Ab Blood Type Antibody Screen Crossmatch 06/17/22 14:44 WBC RBC Hgb Hct MCV MCH MCHC RDW Plt Count MPV Immature Gran % (Auto) Neut % (Auto) Lymph % (Auto) [place] % (Auto) Eos % (Auto) Baso % (Auto) Lymph # (Auto) [place] # (Auto) Eos # (Auto) Baso # (Auto) Abs Immat Gran (auto) Absolute Neuts (auto) Absolute Nucleated RBC Nucleated RBC % (auto) Smear Path Review PT INR APTT VBG pH VBG pCO2 VBG pO2 VBG HCO3 VBG O2 Saturation VBG Base Excess Sodium Potassium Chloride Carbon Dioxide Anion Gap BUN Creatinine Estim Creat Clear Calc Estimated GFR POC Glucose 94 Random Glucose Fasting Glucose Estimat Average Glucose Hemoglobin A1c % Lactic Acid Calcium Iron TIBC % Saturation Unsat Iron Binding Ferritin Total Bilirubin AST ALT Alkaline Phosphatase Troponin I High Sens Total Protein Albumin TSH Free T4 Urine Color Urine Appearance Urine pH Ur Specific [place] Urine Protein Urine Glucose (UA) Urine Ketones Urine Blood Urine Nitrite Ur Leukocyte Esterase Urine RBC Urine WBC Urine WBC Clumps Ur Squamous Epith Cells Ur Transition Epith Cell Ur Renal Epithelial Cell Calcium Oxalate Crystal Leucine Crystals Cystine Crystals Tyrosine Crystals Other Crystals Urine Bacteria Urine Parasites Bilirubin Casts Epithelial Casts Fatty Casts Hyaline Casts Granular Casts Waxy Casts Broad Casts RBC Casts WBC Casts Other Casts Urine Trichomonas Urine Yeast Stool Occult Blood COVID-19 ([facility]) COVID-19 Clin Com Hep Bs Antigen Hep Bs Antibody Hep B Core Total Ab Blood Type Antibody Screen Crossmatch Assessment and Plan Final Anesthetic Review Family History of Problems with Anesthesia: Unobtainable History of Problems with Anesthesia: No
[2022-06-17] MEDS: Albuterol Sulfate (0.083%) 2.5 MG/3 ML VIAL.NEB INHALE (17:10)
--- NOTE | 2022-06-17 18:04 | MHC.SHP ---
Pre-Procedural Eval Section A Date of Service: 06/17/22 The patient is an INPATIENT: Yes The History & Physical has been completed within 30 days and I have reviewed it.: Yes Section B Chief Complaint: ABHISHEK, hyperkalemia Allergies: Allergies Allergy/AdvReac Type Severity Reaction Status Date / Time iodine Allergy Unknown unkown Verified 06/07/22 13:25 [id number] Reductase AdvReac Mild myalgias Verified 06/07/22 13:25 Inhibitor Plan Diagnosis/Plan: Unchanged I have reviewed the history and physical and performed a pertinent physical examination on my patient. No changes have occurred unless specified. Time Spent With Patient Time: Total time managing care of this patient today ____ minutes.
--- NOTE | 2022-06-17 18:22 | W.PM.OPN ---
Operative Note Operative Note Date of Service: 06/17/22 Narrative: Procedure Description: EGD Indication: anemia, and melena Anesthesia: MAC FLEXIBLE TRANSORAL UPPER GASTROINTESTINAL ENDOSCOPY UPPER ENDOSCOPY Consent: Indications for the procedure and potential complications of bleeding, perforation, reaction to medications and missed diagnosis were discussed with the patient and informed consent was obtained. Instrument: Olympus GIF H 190 J mid size upper endoscope Monitoring: Vital signs and clinical assessment, continuous EKG monitoring, Pulse oximetry, Carbon Dioxide monitoring and blood pressure monitoring were done throughout the procedure. Procedure: The patient was placed in the left lateral decubitis position and pre-procedure medications were administered and a bite block was placed. The endoscope was inserted into the mouth and advanced under direct vision to the third part of duodenum. A careful inspection was made as the upper endoscope was withdrawn including a retroflexed examination of the proximal stomach; Findings and interventions are described below. Findings: Larynx:normal Esophagus: GE junction at 35 cm, diaphragm hiatus at 37 cm, erosive esophagitis at GEJ, with stricture at UES dilated by passing the scope--superficial tear noted. Stomach: Patchy gastric erythema with clean based antral ulcers 8-10 mm no active bleeding. One ulcer at the incisura, 8-10 mm with pigmented spot.. Biopsies were obtained. Grade 2 flap valve on retroflexed examination of the cardia. Duodenum: Duodenitis with several shallow non bleeding ulcers and erosions noted, no active bleeding, Intervention: Biopsies as noted above, dilation of upper esophagus Impression/Findings: esophageal stricture, cricopharyngeal area erosive esophagitis hiatal hernia gastric erosions and ulcers duodenitis and duodenal ulcers PLAN: high dose PPi e.g pantoprazole 40 mg bid, then can titrate down after 3 months can use carafate for 2 weeks if H pylori pos then treat check gastrin levels reflux precautions, sit upright for feeding may need further esophageal dilation at future date
[2022-06-17 20:18] LABS: Glucose, Whole Blood 164 mg/dL (60-115)
[2022-06-17 20:20] LABS: Glucose, Whole Blood 182 mg/dL (60-115)
[2022-06-18] VITALS (7 sets, daily range): BP systolic 125–165; BP diastolic 73–90; PULSE 70–98; RESP 18–20; TEMP 36.3–37.1; O2SAT 94–97
[2022-06-18] MEDS: Piperacillin Sodium/Tazobactam 2.25 GM in 0.9 % Sodium Chloride 50 ML IV ×3 (01:03→17:21)
[2022-06-18] MEDS: Acetaminophen 325 MG TABLET 975 MG PO (03:00)
[2022-06-18] MEDS: Omeprazole 40 MG CAPSULE.DR PO ×2 (06:17→17:23)
[2022-06-18 07:09] LABS: Hematocrit 25.6 % (37.0-47.0); Hemoglobin 8.7 g/dl (12.0-16.0); Mean Corpuscular Hemoglobin 30.6 pg (27.0-33.0); Mean Corpuscular Volume 90.1 fL (80.0-98.0); Mean Platelet Volume 11.3 fL (9.4-12.3); Platelet Count 105 X10*3/uL (160-400); Red Blood Count 2.84 X10*6/uL (4.20-5.50); Red Cell Distribution Width 15.2 % (11.0-16.0); White Blood Count 11.9 X10*3/uL (4.8-10.8)
[2022-06-18 07:47] LABS: Glucose, Whole Blood 173 mg/dL (60-115)
[2022-06-18] MEDS: 0.9 % Sodium Chloride Flush 3 ML SYRINGE IVFLUSH ×3 (08:08→22:21)
[2022-06-18] MEDS: Insulin Lispro 100 UNIT/ML 3 ML VIAL SUBCUT ×3 (08:08→17:23)
--- NOTE | 2022-06-18 08:51 | P.CDIC_ITS ---
CDI Concurrent Query Documentation Clarification: PHYSICIAN'S DOCUMENTATION REQUEST Date of Query: 06/18/22 0852 Patient Name: Jennifer Underwood Admit Date: 06/07/22 Dear Doctor, A review of the medical record indicates additional documentation may be needed. Please review below and update the documentation accordingly. 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 Progress note 06/16 & 06/17 - Assessment/plan: ESRD Plan: ABHISHEK on CKD IV, complicated by hyperkalemia and metaboic acidosis. Based on the above, could you clarify in the Progress Notes the appropriate diagnosis, if significant, that supports the above abnormalities and additional evaluation, monitoring, and/or treatment rendered: CKD 4 CKD 5 ESRD * Other (please specify) * Unable to determine Use of terms such as suspected, likely, concern for, or probable (associated with a specific diagnosis that is being evaluated, monitored, or treated as if it exists) are acceptable and can be coded in the inpatient setting, when documented at the time of discharge. Thank you, Catia López [facility], CDIS Extension: [phone] Please use your independent medical judgment in providing your response. THIS QUERY IS PART OF THE PERMANENT MEDICAL RECORD Provider Response: Other Other Diagnosis: ABHISHEK superimposed on CKD stage 5 vs ESRD on HD
--- NOTE | 2022-06-18 10:34 | PM.PNNEP ---
Subjective Subjective Date of Service: 06/18/22 Interval history: Events noted Physical Exam Vital Signs: Vital Signs: Last Vital Signs Temp 98.7 F 06/18/22 08:00 Pulse 76 06/18/22 08:00 Resp 18 06/18/22 08:00 BP 136/73 06/18/22 08:00 Pulse Ox 97 06/18/22 08:00 O2 Del Method 06/18/22 08:00 O2 Flow Rate 1 06/18/22 04:00 BMI result Body Mass Index 21.2 Const: General: ill appearing HEENT: Head: Yes normal to inspection Neck: Neck: Yes supple Resp: Auscultation: clear to auscultation bilaterally and no rales Cardio: Jugular venous distension: no JVD Palpation: no palpable S4 Heart sounds: no rubs GI: Inspection: Yes normal to inspection Auscultation: normal bowel sounds Skin: General skin exam: no rashes or lesions noted Neuro: General: tone normal and Unable to assess gait Gait exam (Neuro): Unable to assess gait Motor exam (neuro): no asterixis Objective Data Labs 06/18/22 06:17 06/17/22 06:10 Labs: Laboratory Results - last 24 hr 06/17/22 06/17/22 06/17/22 11:29 14:44 19:33 WBC RBC Hgb Hct MCV MCH MCHC RDW Plt Count MPV Absolute Nucleated RBC Nucleated RBC % (auto) POC Glucose 106 94 164 H 06/17/22 06/18/22 06/18/22 20:16 06:17 07:43 WBC 11.9 H RBC 2.84 L Hgb 8.7 L Hct 25.6 L MCV 90.1 MCH 30.6 MCHC 34.0 RDW 15.2 Plt Count 105 L MPV 11.3 Absolute Nucleated RBC 0.000 Nucleated RBC % (auto) 0.0 POC Glucose 182 H 173 H Microbiology Microbiology Results: Microbiology 06/10/22 22:48 Blood - Venous Blood Culture - Final No growth after 5 days. 06/10/22 22:48 Blood - Venous Blood Culture - Final No growth after 5 days. 06/07/22 15:55 Urine clean catch - Urine palacios top Urine Culture - Final Procedures Date of Service Date of Service: 06/18/22 Assessment & Plan Assessment and plan (1) Chronic kidney disease (CKD) stage G4/A1, severely decreased glomerular filtration rate (GFR) between 15-29 mL/min/1.73 square meter and albuminuria creatinine ratio less than 30 mg/g: Status: Acute Plan ABHISHEK superimposed on advanced CKD versus ESRD commenced on dialysis anemia due to CKD REC HD tomorrow UF as tolerated need dialysis tunnelled catheter blood transfusion as needed will need outpatient HD placement (depending on disposition may need rehab at [facility]) Time Spent With Patient Time: Total time managing care of this patient today ____ minutes. Progress Note: Quality Stroke Does the patient have a stroke diagnosis?: No
[2022-06-18] MEDS: Levothyroxine Sodium 100 MCG/5 ML VIAL IVPUSH (11:03)
[2022-06-18 11:22] LABS: Glucose, Whole Blood 186 mg/dL (60-115)
[2022-06-18] MEDS: Sucralfate 1 GM TABLET PO ×3 (11:58→22:21)
--- NOTE | 2022-06-18 14:18 | HO.POSTANES ---
Post Anesthesia Evaluation Post Anesthesia Evaluation Vital Signs: Vital Signs Temp Pulse Resp BP Pulse Ox O2 Del Method O2 Flow Rate 06/18/22 12:00 98.6 F 70 18 127/82 97 Room Air 06/18/22 08:00 98.7 F 76 18 136/73 97 Room Air 06/18/22 04:00 75 95 Nasal Cannula 1 Anesthesia: Monitored Mental Status: Awake Pain Control: Satisfactory Nausea/Vomiting: None Hydration: Adequate Anesthesia-Related Issues: No Anes. Related Issues
--- NOTE | 2022-06-18 15:10 | P.PNIM_ITS ---
Subjective Subjective Date of Service: 06/18/22 Interval History: the patient was seen and evaluated this morning Laying in bed, more alert and interactive Hemoglobin stable at 8.7 no reported bleeding No reported other overnight events. Review of Systems Review of Systems: Yes all other systems are reviewed and are negative Physical Exam Vital Signs: Vital Signs: Last Vital Signs Temp 98.6 F 06/18/22 12:00 Pulse 98 06/18/22 14:13 Resp 18 06/18/22 12:00 BP 127/82 06/18/22 12:00 Pulse Ox 94 06/18/22 14:13 O2 Del Method 06/18/22 12:00 O2 Flow Rate 1 06/18/22 04:00 BMI result Body Mass Index 21.2 Const: Other: Constitutional : Awake, interactive, frail Neck : Normal inspection, Supple, PermCath in place in chest wall no bleeding or erythema Cardiovascular : RRR, no JVP, no lower extremity edema Respiratory : good bilateral air entry, fine crackles Gastrointestinal: soft, lax, Normal bowel sounds, Non tender Skin : Warm, Dry Neurological : Alert & oriented to self and place, No focal deficit Objective Data Active Medications Acetaminophen (Acetaminophen Supp 650 Mg Supp.Rect) 650 mg [place] Q8H PRN PRN Reason: Fever Last Admin: 06/10/22 22:22 Dose: 650 mg Documented By: SHAUNA Amlodipine Besylate (Amlodipine Besylate 2.5 Mg Tablet) 2.5 mg PO DAILY [facility]; Protocol Last Admin: 06/16/22 08:07 Dose: 2.5 mg Documented By: AMY Calcium Carbonate (Calcium Carbonate 500 Mg Tablet) 500 mg PO BID [facility] Last Admin: 06/18/22 08:08 Dose: 500 mg Documented By: AMY Dextrose (Dextrose 50 % 25 Gm/50 Ml Syringe) 25 gm IVPUSH Q15M PRN; Protocol PRN Reason: per Hypoglycemia Standing Ord. Glucose (Glucose Gel 15 Gm Gel..Gram.) 15 gm PO Q15M PRN; Protocol PRN Reason: per Hypoglycemia Standing Ord. Piperacillin Sod/Tazobactam (Sod 2.25 gm/ Sodium Chloride) 50 mls @ 100 mls/hr IV Q8H [facility] Last Infusion: 06/18/22 12:01 Dose: 0 mls/hr Documented By: AMY Insulin Human Lispro (Insulin Lispro 100 Unit/Ml 3 Ml Vial) 0 unit SUBCUT QIDACHS [facility]; Protocol Last Admin: 06/18/22 11:58 Dose: 2 unit Documented By: AMY Levothyroxine Sodium (Levothyroxine Sodium 100 Mcg/5 Ml Vial) 100 mcg IVPUSH DAILY@1000 [facility] Last Admin: 06/18/22 11:03 Dose: 100 mcg Documented By: AMY Omeprazole (Omeprazole 40 Mg Capsule.) 40 mg PO BID@0630,1630 [facility] Last Admin: 06/18/22 06:17 Dose: 40 mg Documented By: DARCY Pharmacy Consult (Consult Rx Perform Med Rec) 1 each MISCELLANE ONCE PRN PRN Reason: Consult order Polyethylene Glycol (Polyethylene Glycol 3350 17 Gm Powd.Pack) 17 gm PO DAILY [facility] Last Admin: 06/18/22 08:10 Dose: Not Given Documented By: AMY Non-Admin Reason: pt having loose stools Sodium Chloride (0.9 % Sodium Chloride Flush 3 Ml Syringe) 3 ml IVFLUSH QSHIFT [facility] Last Admin: 06/18/22 08:08 Dose: 3 ml Documented By: MAY Sucralfate (Sucralfate 1 Gm Tablet) 1 gm PO QIDAS [facility] Last Admin: 06/18/22 11:58 Dose: 1 gm Documented By: AMY Labs 06/18/22 06:17 06/17/22 06:10 Labs: Laboratory Results - last 24 hr 06/17/22 06/17/22 06/18/22 19:33 20:16 06:17 MCV 90.1 MCH 30.6 MCHC 34.0 RDW 15.2 Plt Count 105 L MPV 11.3 Absolute Nucleated RBC 0.000 Nucleated RBC % (auto) 0.0 POC Glucose 164 H 182 H 06/18/22 06/18/22 07:43 11:18 MCV MCH MCHC RDW Plt Count MPV Absolute Nucleated RBC Nucleated RBC % (auto) POC Glucose 173 H 186 H Assessment and Plan (1) Acute on chronic blood loss anemia: Status: Acute (2) Hypothyroidism: Status: Acute (3) Dysphagia: Status: Acute (4) ESRD needing dialysis: Status: Acute (5) Toxic metabolic encephalopathy: Status: Acute (6) Multiple gastric ulcers: Status: Acute Plan 81F PMH CKD III, hypothyroid, dementia, HTN, DM (not on meds) presented with failure to thrive, found to have severe ABHISHEK with hypoerkalemia, met. acidosis, anemia Acute on chronic blood loss anemia\GI bleed likely related to advanced CKD iron studies - mixed with signs of inflammation and iron defeciency s/p 5 units prbc, hgb 8.7 monitor H&H GI input appreciated; EGD showed Esophagitis, esophageal stricture, Gastric and duodenal ulcers w duodenitis PPI, Carafate pending Gastrin level may need further esophageal dilation in future metabolic encephalopathy Multifactorial; Uremia, Hypothyroidism, Acidosis, meds resolved recurrent reorientation ABHISHEK on CKD V vs ESRD on HD Continue HD, Permacath in place continue Bicarb for acidosis monitor bmp Nephrology input appreciated , start planning for outpatient dialysis acute hypoxic resp failure wean down O2 Continue Zosyn finish 06/20 Cultures negative Dysphagia MPS this was done VASCULAR NURSE recommended modified diet Aspiration precautions Frailty PT eval pending placement encourage oral intake hypothyroid TSH 53, suspect due to non compliance change iv synthroid to PO repeat tsh in 4 weeks HTN holding amlodipnie for now, monitor, restart whne bp increased DM a1c now 6.2,not on meds alzheimers dementia at risk for delerium, monitor dvt prophylaxis- hep sq DNR/DNI reason for continued hospitalization: Needs dialysis and resolution of lung infection pending safe discharge plan Time Spent With Patient Time: Total time managing care of this patient today ____ minutes. Quality Stroke Does the patient have a stroke diagnosis?: No VTE Prior VTE?: No VTE Risk Level:: Medical - moderate - high VTE Device Contraindication: Treatment Not Indicated VTE Drug Contraindication: N/A - Med Ordered
[2022-06-18 15:28] LABS: Glucose, Whole Blood 266 mg/dL (60-115)
--- NOTE | 2022-06-18 17:06 | MHC.SLORD ---
Speech Language Pathology Order Status: Attempted to see pt. pm., patient sleeping at time of visit. Will continue to follow.
[2022-06-18 21:31] LABS: Glucose, Whole Blood 89 mg/dL (60-115)
[2022-06-18 23:19] LABS: Bullous Pemphigoid BP 230 Ab <9 U/mL (<9)
[2022-06-19] VITALS: BP 153/86; PULSE 105; RESP 18; TEMP 36.4; O2SAT 97
[2022-06-19] MEDS: Piperacillin Sodium/Tazobactam 2.25 GM in 0.9 % Sodium Chloride 50 ML IV (02:59)
[2022-06-19 03:45] VITALS: BP 153/86; PULSE 76; RESP 18; TEMP 36.4; O2SAT 97
[2022-06-19] MEDS: Omeprazole 40 MG CAPSULE.DR PO (06:28)
[2022-06-19] MEDS: Levothyroxine Sodium 125 MCG TABLET PO (06:28)
[2022-06-19] MEDS: Morphine Sulfate 2 MG/ML CARTRIDGE 1 MG IVPUSH (06:46)
[2022-06-19 07:17] VITALS: BP 152/83; PULSE 86; RESP 19; TEMP 36.6; O2SAT 95
[2022-06-19 07:34] LABS: Hematocrit 27.2 % (37.0-47.0); Hemoglobin 9.1 g/dl (12.0-16.0); Mean Corpuscular HGB Conc 33.5 g/dl (31.0-35.0); Mean Corpuscular Hemoglobin 29.8 pg (27.0-33.0); Mean Corpuscular Volume 89.2 fL (80.0-98.0); Mean Platelet Volume 11.1 fL (9.4-12.3); Platelet Count 126 X10*3/uL (160-400); Red Blood Count 3.05 X10*6/uL (4.20-5.50); Red Cell Distribution Width 15.5 % (11.0-16.0); White Blood Count 12.9 X10*3/uL (4.8-10.8)
[2022-06-19 07:48] LABS: Glucose, Whole Blood 126 mg/dL (60-115)
[2022-06-19 08:06] LABS: Anion Gap 15 (12-20); Blood Urea Nitrogen 40 mg/dL (9-16); Calcium 7.2 mg/dL (8.4-10.2); Carbon Dioxide 21 mmol/L (22-29); Chloride 107 mmol/L (96-108); Creatinine Clr Calc Pharmacy 9.1; Estimated Glomerular Filt Rate 11; Glucose Random 137 mg/dL (60-115); Potassium 3.6 mmol/L (3.3-5.1); Sodium 139 mmol/L (135-145)
[2022-06-19] MEDS: Acetaminophen Supp 650 MG SUPP.RECT PR (08:51)
--- NOTE | 2022-06-19 10:46 | W.PM.DNNEP ---
Subjective Subjective This patient was seen during dialysis. Interval history: the patient was seen and evaluated this morning Laying in bed, more alert and interactive Hemoglobin stable at 8.7 no reported bleeding No reported other overnight events. Physical Exam Vital Signs: Vital Signs: Last Vital Signs Temp 97.9 F 06/19/22 07:17 Pulse 86 06/19/22 07:17 Resp 19 06/19/22 07:17 BP 152/83 H 06/19/22 07:17 Pulse Ox 95 06/19/22 07:17 O2 Del Method 06/19/22 07:17 O2 Flow Rate 1 06/18/22 04:00 BMI result Body Mass Index 21.2 Const: General: ill appearing HEENT: Head: Yes normal to inspection Neck: Neck: Yes supple Resp: Auscultation: clear to auscultation bilaterally and no rales Cardio: Jugular venous distension: no JVD Palpation: no palpable S4 Heart sounds: no rubs GI: Inspection: Yes normal to inspection Auscultation: normal bowel sounds Skin: General skin exam: no rashes or lesions noted Neuro: General: tone normal and Unable to assess gait Gait exam (Neuro): Unable to assess gait Motor exam (neuro): no asterixis Assessment & Plan Assessment and plan (1) Chronic kidney disease (CKD) stage G4/A1, severely decreased glomerular filtration rate (GFR) between 15-29 mL/min/1.73 square meter and albuminuria creatinine ratio less than 30 mg/g: Status: Acute Plan ABHISHEK superimposed on advanced CKD versus ESRD commenced on dialysis anemia due to CKD REC HD MWF UF as tolerated blood transfusion as needed will need outpatient HD placement (depending on disposition may need rehab at [facility] or [facility]) Time Spent With Patient Time: Total time managing care of this patient today ____ minutes. Procedures Date of Service Date of Service: 06/19/22
--- NOTE | 2022-06-19 11:03 | HO.PM.IMPN ---
Subjective Subjective Date of Service: 06/19/22 Interval History: cc: ams interval history:feeling cold Physical Exam Vital Signs: Vital Signs: Last Vital Signs Temp 97.9 F 06/19/22 07:17 Pulse 86 06/19/22 07:17 Resp 19 06/19/22 07:17 BP 152/83 H 06/19/22 07:17 Pulse Ox 95 06/19/22 07:17 O2 Del Method 06/19/22 07:17 O2 Flow Rate 1 06/18/22 04:00 BMI result Body Mass Index 21.2 General: AO X 2, frail, ill appearing, far more alert and verbal than on admission Resp: diminished bilateral, no accessory muscles used CVS: S1,S2,RRR GI: soft, non tender, non distended Psych: mipaired insight Objective Data Active Medications Acetaminophen (Acetaminophen Supp 650 Mg Supp.Rect) 650 mg [place] Q8H PRN PRN Reason: Fever Last Admin: 06/19/22 08:51 Dose: 650 mg Documented By: GM Amlodipine Besylate (Amlodipine Besylate 2.5 Mg Tablet) 2.5 mg PO DAILY [facility]; Protocol Last Admin: 06/16/22 08:07 Dose: 2.5 mg Documented By: AMY Calcium Carbonate (Calcium Carbonate 500 Mg Tablet) 500 mg PO BID [facility] Last Admin: 06/19/22 09:00 Dose: Not Given Documented By: GM Non-Admin Reason: Off unit: Dialysis Dextrose (Dextrose 50 % 25 Gm/50 Ml Syringe) 25 gm IVPUSH Q15M PRN; Protocol PRN Reason: per Hypoglycemia Standing Ord. Glucose (Glucose Gel 15 Gm Gel..Gram.) 15 gm PO Q15M PRN; Protocol PRN Reason: per Hypoglycemia Standing Ord. Piperacillin Sod/Tazobactam (Sod 2.25 gm/ Sodium Chloride) 50 mls @ 100 mls/hr IV Q8H [facility] Last Infusion: 06/19/22 03:32 Dose: 0 mls/hr Documented By: GERALDO Insulin Human Lispro (Insulin Lispro 100 Unit/Ml 3 Ml Vial) 0 unit SUBCUT QIDACHS [facility]; Protocol Last Admin: 06/19/22 08:59 Dose: Not Given Documented By: GM Non-Admin Reason: No Insulin Coverage Levothyroxine Sodium (Levothyroxine Sodium 125 Mcg Tablet) 125 mcg PO DAILY@0600 [facility] Last Admin: 06/19/22 06:28 Dose: 125 mcg Documented By: GERALDO Omeprazole (Omeprazole 40 Mg Capsule.Dr) 40 mg PO BID@0630,1630 [facility] Last Admin: 06/19/22 06:28 Dose: 40 mg Documented By: GERALDO Pharmacy Consult (Consult Rx Perform Med Rec) 1 each MISCELLANE ONCE PRN PRN Reason: Consult order Polyethylene Glycol (Polyethylene Glycol 3350 17 Gm Powd.Pack) 17 gm PO DAILY [facility] Last Admin: 06/19/22 09:00 Dose: Not Given Documented By: GM Non-Admin Reason: Off unit: Dialysis Sodium Chloride (0.9 % Sodium Chloride Flush 3 Ml Syringe) 3 ml IVFLUSH QSHIFT [facility] Last Admin: 06/19/22 09:00 Dose: Not Given Documented By: GM Non-Admin Reason: Off unit: Dialysis Sucralfate (Sucralfate 1 Gm Tablet) 1 gm PO QIDACHS [facility] Last Admin: 06/19/22 09:00 Dose: Not Given Documented By: GM Non-Admin Reason: Off unit: Dialysis Labs 06/19/22 07:15 06/19/22 07:15 Labs: Laboratory Results - last 24 hr 06/12/22 06/18/22 06/18/22 03:23 11:18 15:24 MCV MCH MCHC RDW Plt Count MPV Absolute Nucleated RBC Nucleated RBC % (auto) Anion Gap Estim Creat Clear Calc Estimated GFR POC Glucose 186 H 266 H Random Glucose Calcium Pemphigoid (BP 230) Ab <9 06/18/22 06/19/22 06/19/22 21:27 07:15 07:15 MCV 89.2 MCH 29.8 MCHC 33.5 RDW 15.5 Plt Count 126 L MPV 11.1 Absolute Nucleated RBC 0.000 Nucleated RBC % (auto) 0.0 Anion Gap 15 Estim Creat Clear Calc 9.1 Estimated GFR 11 POC Glucose 89 Random Glucose 137 H Calcium 7.2 L D Pemphigoid (BP 230) Ab 06/19/22 07:20 MCV MCH MCHC RDW Plt Count MPV Absolute Nucleated RBC Nucleated RBC % (auto) Anion Gap Estim Creat Clear Calc Estimated GFR POC Glucose 126 H Random Glucose Calcium Pemphigoid (BP 230) Ab Assessment and Plan (1) Acute on chronic blood loss anemia: Status: Acute (2) Hypothyroidism: Status: Acute (3) Dysphagia: Status: Acute (4) ESRD needing dialysis: Status: Acute (5) Toxic metabolic encephalopathy: Status: Acute (6) Multiple gastric ulcers: Status: Acute Plan 81F PMH CKD III, hypothyroid, dementia, HTN, DM (not on meds) presented with failure to thrive, found to have severe ABHISHEK with hyperkalemia, met. acidosis, anemia Acute on chronic blood loss anemia\GI bleed s/p 5 units prbc GI input appreciated; EGD showed Esophagitis, esophageal stricture, Gastric and duodenal ulcers w duodenitis PPI, Carafate pending Gastrin level may need further esophageal dilation in future hgb stable metabolic encephalopathy Multifactorial; Uremia, Hypothyroidism, Acidosis, meds resolved recurrent reorientation ABHISHEK on CKD V vs ESRD on HD Continue HD, Permacath in place now ESRD acute hypoxic resp failure due to dysphagia and aspiration pneumonia zosyn pureed solids, thin liquids hypothyroid TSH 53, suspect due to non compliance restarted synthroid 125mcg daily repeat tsh in 3 weeks HTN holding amlodipnie for now, bp fluctating DM a1c now 6.2,not on meds alzheimers dementia at risk for delerium, monitor dvt prophylaxis- mechanical due to gi bleed DNR/DNI reason for continued hospitalization: pending safe discharge plan Time Spent With Patient Time: Total time managing care of this patient today ____ minutes. Quality Stroke Does the patient have a stroke diagnosis?: No VTE Prior VTE?: No VTE Risk Level:: Medical - moderate - high VTE Device Contraindication: Treatment Not Indicated VTE Drug Contraindication: N/A - Med Ordered
--- NOTE | 2022-06-19 11:13 | PM.DS ---
DS: Providers Provider Date of Service: 06/19/22 Date of admission: 06/07/22 14:29 Primary care physician: Kwesi Li MD Consults: 06/07/22 12:49 Consult to Nephrology Stat Consulting Provider: Jessica Bah Reason for consultation: renal failure Has provider been notified: Yes 06/14/22 07:55 Consult to Gastroenterology Routine Consulting Provider: Tess Weaver Reason for consultation: Melena, blood loss anemia. for your kind eval and rec. DS: Diagnosis Discharge Diagnosis (1) Acute on chronic blood loss anemia: Status: Acute (2) Hypothyroidism: Status: Acute (3) Dysphagia: Status: Acute (4) ESRD needing dialysis: Status: Acute (5) Toxic metabolic encephalopathy: Status: Acute (6) Multiple gastric ulcers: Status: Acute DS: Summary Hospital Course Hospital Course: from initial hpi: Chief Complaint: lethargy 81F PMH CKD III, hypothyroid, dementia, HTN, DM (not on meds) presented with failure to thrive. history obtained from patient's son, Michael. at baseline, patient has mild to moderate dementia, ambulates independently, forgetful. over past few months has been declining and son started taking care of things like bills and some health care. over past 2 weeks patient's decline has accelerated, increased lethargy, no motivation to do anything, decreased appetite. denies sob, chest pain, fever, chills. in ED found to have creatining of 10.83, potassium 6.1, hgb 6.1. BUN 179. hospital course: Patient was admitted for metabolic encephalopathy. Which was multifactorial due to acute kidney injury with hyperkalemia and metabolic acidosis on CKD 5 complicated by uremia, hypothyroidism, Alzheimer's dementia with delirium. Also noted to have severe anemia. Patient underwent urgent dialysis and mental status improved slowly. PermCath placement patient will continue dialysis as outpatient. Likely end-stage renal disease at this point. Patient's anemia was multifactorial, due to CKD and acute on chronic blood loss anemia. She underwent EGD which showed esophagitis, esophageal stricture, gastric and duodenal ulcers with duodenitis. She was given PPI and Carafate. She was transfused 5 units total PRBC. Hemoglobin has been stable. She will follow up with GI for gastrin level and possible esophageal dilatation. Course was complicated by acute hypoxic respiratory failure due to aspiration pneumonia. She was treated with Zosyn. She was seen by speech recommended. Solids with thin liquids. For patient's hypothyroidism she was noted to have a TSH of 53. This was likely due to noncompliance and she has been restarted on her levothyroxine 125 mcg daily and TSH should be repeated in about 3 weeks. For hypertension her low-dose amlodipine was held due to fluctuating blood pressures, could be restarted as outpatient. For diabetes she is not on meds at home, A1c now 6.2. Patient is now close to her baseline mentally, though with significant deconditioning and will be discharged to skilled nurse facility for short-term rehab. Time Spent with Patient Time attestation: Total time managing care of this patient today ____ minutes. Discharge coordination time: Greater than 30 minutes Quality: Safe Use of Opioids Does Pt have an Active Cancer Diagnosis on the Problem List?: No Quality: Stroke Does the patient have a stroke diagnosis?: No Physical Exam Vital Signs: Vital Signs: Last Vital Signs Temp 97.9 F 06/19/22 07:17 Pulse 86 06/19/22 07:17 Resp 19 06/19/22 07:17 BP 152/83 H 06/19/22 07:17 Pulse Ox 95 06/19/22 07:17 O2 Del Method 06/19/22 07:17 O2 Flow Rate 1 06/18/22 04:00 BMI result Body Mass Index 21.2 General: AO X 2, frail, ill appearing, far more alert and verbal than on admission Resp: diminished bilateral, no accessory muscles used CVS: S1,S2,RRR GI: soft, non tender, non distended Psych: mipaired insight DS: Data Data Completed and Pending Pending studies at discharge: Pending at discharge 06/17/22 18:22 Surgical [PTH] Routine Labs on day of discharge: Laboratory Results - last 24 hr 06/12/22 06/18/22 06/18/22 03:23 11:18 15:24 WBC RBC Hgb Hct MCV MCH MCHC RDW Plt Count MPV Absolute Nucleated RBC Nucleated RBC % (auto) Sodium Potassium Chloride Carbon Dioxide Anion Gap BUN Creatinine Estim Creat Clear Calc Estimated GFR POC Glucose 186 H 266 H Random Glucose Calcium Pemphigoid (BP 230) Ab <9 06/18/22 06/19/22 06/19/22 21:27 07:15 07:15 WBC 12.9 H RBC 3.05 L Hgb 9.1 L Hct 27.2 L MCV 89.2 MCH 29.8 MCHC 33.5 RDW 15.5 Plt Count 126 L MPV 11.1 Absolute Nucleated RBC 0.000 Nucleated RBC % (auto) 0.0 Sodium 139 Potassium 3.6 Chloride 107 Carbon Dioxide 21 L Anion Gap 15 BUN 40 H Creatinine 4.01 H* Estim Creat Clear Calc 9.1 Estimated GFR 11 POC Glucose 89 Random Glucose 137 H Calcium 7.2 L D Pemphigoid (BP 230) Ab 06/19/22 07:20 WBC RBC Hgb Hct MCV MCH MCHC RDW Plt Count MPV Absolute Nucleated RBC Nucleated RBC % (auto) Sodium Potassium Chloride Carbon Dioxide Anion Gap BUN Creatinine Estim Creat Clear Calc Estimated GFR POC Glucose 126 H Random Glucose Calcium Pemphigoid (BP 230) Ab Discharge Plan Discharge Anticipated Discharge Date/Time: 06/19/22 11:09 Patient Disposition: Xfer SNF Discharge Diagnosis: metabolic encephalopathy, anemia, gi bleed, tyesha Referrals: [facility] [Outside] - 1 Week Kwesi Li MD [Primary Care Provider] - 1 Week Discharge Medications: New calcium carbonate [Oyster Shell Calcium 500] 500 mg calcium (1,250 mg) Tablet 500 mg PO BID Qty: 0 0RF sucralfate 1 gram Tablet 1 g PO QIDACHS Qty: 0 0RF omeprazole 40 mg Capsule,Delayed Release(Dr/Ec) 40 mg PO BID@0630,1630 Qty: 0 0RF Continued amlodipine 2.5 mg tablet 1 tab PO DAILY levothyroxine 125 mcg tablet 1 tab PO DAILY@0600 Discharge Orders: Discharge Order (Routine); Ordered 06/19/22 Ordered By: Rodriguez Castorena Diet: pureed Activity on Discharge: As tolerated Stand Alone Forms: Patient Portal Discharge page Care Plan Goals: recovery Health Concerns: gi bleed, esrd, hypothyroid Plan of Treatment: meds as prescribed, follow up with gi, nephro, check tsh begining of july Assessment: see above
--- NOTE | 2022-06-19 11:38 | MHC.CM.PN ---
Patient has been medically cleared for dc to SNF/STR today. Patient will dc to [facility] (with onsite HD) today at 2PM, via [facility]. Patient and her Son/HCP/Michael @ [phone] are aware of and in agreement with the dc plan. IMM has been addressed.
[2022-06-19] MEDS: Sucralfate 1 GM TABLET PO (12:16)
[2022-06-19 12:56] LABS: COVID-19 Test Negative (Negative); IDNOW Serial# BCCEAD1C
[2022-06-19 13:05] VITALS: BP 116/59; PULSE 84; RESP 18; TEMP 36.4; O2SAT 90
[2022-06-19 13:22] VITALS: O2SAT 92
--- NOTE | 2022-06-19 13:35 | MHC.SLORD ---
Addendum entered and electronically signed by Saira Khan MA, CCC-[employer] 06/20/22 11:54: D.S. Original Note: Speech Language Pathology Order Status: Attempted to see pt 2X. Pt initially away for dialysis then did not awake for PO trials. RN reports that pt tolerated meds crushed w/ puree and 4-5 bites of puree lunch tray. RN reports pt very lethargic this date. [employer] will continue to follow.
[2022-06-24 12:09] LABS: Gastrin 65 pg/mL (<=100)
== END 2022-06-19 14:30 | disposition skilled nursing facility (03) | DRG 673 ==
LOC: HO.ED 14:19 → HO.EDOVER 14:52 → HO.IMC 15:16
PROVIDERS: Internal Medicine; Internal Medicine Gastroenterology; Internal Medicine Nephrology; Radiology Diagnostic Radiology; Student in an Organized Health Care Education/Training Program; Admitting Provider Internal Medicine; Emergency Provider Emergency Medicine; PCP Internal Medicine; Visit Provider Internal Medicine
PROC: 0JH63XZ Insertion of Tunneled Vascular Access Device into Chest Subcutaneous Tissue and Fascia, Percutaneous Approach (ICD-10-PCS; principal; 2022-06-07 14:30)
PROC: 0DB78ZX Excision of Stomach, Pylorus, Via Natural or Artificial Opening Endoscopic, Diagnostic (ICD-10-PCS; principal; 2022-06-17 14:00)
DX: I12.0 Hypertensive chronic kidney disease with stage 5 chronic kidney disease or end stage renal disease (principal); G92.8 Other toxic encephalopathy; J69.0 Pneumonitis due to inhalation of food and vomit; J96.01 Acute respiratory failure with hypoxia; N18.6 End stage renal disease; K22.11 Ulcer of esophagus with bleeding; K25.4 Chronic or unspecified gastric ulcer with hemorrhage; K26.4 Chronic or unspecified duodenal ulcer with hemorrhage; K29.81 Duodenitis with bleeding; N17.9 Acute kidney failure, unspecified; D62 Acute posthemorrhagic anemia; E87.20 Acidosis, unspecified; F05 Delirium due to known physiological condition; E87.5 Hyperkalemia; D63.1 Anemia in chronic kidney disease; E83.52 Hypercalcemia; E03.9 Hypothyroidism, unspecified; Z66 Do not resuscitate; G30.9 Alzheimer's disease, unspecified; R13.10 Dysphagia, unspecified; E86.1 Hypovolemia; I95.3 Hypotension of hemodialysis; R00.0 Tachycardia, unspecified; D72.829 Elevated white blood cell count, unspecified; E11.65 Type 2 diabetes mellitus with hyperglycemia; R54 Age-related physical debility; Z99.2 Dependence on renal dialysis; F02.B0 Dementia in other diseases classified elsewhere, moderate, without behavioral disturbance, psychotic disturbance, mood disturbance, and anxiety; K44.9 Diaphragmatic hernia without obstruction or gangrene; R62.7 Adult failure to thrive; Z68.21 Body mass index [BMI] 21.0-21.9, adult; E11.22 Type 2 diabetes mellitus with diabetic chronic kidney disease; Z20.822 Contact with and (suspected) exposure to COVID-19; Z91.14 Patient's other noncompliance with medication regimen; Z87.891 Personal history of nicotine dependence; Z88.8 Allergy status to other drugs, medicaments and biological substances; Z79.890 Hormone replacement therapy; Z79.899 Other long term (current) drug therapy
CPT/HCPCS: 36415; 36556; 36558; 71045; 74230; 76775; 76937; 80048; 80053; 81001; 82040; 82272; 82728; 82803; 82941; 82947; 83036; 83520; 83540; 83605; 84439; 84443; 84484; 85025; 85027; 85610; 85730; 86704; 86706; 86850; 86900; 86901; 86923; 87040; 87086; 87340; 87635; 88305; 88342; 90935; 90999; 92526; 92610; 92611; 93005; 94640; 96360; 96361; 97163; 99285; C1750; C1752; C1758; C1769; J0295; J1643; J2270; J2543; J2920; J3010; P9016